=== PATIENT | male | born 1950 | race Caucasian/White ===

== ENCOUNTER 2016-09-24 15:39 | Emergency (ER) | payer MEDICAID, OTHER ==
[~2016-09-24] VITALS: Ht 185.4 cm; Wt 117.3 kg
[~2016-09-24 15:39] MED LIST: CLON0.2T PO; DIAZ5TAB PO; FENO160T14 PO; FURO40TA4 PO; HYDRALAZINE PO; LABE5DIS IVPUSH; LORA-303 PO; LOV40 SUBQ; MORP15TA PO; MS15TCR PO; NORT25CA PO; SPIR25TA PO
[2016-09-24 15:44] VITALS: BP 131/94; PULSE 114; RESP 21; O2SAT 97
--- NOTE | 2016-09-24 15:53 | ED.REPORT ---
HPI-Chest Pain 40 and Over Date of Service Sep 24, 2016 ED Provider: Cornelius Yang MD Patient is a 66 year old male who presents to the ED after being referred by urgent care complaining of SOB with exertion. He was at the podiatry clinic when he was taken to Urgent Care because he looked "crummy". Associated symptoms include tachycardia at UC with a rate of 114, chest pressure, and night sweats (onset last night). He denies fever, chest pain, diaphoresis, abdominal pain, or any other symptoms. Nursing Notes Stated Complaint: SHORTNESS OF BREATH, TACHYCARDIA/FROM URGENT CARE Chief Complaint: Dysrhythmia/Cardiac Nursing Notes Reviewed: Yes Allergies: Coded Allergies: hydrochlorothiazide (Verified Allergy, Severe, 10/30/14) prochlorperazine (Verified Allergy, Severe, PHENOTHIAZINES, 10/30/14) Losartan (Verified Allergy, Unknown, 10/30/14) benazepril (Verified Allergy, Unknown, 10/30/14) felodipine (Verified Allergy, Unknown, 10/30/14) Uncoded Allergies: "tiva brand medications" (Allergy, Intermediate, 09/18/14) Scheduled Clonidine (Clonidine) 0.2 Mg Tablet 0.2 MG PO BID Fenofibrate (Fenofibrate) 160 Mg Tablet 160 MG PO HS Furosemide (Furosemide) 40 Mg Tablet 40 MG PO DAILY Nortriptyline (Pamelor) 25 Mg Capsule 25 MG PO BID Scheduled PRN Lorazepam (Ativan) 2 Mg Tablet 2 MG PO TID PRN PRN For Anxiety Morphine Sulfate (Morphine Sulfate) 15 Mg Tablet 15-30 MG PO Q12 PRN PRN For Pain General Time Seen by MD: 15:52 Chief Complaint Shortness of breath Hx Obtained From: Patient Arrived By: Walk-in Sudden in Onset?: Yes Risk Factors )( CAD Risk Stratification Known CAD Risk factors N/A )( TAD Risk Stratification HypertensionNo Risk factors reviewed )( PE Risk Stratification No Previous DVT, No Previous PE Risk factors reviewed Past Medical History Past Medical History Notes: Recent ED visit09/30/2014 for opiate withdrawal (overused his Rx) Patient admitted 09/18- for sepsis due to dental infection Past Medical History Suicidal ideation Obesity Chronic Low back pain on chronic opiates Impaired fasting glucose without history of DM Degenerative joint disease of the lumbar spine Peripheral sensory neuropathy Erectile dysfunction Chronic Benzodiazepine dependence with chronic anxiety - followed by Dr. Mendoza [facility] History of prior cauda equina syndrome and neurogenic bladder Reports: Coronary artery disease, Hyperlipidemia, Hypertension Past Surgical History Recent dental extraction at [place] Reports: Appendectomy, Tonsillectomy Smoking History Former Smoker Social History Alcohol Use: Denies alcohol use Drug Use: Denies drug use, Other Other Social History: Ambulatory Status Independent Review of Systems Review of Systems Note: +tachycardia, night sweats Constitutional: Denies: Fever Respiratory: Reports: Dyspnea on exertion Cardiovascular: Reports: Chest pain (Pressure ) GI: Denies: Abdominal pain Skin: Denies Diaphoresis Complete sys rev & neg: except as marked. Physical Exam Initial Vital Signs Vital Signs (First) Date Time Temp Pulse Resp B/P Pulse Ox O2 Delivery O2 Flow Rate FiO2 09/24/16 15:44 36.6 114 21 131/94 97 Room Air Initial VS: Reviewed, Vital signs abnormal Head / Eyes: Atraumatic, Normocephalic Neck: Full range of motion Skin: Warm, Dry Neurologic: Alert, Oriented, Nonfocal Psychiatric: Mood/affect normal, Behavior normal, Normal thought content General/Constitutional: Awake, Alert, Well developed Respiratory / Chest: Breath sounds NL, Breath sounds = bilat, No respiratory distress Heart Rate / Rhythm: Positive: Tachycardia Abdomen: Soft, Non-tender Interpretation & Diagnostics Lab Results Interpretation Result Diagram: 09/24/16 1611 09/24/16 1611 Test 09/24/16 16:11 09/24/16 17:55 White Blood Count 12.2th/mm3 (3.8-10.1) Red Blood Count 6.12mil/mm3 (4.40-5.80) Hemoglobin 16.8g/dL (13.8-17.2) Hematocrit 48.0% (41.0-50.0) Mean Corpuscular Volume 78.4fL (81-100) Mean Corpuscular Hemoglobin 27.5pg (27.0-35.0) Mean Corpuscular Hemoglobin Concent 35.0% (32.0-37.0) Red Cell Distribution Width 14.7% (12.3-15.4) Platelet Count 362bil/L (150-400) Neutrophils (%) (Auto) 72.8% (40-74) Lymphocytes (%) (Auto) 15.8% (14-46) Monocytes (%) (Auto) 9.5% (4-12) Eosinophils (%) (Auto) 1.1% (0-5) Basophils (%) (Auto) 0.5% (0-3) D-Dimer 0.68mg/L FEU (<0.50) Sodium Level 136mEq/L (134-144) Potassium Level 4.3mEq/L (3.5-5.2) Chloride Level 98mEq/L (97-108) Carbon Dioxide Level 20mmol/L (18-29) Blood Urea Nitrogen 22mg/dL (8-27) Creatinine 1.13mg/dL (0.76-1.27) Estimat Glomerular Filtration Rate 69mL/min (>59) Glucose Level 170mg/dL (60-99) Calcium Level 10.5mg/dL (8.5-10.1) Magnesium Level 2.0mg/dL (1.6-2.6) Total Bilirubin 0.6mg/dL (0.0-1.2) Aspartate Amino Transf (AST/SGOT) 27U/L (0-50) Alanine Aminotransferase (ALT/SGPT) 33U/L (0-44) Alkaline Phosphatase 55U/L (25-160) Troponin T < 0.010ug/L (0.0-0.011) Pro-B-Type Natriuretic Peptide 58.25pg/mL (0-210) Total Protein 8.1g/dL (6.4-8.4) Albumin 4.8g/dL (3.4-5.0) Hold Apple Top Tube Received (Received) Urine Color Yellow (YELLOW) Urine Appearance Hazy (CLEAR,HAZY) Urine pH 6.0 (5.0-8.0) Urine Specific [place] 1.015 (1.003-1.035) Urine Protein Negativemg/dL (NEG,TRACE) Urine Glucose (UA) 250mg/dL (NEGATIVE) Urine Ketones Negativemg/dL (NEGATIVE) Urine Occult Blood Negative (NEGATIVE) Urine Nitrite Negative (NEGATIVE) Urine Bilirubin Negative (NEGATIVE) Urine Urobilinogen Normalmg/dL (NORMAL) Urine Leukocyte Esterase Negative (NEGATIVE) Urine RBC 0-2/hpf (0-2) Urine WBC 0-5/hpf (0-5) Urine Epithelial Cells Occasional/hpf (NONE-MOD) Urine Crystals None seen (NONE SEEN) Urine Bacteria Few/hpf (NONE-FEW) Urine Hyaline Casts Occasional/lpf (NONE) Urine Granular Casts None seen (NONE SEEN) Urine Waxy Casts None seen (NONE SEEN) Urine Red Blood Cell Casts None seen (NONE SEEN) Urine White Blood Cell Casts None seen (NONE SEEN) Urine Mucus Present (None Seen) Urine Trichomonas None seen (NONE SEEN) Urine Yeast None (NONE SEEN) Urinalysis Comment None Urine Culture Reflexed Not indicated Hold Urine Received (Received) ECG Interpretation ECG Interpretation: Sinus tachycardia rate 108 No acute findings Time: 16:05 Interpreted by: ED physician X-Ray Chest Interpretation Chest Xray Interpretation: IMPRESSION: Negative chest. No acute cardiopulmonary process is evident. Dictated by: Jaylon Rodarte M.D. on 09/24/2016 at 15:34 Approved by: Jaylon Rodarte M.D. on 09/24/2016 at 15:36 View: Portable, 1 view Interpretation / Wet Read by: Interpret - Radiologist Re-Eval/Medical Decision Med Decision/Clinical Course Mild sinus tachycardia in a patient with anxiety and nonspecific symptoms of malaise. Exam labs and imaging are otherwise reassuring. A minimally elevated d-dimer is noted, this is felt to be essentially normal with discussed with the patient given his lack of respiratory symptoms or pleuritic-type chest pain I elected not to do a CT angiogram, the patient was involved in this decision and agrees. At this point we will reassure observed home, recommended he follow up with primary care soon. Time of Eval: 19:58 Re-Evaluation/Progress Note: Rechecked patient. He says he "doesn't know" how he feels and describes being fatigued and discouraged due to his medical problems. He would like to go home. Discussed plan for discharge. Patient understands and agrees with plan. All questions addressed at this time. Counseled Regarding: Diagnosis, Lab results, Need for follow-up, When/why to return to ED Discharge & Departure Primary Impression: Sinus tachycardia Disposition: Home Discharge Condition All VS Reviewed: Yes Condition: Improved Additional Instructions: Thank you for entrusting us with your care. Your evaluation in the emergency Department today included interview, examination labs chest x-ray and ECG. Our only finding is of a mild increase in heart rate with a normal rhythm. (Sinus tachycardia). We did not find a dangerous cause for your symptoms today. Follow up with your primary doctor in the next week. Return to the emergency department if your symptoms return or if you experience new or worsening symptoms. Continue your previous home medications. Referrals: Elham Mendoza MD (PCP) Scribe Attestation Portions of this note were transcribed by Eyal Huertas. I, Dr. Yang personally performed the history, physical exam and medical decision-making; I reviewed and confirmed the accuracy of the information in the transcribed note. Signed by: Eyal Huertas 09/24/20162012 copies to: Elham Mendoza MD, Donald L MD Sep 24, 2016 15:53 EYAL HUERTAS Sep 24, 2016 17:31
[2016-09-24 16:23] LABS: BASOPHILS % (AUTO) 0.5 % (0-3); Mean Corpuscular Volume 78.4 fL (81-100)
[2016-09-24 16:27] LABS: EOSINOPHILS % (AUTO) 1.1 % (0-5); MONOCYTES % (AUTO) 9.5 % (4-12); Mean Corpuscular Hemoglobin 27.5 pg (27.0-35.0); NEUTROPHILS % (AUTO) 72.8 % (40-74); Platelet Count 362 bil/L (150-400)
--- NOTE | 2016-09-24 16:37 | DRSVH ---
PROCEDURE: X-RAY CHEST ONE VIEW, PORTABLE ([id number]) INDICATIONS: chest pain TECHNIQUE: One view of the chest was acquired. COMPARISON: [facility], , CHEST 1VW (PORTABLE), 09/18/2014, 12:56. FINDINGS: Surgical changes and devices: None. Lungs and pleura: No focal consolidation, effusion, or pneumothorax is evident. A calcified granulom a within the lateral mid left lung is noted. There is mild elevation of the right diaphragm. Mediastinum: Mediastinal contours appear normal. Heart size is normal. Bones and chest wall: No suspicious bony lesions. Overlying soft tissues appear unremarkable. IMPRESSION: Negative chest. No acute cardiopulmonary process is evident. Dictated by: Jaylon Rodarte M.D. on 09/24/2016 at 15:34 Approved by: Jaylon Rodarte M.D. on 09/24/2016 at 15:36
[2016-09-24] MEDS ORDERED: LORA-305 PO (16:44)
[2016-09-24 16:55] LABS: TROPONIN T < 0.010 ug/L (0.0-0.011)
[2016-09-24 17:30] VITALS: BP 141/86; PULSE 102; RESP 18; O2SAT 93
[2016-09-24 18:50] LABS: APPEARANCE,URINE HAZY (CLEAR,HAZY); COLOR,URINE YELLOW (YELLOW); OCCULT BLOOD,URINE NEGATIVE (NEGATIVE); UROBILINOGEN,URINE NORMAL (NORMAL)
[2016-09-24 18:53] VITALS: BP 143/84; PULSE 101; RESP 13; O2SAT 96
[2016-09-24 20:18] VITALS: BP 154/86; PULSE 100; RESP 17; O2SAT 95
== END 2016-09-24 20:19 | disposition home or self-care (01) ==
LOC: SED 15:39
DX: R00.0 Tachycardia, unspecified (principal); G89.29 Other chronic pain; I25.10 Atherosclerotic heart disease of native coronary artery without angina pectoris; E78.5 Hyperlipidemia, unspecified; I10 Essential (primary) hypertension; Z87.891 Personal history of nicotine dependence; Z88.8 Allergy status to other drugs, medicaments and biological substances

== ENCOUNTER 2016-10-24 17:03 | Emergency (ER) | payer OTHER ==
[~2016-10-24] VITALS: Ht 182.9 cm; Wt 113.0 kg
[~2016-10-24 17:03] MED LIST changes: -DIAZ5TAB PO; -HYDRALAZINE PO; -LABE5DIS IVPUSH; -LORA-303 PO; +LORA-305 PO; -LOV40 SUBQ; -MS15TCR PO; -SPIR25TA PO
[2016-10-24 17:14] VITALS: BP 133/95; PULSE 121; RESP 18; O2SAT 96
--- NOTE | 2016-10-24 17:35 | ED.REPORT ---
HPI-Psychiatric Illness Date of Service October 24, 2016 ED Provider: Kailash Smith MD 66 y/o male with a hx of anxiety, Benzodiazepine addiction and manic depression presents to the ED complaining of panic attack, onset today. The pt reports severe anxiety for 3 weeks. He states he is having panic attacks "because he is addicted to the medications" but denies running out of medications. Associated sx include incontinence, vision change and "fear of having a heart attack and losing control of feelings". The pt states after he tried to get off the medication, "things got worse" and was told "it was a short while before I because my artificial inducement of the hormone was destroying my endocrine system." The pt takes 6-8 mg of Lorazepam and 10mg of Diazepam every day. The pt reports his PCP told him he'd be less delirious if he took Diazepam. Nursing Notes Stated Complaint: MENTAL HEALTH COMPLAINT Chief Complaint: Psychiatric Complaint Nursing Notes Reviewed: Yes ([employer] not reconciled) Allergies: Coded Allergies: hydrochlorothiazide (Verified Allergy, Severe, 10/30/14) prochlorperazine (Verified Allergy, Severe, PHENOTHIAZINES, 10/30/14) Losartan (Verified Allergy, Unknown, 10/30/14) benazepril (Verified Allergy, Unknown, 10/30/14) felodipine (Verified Allergy, Unknown, 10/30/14) Uncoded Allergies: "tiva brand medications" (Allergy, Intermediate, 09/18/14) Scheduled Clonidine (Clonidine) 0.2 Mg Tablet 0.2 MG PO BID Fenofibrate (Fenofibrate) 160 Mg Tablet 160 MG PO HS Furosemide (Furosemide) 40 Mg Tablet 40 MG PO DAILY Nortriptyline (Pamelor) 25 Mg Capsule 25 MG PO BID Scheduled PRN Lorazepam (Ativan) 2 Mg Tablet 2 MG PO TID PRN PRN For Anxiety Morphine Sulfate (Morphine Sulfate) 15 Mg Tablet 15-30 MG PO Q12 PRN PRN For Pain General Time Seen by MD: 17:27 Chief Complaint Anxious Hx Obtained From: Patient Arrived By: Walk-in Onset Occurred: 1 - 4 hours ago Symptom Duration: Since onset Severity: Current: No pain currently Severity: Maximum: No pain Recent Healthcare: Recent doctor visit Similar Sx Previous: Yes Risk-Psychiatric Illness Suicide Risk Stratification Suicide Risk Factors - Adult: : Substance abuse RF Statements: Risk factors reviewed Past Medical History Past Medical History Notes: Admitted October 2014 for right perimandibular abscess with cellulitis ED visit 09/30/2014 for opiate withdrawal (overused his Rx) Patient admitted 09/18- for sepsis due to dental infection Past Medical History Suicidal ideation Obesity Chronic Low back pain on chronic opiates Impaired fasting glucose without history of DM Degenerative joint disease of the lumbar spine Peripheral sensory neuropathy Erectile dysfunction Chronic Benzodiazepine dependence with chronic anxiety - followed by Dr. Mendoza [facility] History of prior cauda equina syndrome and neurogenic bladder Reports: Coronary artery disease, Hyperlipidemia, Hypertension Past Surgical History Recent dental extraction at [place] Reports: Appendectomy, Tonsillectomy Smoking History Former Smoker Social History Alcohol Use: Denies alcohol use Drug Use: Denies drug use, Other Other Social History: Ambulatory Status Independent Review of Systems Psychiatric: Reports: Anxiety Complete sys rev & neg: except as marked. Physical Exam Initial Vital Signs Vital Signs (First) Date Time Temp Pulse Resp B/P Pulse Ox O2 Delivery O2 Flow Rate FiO2 10/24/16 17:14 36.1 121 18 133/95 96 Room Air Initial VS: Reviewed, Vital signs abnormal Head / Eyes: Atraumatic, Normocephalic Neck: Supple, Full range of motion Respiratory: Breath sounds normal, No respiratory distress Cardiovascular: Regular rate & rhythm, Heart sounds normal Abdomen / GI: Soft, Non-tender Extremities: Vascular intact, Neuro intact, No swelling, No tenderness Skin: Warm, Dry, No cyanosis General/Constitutional: Awake, No acute distress Behavior: Positive: Anxious The pt is calm and has his eyes closed as he talks. He is a wandering historian and doesn't give a proper answer despite direct questions. Huge descriptions to justify Benzo addiction. Neurologic: Oriented X3, Speech NL, No motor deficits, No sensory deficits Psychiatric: Not suicidal, Not homicidal Abnormal Mood/Affect: Positive: Anxious Interpretation & Diagnostics Lab Results Interpretation Result Diagram: 10/24/16 1800 10/24/16 1800 Test 10/24/16 18:00 White Blood Count 6.1th/mm3 (3.8-10.1) Red Blood Count 5.72mil/mm3 (4.40-5.80) Hemoglobin 15.9g/dL (13.8-17.2) Hematocrit 43.7% (41.0-50.0) Mean Corpuscular Volume 76.4fL (81-100) Mean Corpuscular Hemoglobin 27.8pg (27.0-35.0) Mean Corpuscular Hemoglobin Concent 36.4% (32.0-37.0) Red Cell Distribution Width 14.7% (12.3-15.4) Platelet Count 278bil/L (150-400) Neutrophils (%) (Auto) 69.9% (40-74) Lymphocytes (%) (Auto) 18.9% (14-46) Monocytes (%) (Auto) 8.6% (4-12) Eosinophils (%) (Auto) 2.1% (0-5) Basophils (%) (Auto) 0.3% (0-3) Sodium Level 140mEq/L (134-144) Potassium Level 3.9mEq/L (3.5-5.2) Chloride Level 101mEq/L (97-108) Carbon Dioxide Level 19mmol/L (18-29) Blood Urea Nitrogen 13mg/dL (8-27) Creatinine 1.22mg/dL (0.76-1.27) Estimat Glomerular Filtration Rate 64mL/min (>59) Glucose Level 170mg/dL (60-99) Calcium Level 9.2mg/dL (8.5-10.1) Total Bilirubin 0.7mg/dL (0.0-1.2) Aspartate Amino Transf (AST/SGOT) 37U/L (0-50) Alanine Aminotransferase (ALT/SGPT) 45U/L (0-44) Alkaline Phosphatase 44U/L (25-160) Total Protein 7.8g/dL (6.4-8.4) Albumin 4.4g/dL (3.4-5.0) Thyroid Stimulating Hormone (TSH) 1.300uIU/mL (0.450-4.500) Hold Apple Top Tube Received (Received) Lab Results Interpretation: CBC normal CP normal Patient refused to give a urine sample Re-Eval/Medical Decision Med Decision/Clinical Course This is a 66-year-old male who was a very difficult, wandering historian. The patient talked at length how is on chronic benzodiazepines, house doctors have indicated he must be on these benzodiazepines or he will , and that if he does not get benzodiazepines he is "endocrine system shots down". 6 mg of lorazepam daily plus diazepam in the evening. He talks about is been on these medicines for 39 years. He also talks about how he does not need any refills. He talks about having an "anxiety attack" the brought him to the emergency department. The nurse's note mentions suicidal ideation, but he denies this to me. He had a very difficult time him pinning him down as to exactly what brought into the emergency department and Y. After an extensive period of time it turns out the patient has gone through his diazepam at a higher rate than normal, and is looking for refill of diazepam. On further research it turns out he is are not being given a prescription by his PCP for some diazepam to get him through this holiday weekend so they can sort out what is going on next week. Here anxious. He is not clinically sedated either. He demonstrates no signs of toxicity, and denies any suicidal ideation. Initial laboratories were normal. I have indicated that I am not comfortable providing additional benzodiazepines in this patient already has high risk presentation, appears to be misusing his current dose of benzodiazepiness, and already has a prescription for the holiday weekend to cover his missing doses. The patient expressed his displeasure, but is discharged in stable condition. He is instructed he can go to the pharmacy and fill the prescription he has already been given for the diazepam. Please see the [facility] evaluation as well. Source of Hx: Old records Re-Evaluation/Progress #1: Time of Eval: 19:25 Re-Evaluation/Progress Note: As per the social service assistant, the pt is out of Valium and wants a prescription. As per the pharmacist, the pt has a valium precription ready to be picked up at [facility]. Re-Evaluation/Progress #2: Time of Eval: 19:28 Re-Evaluation/Progress Note: Rechecked pt. Discussed lab results and diagnosis. Informed the pt of the plan to discharge. Pt understands and agrees with plan. F/U instructions and RTER warning given. All questions addressed. Differential Diagnosis: Positive: Noncompliance-medications, Substance abuse, Negative: Bipolar disorder Counseled Regarding: Diagnosis, Lab results, Need for follow-up, When/why to return to ED Discharge & Departure Impression: Primary Impression: Anxiety Additional Impression: Substance abuse Disposition: Home Discharge Condition All VS Reviewed: Yes Additional Instructions: 1. It is not appropriate for us to provide additional benzodiazepines in this setting. 2. He is critically important that year prescriptions, only from your prescriber-medically given your unusually high doses and combination. 3. You have gone through your previous allotment of diazepam in advance of your refill - Dr. Mendoza has already prescribed you a course to get she threw this holiday weekend. You need to fill that prescription, and follow-up with her for further management. Referrals: Elham Mendoza MD (PCP) Scribe Attestation Portions of this note were transcribed by Foster Bertrand. I, , personally performed the history, physical exam and medical decision-making;I reviewed and confirmed the accuracy of the information in the transcribed note. Signed by Ravindra Olivia. 10/24/162012 copies to: Elham Mendoza MD, Matthew F MD October 24, 2016 17:35 Foster Bertrand October 24, 2016 18:32
[2016-10-24 18:26] LABS: BASOPHILS % (AUTO) 0.3 % (0-3); EOSINOPHILS % (AUTO) 2.1 % (0-5); MONOCYTES % (AUTO) 8.6 % (4-12); Mean Corpuscular Hemoglobin 27.8 pg (27.0-35.0); Mean Corpuscular Volume 76.4 fL (81-100); NEUTROPHILS % (AUTO) 69.9 % (40-74); Platelet Count 278 bil/L (150-400)
== END 2016-10-24 19:50 | disposition home or self-care (01) ==
LOC: SED 17:03
DX: F41.9 Anxiety disorder, unspecified (principal); F19.10 Other psychoactive substance abuse, uncomplicated; I10 Essential (primary) hypertension; I25.10 Atherosclerotic heart disease of native coronary artery without angina pectoris; E78.5 Hyperlipidemia, unspecified; G89.29 Other chronic pain; Z87.891 Personal history of nicotine dependence; Z88.8 Allergy status to other drugs, medicaments and biological substances

== ENCOUNTER 2016-11-06 12:31 | Emergency (ER) | payer OTHER ==
[~2016-11-06] VITALS: Ht 182.9 cm; Wt 90.1 kg
[2016-11-06 12:36] VITALS: BP 153/95; PULSE 114; RESP 15; O2SAT 97
--- NOTE | 2016-11-06 13:23 | ED.REPORT ---
HPI-Psychiatric Illness Date of Service Nov 06, 2016 ED Provider: Manjit Layne PA-C Jimenez is a 66-year-old male with a history of anxiety presenting with a chief complaint of increased anxiety and suicidal ideation. Patient feels overwhelmed "like I cannot deal with life." Patient states that he is afraid of what might happen if he does not get help. Admits to thoughts of harming himself. He reports a long history of benzodiazepine use and had a steady level for the last 11 years. Reports increasing anxiety and panic attacks over the last month, as well as increase in medication which he no longer finds helpful. He reports he is taking medications as prescribed. He states he is disabled and lives by himself. Admits to a history of mental health hospitalizations for anxiety. Denies previous suicide attempts, suicides by friends/family, use of alcohol/drugs, access to firearms. Patient wishes to be hospitalized. Nursing Notes Stated Complaint: MENTAL HEALTH Chief Complaint: Psychiatric Complaint Nursing Notes Reviewed: Yes Allergies: Coded Allergies: hydrochlorothiazide (Verified Allergy, Severe, 11/06/16) prochlorperazine (Verified Allergy, Severe, PHENOTHIAZINES, 11/06/16) benazepril (Verified Allergy, Unknown, 11/06/16) felodipine (Verified Allergy, Unknown, 11/06/16) losartan (Verified Allergy, Unknown, 10/30/14) Uncoded Allergies: "tiva brand medications" (Allergy, Intermediate, 09/18/14) Scheduled Amlodipine (Amlodipine) 10 Mg Tablet 10 MG PO DAILY Aspirin (Aspirin) 81 Mg Tablet 81 MG PO DAILY Clonidine (Clonidine) 0.2 Mg Tablet 0.2 MG PO BID Fenofibrate (Fenofibrate) 160 Mg Tablet 160 MG PO HS Furosemide (Furosemide) 40 Mg Tablet 40 MG PO BID Lorazepam (Ativan) 2 Mg Tablet 2 MG PO QID Metformin (Metformin) 500 Mg Tablet 500 MG PO TID Metoprolol Tartrate (Metoprolol Tartrate) 50 Mg Tablet 50 MG PO BID Nortriptyline (Pamelor) 25 Mg Capsule 25 MG PO BID Telmisartan (Telmisartan) 80 Mg Tablet 80 MG PO DAILY Trazodone (Trazodone) 150 Mg Tablet 1.5 TABLET PO HS Scheduled PRN Diazepam (Diazepam) 10 Mg Tablet 10 MG PO DAILY PRN PRN For Anxiety Morphine Sulfate (Morphine Sulfate) 15 Mg Tablet 15-30 MG PO Q12 PRN PRN For Pain Naproxen (Naproxen) 500 Mg Tab 500 MG PO BID PRN PRN For Pain General Time Seen by MD: 12:50 Chief Complaint Anxious Risk-Psychiatric Illness Suicide Risk Stratification Suicide Risk Factors - Adult: : Prior psych admissionNo: Access to firearms, Alcohol use, Close associate suicide, Family Hx of Suicide, Previous attempt, Substance abuse RF Statements: Risk factors reviewed Past Medical History Past Medical History Notes: Admitted October 2014 for right perimandibular abscess with cellulitis ED visit 09/30/2014 for opiate withdrawal (overused his Rx) Patient admitted 09/18- for sepsis due to dental infection Past Medical History Suicidal ideation Obesity Chronic Low back pain on chronic opiates Impaired fasting glucose without history of DM Degenerative joint disease of the lumbar spine Peripheral sensory neuropathy Erectile dysfunction Chronic Benzodiazepine dependence with chronic anxiety - followed by Dr. Mendoza [facility] History of prior cauda equina syndrome and neurogenic bladder Reports: Coronary artery disease, Hyperlipidemia, Hypertension Past Surgical History Recent dental extraction at [facility] Reports: Appendectomy, Tonsillectomy Smoking History Former Smoker Social History Alcohol Use: Denies alcohol use Drug Use: Denies drug use, Other Other Social History: Ambulatory Status Independent Review of Systems General: Denies fever, chills, malaise. HEENT: Denies congestion, headache, sore throat. Respiratory: Denies dyspnea, cough, shortness of breath, wheezing. Cardiovascular: Denies chest pain, palpitations. Gastrointestinal: Admits abdominal pain. Denies vomiting, diarrhea Genitourinary: Denies frequency, urgency, dysuria, hematuria. Otherwise as noted in HPI. Physical Exam General: Well appearing, well developed, well nourished, mild to moderate distress. Head: Atraumatic, normocephalic. Eyes: No scleral icterus or injection. No discharge. Vision grossly intact. ENT: Voice clear, hearing grossly intact. Respiratory: Regular rate and rhythm. Breath sounds present, clear to auscultation and equal bilaterally. No respiratory distress. No increased work of breathing, speaks in complete sentences. Cardiovascular: Regular rate and rhythm, without murmur, gallop or rub. No pedal edema. Gastrointestinal: Abdomen flat and non-tender to my palpation without guarding or rebound. Moderately tender to deep palpation left lower quadrant, which the patient states is at baseline. Bowel sounds hypoactive. Skin: Warm and dry. Neurological: Grossly nonfocal. Psychological: Alert and oriented. Speech appropriate, linear and logical. Tearful and anxious. Initial Vital Signs Vital Signs (First) Date Time Temp Pulse Resp B/P Pulse Ox O2 Delivery O2 Flow Rate FiO2 11/06/16 12:36 36.4 114 15 153/95 97 Room Air Initial VS: Vital signs abnormal (tachycardia) Interpretation & Diagnostics Lab Results Interpretation Result Diagram: 11/06/16 1335 11/06/16 1335 Test 11/06/16 13:35 11/06/16 15:46 White Blood Count 8.9th/mm3 (3.8-10.1) Red Blood Count 5.71mil/mm3 (4.40-5.80) Hemoglobin 16.3g/dL (13.8-17.2) Hematocrit 45.3% (41.0-50.0) Mean Corpuscular Volume 79.3fL (81-100) Mean Corpuscular Hemoglobin 28.5pg (27.0-35.0) Mean Corpuscular Hemoglobin Concent 36.0% (32.0-37.0) Red Cell Distribution Width 14.3% (12.3-15.4) Platelet Count 291bil/L (150-400) Neutrophils (%) (Auto) 73.8% (40-74) Lymphocytes (%) (Auto) 15.2% (14-46) Monocytes (%) (Auto) 8.7% (4-12) Eosinophils (%) (Auto) 1.8% (0-5) Basophils (%) (Auto) 0.3% (0-3) Sodium Level 133mEq/L (134-144) Potassium Level 4.2mEq/L (3.5-5.2) Chloride Level 95mEq/L (97-108) Carbon Dioxide Level 22mmol/L (18-29) Blood Urea Nitrogen 19mg/dL (8-27) Creatinine 1.09mg/dL (0.76-1.27) Estimat Glomerular Filtration Rate 72mL/min (>59) Glucose Level 231mg/dL (60-99) Calcium Level 9.7mg/dL (8.5-10.1) Total Bilirubin 0.6mg/dL (0.0-1.2) Aspartate Amino Transf (AST/SGOT) 22U/L (0-50) Alanine Aminotransferase (ALT/SGPT) 31U/L (0-44) Alkaline Phosphatase 59U/L (25-160) Total Protein 7.5g/dL (6.4-8.4) Albumin 4.4g/dL (3.4-5.0) Thyroid Stimulating Hormone (TSH) 1.160uIU/mL (0.450-4.500) Hold Apple Top Tube Received (Received) Hold Urine Received (Received) Re-Eval/Medical Decision Med Decision/Clinical Course 66-year-old male presenting with chief complaint of anxiety and suicidal ideation. Vision records increasing anxiety over the last month, his primary care provider is unwilling to increase his benzodiazepine dosage. He is very concerned he will not be able to cope without this. Admits vague suicidal ideation consisting of thoughts of taking too many pills. Patient wishes to be admitted. Physical examination reveals no medical instability. Seen and assessed by TEMI Dao. There are no mental health beds available in this hospital, and in the patient does not believe he can tolerate a splenic crisis respite. Patient indicates that in contract for safety and return home in the company of a friend with outpatient follow-up tomorrow. This is facilitated by Ms. Santa, who made arrangements for him to be seen at [facility] At this point we believe the patient is safe to be discharged home. Advised regarding mental health follow-up, provided emergency return precautions. Patient verbalized understanding of, and consent to, the plan. Re-Evaluation/Progress : Time of Eval: 15:56 Re-Evaluation/Progress Note: Dispensed afternoon medications Discharge & Departure Impression: Primary Impression: Anxiety Additional Impression: Suicidal ideation )( Condition at Discharge: No danger to self, No danger to others Disposition: Home Discharge Condition All VS Reviewed: Yes Condition: Stable Patient Instructions: Anxiety (ED) Additional Instructions: Evaluation for suicidal ideation and anxiety in the emergency department includes history, physical examination and blood tests. There is no indication of a medical problem. You have had a good discussion with our director social and assured her that you do not intend to harm yourself and that you can call 911 if this changes. Follow-up with [facility] tomorrow as has been arranged. Return to emergency department for any new or worsening symptoms including impulsive act on thoughts of harming yourself or others. Referrals: Elham Mendoza MD (PCP) EDSupervising Provider for APC: Brandon Tong DO copies to: Elham Mendoza MD, Seth PA-C Nov 06, 2016 13:23
[2016-11-06 13:47] LABS: BASOPHILS % (AUTO) 0.3 % (0-3); EOSINOPHILS % (AUTO) 1.8 % (0-5); MONOCYTES % (AUTO) 8.7 % (4-12); Mean Corpuscular Hemoglobin 28.5 pg (27.0-35.0); Mean Corpuscular Volume 79.3 fL (81-100); NEUTROPHILS % (AUTO) 73.8 % (40-74); Platelet Count 291 bil/L (150-400)
[2016-11-06] MEDS ORDERED: TELM80TA5 PO (15:14)
[2016-11-06] MEDS ORDERED: METO50TA3 PO (15:14)
[2016-11-06] MEDS ORDERED: ASPI-973 PO (15:14)
[2016-11-06] MEDS ORDERED: METF500T4 PO (15:14)
[2016-11-06] MEDS ORDERED: NPR500T PO (15:14)
[2016-11-06] MEDS ORDERED: TRAZ150T72 PO (15:14)
[2016-11-06] MEDS ORDERED: AMLO10TA3 PO (15:14)
[2016-11-06] MEDS ORDERED: DIAZ10TA3 PO (15:14)
[2016-11-06] MEDS ORDERED: LORazepam 2 mg Tablet PO ONE (15:55)
[2016-11-06 18:30] VITALS: BP 139/86; PULSE 95; RESP 20; O2SAT 96
[2016-11-07] MEDS ORDERED: TEST200V20 IM (20:51)
[2016-11-07] MEDS ORDERED: Zolpidem 5 mg Tablet for FEMALE or >65YO PO PRN (21:25)
[2016-11-07] MEDS ORDERED: Magnesium Hydroxide 10 mL Oral Concentration PO PRN (21:25)
[2016-11-07] MEDS ORDERED: Benzocaine-Menthol Lozenge 2/Pkg PO PRN (21:25)
[2016-11-07] MEDS ORDERED: Alum-Mag Hydrox-Simeth 30 mL Suspension PO PRN (21:25)
[2016-11-08] MEDS ORDERED: cloNIDine 0.1 mg Tablet PO SCH (08:30)
[2016-11-08] MEDS ORDERED: LORazepam 1 mg Tablet PO SCH (08:30)
== END 2016-11-06 20:00 | disposition home or self-care (01) ==
LOC: SED 12:31
DX: F41.9 Anxiety disorder, unspecified (principal); R45.851 Suicidal ideations; I10 Essential (primary) hypertension; I25.10 Atherosclerotic heart disease of native coronary artery without angina pectoris; E78.5 Hyperlipidemia, unspecified; Z87.891 Personal history of nicotine dependence; Z79.82 Long term (current) use of aspirin; Z79.84 Long term (current) use of oral hypoglycemic drugs; Z79.899 Other long term (current) drug therapy; Z88.8 Allergy status to other drugs, medicaments and biological substances

== ENCOUNTER 2016-11-07 13:44 | Inpatient (IN) | payer MEDICAID, OTHER ==
[~2016-11-07] VITALS: Ht 182.9 cm; Wt 88.0 kg
[~2016-11-07 13:44] MED LIST changes: +AMLO10TA3 PO; +ASPI-973 PO; +DIAZ10TA3 PO; +METF500T4 PO; +METO50TA3 PO; +NPR500T PO; +TELM80TA5 PO; +TRAZ150T72 PO
[2016-11-07 13:58] VITALS: BP 145/99; PULSE 96; RESP 18; O2SAT 97
[2016-11-07] MEDS ORDERED: LORazepam 2 mg Tablet PO ONE (14:35)
--- NOTE | 2016-11-07 15:01 | DRSVH ---
PROCEDURE: X-RAY CHEST ONE VIEW, PORTABLE ([id number]) INDICATIONS: chest pain TECHNIQUE: One view of the chest was acquired. COMPARISON: None. FINDINGS: Surgical changes and devices: None. Lungs and pleura: No pleural effusions or pneumothorax. Lungs are clear. Mediastinum: Mediastinal contours appear normal. Heart size is normal. Bones and chest wall: No suspicious bony lesions. Overlying soft tissues appear unremarkable. IMPRESSION: Source of chest pain is not found. Dictated by: Mariusz Wilder M.D. on 11/07/2016 at 14:59 Approved by: Mariusz Wilder M.D. on 11/07/2016 at 15:00
[2016-11-07 15:31] LABS: BASOPHILS % (AUTO) 0.2 % (0-3); EOSINOPHILS % (AUTO) 1.4 % (0-5); MONOCYTES % (AUTO) 8.3 % (4-12); Mean Corpuscular Hemoglobin 27.9 pg (27.0-35.0); Mean Corpuscular Volume 79.3 fL (81-100); NEUTROPHILS % (AUTO) 73.7 % (40-74); Platelet Count 268 bil/L (150-400)
[2016-11-07 15:45] LABS: INR 1.05 ratio
--- NOTE | 2016-11-07 15:45 | ED.REPORT ---
HPI-Psychiatric Illness Date of Service Nov 07, 2016 ED Provider: Manjit Layne PA-C Baljit is a 66-year-old male with a history of anxiety presenting with a chief complaint panic attack, suicidal ideation. Seen in this department yesterday for similar complaints, discharged home with plan for follow-up with [facility]. Patient states he was unable to make his [facility] appointment. Patient reports a long history of taking benzodiazepines for anxiety. He reports being stable on his dosage for 11 years but in the last month feeling as though he needs an increase in dosage. His primary care provider has not been willing to provide this. Patient states that he is "scared that it will be able to carry on like this." He states "I feel like I am coming apart" "I feel like my heart might stop." Patient states he is afraid he will hurt himself. He reports taking his medications diligently as prescribed. Admits history of mental health hospitalizations for anxiety. Denies previous suicide attempt, suicide by friends/family, use of alcohol/drugs, access to firearms. Patient wishes to be hospitalized Nursing Notes Stated Complaint: MENTAL HEALTH EVAL Chief Complaint: Psychiatric Complaint Nursing Notes Reviewed: Yes Allergies: Coded Allergies: hydrochlorothiazide (Verified Allergy, Severe, 11/07/16) prochlorperazine (Verified Allergy, Severe, PHENOTHIAZINES, 11/07/16) benazepril (Verified Allergy, Unknown, 11/07/16) felodipine (Verified Allergy, Unknown, 11/07/16) losartan (Verified Allergy, Unknown, 11/07/16) Uncoded Allergies: "tiva brand medications" (Allergy, Intermediate, 09/18/14) Scheduled Amlodipine (Amlodipine) 10 Mg Tablet 10 MG PO DAILY Aspirin (Aspirin) 81 Mg Tablet 81 MG PO DAILY Clonidine (Clonidine) 0.2 Mg Tablet 0.2 MG PO BID Diazepam (Diazepam) 10 Mg Tablet 10 MG PO DAILYWL Fenofibrate (Fenofibrate) 160 Mg Tablet 160 MG PO HS Furosemide (Furosemide) 40 Mg Tablet 40 MG PO BIDBL Lorazepam (Ativan) 2 Mg Tablet 2 MG PO QID Metformin (Metformin) 500 Mg Tablet 500 MG PO TID Metoprolol Tartrate (Metoprolol Tartrate) 50 Mg Tablet 50 MG PO BID Nortriptyline (Pamelor) 25 Mg Capsule 25 MG PO BID Telmisartan (Telmisartan) 80 Mg Tablet 80 MG PO DAILYWL Testosterone Cypionate (Testosterone Cypionate) 200 Mg/1 Ml Vial 200 MG IM every 21 days Trazodone (Trazodone) 150 Mg Tablet 1.5 TABLET PO HS Scheduled PRN Morphine Sulfate (Morphine Sulfate) 15 Mg Tablet 15 MG PO BID PRN PRN BACK PAIN Naproxen (Naproxen) 500 Mg Tab 500 MG PO BID PRN PRN BACK PAIN General Time Seen by MD: 14:07 Chief Complaint Anxious Risk-Psychiatric Illness Suicide Risk Stratification Suicide Risk Factors - Adult: : Prior psych admissionNo: Access to firearms, Alcohol use, Close associate suicide, Family Hx of Suicide, Previous attempt, Substance abuse RF Statements: Risk factors reviewed Past Medical History Past Medical History Notes: Admitted October 2014 for right perimandibular abscess with cellulitis ED visit 09/30/2014 for opiate withdrawal (overused his Rx) Patient admitted 09/18- for sepsis due to dental infection Past Medical History Suicidal ideation Obesity Chronic Low back pain on chronic opiates Impaired fasting glucose without history of DM Degenerative joint disease of the lumbar spine Peripheral sensory neuropathy Erectile dysfunction Chronic Benzodiazepine dependence with chronic anxiety - followed by Dr. Mendoza [facility] History of prior cauda equina syndrome and neurogenic bladder Reports: Coronary artery disease, Hyperlipidemia, Hypertension Past Surgical History Recent dental extraction at [place] Reports: Appendectomy, Tonsillectomy Smoking History Former Smoker Social History Alcohol Use: Denies alcohol use Drug Use: Denies drug use, Other Other Social History: Ambulatory Status Independent Review of Systems General: Denies fever, chills, malaise. HEENT: Denies congestion, headache, sore throat. Respiratory: Denies dyspnea, cough, shortness of breath, wheezing. Cardiovascular: Denies chest pain, palpitations. Gastrointestinal: Admits abdominal pain. Denies vomiting, diarrhea. Otherwise as noted in HPI. Physical Exam General: Well appearing, well developed, well nourished, moderate distress. Head: Atraumatic, normocephalic. Eyes: No scleral icterus or injection. No discharge. Vision grossly intact. ENT: Voice clear, hearing grossly intact. Respiratory: Regular rate and rhythm. Breath sounds present, clear to auscultation and equal bilaterally. No respiratory distress. No increased work of breathing, speaks in complete sentences. Cardiovascular: Regular rate and rhythm, without murmur, gallop or rub. No pedal edema. Gastrointestinal: Abdomen flat and non-tender without guarding or rebound. Bowel sounds normoactive. Skin: Warm and dry. Neurological: Grossly nonfocal. Psychological: Alert and oriented. Speech appropriate, linear and logical. Anxious and tearful. Initial Vital Signs Vital Signs (First) Date Time Temp Pulse Resp B/P Pulse Ox O2 Delivery O2 Flow Rate FiO2 11/07/16 13:58 35.6 96 18 145/99 97 Room Air Interpretation & Diagnostics Lab Results Interpretation Result Diagram: 11/07/16 1520 11/07/16 1520 Test 11/07/16 15:20 11/07/16 17:00 White Blood Count 8.1th/mm3 (3.8-10.1) Red Blood Count 5.66mil/mm3 (4.40-5.80) Hemoglobin 15.8g/dL (13.8-17.2) Hematocrit 44.9% (41.0-50.0) Mean Corpuscular Volume 79.3fL (81-100) Mean Corpuscular Hemoglobin 27.9pg (27.0-35.0) Mean Corpuscular Hemoglobin Concent 35.2% (32.0-37.0) Red Cell Distribution Width 14.5% (12.3-15.4) Platelet Count 268bil/L (150-400) Neutrophils (%) (Auto) 73.7% (40-74) Lymphocytes (%) (Auto) 16.3% (14-46) Monocytes (%) (Auto) 8.3% (4-12) Eosinophils (%) (Auto) 1.4% (0-5) Basophils (%) (Auto) 0.2% (0-3) Prothrombin Time 11.2sec (8.1-12.5) Prothromb Time International Ratio 1.05ratio Sodium Level 133mEq/L (134-144) Potassium Level 4.3mEq/L (3.5-5.2) Chloride Level 96mEq/L (97-108) Carbon Dioxide Level 22mmol/L (18-29) Blood Urea Nitrogen 22mg/dL (8-27) Creatinine 1.09mg/dL (0.76-1.27) Estimat Glomerular Filtration Rate 72mL/min (>59) Glucose Level 263mg/dL (60-99) Calcium Level 10.1mg/dL (8.5-10.1) Magnesium Level 1.7mg/dL (1.6-2.6) Total Bilirubin 0.5mg/dL (0.0-1.2) Aspartate Amino Transf (AST/SGOT) 19U/L (0-50) Alanine Aminotransferase (ALT/SGPT) 26U/L (0-44) Alkaline Phosphatase 68U/L (25-160) Troponin T < 0.010ug/L (0.0-0.011) Pro-B-Type Natriuretic Peptide 34.84pg/mL (0-210) Total Protein 7.5g/dL (6.4-8.4) Albumin 4.1g/dL (3.4-5.0) Hold Apple Top Tube Received (Received) Hold Urine Received (Received) ECG Interpretation ECG Interpretation: Sinus rhythm, rate of 98. No ischemic changes, similar to EKG 10/24/2016 Time: 14:22 Interpreted by: ED physician (Dr. Mckeon) X-Ray Chest Interpretation Chest Xray Interpretation: PROCEDURE: X-RAY CHEST ONE VIEW, PORTABLE ([id number]) INDICATIONS: chest pain IMPRESSION: Source of chest pain is not found. Re-Eval/Medical Decision Med Decision/Clinical Course Discussed case extensively with TEMI Dao. We agree that he appears to have failed a less restrictive approach and that he return to emergency department after being discharged yesterday. Physical examination is benign. No ischemia is noted on EKG, unchanged from previous. Chest x-ray normal. CBC is unremarkable, CMP reveals slight hyponatremia, hypochloremia. Glucose is elevated at 263. Pro BNP and troponin T are normal. I believe this is anxiety and I reassured this is not an IL. We do not think he is able to pursue follow- up independently, and Ms. Santa sought admission. The [facility] center is willing to accept the patient for benzodiazepine detox, which he agrees to do. Patient is transferred to the care center. Re-Evaluation/Progress #1: Time of Eval: 15:44 Re-Evaluation/Progress Note: Patient declines treatment with Zyprexa, Haldol, stating that they do not work for him. Re-Evaluation/Progress #2: Time of Eval: 17:36 Re-Evaluation/Progress Note: Patient reports a sensation of numbness and tingling around his lips and tongue. I met with the patient and believe this is most likely hyperventilation. Patient again requests benzodiazepine medication for his anxiety. Again this is declined. Patient accepts Haldol 5 mg. Re-Evaluation/Progress #3: Time of Eval: 19:21 Re-Evaluation/Progress Note: Patient reports improvement after 5 mg of Haldol, but still wishes for more relief. Accepts additional 5 mg of Haldol Consultation : Referral / Consult Name: Elham Mendoza MD Call Returned at: 15:29 Note: Discussed case with Dr. Mendoza, the patient's primary care provider. She relates a story consistent with the patient's account of his progression. She states she has been on a stable dose of benzodiazepines for 11 years, reports worsening anxiety in the last month, several ED visits for panic attacks. Patient reports reactions to all alternative medications that she is tried. She hopes he can be admitted. She does not feel additional benzodiazepines would be appropriate at this time. Discharge & Departure Impression: Primary Impression: Anxiety Additional Impression: Benzodiazepine dependence Disposition: ADMITTED TO HOSPITAL Referrals: Elham Mendoza MD (PCP) EDSupervising Provider for APC: Misti Mckeon MD Attending Statement Patient seen and examined with [facility]. Increasing anxiety with escalating benzodiazepine doses. Has been reviewed with our psychiatrist she is willing to admit him to a care center for benzodiazepine detox and additional psychiatric evaluation. copies to: Elham Mendoza MD, Seth PA-C Nov 07, 2016 15:45 Misti Mckeon MD Nov 07, 2016 19:41
[2016-11-07 15:53] LABS: TROPONIN T < 0.010 ug/L (0.0-0.011)
[2016-11-07 16:03] LABS: Magnesium 1.7 mg/dL (1.6-2.6)
[2016-11-07 17:49] VITALS: BP 149/86; PULSE 72; RESP 22
[2016-11-07] MEDS ORDERED: TEST200V20 IM (20:51)
--- NOTE | 2016-11-07 21:30 | NUR ---
Nurses Admission Note 66 year old voluntary male certified for 5 days by the [facility] for suicidal ideations due to increasing anxiety and panic attacks. Patient stated he has been on benzodiazepines X 12 years resulting in ineffective control of his anxiety. Patient accepted the idea of detox from benzodiazepines in hopes to have relief from them once reinstated. Patient has been overtly upset, nervous and tearful regarding his anxious state and the detox process fearing he will feel worse. Patient has had a hospitalization in [place] 12 years ago and became psychotic. Patient has a H/O HPTN, NIDDM, High cholesterol and cardiac problems. His thoughts were linear but he continued to ruminate on his fear of withdrawal crying and moaning openly in the day room. Patient contracted for safety,will be monitored q 15min. checks for safety and support.
[2016-11-07] MEDS ORDERED: Zolpidem 5 mg Tablet for FEMALE or >65YO PO PRN (21:40)
[2016-11-07] MEDS ORDERED: Magnesium Hydroxide 10 mL Oral Concentration PO PRN (21:40)
[2016-11-07] MEDS ORDERED: Alum-Mag Hydrox-Simeth 30 mL Suspension PO PRN (21:40)
[2016-11-07] MEDS ORDERED: Benzocaine-Menthol Lozenge 2/Pkg PO PRN (21:40)
[2016-11-07 22:00] VITALS: BP 152/95; PULSE 103
[2016-11-07] MEDS: LORazepam 1 mg Tablet PO SCH (22:09)
[2016-11-07] MEDS: cloNIDine 0.1 mg Tablet PO SCH (22:09)
--- NOTE | 2016-11-08 03:20 | NUR ---
ADMIT/NOC OBS Pt arrived to unit at 2130 in scrubs from ED. Signed paperwork an was oriented to unit. He reported feeling poorly and was worried about his condition. Pt reassured that staff was here to keep him safe and would be keeping an eye on him and that there is someone available all the time should he need. Pt to bed and asleep quickly. Observed Q15 as ordered.
--- NOTE | 2016-11-08 04:51 | NUR ---
Nursing Note Spot Man 7pm to 7am Pt received night time medications along with ambien 5mg and Trazadone 150 for sleep. Pt denied pain at that time but was informed of pain medications available if needed. Pt belongings inventoried and found to have multiple bottles of home medications with him. Pt meds inventoried and sent to pharmacy. Monitored pt. for safety, location and accountability
[2016-11-08] MEDS: LORazepam 1 mg Tablet PO SCH ×3 (08:34→20:35)
[2016-11-08] MEDS: cloNIDine 0.1 mg Tablet PO SCH ×2 (08:35→20:36)
[2016-11-08 09:07] VITALS: BP 158/103; PULSE 72
[2016-11-08 11:20] VITALS: BP 152/94; PULSE 72
--- NOTE | 2016-11-08 13:36 | HP ---
[address] [address] HISTORY AND PHYSICAL PATIENT: BIBI YANES : 1950 MR#: [id number] ADMIT: 11/07/2016 JOB ID: [id number] IDENTIFICATION OF PATIENT: Patient is a 66-year-old male who was admitted on a voluntary basis through the emergency department with evidence of increasing factors of depression, anxiety, suicidal thoughts, panic attacks, with noted long-term history of benzodiazepine dependence. The patient reportedly has prior hospitalization on the [facility] in 2004 under the care of Dr. Jaylan Peña with diagnosis at that time including generalized anxiety disorder, polysubstance abuse, panic disorder and significant borderline personality disorder. CHIEF COMPLAINT: "I don't know why things have gone wrong. I have been on the same medicines for almost 11 years." This is per patient report. HISTORY OF PRESENT ILLNESS: As stated above, the patient is a 66-year-old male who was admitted through the emergency department with evidence of increasing factors of depression, anxiety, and reportedly was evaluated by the high school social science teacher with evidence of increasing panic, depression, and indication that he was having difficulties with functioning. He did make statements that he was unable to remain safe in his home environment and stated that if he could go to [facility] right now that he would. The patient identified significant difficulties with anxiety. He made reference that he feels like he just got back from [place] and that he was struggling with heightened levels of anxiety. He reportedly was referred previously through the emergency department to appointments with [facility] but evidently has not followed through with appointments. He is currently maintained by his primary care physician, Dr. Mendoza, who has seen him over the past 11 years and maintenance of medications including benzodiazepine combination, pain medications including morphine sulfate, and several antihypertensive medications. In meeting with myself, the patient did have a general presentation of confabulation throughout. He often had significant evidence of tangential speech and thought process. He was unable to focus throughout the course of conversation and unable to answer yes and no questions without significant re-evaluation. The patient reportedly has a long-term history of hypertension and is on multiple antihypertensives including Lopressor, Cozaar, Catapres, Norvasc. The patient also has combination therapy of Valium 10 mg t.i.d., Ativan 1 mg t.i.d., morphine sulfate 15-30 q.12 h. p.r.n., trazodone 150 mg q.h.s., and Lasix of 40 mg daily. He reportedly identified significant evidence of increasing factors of panic, generalized anxiety. He reportedly is currently living in [place] and has resided in a trailer since his mother's passing in [place] over the past four years. He reportedly states that he lived with his mother in her home in [place] and that he is originally born and raised from [place]. He graduated from high school and did not pursue college education. He reports that he is currently on disability for both back pain and indicates that he has been recommended for surgery in the past, and also his own mental health issues. In meeting with myself, the patient, as noted above, was quite tangential, avoidant. There was significant confabulation throughout the course of conversation. He indicated that he needed to tell specifics about stories that were greater than 35 years prior. He made repeated reference of adoration of his current physicians, Dr. Mendoza, Dr. Peña, and identified that they were individuals that he readily identifies as his best friends. He currently indicates that he lives alone. He has no social support system. He indicates that everybody that he has cared about has . He reports that he was previously x2 with recent divorce in the late . He has no children. He is currently unemployed and lives much of his days watching TV and essentially sitting in his trailer. In reviewing his current status, I have discussed with the patient the possibility of advancement to a Dual Diagnosis Treatment Center. I have suggested a possible referral to [facility] as well as [facility] and the patient is open to either options. He indicated that he has effectively been off of benzodiazepines in the past. Reportedly stated that in 2004 prior to his admission to [facility], he had actually been off of medications for approximately 40 days after a 16-month taper that was initiated by his outpatient family practice doctor at that time, Dr. Castillo. He reports that he is aware that he is going through withdrawal at this time. He has been diaphoretic on the unit this morning. He adamantly states that he has not been abusing his substances, but there is questionable validity. PAST MEDICAL HISTORY: Substantial for allergies to: 1. TRIVIA BRAND MEDICATIONS. 2. BENAZEPRIL. 3. FELODIPINE. 4. HCTZ. 5. LOSARTAN. 6. PROCHLORPERAZINE. CURRENT MEDICATIONS: Include: 1. Amlodipine 10 mg b.i.d. 2. Clonidine 0.2 mg b.i.d. 3. Fenofibrate 160 mg q.h.s. 4. Metoprolol 50 mg b.i.d. 5. Telmisartan 80 mg daily. 6. Aspirin 81 mg daily. 7. Diazepam 10 mg t.i.d. 8. Ativan 2 mg q.i.d. 9. Morphine sulfate 15 mg b.i.d. 10. Naproxen 500 mg b.i.d. 11. Nortriptyline 25 mg b.i.d. for seven days. 12. Trazodone 225 mg q.h.s. 13. Lasix 40 mg b.i.d. 14. Metformin 500 mg t.i.d. 15. Testosterone 200 mg/1 mL vial every 21 days. OTHER MEDICAL HISTORY: Reviewed through the emergency department report. I agree with findings. PAST PSYCHIATRIC HISTORY: Essentially negative for current services. The patient reportedly was referred to [facility] and did not make the appointment scheduled. His last interaction with a psychiatrist was in [address] Peña. SOCIAL HISTORY: The patient identifies that he is single, no support system. He admits to consuming alcohol 2-3 times per year. Denies any daily usage. He denies any misuse of his prescription agents. However, there is questionable validity. He indicated that he was born and raised in [place] by his biological mother. He had no father, no siblings. He indicated that he was for the 1st time in 1974 for six years, . Second marriage was for 10 years in the late . The patient denies any substance abuse. Denies any marijuana use. ABUSE HISTORY: Denied. FAMILY HISTORY: Positive for history of alcoholism in his biological brother who is now . DEVELOPMENTAL HISTORY: Reportedly the patient as noted above. MENTAL STATUS EXAM: General appearance: The patient is questionable in his validity throughout. He makes intermittent eye contact. He does continue to be quite filled with his belief that everything fell apart over the past month with his medications, but there is some question. His speech is pressured to some degree. His mood is anxious. Affect is elevated. His thought process shows no evidence of racing thoughts, flight of ideas, loose or disconnected thinking. Thought process: He is quite loose, disorganized, and able to redirect at times. His thought content: He denies any evidence of current suicidal, homicidal ideation, however, has made notation in the ED that he wished that he could go to [facility] any day. No evidence of paranoia. There was no evidence of hallucinations noted. No evidence of visual representation of detox. He was alert, oriented to time and place. His attention and concentration intact. 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 Insight and judgment are poor. IMPRESSIONS: [place] I. 1. Polysubstance use disorder including prescription opiates and benzodiazepines. 2. Mood disorder, not otherwise specified. 3. Panic disorder with agoraphobic features. 4. Major depressive disorder, recurrent type, nonpsychotic. [place] II. Deferred. [place] III. 1. Significant history of chronic pain. 2. History of hypertension. 3. Diabetes type 2. [place] IV. Stressors are noted for disturbance of primary support group, loss of relatives, chronic abuse of prescription agents. [place] V. Global Assessment of Functioning current 20. PLAN: 1. Recommendations for consideration of transfer to a dual diagnosis unit based on the above presentation. The patient is agreeable for such. flume worker will be placing calls for bed availability at [facility] in [facility]. 2. Recommendations for scheduled tapering and discontinuation of Ativan, with continuation of Valium 10 mg t.i.d. 3. Recommendations for continuation of p.r.n. dosage of morphine sulfate 15-30 b.i.d. with consideration of taper and discontinuation to follow. 4. Continuation of trazodone 150 mg. 5. Recommendations for consideration of hospitalist consultation based on the patient's significant long-term history of hypertension.
--- NOTE | 2016-11-08 16:39 | NUR ---
Grinder Brake Lining/Counselor S:" I need to go to detox." O:O: Patient did not express any SI or HI. and did not express any auditory or visual hallucinations. Patient rated her anxiety at a 6, and her depression at a 2 or 3. A: Patient was cooperative and adamant that he needed to be in a detox facility. He was demanding of staff, and made several requests in regard to visitors and his belongings. P: Follow care plan, and coordinate with inpatient providers, dewayne Torres of [facility]. Addendum: 11/08/16 at 1641 by GUERO ARNDT [facility] Patient refused to participate in group activities.
--- NOTE | 2016-11-08 17:35 | NUR ---
NURS Note [id number] S "I'm going to burn down the building with everyone in it." (said with deadpan expression) Pt reports that this was sarcasm. Tin Container Straightener spoke with pt about inappropriateness of the comment in the context of the hospital. O Endorses anxiety 5.5/10. Denies depression. Denies SI, HI. Affect,well-modulated. Perseverates about benzodiazepines dose, blood pressure, and insists that he is in withdrawals despite being on the same. Pt endorses profuse sweating last night. Skin appeared moist this morning. Hand w/ mild tremor; endorsed headache and nausea prior to taking medications. After taking benzodiazepines, opiates, and blood pressure medications, pt denied headache and nausea, tremor appeared less severe, and skin appeared less moist. Pts blood pressures have been elevated today. BP: 0820, 170/101; 0907, 158/103; and 1120, 152/94. A Pt presented with s/s of mild withdrawal prior to breakfast and morning medications; pt has appeared in no apparent distress throughout today. P Continue to monitor VS (Q4H). Continue with behavioral treatment plan.
[2016-11-08 22:00] VITALS: BP 119/74; PULSE 76
[2016-11-09] MEDS: LORazepam 1 mg Tablet PO SCH ×4 (05:13→21:48)
[2016-11-09 05:28] VITALS: BP 149/90; PULSE 76
--- NOTE | 2016-11-09 06:26 | NUR ---
Nursing Note Paper Making Machine Operator 7pm to 7am Pt visible on unit at start of shift, pleasant, calm and cooperative. Pt took HS trazadone at 2100 but at 2300 was still not asleep. T/C to networks software consultant and obtained and gave a one time order for ambien 5mg with a repeat in 1 hr which pt. did not request. Pt slept approximately 4.5 hours. BP 119/76 at 2200 and 149/90 at 0500. Pt c/o anxiety 01/08 and was given 0630 dose of Ativan at 0530 with good relief. T/C from Kaylah SANDERSON at [place] to report that they currently have no beds available for possible transfer of pt for purposes of detox. Monitored pt. with 15 minute face checks for safety, location and accountability
[2016-11-09 08:15] VITALS: BP 131/75; PULSE 68; RESP 16
[2016-11-09] MEDS: cloNIDine 0.1 mg Tablet PO SCH ×2 (09:12→21:13)
--- NOTE | 2016-11-09 13:33 | PROG NOTE ---
[address] [address] PROGRESS NOTE PATIENT: BIBI YANES : 1950 MR#: [id number] ADMIT: 11/07/2016 JOB ID: [id number] DATE: 11/09/2016 CHIEF COMPLAINT: "I am having a really bad day, but I am sure it will get better." HISTORY OF PRESENT ILLNESS: As stated above, the patient did identify that he continues to experience what he identifies as withdrawal. He reports that he appreciates the adjustments of his medications, stating that he knows that he will just have to go through it. He reportedly is on an Ativan taper with continuation of Valium at 10 mg t.i.d. and a combination of antihypertensives including clonidine, Cozaar and Lopressor. He reportedly has participated in various group activities. Information has been sent off to [facility]. It is my understanding, there are no beds available. We have not yet heard back from [facility] for possible dual diagnosis treatment. OBJECTIVE: One mental status exam, the patient is somewhat downcast. He makes intermittent eye contact. He reports that he is having a hard day and complains of significant withdrawal sensations including body aches, anxiety, fear. His speech is of normal tone, frequency, and volume. His mood is anxious. His affect is somewhat dramatic. He reportedly was given Ambient last evening for sleep. Last evening, he evidently did make an inappropriate comment about wanting to burn down the building with everyone in it and was confronted on such. His mood was anxious. He denied any evidence of current suicidal, homicidal ideation but continues to be questionable in his reliability. No evidence of paranoia, no evidence of hallucinations, delusions. He was alert, oriented to time and place. Attention and concentration are intact. Insight and judgment are poor. PHYSICAL EXAM: Vital signs are current. Temperature is unlisted. Pulse is 76, respirations unlisted. BP this morning 149/90, last evening 119/74. ASSESSMENT: Severance I. 1. Benzodiazepine dependence with withdrawal. 2. Generalized anxiety disorder. 3. Panic disorder without agoraphobia. 4. Major depressive disorder, recurrent type, nonpsychotic. Severance II. Cluster B personality traits. Severance III. 1. History of hypertension. 2. History of type 2 diabetes. Severance IV. Stressors are noted for absence of support group, chronic substance use. Severance V. Global Assessment of Functioning current 30. PLANS: 1. Recommendations for continuation of pursuit of transfer to dual diagnosis unit, either at [place] or [facility]. 2. Continuation of taper of Ativan. 3. Continuation of Valium 10 mg t.i.d. 4. Continuation of antihypertensives of Lopressor, Catapres, and Cozaar, with possible hospitalist consultation for further feedback.
--- NOTE | 2016-11-09 17:56 | NUR ---
NURS Note [id number] Mood: "I feel like I've been wrung through ringer." Endorses anxiety 6/10, depression 5/10. Affect: Well-modulated. Behavior: Med-seeking. Pt meeting with josette in piano room. Thought Content/Process: Perseverates on medications. PRN/NURS Notes: Per Dr. Callejas, pt is awaiting placement at dual-diagnosis treatment center.
--- NOTE | 2016-11-09 19:05 | NUR ---
Observations 0900 - 2130 Pt affect and mood was flat, friendly and content. Pt was out on the unit most of the shift socializing and watching TV. Pt speech and eye contact was ok. Pt is polite, pleasant and cooperative. Pt maintained behavior control throughout the shift. Pt did not attend community meeting or set a daily goal. Pt attended meals in D.R. and ate 100% of meals. Pt ate snack. Pt had a couple of visitors and it appeared to go well. Pt took a shower and attended to ADL's. Pt was observed every 15 minutes throughout the shift as ordered.
--- NOTE | 2016-11-10 01:07 | NUR ---
Nursing 7p-7a Pt has been pleasant, social and participating in unit activities. He has made a few phone calls and watched tv this evening. Took scheduled medication and wanted staff to know "I have been using benzodiazepines since I was 18 years old. I don't want to go through withdrawals". Pt informed he gets both Valium and Ativan scheduled routinely throughout the day so should not be having any withdrawal type symptoms. Pt slept from 2390-5202. He awoke and requested something to help him sleep. One time order for Temazepam obtained from international recruiter provider. Will continue to monitor mood, behavior and sleep cycle through the night. Addendum: 11/10/16 at 0124 by JACKIE FISHER RN Pt received Temazepam 15mg po prn @ 0120. Will monitor effect. Addendum: 11/10/16 at 0608 by JACKIE FISHER RN Temazepam appears effective. No further distress or awakening noted. Total sleep over 7.5 hours.
[2016-11-10] MEDS: LORazepam 1 mg Tablet PO SCH ×4 (08:16→21:40)
[2016-11-10] MEDS: cloNIDine 0.1 mg Tablet PO SCH ×2 (08:17→20:50)
[2016-11-10 09:30] VITALS: BP 146/96; PULSE 87; RESP 16
[2016-11-10 11:45] VITALS: BP 122/81; PULSE 68
--- NOTE | 2016-11-10 13:36 | NUR ---
Wound Pt. has an open wound at bottom of his L. great toe and scattered callus and scabs on both feet. L. great toe wound (> 2.5 cm) is without drainage/oozing. Wound was cleaned and covered with a bandage. Dr. Callejas aware and had talked to Dr. White. Dr. White will see pt.
--- NOTE | 2016-11-10 16:24 | NUR ---
campaign management senior manager/Counselor S: "I'm feeling like I am in a tiger cage, with no way to escape." O: Patient did not have any SI or HI, he rated his depression at a 5 and his anxiety at a 5-6 and no visual or auditory hallucinations.Patient attended group and slept for 7.5 hours. A: Patient was very grandiose and tangential. He was calm and back wavered between talkative and withdrawn. P: Follow up with care plan and coordinate with outpatient providers.
[2016-11-10 16:50] VITALS: BP 139/98; PULSE 82
--- NOTE | 2016-11-10 17:51 | NUR ---
Observations 0900 - 2130 Pt affect and mood was flat, friendly and content. Pt was a little anxious and slightly irritable with his situation. Pt was religiously preoccupied. Pt was out on the unit most of the shift socializing and watching TV. Pt speech and eye contact was good. Pt is polite, pleasant and cooperative. Pt maintained behavior control throughout the shift. Pt attended community meeting and set a daily goal. Pt rated his mood 4-5/10, with 10 being the best. Pt attended meals in D.R. and ate 100% of meals. Pt ate snack. Pt used the phone a couple of times. Pt was observed every 15 minutes throughout the shift as ordered.
--- NOTE | 2016-11-10 20:30 | PROG NOTE ---
[address] [address] PROGRESS NOTE PATIENT: BIBI YANES : 1950 MR#: [id number] ADMIT: 11/07/2016 JOB ID: [id number] DATE: 11/10/2016 CHIEF COMPLAINT: "I feel that God has called me for purpose and reason, it would be difficult for me to lower myself into going into a treatment at [facility]." This per patient report. HISTORY OF PRESENT ILLNESS: As stated above, the patient did meet with myself today and actually spoke about his ongoing beliefs of having spiritual encounters throughout much of his life. The patient identified that his janette is a strong reference point for him and he identified the irony of his current addiction status. He did identify that he is hopeful that the programs at both [place] and [place] will consider the option of transfer. He indicated that he is aware that he needs treatment for his ongoing addictions to benzodiazepines. He remains on a tapering dose of Ativan at 1 mg q.i.d. and will drop to doses of 1 mg t.i.d. beginning tomorrow. He reportedly has had significant concern of difficulties with restlessness and sleep last evening and nurses did notify the on-call physician, and received an order for a one-time dose of Restoril. The patient indicated that he would not take that again and stated that he was foggy and had great difficulties with ataxia this morning. He reports that historically he has been taking trazodone 225 mg q.h.s. for the past several years and stated that he has not had complications of constipation. I have agreed to reinitiate doses up to 225 mg expressing concern about toxic megacolon and side effect of potentials. I have also had conversations with Dr. Mendoza to update about the patient's depression and admittance to his missed usage of doses of Ativan. She also informed me that she will be placing calls with Dr. Nickerson, a ice carver, for wound consultation with noted long-term history of diabetic ulcers. OBJECTIVE/MENTAL STATUS EXAM: The patient is questionable in his validity, reliability. He is very cooperative but dramatic on interactions. His speech is of normal tone, frequency, and volume. His mood is neutral. Affect is congruent. His thought process shows no evidence of racing thoughts, flight of ideas, loose or disconnected thinking. Thought content: He denied any evidence of current suicidal, homicidal ideation. No evidence of active hallucinations, delusions. No evidence of paranoia. He is alert and oriented to time, place, situation. Attention and concentration intact. Memory intact in the short-term, long-term, recent. Insight and judgment are fair. PHYSICAL EXAMINATION: Vital signs of current: Temperature is 36.0, pulse 87, respirations 16, BP 146/96. MEDICATION REVIEW: Includes: 1. Metformin 500 mg b.i.d. 2. Ativan 1 mg q.i.d. with transition to 1 mg t.i.d. beginning tomorrow. 3. Lasix 40 mg daily. 4. Norvasc 10 mg daily. 5. Cozaar 100 mg daily. 6. Lopid 600 mg daily. 7. Trazodone 150 mg q.h.s. 8. Lopressor 50 mg b.i.d. 9. Catapres 0.2 mg b.i.d. 10. Valium 10 mg t.i.d. 11. Naproxen 500 mg b.i.d. 12. Morphine sulfate 15-30 q.12 h. ASSESSMENT: AXIS I: 1. Panic disorder without agoraphobia. 2. Generalized anxiety disorder. 3. Major depressive disorder, recurrent type, nonpsychotic. 4. Benzodiazepine dependence. AXIS II: Cluster B personality features. AXIS III: 1. History of hypertension. 2. History of type 2 diabetes. 3. History of diabetic ulceration. AXIS IV: Stressors are noted for chronic substance use issues. AXIS V: Global Assessment of Functioning current 35. PLANS: 1. Continuation of pursuit of hospitalization on a dual diagnostic unit at [facility]. 2. Continuation of taper of Ativan. 3. Continuation of doses of Valium. 4. Consultation with Dr. Mendoza who has agreed to consult wound care and will be following the patient accordingly for any further concerns of medical status. 5. Titration of trazodone back to original doses of 225 mg q.h.s. Patient was aware of potential side effects.
[2016-11-11] MEDS: cloNIDine 0.1 mg Tablet PO SCH ×2 (08:21→21:01)
[2016-11-11] MEDS: LORazepam 1 mg Tablet PO SCH ×4 (08:22→21:00)
--- NOTE | 2016-11-11 14:10 | PROG NOTE ---
[address] [address] PROGRESS NOTE PATIENT: BIBI YANES : 1950 MR#: [id number] ADMIT: 11/07/2016 JOB ID: [id number] DATE: 11/11/2016 CHIEF COMPLAINT: "I am trying to be positive, I know I need to take this on." This per patient report. HISTORY OF THE PRESENT ILLNESS: As stated above, the patient did identify that he is trying to maintain focus of planning on discontinuation of his Ativan. He identified with myself today that he is trying to maintain a positive outlook and realize that albeit that he has been maintained on doses of Ativan and Valium throughout the years, but it is time to discontinue his patterns of addiction. He reports that he is willing to receive referrals to chemical dependency treatment including referrals to [facility], [facility] and [facility]. He reportedly identified that he did sleep well last night with the readjustment of the trazodone. He states that he was concerned about his elevated blood pressure yesterday but earlier this morning it was within normal range. OBJECTIVE: On mental status examination, the patient continues to have perseveration and manifestations of possible exaggeration of his symptoms. The patient readily identifies that he is optimistic about the future. Looking forward to his return to the home environment and looking at a chemical dependency treatment as well as referrals for outpatient medication management. His speech is of normal tone, frequency and volume. His mood is neutral. Affect was congruent. His thought process shows no evidence of racing thoughts, flight of ideas, loose or disconnected thinking. Thought content: He denied any evidence of current suicidal or homicidal ideation. No evidence of active hallucinations, delusions. He was alert, oriented to time and place. Attention and concentration intact. Memory intact in the short term, salvage determiner, recent. Insight and judgment are poor. PHYSICAL EXAMINATION: Vital signs of current. Temperature is unlisted. Pulse 82, respirations unlisted. BP was 139/98 yesterday afternoon, however, this morning notably 128/72. MEDICATION REVIEW: Includes: 1. Trazodone 225 mg q.h.s. 2. Metformin 500 mg b.i.d. 3. Ativan 1 mg t.i.d. 4. Valium 10 mg t.i.d. 5. Lasix 40 mg daily. 6. Lopid 600 mg b.i.d. 7. Cozaar 100 mg daily. 8. Metoprolol 50 mg b.i.d. 9. Morphine sulfate 15-30 mg q.12 hours p.r.n. ASSESSMENT: AXIS I 1. Benzodiazepine use disorder, chronic, severe. 2. Panic disorder without agoraphobia. 3. Generalized anxiety disorder. AXIS II Borderline personality disorder. AXIS III 1. History of type 2 diabetes. 2. History of hypertension. 3. History of diabetic ulceration. AXIS IV Stressors are noted for chronic substance abuse, chronic mental health issues, chronic pain. AXIS V Global assessment of functioning of current 40. PLANS: 1. Recommendations to discharge tomorrow with continuation of taper and intent to discontinue Ativan. 2. Continuation of all other medications noted. 3. Recommendations for referrals to chemical dependency treatment in the community for outpatient initiation of services. Unfortunately at this time, the patient was not able to be accepted to two inpatient treatment programs in the region.
--- NOTE | 2016-11-11 14:19 | NUR ---
NURS Note Day Mood: "I'm doing much better." Denies depression, anxiety. Affect: Restricted. Thought Process/Content: "I love learning. I may have liked to be a nurse." Perseverative. Denies SI, HI. Denies AH, VH. Behavior: Pt out in common areas much of shift. Interacting appropriately with peers and staff. PRN/NURS Notes: AM BG 191. Re-dressed wound on great toe, left foot at 0900. Pt plans to shower and air out wound this afternoon. Please re-dress. Dr. Callejas said that he would f/u with Dr. Mendoza from the clinics about coordinating care for Rodriguez wound.
--- NOTE | 2016-11-11 15:25 | NUR ---
S: "I'm on a different scale than everyone here. My IQ is very high." O: Patient denies any HI or SI. He has had no auditory or visual hallucinations and rates his anxiety at a 3 and his depression at a 4. He has been out in the milieu for most of the day. A: Patient is grandiose and tangential. He has been cooperative and interacting with other patients. P: Follow care plan and coordinate with outpatient providers.
--- NOTE | 2016-11-11 16:01 | NUR ---
Observations [id number] Pt friendly with peers and staff on unit, spending much of the day in the dining area using the phone. Pt is very methodical with communication and engaged in his treatment plan. This lead technical writer helped Pt obtain numbers to talk to best friend for support. Pt focused on transfer to [place], and discussed further treatment for chemical dependancy. Pt engaged in conversation with other peers, expressing gratitude to staff to help. Pt attended all meals, eating 100%. Pt also showered in afternoon. He was observed every 15 minutes of shift as directed.
[2016-11-11 17:45] VITALS: BP 126/83; PULSE 79; RESP 16
--- NOTE | 2016-11-11 18:04 | NUR ---
Nurses PRN Patient requested and received Morphine Sulfate 15mg PO for back pain 710 unrelieved by Naprosyn 500mg at 1645, will assess response.
[2016-11-11 21:49] VITALS: BP 163/90; PULSE 75; RESP 20
--- NOTE | 2016-11-11 22:21 | NUR ---
Nurses Note Evening Patient has been social and talkative with peers, his anxiety has been elevated along with c/o increased pain from sciatica. Patient requested and received Morphine Sulfate 15mg X 2 this shift with fair response. Patient to follow up with his provider to assist him in medication adjustment.maintain q1 5min. checks for safety and support. Addendum: 11/11/16 at 2301 by ERICA FOX RN Amended: Links added.
--- NOTE | 2016-11-12 05:11 | NUR ---
Sleep Pt has remained asleep since 2329 with no noted distress or awakening per protocol checks. Total sleep over 5.5 hours.
--- NOTE | 2016-11-12 05:29 | NUR ---
Observations 1900 - 0700 Pt was in D.R. sitting quietly when the shift started. Pt was friendly, content and social with staff and peers. Pt was pleasant, polite and cooperative when approached. Pt maintained behavior throughout the shift. Pt speech and eye contact was good. Pt watched some TV, socialized and ate snack before bed. Pt first appeared asleep at 2330 and has slept through the night. Pt was observed every 15 minutes through the night as ordered.
[2016-11-12] MEDS: cloNIDine 0.1 mg Tablet PO SCH (09:00)
[2016-11-12] MEDS: LORazepam 1 mg Tablet PO SCH ×2 (09:03→12:56)
--- NOTE | 2016-11-12 10:24 | PCM.DIMED ---
Discharge Instructions Date of Service Nov 12, 2016 Dates of Hospitalization Nov 07, 2016 at 21:19 Discharge Diagnosis Discharge Diagnosis Polysusbstance Use DO including both benzodiazepines and opiates Panic DO without agoraphobia Generalized Anxiety Major Depression Recurrent Diet Discharge Diet: No restrictions Activity Discharge Activity: No restrictions Britta Luisdoris James DO Nov 12, 2016 10:24
[2016-11-12] MEDS ORDERED: LORA-303 PO ×2 (10:28)
--- NOTE | 2016-11-12 10:54 | DIS ---
[address] [address] DISCHARGE SUMMARY PATIENT: BIBI YANES : 1950 MR#: [id number] ADMIT: 11/07/2016 JOB ID: [id number] DIS: 11/12/2016 ADMITTING DIAGNOSES: AXIS I 1. Polysubstance use disorder including prescription opiates and benzodiazepines. 2. Mood disorder, not otherwise specified. 3. Panic disorder with agoraphobic features. 4. Major depressive disorder, recurrent type, nonpsychotic. AXIS II Deferred. AXIS III 1. History of chronic pain. 2. History of hypertension. 3. History of type 2 diabetes. 4. History of diabetic ulcers. AXIS IV Stressors are noted for disturbance of primary support system, loss of relatives, chronic substance use of prescription agents. AXIS V Global assessment of functioning of current 20. DISCHARGE DIAGNOSES: AXIS I 1. Polysubstance use disorder including prescription opiates and benzodiazepines. 2. Panic disorder with agoraphobic features. 3. Generalized anxiety disorder. 4. Major depressive disorder, recurrent type, nonpsychotic. AXIS II 1. Borderline personality disorder. 2. 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 AXIS III 1. History of chronic pain. 2. History of hypertension. 3. Diabetic type 2. 4. Diabetic ulcers. AXIS IV Stressors are noted for a limited support system, chronic substance abuse. AXIS V Global assessment of functioning of current 40. REASON FOR ADMISSION: The patient was a 66-year-old male who was admitted through the emergency department with increasing factors of depression, anxiety and episodes of panic. During the course of hospitalization, the patient did reveal that he had been abusing previous prescriptions provided by Dr. Mendoza who is his primary care physician over the past 11 years. He openly identified going through larger quantities of Ativan over the past six months indicating that it seemed to have lost its effect. His medication history was reviewed with noted prescriptions of Valium 10 mg t.i.d. Ativan 1 mg t.i.d., morphine sulfate 15-30 q.12 hours p.r.n., trazodone 225 mg at h.s. and additional agents for hypertension as well as a prescription for nortriptyline. During the course of hospitalization, I elected to discontinue doses of nortriptyline feeling that this was a significant high risk overdose profile agent for the patient based on his chronicity of depression, anxiety and also substance use. I did feel that the patient would benefit from more intensive connections with therapy and began a process of utilization of DBT integration and alternative coping skills. He was often seen as somewhat dependent, passive aggressive and showed narcissistic flavors with interaction with staff, patients and myself throughout. Discussion was held with the patient of the need to begin a taper process of Ativan and discontinuation and there was some initial resistance, however, he essentially agreed based on his current level of impairment. Throughout hospital course, he was informed that we would maintain doses of Valium at 10 mg t.i.d. with the intent of possibly pursuing a dual diagnostic intervention through either [facility] or [facility]. Unfortunately there were no bed openings. The patient was eventually discharged to pursue outpatient chemical dependency treatment, individual therapy and further medication management. I had several conversations on the telephone with Dr. Mendoza about the importance of the patient's need of ongoing therapies and discussed recommendations for pursuit of both chemical dependency treatment and also traditional cognitive behavioral, dialectic behavioral therapies. CONDITION AT TIME OF DISCHARGE: The patient was quite anxious. He appeared to be somewhat distraught with the difficulty having to return back to the home environment. He was informed that the assessment piece at [facility] could provide a possible option of advancing to a residential treatment program for chemical dependency treatment. However, this is unknown for time frame of entry and that he would need to complete the formalized process. His mood was anxious. His affect was congruent. His thought process showed no evidence of racing thoughts, flight of ideas, loose or disconnected thinking. He denied any evidence of current suicidal or homicidal ideation. He denied any active hallucinations, delusions. He was alert, oriented to time and place. Attention and concentration intact. Insight and judgment were fair. DISCHARGE PLANS: Include: 1. Intake at [facility] at 1 pm today for both chemical dependency and mental health services. 2. Continuation of medication taper of Ativan 1 mg b.i.d. for the next two days, then 1 mg q.h.s. for two days, then discontinue. 3. Recommendations for continuation of doses of Valium 10 mg t.i.d. No prescription was given. The patient was encouraged to discuss with his provider a potential eventual taper and discontinuation. 4. Continuation of all other medications per Dr. Mendoza including doses of: a. Clonidine 0.2 mg b.i.d. b. Metoprolol 50 mg b.i.d. c. Morphine sulfate 15-30 mg b.i.d. p.r.n. d. Naproxen sodium 500 mg b.i.d. p.r.n. e. Trazodone 225 mg q.h.s. f. Lasix 40 mg b.i.d. g. Metformin 500 mg b.i.d. h. Testosterone 200 mg 1 mL every 21 days. No prescriptions were given and the patient was informed that he would be seeing Dr. Mendoza on Thursday at 11:40 a.m. [facility]ITAL[facility]
--- NOTE | 2016-11-12 11:36 | NUR ---
Nursing note/discharge: Pt began slightly anxious re: discharge, but after reassurance and his am meds, reports; "I am feeling much more ready to face the world." Reviewed all his medications and discharge appointments with him and obtained his home meds from the pharmacy. Talked with him about some of the things he can do to find more support. 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 Pt discharged with all belongings, instructions and prescriptions @ 1301 via taxi to his f/u appointment.
--- NOTE | 2016-11-12 13:41 | NUR ---
Foxer/Counselor S:" I am very anxious about leaving today." O: Patient did not express any SI or HI, not AVH, and no depression. He did express anxiety about discharging today, and about how what may happen re: his medications and about seeing his PCP on thursday. A: Patient was reassured that his doctor will have any necessary paperwork by his appt on thursday. Patient discharged at 1300 and has an intake appointment at [facility] in [place]. He was more at ease after being reassured that his appts were in place and he was set up with outside providers. P: Follow discharge instructions and provide patient with all necessary paperwork.
[2016-11-13] MEDS ORDERED: LORazepam 1 mg Tablet PO SCH (20:30)
[2016-11-15] MEDS ORDERED: LORazepam 1 mg Tablet PO SCH (21:00)
== END 2016-11-12 13:01 | disposition home or self-care (01) | DRG 751 ==
LOC: SED 13:44 → MHC 21:19
PROVIDERS: ADMIT Psychiatry & Neurology Psychiatry; ATTEND Psychiatry & Neurology Psychiatry
DX: F33.9 Major depressive disorder, recurrent, unspecified (principal); E11.9 Type 2 diabetes mellitus without complications; I10 Essential (primary) hypertension; F19.20 Other psychoactive substance dependence, uncomplicated; F40.01 Agoraphobia with panic disorder; F41.1 Generalized anxiety disorder; F60.3 Borderline personality disorder; F60.81 Narcissistic personality disorder; G89.29 Other chronic pain; Z79.4 Long term (current) use of insulin; F11.90 Opioid use, unspecified, uncomplicated

== ENCOUNTER 2016-11-28 17:10 | Emergency (ER) | payer MEDICAID, OTHER ==
[~2016-11-28] VITALS: Ht 182.9 cm; Wt 116.0 kg
[~2016-11-28 17:10] MED LIST changes: +LORA-303 PO; -LORA-305 PO; -NORT25CA PO; -TELM80TA5 PO; +TEST200V20 IM
[2016-11-28 17:19] VITALS: BP 145/91; PULSE 66; RESP 16; O2SAT 95
--- NOTE | 2016-11-28 17:25 | ED.REPORT ---
HPI-Psychiatric Illness Date of Service Nov 28, 2016 ED Provider: Nursing Notes Stated Complaint: MENTAL HEALTH EVALUATION REQUESTED Chief Complaint: Psychiatric Complaint Allergies: Coded Allergies: hydrochlorothiazide (Verified Allergy, Severe, 11/07/16) prochlorperazine (Verified Allergy, Severe, PHENOTHIAZINES, 11/07/16) benazepril (Verified Allergy, Unknown, 11/07/16) felodipine (Verified Allergy, Unknown, 11/07/16) losartan (Verified Allergy, Unknown, 11/07/16) Uncoded Allergies: "tiva brand medications" (Allergy, Intermediate, 09/18/14) Scheduled Amlodipine (Amlodipine) 10 Mg Tablet 10 MG PO DAILY Aspirin (Aspirin) 81 Mg Tablet 81 MG PO DAILY Clonidine (Clonidine) 0.2 Mg Tablet 0.2 MG PO BID Diazepam (Diazepam) 10 Mg Tablet 10 MG PO DAILYWL Fenofibrate (Fenofibrate) 160 Mg Tablet 160 MG PO HS Furosemide (Furosemide) 40 Mg Tablet 40 MG PO BIDBL Lorazepam (Ativan) 1 Mg Tablet 1 MG PO BID Lorazepam (Ativan) 1 Mg Tablet 1 MG PO HS Begin on 11/14 Metformin (Metformin) 500 Mg Tablet 500 MG PO TID Metoprolol Tartrate (Metoprolol Tartrate) 50 Mg Tablet 50 MG PO BID Testosterone Cypionate (Testosterone Cypionate) 200 Mg/1 Ml Vial 200 MG IM every 21 days Trazodone (Trazodone) 150 Mg Tablet 1.5 TABLET PO HS Scheduled PRN Morphine Sulfate (Morphine Sulfate) 15 Mg Tablet 15 MG PO BID PRN PRN BACK PAIN Naproxen (Naproxen) 500 Mg Tab 500 MG PO BID PRN PRN BACK PAIN General Time Seen by MD: 17:24 Past Medical History Past Medical History Notes: Admitted October 2014 for right perimandibular abscess with cellulitis ED visit 09/30/2014 for opiate withdrawal (overused his Rx) Patient admitted 09/18- for sepsis due to dental infection Past Medical History Suicidal ideation Obesity Chronic Low back pain on chronic opiates Impaired fasting glucose without history of DM Degenerative joint disease of the lumbar spine Peripheral sensory neuropathy Erectile dysfunction Chronic Benzodiazepine dependence with chronic anxiety - followed by Dr. Mendoza [facility] History of prior cauda equina syndrome and neurogenic bladder Reports: Coronary artery disease, Hyperlipidemia, Hypertension Past Surgical History Recent dental extraction at [place] Reports: Appendectomy, Tonsillectomy Smoking History Former Smoker Social History Alcohol Use: Denies alcohol use Drug Use: Denies drug use, Other Other Social History: Ambulatory Status Independent Physical Exam Initial Vital Signs Vital Signs (First) Date Time Temp Pulse Resp B/P Pulse Ox O2 Delivery O2 Flow Rate FiO2 11/28/16 17:19 37.1 66 16 145/91 95 Room Air Discharge & Departure Referrals: Elham Mendoza MD (PCP) Oscar David MD Nov 28, 2016 17:25
--- NOTE | 2016-11-28 17:34 | ED.REPORT ---
HPI-Psychiatric Illness Date of Service Nov 28, 2016 ED Provider: Anthony Rosenthal History of Present Illness: 66yo male feels suicidal, feels he is unable to control anxiety with current Benzo dose of 10mg tid. Was previously on Ativan 8mg daily. Has had previous psych admiossions and previous suicide attempt with overdose. "I think I might hurt myself." Nursing Notes Stated Complaint: MENTAL HEALTH EVALUATION REQUESTED Chief Complaint: Psychiatric Complaint Nursing Notes Reviewed: Yes Allergies: Coded Allergies: hydrochlorothiazide (Verified Allergy, Severe, 11/07/16) prochlorperazine (Verified Allergy, Severe, PHENOTHIAZINES, 11/07/16) benazepril (Verified Allergy, Unknown, 11/07/16) felodipine (Verified Allergy, Unknown, 11/07/16) losartan (Verified Allergy, Unknown, 11/07/16) Uncoded Allergies: "tiva brand medications" (Allergy, Intermediate, 09/18/14) Scheduled Amlodipine (Amlodipine) 10 Mg Tablet 10 MG PO DAILY Aspirin (Aspirin) 81 Mg Tablet 81 MG PO DAILY Clonidine (Clonidine) 0.2 Mg Tablet 0.2 MG PO BID Diazepam (Diazepam) 10 Mg Tablet 10 MG PO DAILYWL Fenofibrate (Fenofibrate) 160 Mg Tablet 160 MG PO HS Furosemide (Furosemide) 40 Mg Tablet 40 MG PO BIDBL Lorazepam (Ativan) 1 Mg Tablet 1 MG PO BID Lorazepam (Ativan) 1 Mg Tablet 1 MG PO HS Begin on 11/14 Metformin (Metformin) 500 Mg Tablet 500 MG PO TID Metoprolol Tartrate (Metoprolol Tartrate) 50 Mg Tablet 50 MG PO BID Testosterone Cypionate (Testosterone Cypionate) 200 Mg/1 Ml Vial 200 MG IM every 21 days Trazodone (Trazodone) 150 Mg Tablet 1.5 TABLET PO HS Scheduled PRN Morphine Sulfate (Morphine Sulfate) 15 Mg Tablet 15 MG PO BID PRN PRN BACK PAIN Naproxen (Naproxen) 500 Mg Tab 500 MG PO BID PRN PRN BACK PAIN General Time Seen by MD: 17:25 Chief Complaint Anxious, Suicidal ideation Hx Obtained From: Patient Arrived By: Walk-in Onset Occurred: 1 week ago Progression Since Onset: Gradually worsening Severity: Current: No pain currently Severity: Maximum: No pain Associated with: Reports: Anxiety, Denies: Illicit drug use, Psychosis Recent Healthcare: Recent doctor visit Similar Sx Previous: Yes Risk-Psychiatric Illness Risk Notes: Pt. has access to pills. He has attempted previous overdose 12 years ago. Suicide Risk Stratification Suicide Risk Factors - Adult: : Previous attemptNo: Access to firearms RF Statements: Risk factors reviewed Past Medical History Past Medical History Notes: Admitted October 2014 for right perimandibular abscess with cellulitis ED visit 09/30/2014 for opiate withdrawal (overused his Rx) Patient admitted 09/18- for sepsis due to dental infection Benzo dependence Past Medical History Suicidal ideation Obesity Chronic Low back pain on chronic opiates Impaired fasting glucose without history of DM Degenerative joint disease of the lumbar spine Peripheral sensory neuropathy Erectile dysfunction Chronic Benzodiazepine dependence with chronic anxiety - followed by Dr. Mendoza [facility] History of prior cauda equina syndrome and neurogenic bladder Reports: Coronary artery disease, Hyperlipidemia, Hypertension Past Surgical History Reports: Appendectomy, Tonsillectomy Smoking History Former Smoker Social History Recent transition from Ativan to Valium Alcohol Use: Denies alcohol use Drug Use: Denies drug use, Valium Other Social History: Poor social support Ambulatory Status Independent Review of Systems Constitutional: Denies: Chills, Fever Respiratory: Denies: Shortness of breath Cardiovascular: Denies: Chest pain GI: Denies: Abdominal pain Psychiatric: Reports: Anxiety, Suicidal ideation Physical Exam Initial Vital Signs Vital Signs (First) Date Time Temp Pulse Resp B/P Pulse Ox O2 Delivery O2 Flow Rate FiO2 11/28/16 17:19 37.1 66 16 145/91 95 Room Air Initial VS: Reviewed General/Constitutional: Awake, Not toxic appearing Behavior: Positive: Tearful Appearance / Presentation: Positive: Obese Abnormal Mood/Affect: Positive: Anxious, Fearful, Irritable Abnormal Thinking / Perception: Positive: Suicidal, no plan Respiratory / Chest: Breath sounds NL, Breath sounds = bilat, No respiratory distress Cardiovascular: Heart rate NL, Regular rhythm, Heart sounds NL Abdomen: Soft, Non-tender Interpretation & Diagnostics Lab Results Interpretation Result Diagram: 11/28/16 1802 11/28/16 1802 Test 11/28/16 18:02 11/28/16 19:46 White Blood Count 8.3th/mm3 (3.8-10.1) Red Blood Count 5.60mil/mm3 (4.40-5.80) Hemoglobin 15.5g/dL (13.8-17.2) Hematocrit 43.4% (41.0-50.0) Mean Corpuscular Volume 77.5fL (81-100) Mean Corpuscular Hemoglobin 27.7pg (27.0-35.0) Mean Corpuscular Hemoglobin Concent 35.7% (32.0-37.0) Red Cell Distribution Width 14.7% (12.3-15.4) Platelet Count 285bil/L (150-400) Neutrophils (%) (Auto) 69.4% (40-74) Lymphocytes (%) (Auto) 18.4% (14-46) Monocytes (%) (Auto) 10.5% (4-12) Eosinophils (%) (Auto) 1.3% (0-5) Basophils (%) (Auto) 0.2% (0-3) Sodium Level 134mEq/L (134-144) Potassium Level 3.7mEq/L (3.5-5.2) Chloride Level 93mEq/L (97-108) Carbon Dioxide Level 25mmol/L (18-29) Blood Urea Nitrogen 17mg/dL (8-27) Creatinine 1.13mg/dL (0.76-1.27) Estimat Glomerular Filtration Rate 69mL/min (>59) Glucose Level 232mg/dL (60-99) Calcium Level 9.6mg/dL (8.5-10.1) Total Bilirubin 0.4mg/dL (0.0-1.2) Aspartate Amino Transf (AST/SGOT) 23U/L (0-50) Alanine Aminotransferase (ALT/SGPT) 30U/L (0-44) Alkaline Phosphatase 58U/L (25-160) Total Protein 7.7g/dL (6.4-8.4) Albumin 4.2g/dL (3.4-5.0) Hold Apple Top Tube Received (Received) Hold Urine Received (Received) Re-Eval/Medical Decision Med Decision/Clinical Course I spoke with OPt's PCP, Dr. Mendoza (cell [phone]). She saw Pt. today and declined refilling his Ativan. Pt. fees he needs Ativan to adequately control anxiety. Micheal Smith, [employer]IES COUNCIL DIRECTOR, evaluated Pt. and does not feel Pt. meets admission criteria. Pt. became very upset and tearful at prospect of discharge, "I'm telling you, I do not feel safe. I may harm myself." Care transferred to Dr. Rodriguez at shift change. Re-Evaluation/Progress : Time of Eval: 22:31 Re-Evaluation/Progress Note: Dr. Rodriguez rechecked pt. The pt continues to state that he feels afraid to be alone and may hurt himself if sent home. Discussed the plan to keep the pt in the ED until he can be seen by a social services counselor tomorrow morning. He undersands and agrees with the plan. Discharge & Departure Shift Change Sign-Out Patient Care Transferred: Yes Additonal Information: Care transferred to Dr. Rodriguez at shift change Impression: Primary Impression: Benzodiazepine dependence Additional Impression: Suicidal ideation Discharge Condition All VS Reviewed: Yes Condition: Stable Referrals: Elham Mendoza MD (PCP) Care Transferred to: Vidal Rodriguez Care Transferred at: 06:00 EDSupervising Provider for APC: Noe Haddad MD Attending Statement Patient was signed out to me by Dr. Terell Rodriguez pending social services counselor evaluation. Patient evaluation was repeated and he was no longer suicidal. He denied suicidal ideation with no plan and no homicidal ideation. Patient felt much better after could not sleep. He was evaluated by social services counselor who agreed that he was safe for discharge home. She will be discharged home with plans to follow-up with his primary doctor. Return precautions given if he felt himself or others. Anthony Rosenthal Nov 28, 2016 17:34 Oscar David MD Nov 28, 2016 19:40 Foster Bertrand Nov 28, 2016 22:45 Anthony Rodriguez MD Nov 29, 2016 06:26 Noe Haddad MD Nov 29, 2016 15:19
[2016-11-28 18:13] LABS: BASOPHILS % (AUTO) 0.2 % (0-3); EOSINOPHILS % (AUTO) 1.3 % (0-5); MONOCYTES % (AUTO) 10.5 % (4-12); Mean Corpuscular Hemoglobin 27.7 pg (27.0-35.0); Mean Corpuscular Volume 77.5 fL (81-100); NEUTROPHILS % (AUTO) 69.4 % (40-74); Platelet Count 285 bil/L (150-400)
[2016-11-29 05:30] VITALS: BP 136/82; PULSE 86; RESP 18; O2SAT 97
[2016-11-29 09:29] VITALS: BP 107/66; PULSE 74; RESP 18; O2SAT 94
[2016-11-29 12:59] VITALS: BP 152/98; PULSE 87; RESP 16; O2SAT 95
--- NOTE | 2016-11-29 12:59 | NUR ---
Social Work Note D: Per MD request, KIN met with pt at bedside assess for safety and confirm discharge plan. Pt verbally acknowledged that he is "heavily dependent on benzodiazepines" and explained that his PCP Dr. Mendoza is uncomfortable continuing to prescribed Valium and would like him to see a psychiatrist in the community to oversee his psychiatric medication management. Pt focused on the ED MD contacting his PCP to request she prescribe one final refill on his Valium. SW emphasized that outpt providers will be able to consistently and appropriately manage his medications in a way that we are unable to do in the ED and if his PCP has established that she is uncomfortable prescribing benzo's to him long-term any longer, then it would be inappropriate for another physician to ask her to any differently and we must respect that boundary. SW emphasized that controlled substances are becoming more difficult to be prescribed both in the ED and in the community which is why it is important to follow up with his outpt mental health counselor Kristine at [facility] for additional support and to develop coping mechanisms in the midst of reducing his benzodiazepine intake. Pt confirmed that he likes Kristine and he would like to continue meeting with her. Pt sates he felt anxious about not having a supply of Valium to last him until he is able to meet with an outpt psychiatrist. After being reassured by operations staff specialist security that he has a 19 day supply of Valium, pt states that he is "well rested from staying last night and I feel stable enough to go home today." A: Baljit Ramos is a 66 year old male who agreed to KIN meeting with him this afternoon. Pt was alert and oriented. Pt laid in bed but kept good eye contact and normal speech. Pt was appropriate in responses and interactions. Pt appeared well groomed. Pt appears to be of average weight. Pt mood is "stable today." Pt denies any suicidal ideation or plan. Pt denies any thoughts or plan to harm himself or others. Plan: Pt is not a danger to himself or others. Pt participated in discharge and safety planning. notified and pt is being discharged home. Pt accepted information on outpt mental health tx providers in the community to contact to see if he is able to be established with a prescriber. As it is a holiday weekend, SW is unable to complete this task at this time. Pt acknowledges that offices may not be open until Thursday the 03 of December. SW emphasized that it may take some time to be connected with another prescriber in the community. Pt plans to also follow up with his PCP next week. Pt states that his friend "Gerald" will come and pick him up. Pt denies any other needs. TEMI Merrill
--- NOTE | 2016-11-29 15:29 | PCM.EDPN ---
ED Note Date of Service Nov 29, 2016 EDSupervising Provider for APC: Noe Haddad MD ED Attending Statement This is an addendum to the note by Terell Rosenthal yesterday. I cannot then note as it has not been signed. In brief I assumed care of this patient from Dr. Terell Rodriguez. Patient was pending social psychologist evaluation. Patient denied suicidal ideation and homicidal ideation after sleeping the night. convention worker evaluated patient and deemed that he was safe for discharge home. He was likely seeking benzodiazepines. This discharged home in good condition with plan for safety and is to return if any thoughts of hurting himself or others. Will follow up primary Doctor. Noe Haddad MD Nov 29, 2016 15:29
== END 2016-11-29 13:01 | disposition home or self-care (01) ==
LOC: SED 17:10
DX: F13.20 Sedative, hypnotic or anxiolytic dependence, uncomplicated (principal); R45.851 Suicidal ideations; F41.9 Anxiety disorder, unspecified; I25.10 Atherosclerotic heart disease of native coronary artery without angina pectoris; I10 Essential (primary) hypertension; Z87.891 Personal history of nicotine dependence; Z90.89 Acquired absence of other organs; Z79.84 Long term (current) use of oral hypoglycemic drugs; Z79.82 Long term (current) use of aspirin; Z88.8 Allergy status to other drugs, medicaments and biological substances

== ENCOUNTER 2016-12-05 11:45 | Emergency (ER) | payer MEDICAID, OTHER ==
[~2016-12-05] VITALS: Ht 182.9 cm; Wt 115.9 kg
[2016-12-05 11:48] VITALS: BP 135/88; PULSE 70; RESP 18; O2SAT 98
--- NOTE | 2016-12-05 12:18 | ED.REPORT ---
HPI-Psychiatric Illness Date of Service Dec 05, 2016 ED Provider: Dr. Abdullahi Pt is a 66 year old male with a hx of CAD, HTN, DM, hyperlipidemia and depression presenting to the ED complaining of suicidal ideation daily for the last week since being discharged from the mental health unit. Associated symptoms include lightheadedness, nausea, and feeling unable to care for himself. Denies any fever, vomiting, diarrhea, or any other symptoms at this time. He states that he does not feel safe, and that he doesn't feel like he's in control. Pt takes 3 10 mg Valium daily. He was hospitalized 10 days ago to the Mental Health unit and had a medication change (3 mg Ativan daily) which made him feel better. When he was discharged, the pt was under the impression that he would go to [place]. Then, he was discharged home with follow up at [facility] and taken off Ativan, and reports suicidal ideation since. Yesterday, he states that he called [facility] [place] and was told that his insurance wouldn't cover his stay, and was told to return to [facility] instead. He denies any drug or alcohol use, or any suicidal plan. Pt reports that he has gone to the ED 4 times this week. He reports 2 previous suicide attempts 12 years ago, but denies suicidal ideation since then. Nursing Notes Stated Complaint: SUICIDAL Chief Complaint: Psychiatric Complaint Nursing Notes Reviewed: Yes Allergies: Coded Allergies: hydrochlorothiazide (Verified Allergy, Severe, 11/07/16) prochlorperazine (Verified Allergy, Severe, PHENOTHIAZINES, 11/07/16) benazepril (Verified Allergy, Unknown, 11/07/16) felodipine (Verified Allergy, Unknown, 11/07/16) losartan (Verified Allergy, Unknown, 11/07/16) Uncoded Allergies: "tiva brand medications" (Allergy, Intermediate, 09/18/14) Scheduled Amlodipine (Amlodipine) 10 Mg Tablet 10 MG PO DAILY Aspirin (Aspirin) 81 Mg Tablet 81 MG PO DAILY Clonidine (Clonidine) 0.2 Mg Tablet 0.2 MG PO BID Diazepam (Diazepam) 10 Mg Tablet 10 MG PO DAILYWL Fenofibrate (Fenofibrate) 160 Mg Tablet 160 MG PO HS Furosemide (Furosemide) 40 Mg Tablet 40 MG PO BIDBL Lorazepam (Ativan) 1 Mg Tablet 1 MG PO BID Lorazepam (Ativan) 1 Mg Tablet 1 MG PO HS Begin on 11/14 Metformin (Metformin) 500 Mg Tablet 500 MG PO TID Metoprolol Tartrate (Metoprolol Tartrate) 50 Mg Tablet 50 MG PO BID Testosterone Cypionate (Testosterone Cypionate) 200 Mg/1 Ml Vial 200 MG IM every 21 days Trazodone (Trazodone) 150 Mg Tablet 1.5 TABLET PO HS Scheduled PRN Morphine Sulfate (Morphine Sulfate) 15 Mg Tablet 15 MG PO BID PRN PRN BACK PAIN Naproxen (Naproxen) 500 Mg Tab 500 MG PO BID PRN PRN BACK PAIN General Time Seen by MD: 12:17 Chief Complaint Suicidal ideation Hx Obtained From: Patient Arrived By: Walk-in Onset Occurred: 1 week ago Symptom Duration: Since onset Progression Since Onset: Constant Severity: Current: No pain currently Severity: Maximum: No pain Recent Healthcare: Recent doctor visit, Recent hospitalization Similar Sx Previous: Yes Risk-Psychiatric Illness Suicide Risk Stratification Suicide Risk Factors - Adult: : Previous attempt: Prior psych admission RF Statements: Risk factors reviewed Past Medical History Past Medical History Notes: Admitted October 2014 for right perimandibular abscess with cellulitis ED visit 09/30/2014 for opiate withdrawal (overused his Rx) Patient admitted 09/18- for sepsis due to dental infection Benzo dependence Past Medical History Suicidal ideation Obesity Chronic Low back pain on chronic opiates Impaired fasting glucose without history of DM Degenerative joint disease of the lumbar spine Peripheral sensory neuropathy Erectile dysfunction Chronic Benzodiazepine dependence with chronic anxiety - followed by Dr. Mendoza [facility] History of prior cauda equina syndrome and neurogenic bladder Reports: Coronary artery disease, Diabetes mellitus, Hyperlipidemia, Hypertension Past Surgical History Reports: Appendectomy, Tonsillectomy Smoking History Former Smoker Social History Recent transition from Ativan to Valium Alcohol Use: Denies alcohol use Drug Use: Denies drug use, Valium Other Social History: Poor social support Ambulatory Status Independent Review of Systems Constitutional: Denies: Fever GI: Reports: Nausea, Denies: Diarrhea, Vomiting Neurologic: Reports: Lightheaded Psychiatric: Reports: Depression, Suicidal ideation, Denies: Hallucinations, auditory, Hallucinations, visual, Homicidal ideation Complete sys rev & neg: except as marked. Physical Exam Initial Vital Signs Vital Signs (First) Date Time Temp Pulse Resp B/P Pulse Ox O2 Delivery O2 Flow Rate FiO2 12/05/16 11:48 36.1 70 18 135/88 98 Room Air Initial VS: Reviewed Head / Eyes: Atraumatic, Normocephalic, PERRL ENT: Mucous membranes moist, Conjunctiva normal, No scleral icterus Neck: Full range of motion Respiratory: No respiratory distress Abdomen / GI: No distention Extremities: Vascular intact, Neuro intact, No swelling, No tenderness Skin: Warm, Dry, No cyanosis General/Constitutional: Awake, Alert Neurologic: Oriented X3, Speech NL, No motor deficits, No sensory deficits, Memory NL Psychiatric: Not homicidal, No hallucinations, Judgment/insight NL Abnormal Thinking / Perception: Positive: Suicidal, no plan Interpretation & Diagnostics Lab Results Interpretation Result Diagram: 12/05/16 1233 12/05/16 1233 Test 12/05/16 12:33 12/05/16 15:06 White Blood Count 7.3th/mm3 (3.8-10.1) Red Blood Count 5.59mil/mm3 (4.40-5.80) Hemoglobin 15.3g/dL (13.8-17.2) Hematocrit 44.2% (41.0-50.0) Mean Corpuscular Volume 79.1fL (81-100) Mean Corpuscular Hemoglobin 27.4pg (27.0-35.0) Mean Corpuscular Hemoglobin Concent 34.6% (32.0-37.0) Red Cell Distribution Width 14.8% (12.3-15.4) Platelet Count 256bil/L (150-400) Neutrophils (%) (Auto) 73.8% (40-74) Lymphocytes (%) (Auto) 16.3% (14-46) Monocytes (%) (Auto) 7.9% (4-12) Eosinophils (%) (Auto) 1.6% (0-5) Basophils (%) (Auto) 0.3% (0-3) Sodium Level 136mEq/L (134-144) Potassium Level 4.1mEq/L (3.5-5.2) Chloride Level 97mEq/L (97-108) Carbon Dioxide Level 24mmol/L (18-29) Blood Urea Nitrogen 14mg/dL (8-27) Creatinine 1.15mg/dL (0.76-1.27) Estimat Glomerular Filtration Rate 68mL/min (>59) Glucose Level 252mg/dL (60-99) Calcium Level 9.2mg/dL (8.5-10.1) Total Bilirubin 0.4mg/dL (0.0-1.2) Aspartate Amino Transf (AST/SGOT) 19U/L (0-50) Alanine Aminotransferase (ALT/SGPT) 23U/L (0-44) Alkaline Phosphatase 48U/L (25-160) Total Protein 7.1g/dL (6.4-8.4) Albumin 4.1g/dL (3.4-5.0) Thyroid Stimulating Hormone (TSH) 0.483uIU/mL (0.450-4.500) Hold Apple Top Tube Received (Received) Hold Urine Received (Received) Re-Eval/Medical Decision Med Decision/Clinical Course I had a very lengthy discussion with Mr. Cerna. He tells me that he was stable on his very aggressive Ativan dosing for about 12 years and since July things have not been going well. I also spoke with Dr. Mendoza his primary care provider who corroborates this aspect of the story. He was admitted recently and discharged on diazepam only. He reports persistent intrusive feelings of suicidality and feels quite hopeless about his medication regimen. I have asked Dr. Alan Nelson to consult here in the emergency department which he has kindly agreed to do. At change of shift care will be passed on to Dr. Ortiz. Re-Evaluation/Progress #1: Time of Eval: 12:50 Patient Status: Condition improved Re-Evaluation/Progress Note: Discussed PMHX and performed physical exam. Re-Evaluation/Progress #2: Time of Eval: 15:10 Patient Status: Condition improved Re-Evaluation/Progress Note: Discussed plan for evaluation by mental health worker and possible admission. Pt understands and agrees with plan. Consultation #1: Referral / Consult Name: Elham Mendoza MD Consulted With: Primary care physician Call Returned at: 13:38 Note: Discussed the pt's case with Dr. Mendoza. Recommends admission. Consultation #2: Referral / Consult Name: Alan Matias MD Consulted With: Mental health Call Returned at: 15:30 Note: Transfer the pt to [place]. Counseled Regarding: Diagnosis, Lab results, Need for follow-up, When/why to return to ED Discharge & Departure Impression: Primary Impression: Depression Additional Impression: Suicidal ideation Disposition: Home Discharge Condition All VS Reviewed: Yes Condition: Improved Referrals: Elham Mendoza MD (PCP) Care Transferred to: [facility] Care Transferred at: 18:02 Ravindra Attestation Portions of this note were transcribed by Esther Valencia. I, Dr. Abdullahi personally performed the history, physical exam and medical decision-making; I reviewed and confirmed the accuracy of the information in the transcribed note. Signed by: Ravindra Aguirre 12/05/2016 at 1800. copies to: Elham Mendoza MD, Kirk H MD Dec 05, 2016 12:18 ESTHER VALENCIA Dec 05, 2016 12:27
[2016-12-05 12:43] LABS: BASOPHILS % (AUTO) 0.3 % (0-3); EOSINOPHILS % (AUTO) 1.6 % (0-5); MONOCYTES % (AUTO) 7.9 % (4-12); Mean Corpuscular Hemoglobin 27.4 pg (27.0-35.0); Mean Corpuscular Volume 79.1 fL (81-100); NEUTROPHILS % (AUTO) 73.8 % (40-74); Platelet Count 256 bil/L (150-400)
[2016-12-05 15:44] VITALS: BP 139/88; PULSE 60; RESP 16; O2SAT 96
[2016-12-05 20:32] VITALS: BP 146/97; PULSE 66; RESP 20; O2SAT 98
[2016-12-05] MEDS ORDERED: MetoCLOpramide 5 mg/mL 2 mL Inj IM ONE (20:40)
[2016-12-05] MEDS ORDERED: Venlafaxine XR 37.5 mg ER24 Capsule PO ONE (21:25)
[2016-12-06] MEDS ORDERED: VENL-57 PO (00:04)
[2016-12-06] MEDS ORDERED: PROP10TA8 PO (00:06)
[2016-12-06 00:33] VITALS: BP 150/101; PULSE 94; RESP 18; O2SAT 97
--- NOTE | 2016-12-06 02:57 | CONS ---
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 The patient presents to the Emergency Department with anxiety symptoms including lightheadedness, nausea and feeling unable to care for himself. Patient did not previously meet criteria for admission and psychiatry is consulted for medication/treatment suggestions. CHIEF COMPLAINT: "They decreased my Ativan and increased my Valium three times a day. I was taking one dose of Valium and five doses of Ativan at [facility] 12 years ago and I have so much anxiety that I can barely speak." "I am getting sicker and sicker. I have feelings of helplessness." HISTORY OF PRESENT ILLNESS: The patient was recently treated at the [facility] at [facility] from November 07, 2016 to November 12, 2016 and was reportedly admitted on Valium 10 mg t.i.d. and Ativan 1 mg t.i.d. Nortriptyline was discontinued as was telmisartan, but otherwise medications remain the same. The patient reported that initially he felt better and attempted to follow up with his outpatient provider. He also stated that he went to [facility] and was assigned a counselor and wants to dispense his medications; however, custodial through the process he reported having a panic attack and so left the assessment. He reports that he feels unsafe and he would like to go back to [facility]. He reports having nausea and "feeling out of control." He also stated that "suicidal ideations" are coming back, but he denies plan or intent to act on them but has anxiety that this may happen. We discussed other options such as standard antidepressant therapy, but he reported being nauseated to "all medications." Of note, the patient had been taking nortriptyline for many years and experienced no significant side effects from this medication. We discussed the low likelihood of being nauseated within 30-45 minutes of taking all medications, regardless of class, including SSRIs, bupropion, buspirone, and other medications. He reports that he had not taken mirtazapine to his knowledge and could not recall the response to venlafaxine. We discussed that as he does not want any change in medications and the indicated treatment is either cognitive behavioral therapy or antidepressant therapy to address his anxiety needs and he has no plan or intent to harm himself, crisis stabilization would likely be in his best interest and he could follow up with his providers on Thursday. The patient felt uncomfortable with this but was willing to contact crisis stabilization. ED BRIM STIFFENER was able to assist patient. PAST PSYCHIATRIC HISTORY: Please refer to Dr. Callejas history and physical from November 07, 2016 for past psychiatric history and social history, but the patient has previously been referred to [facility] and did not make a scheduled appointment and also did not complete his intake with [facility] at the most recent stay. MENTAL STATUS EXAMINATION: The patient is a male, appearing older than his stated age, appears somewhat unkempt. Behavior: The patient reports being anxious and does not appear to be outwardly anxious without evidence of diaphoresis or tremor; however, on full extension of his hands he does have a significant tremor; however, there is no facial tremor or tongue tremor. He has no asterixis or tremors is in his legs. Speech: Anxious tone but otherwise within normal limits. Mood is anxious. Affect is anxious. Thought processes: He is fixated on obtaining benzodiazepines and concern that they are some how going to be discontinued, but otherwise he is goal directed. Content of thought: He endorses suicidal ideation without plan or intent. He denies homicidal, ideation, auditory, visual hallucinations or paranoid ideation. Insight and judgment appear impaired. Attention and concentration appear grossly intact. Memory appears to be intact. Sensorium: Overall intact without evidence of delirium or dementia. IMPRESSION: The patient is a 66-year-old male with a long history of anxiety disorder and what appears to be benzodiazepine dependence and is currently reporting anxiety and initially was unwilling to take any antidepressants. He did however agree to take venlafaxine as a low dose and was willing to try propranolol instead of metoprolol to better address his anxiety symptoms. We discussed the use of Reglan as he reported this was the only antiemetic that had been effective for him and that this may prevent some of the symptoms he was experiencing with his antidepressants as his emesis and nausea syndrome associated with all medications related to antidepressants appears to be more psychogenic as he had no problems with nortriptyline or trazodone. He was agreeable to this plan. DIAGNOSES: AXIS I: 1. Polysubstance use disorder including prescription opiates and benzodiazepines. 2. Panic disorder with agoraphobia. 3. Generalized anxiety disorder. 4. Major depressive disorder, recurrent, without psychotic features. AXIS II: Borderline personality disorder, Dependent and narcissistic personality traits. AXIS III: History of chronic pain, hypertension, diabetes, diabetic ulcers. AXIS IV: Poor social supports and substance dependence. AXIS V: Global Assessment of Functioning of 40. PLAN: 1. I discussed with patient that his initial lack of willingness to try an antidepressant would impede his ability to have any kind of inpatient treatment; however, social work has attempted to certify the patient in the past and has been unable to do so given his lack of acuity according to their report. 2. I discussed Crisis Respite with the patient to allow him to have a sense of safety and supervision and be able to follow up with his outpatient provider and complete his intake with [facility] on Thursday and he believes that this might meet his safety and dependency needs. 3. Discuss with Dr. Ortiz that we could exchange metoprolol with propranolol which might better address his anxiety symptoms and still treat his hypertension. Dr. Ortiz suggested propranolol 20mg tid. 4. We also discussed using Reglan to help reduce his nausea which appeared psychogenic in nature as all medications had the same reaction in a very rapid time frame. This would then allow him to try low dose venlafaxine which would at least have some similar neurotransmitter effects to nortriptyline and not result in reinforcing his fear of non-benzodiazepines. 5. Would recommend venlafaxine 37.5 mg and very slowly titrate over a series of weeks to a more therapeutic dose. The patient may need ongoing antiemetic until he is psychologically able to tolerate the medication. If despite having the antiemetic, he has breakthrough emesis he may have to return to using nortriptyline 50 mg as this had been effective in the past. 6. Should the patient's suicidal ideation worsen or he actually developed a plan or intent, the patient may be more appropriate for an inpatient setting and will need a reassessment by social work. I appreciate this opportunity to consult with this complicated case and should you have any questions, please feel free to contact Psychiatry. DAY
== END 2016-12-06 00:39 | disposition other institution (70) ==
LOC: SED 11:45
DX: F32.9 Major depressive disorder, single episode, unspecified (principal); R45.851 Suicidal ideations; I25.10 Atherosclerotic heart disease of native coronary artery without angina pectoris; E11.40 Type 2 diabetes mellitus with diabetic neuropathy, unspecified; I10 Essential (primary) hypertension; Z87.891 Personal history of nicotine dependence; Z79.82 Long term (current) use of aspirin; Z79.84 Long term (current) use of oral hypoglycemic drugs; Z79.899 Other long term (current) drug therapy; Z88.8 Allergy status to other drugs, medicaments and biological substances
CPT/HCPCS: 36415; 80053; 81002; 82075; 82948; 84443; 85025; 96372; 99285; J2765

== ENCOUNTER 2016-12-09 10:58 | Emergency (ER) | payer OTHER ==
[~2016-12-09] VITALS: Ht 182.9 cm; Wt 113.6 kg
[~2016-12-09 10:58] MED LIST changes: -LORA-303 PO; -METO50TA3 PO; +PROP10TA8 PO; +VENL-57 PO
[2016-12-09 11:16] VITALS: BP 136/85; PULSE 66; RESP 18; O2SAT 98
--- NOTE | 2016-12-09 11:35 | ED.REPORT ---
HPI-Extremity Problem Lower Date of Service Dec 09, 2016 ED Provider: Jimenez is a 66-year-old male currently in treatment for benzodiazepine dependency presented with a chief complaint of a toe sore. He reports a history of diabetes and a surrounding plantar surface of his left great toe. The patient is preparing to transfer to facility at [facility], and needs to be medically cleared in regards to his toe. Patient reports that there are doctors and nurses on site at that facility. He reports he is seen every 3 days by wound care while in crisis rehabilitation. He believes he is due for debridement. He typically sees Dr. Cruz. Denies fever, chills, malaise, shortness of breath, chest pain, palpitations, abdominal pain, vomiting, pain in his toe. Nursing Notes Stated Complaint: WOUND LEFT TOE EVAL Chief Complaint: General Complaint Nursing Notes Reviewed: Yes Allergies: Coded Allergies: hydrochlorothiazide (Verified Allergy, Severe, 11/07/16) prochlorperazine (Verified Allergy, Severe, PHENOTHIAZINES, 11/07/16) benazepril (Verified Allergy, Unknown, 11/07/16) felodipine (Verified Allergy, Unknown, 11/07/16) losartan (Verified Allergy, Unknown, 11/07/16) Uncoded Allergies: "tiva brand medications" (Allergy, Intermediate, 09/18/14) Scheduled Amlodipine (Amlodipine) 10 Mg Tablet 10 MG PO DAILY Aspirin (Aspirin) 81 Mg Tablet 81 MG PO DAILY Clonidine (Clonidine) 0.2 Mg Tablet 0.4 MG PO DAILY Diazepam (Diazepam) 10 Mg Tablet 10 MG PO TID Fenofibrate (Fenofibrate) 160 Mg Tablet 160 MG PO DAILY Furosemide (Furosemide) 40 Mg Tablet 80 MG PO DAILY Metformin (Metformin) 500 Mg Tablet 500 MG PO TID Propranolol HCl (Propranolol HCl) 10 Mg Tablet 10 MG PO TID Testosterone Cypionate (Testosterone Cypionate) 200 Mg/1 Ml Vial 200 MG IM every 21 days Trazodone (Trazodone) 150 Mg Tablet 1.5 TABLET PO HS Venlafaxine ER (Venlafaxine ER) 37.5 Mg Cap.er.24h 37.5 MG PO DAILY Scheduled PRN Morphine Sulfate (Morphine Sulfate) 15 Mg Tablet 15 MG PO BID PRN PRN BACK PAIN Naproxen (Naproxen) 500 Mg Tab 500 MG PO BID PRN PRN BACK PAIN General Time Seen by MD: 11:35 Chief Complaint Toe injury left 1 Past Medical History Past Medical History Notes: Admitted October 2014 for right perimandibular abscess with cellulitis ED visit 09/30/2014 for opiate withdrawal (overused his Rx) Patient admitted 09/18- for sepsis due to dental infection Benzo dependence Past Medical History Suicidal ideation Obesity Chronic Low back pain on chronic opiates Impaired fasting glucose without history of DM Degenerative joint disease of the lumbar spine Peripheral sensory neuropathy Erectile dysfunction Chronic Benzodiazepine dependence with chronic anxiety - followed by Dr. Mendoza [facility] History of prior cauda equina syndrome and neurogenic bladder Reports: Coronary artery disease, Diabetes mellitus, Hyperlipidemia, Hypertension Past Surgical History Reports: Appendectomy, Tonsillectomy Smoking History Former Smoker Social History Recent transition from Ativan to Valium Alcohol Use: Denies alcohol use Drug Use: Denies drug use, Valium Other Social History: Poor social support Ambulatory Status Independent Review of Systems Review of Systems Note: Negative unless stated otherwise in history of present illness Physical Exam General: Well appearing, well developed, well nourished, no acute distress. Left great toe: Roughly 2 cm x 2 cm ulcer on the plantar surface of the great toe, with granulation tissue visible in the base and callus around the borders. No redness, swelling, purulence. The patient's skin is pale, but DP and PT pulses are 2+. Patient admits reduced sensation, which he states is at baseline due to diabetic neuropathy. Head: Atraumatic, normocephalic. Eyes: No scleral icterus or injection. No discharge. Vision grossly intact. ENT: Voice clear, hearing grossly intact. Respiratory: No respiratory distress, no increased work of breathing. Speaks in complete sentences. Skin: Warm and dry. Neurological: Grossly nonfocal. Psychological: alert and oriented. Speech appropriate, linear and logical. Behavior appropriate. Initial Vital Signs Vital Signs (First) Date Time Temp Pulse Resp B/P Pulse Ox O2 Delivery O2 Flow Rate FiO2 12/09/16 11:16 37.2 66 18 136/85 98 Room Air Normal Re-Eval/Medical Decision Med Decision/Clinical Course 66-year-old male under treatment for benzodiazepine dependency presents seeking medical clearance to [facility] for continuing treatment. Patient reports a diabetic foot ulcer under his left great toe which required evaluation. Evaluated by me, roughly 2 cm in diameter, granular tissue in the base without incursion into bone, tendon, no indication of infection. Wound was seen and evaluated by wound care, who consulted with Dr. cruz. There are evaluation is documented above. We believe the patient is medically cleared for treatment of acute point. Advised regarding primary care follow-up, provided emergency return precautions. Patient verbalized understanding of, and consent to, the plan. Consultation : Referral / Consult Name: Padilla Leblanc Note: Evaluated by Padilla Leblanc from wound care, was also consulted with Dr. Cruz, and provided the following evaluation: Left great toe diabetic ulcer 2 cm long by 1.5 cm wide by 0.3 cm deep. Minimal erythema, clean granular wound bed, is draining minimal serous drainage. No bones or tendons exposed. Debrided slightly today with a #10 blade, minimal bleeding controlled with pressure. No change in wound dimensions post debridement. Wound redressed with Tegaderm AG mesh, gauze and Coban. This can be changed on an every other day basis. Patient can follow up with mechanical pencils assembler Dr. Krystal Cruz at [facility] in 4-6 weeks. Discharge & Departure Impression: Primary Impression: Diabetic ulcer of left foot Diabetic foot ulcer location: toe Diabetes mellitus type: other specified ( including MINA) Non-pressure ulcer stage: unspecified non-pressure ulcer stage Qualified Code: E13.621 - Other specified diabetes mellitus with foot ulcer Disposition: Home Discharge Condition All VS Reviewed: Yes Condition: Stable Patient Instructions: Diabetic Foot Ulcers (ED) Additional Instructions: Evaluation of a foot ulcer in the emergency department includes an interview, physical examination, evaluation by wound care and consultation with Dr. Cruz, all of which that you are medically cleared for treatment at [facility]. Follow-up with your primary care provider with any further concerns. Return to the emergency department for any new or worsening symptoms including increasing redness, swelling, pain, fever, tachycardia or feeling ill. Good luck at [facility]! Referrals: Elham Mendoza MD (PCP) EDSupervising Provider for APC: Oscar David MD Attending Statement Attending attestation: I saw this patient in conjunction with Manjit Layne PA-C. I agree with the workup, evaluation, treatment and disposition. Oscar David MD copies to: Elham Mendoza MD, Beck O MD Dec 09, 2016 11:35 Manjit Layne PA-C Dec 09, 2016 11:59
[2016-12-09 13:44] VITALS: PULSE 78; RESP 16
--- NOTE | 2016-12-09 17:40 | NUR ---
Wound Care Wound orders received, patient seen in ed after case discussion with Dr Saravia. Diabetic male with a left great toe diabetic ulcer, this ulcer is cleaned with saline then selectively debrided with a #10 blade and redressed with tegaderm ag mesh, gauze and coban.Left great toe diabetic ulcer 2 cm long by 1.5 cm wide by 0.3 cm deep. Minimal erythema, clean granular wound bed, is draining minimal serous drainage. No bones or tendons exposed. Debrided slightly today with a #10 blade, minimal bleeding controlled with pressure. No change in wound dimensions post debridement. Wound redressed with Tegaderm AG mesh, gauze and Coban. This can be changed on an every other day basis. Patient can follow up with financial services officer Dr. Ofe Nickerson at [facility] in 4-6 weeks.
== END 2016-12-09 13:44 | disposition home or self-care (01) ==
LOC: SED 10:58
DX: E11.621 Type 2 diabetes mellitus with foot ulcer (principal); L97.529 Non-pressure chronic ulcer of other part of left foot with unspecified severity; I10 Essential (primary) hypertension; E78.5 Hyperlipidemia, unspecified; I25.10 Atherosclerotic heart disease of native coronary artery without angina pectoris; E11.40 Type 2 diabetes mellitus with diabetic neuropathy, unspecified; F13.20 Sedative, hypnotic or anxiolytic dependence, uncomplicated; Z87.891 Personal history of nicotine dependence; Z79.82 Long term (current) use of aspirin; Z79.84 Long term (current) use of oral hypoglycemic drugs; Z79.899 Other long term (current) drug therapy; Z88.8 Allergy status to other drugs, medicaments and biological substances

== ENCOUNTER 2017-01-17 12:07 | Observation (INO) | payer OTHER ==
[~2017-01-17] VITALS: Ht 182.9 cm; Wt 109.6 kg
[2017-01-17 12:10] VITALS: BP 122/82; PULSE 93; RESP 18; O2SAT 99
[2017-01-17] MEDS ORDERED: Ondansetron 2 mg/mL 2 mL Inj IVPUSH ONE ×2 (14:20→15:55)
[2017-01-17] MEDS ORDERED: 0.9% Sodium Chloride 1,000 ML IV ONE ×2 (14:20→15:55)
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
[2017-01-17] MEDS ORDERED: MetoCLOpramide 5 mg/mL 2 mL Inj IVPUSH ONE (14:35)
[2017-01-17 15:38] LABS: BASOPHILS % (AUTO) 0.2 % (0-3); EOSINOPHILS % (AUTO) 0.7 % (0-5); MONOCYTES % (AUTO) 7.4 % (4-12); Mean Corpuscular Hemoglobin 28.1 pg (27.0-35.0); Mean Corpuscular Volume 79.6 fL (81-100); NEUTROPHILS % (AUTO) 77.1 % (40-74); Platelet Count 347 bil/L (150-400)
[2017-01-17 15:49] LABS: Magnesium 1.7 mg/dL (1.6-2.6)
[2017-01-17 16:06] VITALS: BP 138/85; PULSE 77; RESP 18; O2SAT 97
[2017-01-17 16:23] LABS: APPEARANCE,URINE CLEAR (CLEAR,HAZY); COLOR,URINE YELLOW (YELLOW); OCCULT BLOOD,URINE NEGATIVE (NEGATIVE); UROBILINOGEN,URINE NORMAL (NORMAL)
--- NOTE | 2017-01-17 16:52 | DRSVH ---
PROCEDURE: CT ABDOMEN AND PELVIS WITH CONTRAST ([id number]) INDICATIONS: Left lower quadrant ABD PAIN TECHNIQUE: After the administration of intravenous contrast, 5 mm thick sections acquired from the diaphragm to the symphysis. 5 mm coronal and sagittal reformats were acquired. For radiation dose reduction, the following was used: automated exposure control, adjustment of mA and/or kV according to patient siz e. COMPARISON: [facility], CT, ABD/PELVIS W/CON (PN), 08/23/2010, 15:45. FINDINGS: Image quality: Excellent. ABDOMEN: Lung bases: Lung bases are clear. Heart size is normal. Solid organs: Liver and spleen are normal in size and enhancement. Gallbladder appears normal. Mathew iary system is non dilated. Pancreas enhances normally. No adrenal nodules. Kidneys demonstrate no rmal size and enhancement, without hydronephrosis. Peritoneum and bowel: Bowel loops demonstrate normal wall thickness and caliber. No free fluid or a ir. Nodes and vessels: No retroperitoneal or mesenteric adenopathy by size criteria. Aorta and inferior vena cava are normal in size. Miscellaneous: No ventral hernias. PELVIS: Genitourinary: Bladder wall thickness is normal. Moderate bladder enlargement, with the bladder dajuan suring up to 15.5 cm AP, 14.7 cm transverse and 13.8 cm craniocaudad. Miscellaneous: No inguinal hernias or adenopathy. Sigmoid diverticulosis without acute diverticulit is. Bones: No suspicious bony lesions. No vertebral body compression fractures. IMPRESSION: Moderate bladder distention, no urinary tract stone seen. Sigmoid diverticulosis withou t acute diverticulitis. Dictated by: Mariusz Wilder M.D. on 01/17/2017 at 16:48 Approved by: Mariusz Wilder M.D. on 01/17/2017 at 16:50
[2017-01-17 17:29] VITALS: BP 148/73; PULSE 68; RESP 16; O2SAT 98
[2017-01-17] MEDS ORDERED: Promethazine Inj 12.5 MG in Dextrose 5%-Pha MIX 50 ML IV ONE (17:35)
[2017-01-17] MEDS ORDERED: Promethazine Inj 12.5 MG in 0.9% Sodium Chloride 50 ML IV ONE (18:10)
[2017-01-17] MEDS ORDERED: METO10TA3 PO (18:10)
[2017-01-17] MEDS ORDERED: ATRV10T PO (18:10)
[2017-01-17] MEDS ORDERED: METO50TA3 PO (18:11)
[2017-01-17] MEDS ORDERED: LOSA50TA37 PO (18:14)
[2017-01-17] MEDS ORDERED: SILV20CR4 TP (18:15)
[2017-01-17] MEDS ORDERED: VENL150C98 PO (18:18)
[2017-01-17 18:45] VITALS: BP 126/74; PULSE 61; RESP 16; O2SAT 96
[2017-01-17] MEDS ORDERED: Polyethylene Glycol (PEG) 17 Gm Powder PO PRN (20:25)
[2017-01-17] MEDS ORDERED: Alum-Mag Hydrox-Simeth 30 mL Suspension PO PRN (20:25)
--- NOTE | 2017-01-17 20:42 | PCM.HPMED ---
Subjective Date of Service Jan 17, 2017 Primary Provider: Admitting Physician: Francis Rebollar MD Primary Care Physician: Elham Mendoza MD Attending Physician: Francis Rebollar MD Chief Complaint: Nausea/Vomiting with Abdominal Pain History of Present Illness: Mr. Ramos is a 66-year-old male with past medical history of anxiety, gastroenteritis, diverticulosis, history of abdominal pain who presented to the ED complaining of nausea/vomiting and left lower quadrant abdominal pain 2 weeks. Patient states that he is being followed by podiatry for a left great toe nonhealing ulcer that has reported to have infiltrated to the bone. 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 He further states that over the last 2 weeks he has had chronic nausea with dry heaves and no vomiting and has not been able to keep any food down, he also reports a 20 pound weight loss during this time. He has taken Pepto-Bismol for this with minimal relief. He denies any changes in his GI or habits no diarrhea fever or chills, no blood in stool. He lives alone with no other sick contacts. No chest pain or shortness of breath. He states the pain is located in his left lower quadrant and feels that there is a pulled muscle or mass present there that he has not noticed in the past. He has no history of abdominal hernias. His last colonoscopy was in 2010 which showed diverticulosis , hemorrhoids and was otherwise normal. In the ED he was hemodynamically stable and afebrile, was given 1 L normal saline. Lab work showed mild leukocytosis 13.4 with 77% neutrophils, electrolyte panel unremarkable. CT abdomen and pelvis showed moderate bladder distention, sigmoid diverticulosis with no evidence of diverticulitis. He was given Zofran in the ED which brought his nausea from a 10/10 to a 2/10 and his pain is currently a1/10, he was also given diazepam 0.5 mg IV 1 time. Of note patient was recently seen by a psychiatric clinician at [facility] and per patient reportedly diagnosed with benzodiazepine addiction, and this is also listed in his active home medications as 10 mg by mouth 3 times a day. Review of Systems: A comprehensive review of systems was conducted with the patient and found to be negative except as above in the history of present illness. Allergies Coded Allergies: hydrochlorothiazide (Verified Allergy, Severe, Anaphylaxis, 01/17/17) prochlorperazine (Verified Allergy, Severe, PHENOTHIAZINES, 11/07/16) benazepril (Verified Allergy, Unknown, 11/07/16) felodipine (Verified Allergy, Unknown, 11/07/16) losartan (Verified Allergy, Unknown, 11/07/16) Uncoded Allergies: "tiva brand medications" (Allergy, Intermediate, 09/18/14) Home Medications Amlodipine (Amlodipine) 10 Mg Tablet 10 MG PO QAM Aspirin (Aspirin) 81 Mg Tablet 81 MG PO QAM Atorvastatin (Lipitor) 10 Mg Tab 10 MG PO HS Clonidine (Clonidine) 0.2 Mg Tablet 0.2 MG PO BIDBL Diazepam (Diazepam) 10 Mg Tablet 10 MG PO TID Fenofibrate (Fenofibrate) 160 Mg Tablet 160 MG PO QAM Furosemide (Furosemide) 40 Mg Tablet 40 MG PO BIDBL Losartan Potassium (Losartan Potassium) 50 Mg Tablet 50 MG PO QAM Metformin (Metformin) 500 Mg Tablet 500 MG PO TIDWM Metoprolol Tartrate (Metoprolol Tartrate) 50 Mg Tablet 50 MG PO BID Silver Sulfadiazine (Silvadene) 20 Gm Cream..g. 1 APPLIC TP BID TOE INFECTION Trazodone (Trazodone) 150 Mg Tablet 225 MG PO HS Venlafaxine ER (Venlafaxine ER) 150 Mg Cap.er.24h 150 MG PO QAM Metoclopramide (Metoclopramide) 10 Mg Tablet 5 MG PO TID PRN PRN For Nausea/ Vomiting Morphine Sulfate (Morphine Sulfate) 15 Mg Tablet 15 MG PO BID PRN PRN BACK PAIN Naproxen (Naproxen) 500 Mg Tab 500 MG PO BID PRN PRN BACK PAIN PMH h/o Suicidal ideation Obesity Chronic Low back pain on chronic opiates Impaired fasting glucose without history of DM Degenerative joint disease of the lumbar spine Peripheral sensory neuropathy Erectile dysfunction Chronic Benzodiazepine dependence with chronic anxiety - followed by Dr. Mendoza [facility] History of prior cauda equina syndrome and neurogenic bladder Gastroenteritis Reports: Coronary artery disease, Diabetes mellitus, Hyperlipidemia, Hypertension Past medical history additional notes: History of recent psychiatric admission for depression and suicidal ideation, now resolved (12/2016) Admitted October 2014 for right perimandibular abscess with cellulitis ED visit 09/30/2014 for opiate withdrawal (overused his Rx) Patient admitted 09/18- for sepsis due to dental infection Benzo dependence Surgical History Colonoscopy for chronic LLQ pain Negative [address] Desai (mild diverticulosis) Reports: Appendectomy, Tonsillectomy Family History EtOH abuse in biological brother now . Social History Hx Alcohol Use: No Hx Substance Use: No Hx Tobacco Use: No Smoking Status: Former Smoker Living Arrangement: Alone Exam Vital Signs Vital Sign - Last Date Time Temp Pulse Resp B/P Pulse Ox O2 Delivery O2 Flow Rate FiO2 01/17/17 18:45 61 16 126/74 96 Room Air 01/17/17 12:10 36.6 Exam General: Obese male lying in hospital bed in no acute distress, well-developed, well-nourished, tangental thought process HEENT: Normocephalic, atraumatic. External ears without defect. Pupils equal, round, and reactive to light and accommodation. Oropharynx free of erythema and cobble stoning with moist mucosa. Neck: Supple with full range of motion. No jugular venous distension. Cardiovascular: Regular rate and rhythm with no murmurs, rubs, or gallops appreciated Pulmonary: Clear to auscultation bilaterally with no crackles, wheezes, or rhonchi. Normal respiratory effort with no use of accessory muscles. Abdomen: Obese abdomen Bowel tones present. Soft, tender to deep palpation left lower quadrant, no rebound tenderness, no masses appreciated. Mildly tender right upper quadrant. Extremities: No lower extremity edema. Good dorsalis pedal pulses bilaterally. Left great toe bandage in place, surrounding skin nonerythematous and nonswollen and nontender to palpation. Skin: Normal temperature, turgor, and texture Neurological: Cranial nerves grossly intact. Lab and Diagnostics Result Diagram: 01/17/17 1450 01/17/17 1450 X-Rays, CTs and MRIs . CT ABDOMEN AND PELVIS WITH CONTRAST IMPRESSION: Moderate bladder distention, no urinary tract stone seen. Sigmoid diverticulosis without acute diverticulitis. Dictated by: Mariusz Wilder M.D. on 01/17/2017 Assessment & Plan Mr. Ramos is a 66 male with past medical history of anxiety, gastroenteritis , diverticulosis, diabetes mellitus, history of abdominal pain, nonhealing ulcer admitted for intractable nausea vomiting with covering left lower quadrant abdominal pain. Nausea without vomiting, POA, improving -Possibly secondary to gastroenteritis, gastroparesis, psychiatric -Total bili and lipase within normal limits. -A1c pending -Zofran given in ED with effect, nausea reported currently to be a 2/10 from a 03/10 -Hold home metoclopramide -TSH pending -Zofran 8 mg by mouth every 6 when necessary -ED physician consult to GI who agrees to see patient Abdominal pain, POA, improving -Possibly secondary to ongoing gastritis, gastroenteritis, CA, diverticulosis, musculoskeletal -Abdominal pain currently a 1/10 from a 03/10 s/p Zofran administration -GI consult as above -Stool guaiac pending -Hepatitis panel pending Leukocytosis, present on admission. Ongoing -Most likely secondary to stress reaction, possibly secondary to gastritis as above or left great toe infection -White count 13.4 on admit, afebrile, hemodynamically stable -No antibiotics indicated at this time -Pro calcitonin pending -Continue to monitor Left diabetic foot ulcer, POA, ongoing -Day team to consider left extremity x-ray as this was not accomplished at urgent care -Consider podiatry consult Benzodiazepine dependence, POA, ongoing -Discharged 11/18/2016 from [facility] psychiatric unit with diagnosis polysubstance use disorder including prescription opiates and benzos -At discharge to his continued on his Valium dose of 10 mg 3 times a day with the plan to taper -Day team to acquire outside records from PCP -Continue home benzodiazepine as patient was discharged with this medication in October, when seen in ED 12/06/2016 Dr. Cui recommended its continuation -Consider psychiatric consult Diabetes mellitus, POA, chronic -Hold home medications metformin -A1c 10/2014 5.3, repeat A1c pending -Low-dose correctional scale insulin Anxiety, POA, chronic -Continue home benzodiazepine -Continue home venlafaxine -Consider psychiatric consult for medication management Hypertension, POA, chronic -Hold home losartan as this is listed under Pt allergies -Continue home amlodipine -Continue home clonidine -Continue home furosemide -Continue metoprolol Hyperlipidemia, POA, chronic -Hold home medications fenofibrate secondary to side effect profile -Continue home statin Chronic back pain, POA -Continue home naproxen Insomnia, POA. Ongoing -Continue home trazodone Pain Evaluation: Adequate Pain Control GI Prophylaxis: H2 erendira VTE Prophylaxis: Sub-Q Heparin (Unfractionated) Resuscitation Status: CPR: Attempt Resuscitation Attending Statement The patient was seen and examined together with house staff on 01/17/2017 and I agree with the history, exam and plan as outlined in the note above. MEY PALUMBO DO Jan 17, 2017 20:42 Tamera Kirkpatrick DO Jan 18, 2017 03:28
[2017-01-17 20:49] VITALS: BP 122/77; PULSE 59; RESP 20; O2SAT 96
[2017-01-17] MEDS ORDERED: Ondansetron 8 mg ODT Tablet PO PRN (21:20)
[2017-01-17] MEDS ORDERED: TRAZODONE 150 MG PO SCH (21:23)
[2017-01-17] MEDS ORDERED: Glucose 40% Oral Gel 15 Gm Tube PO PRN (21:40)
[2017-01-17] MEDS: Insulin LISPRO 300 Unit/3 mL Inj SUBQ SCH (22:00)
[2017-01-17] MEDS: 0.9% Sodium Chloride 1,000 ML IV SCH (22:51)
[2017-01-17] MEDS: Heparin 5,000 Unit/mL Inj SUBQ SCH (23:37)
[2017-01-18] VITALS (9 sets, daily range): BP systolic 126–151; BP diastolic 67–84; PULSE 61–71; RESP 14–18; O2SAT 93–97
--- NOTE | 2017-01-18 00:28 | NUR ---
admit pt admitted from ED to [facility] room 1027 at 2035. vss and afebrile. he is alert and oriented but can be forgetful and needs things explained to him multiple times. pt says he has "brain fog" due to recent medication changes and having the benzodiazepines he was taking tapered down. he denies any abdominal pain and says that his nausea is very minimal at this time. pt order was NPO and he requested that he be able to drink 2 glucernas and have sips of water. pt stated if he took his pills on an empty stomach he would become nauseated. his blood glucose was 77. was notified who gave the OK for pt to drink glucernas and have sips and chips until midnight when he needed to be made NPO again. pt appears to have a lot of anxiety and nurse and patient went over the medications that were ordered for him very thoroughly to help relieve his anxiety. pt has an abscess that is packed on his R buttock. he says he seen by wound care for this and they are supposed to change the dressing on Thursday. nurse placed an order for inpatient wound care evaluation. pt also has L great toe dressing that is c/d/i and he seen by podiatry for this. pt resting comfortably in bed at this time. pt oriented to room, call light and bed controls.
[2017-01-18] MEDS: Ondansetron 2 mg/mL 2 mL Inj IVPUSH PRN ×3 (02:57→13:11)
[2017-01-18] MEDS ORDERED: Dextrose 5% 0.9% NaCl 250 ML in IV Bag 1 EACH IV ONE (03:45)
[2017-01-18] MEDS ORDERED: Dextrose 5% 0.9% NaCl 250 ML IV ONE (04:40)
--- NOTE | 2017-01-18 04:54 | NUR ---
blood glucose/chest pain pt complained of nausea and feeling shaky. he was given 8mg of zofran and nurse rechecked his blood glucose. it was 80. he said he is used to being high and felt like he was too low and this was making him feel poor. he also complained of a stabbing chest pain, not severe but noticeable. paged who ordered a 250ml bolus of D5NS, EKG and troponins. EKG showed normal sinus rhythm, troponins are pending. after d5 bolus pt blood glucose is 102, he has no more nausea at this time and no more complaints of chest pain. care continues
[2017-01-18 05:22] LABS: BASOPHILS % (AUTO) 0.3 % (0-3); EOSINOPHILS % (AUTO) 2.2 % (0-5); MONOCYTES % (AUTO) 10.3 % (4-12); Mean Corpuscular Hemoglobin 28.2 pg (27.0-35.0); Platelet Count 233 bil/L (150-400)
[2017-01-18 06:06] LABS: Magnesium 1.6 mg/dL (1.6-2.6); TROPONIN T 0.01 ug/L (0.0-0.011)
[2017-01-18] MEDS: Heparin 5,000 Unit/mL Inj SUBQ SCH ×2 (07:21→17:17)
[2017-01-18] MEDS: 0.9% Sodium Chloride 1,000 ML IV SCH (07:40)
[2017-01-18] MEDS: Insulin LISPRO 300 Unit/3 mL Inj SUBQ SCH ×4 (08:00→22:00)
[2017-01-18] MEDS ORDERED: fentaNYL-PF 50 mCg/mL 2 mL Inj ONE (09:05)
[2017-01-18] MEDS ORDERED: Ketamine 10 mg/mL 20 mL Inj ONE (09:05)
[2017-01-18] MEDS ORDERED: Lactated Ringer's 1,000 ML IV ONE (09:25)
--- NOTE | 2017-01-18 09:35 | PCM.HPANE ---
Patient Data Date of Service: Jan 18, 2017 Surgeon Admitting Provider:Tamera Kirkpatrick DO Attending Provider:Mirtha Rizzo MD Primary Care Physician:Elham Mendoza MD Other Provider: Reason for Visit Abdominal Pain Ht/WT & BMI Height (Feet): 6 Height (Inches): 0.00 Weight (Kilograms): 109.300 Body Mass Index 32.64 Allergies Coded Allergies: hydrochlorothiazide (Verified Allergy, Severe, Anaphylaxis, 01/17/17) prochlorperazine (Verified Allergy, Severe, PHENOTHIAZINES, 11/07/16) benazepril (Verified Allergy, Unknown, 11/07/16) felodipine (Verified Allergy, Unknown, 11/07/16) losartan (Verified Allergy, Unknown, 11/07/16) Uncoded Allergies: "tiva brand medications" (Allergy, Intermediate, 09/18/14) Past Anesthesia History Anesthesia History: Denies:: Anesthesia Reactions Diabetes History Hx Diabetes?: Yes Current Bedside Blood Glucose: 102 MRSA MRSA: No Medications Reported Medications Venlafaxine ER 150 Mg Cap.er.85c083 Mg PO QAM Ref 0 01/17/17 Silver Sulfadiazine (Silvadene)20 Gm Cream..g.1 Applic TP BID TOE INFECTION 01/17/17 Losartan Potassium 50 Mg Hvsypt75 Mg PO QAM 01/17/17 Metoprolol Tartrate 50 Mg Yphivg52 Mg PO BID 30 Days Ref 0 01/17/17 Metoclopramide 10 Mg Tablet5 Mg PO TID PRN For Nausea/Vomiting Ref 0 01/17/17 Atorvastatin (Lipitor)10 Mg Tab10 Mg PO HS Ref 0 01/17/17 Metformin 500 Mg [id number] Mg PO TIDWM Ref 0 11/06/16 Aspirin 81 Mg Yfjmvn13 Mg PO QAM Ref 0 11/06/16 Amlodipine 10 Mg Ceonst40 Mg PO QAM Ref 0 11/06/16 Naproxen 500 Mg Mnc286 Mg PO BID PRN BACK PAIN Ref 0 11/06/16 Diazepam 10 Mg Ivoztg92 Mg PO TID For Anxiety Ref 0 11/06/16 Trazodone 150 Mg Yxrcqr080 Mg PO HS Ref 0 11/06/16 Fenofibrate 160 Mg Ppdruv023 Mg PO QAM 30 Days Ref 0 09/18/14 Morphine Sulfate 15 Mg Szdvze84 Mg PO BID PRN BACK PAIN 09/18/14 Furosemide 40 Mg Hbprzo69 Mg PO BIDBL 30 Days 09/18/14 Clonidine 0.2 Mg Tablet0.2 Mg PO BIDBL 30 Days Ref 0 09/18/14 Discontinued Reported Medications Propranolol HCl 10 Mg Clykke90 Mg PO TID 90 Days Ref 0 12/06/16 Venlafaxine ER 37.5 Mg Cap.er.24h37.5 Mg PO DAILY Ref 0 12/06/16 Testosterone Cypionate 200 Mg/1 Ml Asfw010 Mg IM every 21 days 11/07/16 History History of ENT Problems?: Yes HEENT History: Positive for:: Cataracts Denies:: Dysphagia Sinus Problem Denture Type: None Teeth Condition: Within Normal Limits Hx of Heart Problems?: Yes Cardiovascular History: Positive for:: Chest Pain (panic attack) Edema Hypertension Denies:: Cardiac Surgery Congestive Heart Failure Heart Murmur Irregular Heartbeat Pacemaker Thrombophlebitis Hx of Respiratory Problem?: Yes Respiratory History: Positive for:: Pneumonia Denies:: Asthma COPD Chest Surgery Dyspnea Emphysema Hemoptysis Tuberculosis Hx Neurologic Problems?: Yes Neurological History: Positive for:: Dizziness (medication related) Headaches Denies:: Alzheimer's Disease CVA Dementia Parkinson's Disease Seizures Hx of GI Problems?: Yes Hx of Problems?: Yes Genitourinary History: Positive for:: Urinary Tract Infection Denies:: HX of Hemodialysis Kidney Stones HX of Peritoneal Dialysis: No Male Hx: Positive for:: Prostate Problems (enlarged, frequent urination) Denies:: Scrotal Mass Testicular Surgery Hx Musculoskeletal Problems?: Yes Musculoskeletal History: Positive for:: Back Injury Denies:: Joint Replacement Musculoskeletal Trauma Hx of Psycho/Social Problems?: Yes Psycho Social History: Positive for:: Anxiety Hx Depression Denies:: Bipolar Disorder Suicide Attempt Hx Surgeries?: Yes Hx Any Other Health Problems?: Yes Other History: Positive for:: Hospitalization (Sepsis, surgery, pneumonia) Denies:: Cancer Thyroid Disease History Blood Transfusions: Positive for:: Accept Blood Products? Denies:: Blood Transfuse Reaction Blood Transfusions Hx Diabetes: YesBedside Blood Glucose: 102 Hx Alcohol Use: NoHx Substance Use: No Smoking Status: Former Smoker Have You Smoked inLast 12 mo: No Stop/Bang Treated for Sleep Apnea?: No Do You Have a CPAP Machine?: No S-Snoring: Do You Snore Loudly: Yes T-Tired: feel tired, fatigued: Yes O-Obsered: Observed not breath: Yes P-Blood Pressure: treated: Yes B- Body Mass Index > 35 kg/m2: No A- Age over 50: Yes N- Neck Large Circumference: No G- Gender Male: Yes OSORIO Total Score: 5 OSORIO Risk Assessment: High Risk, =/>3 Yes OSORIO Category 2: Yes Risk Assessment Category Category 1A: Patient has history of documented sleep apnea, and HAS NOT received any narcotic, sedative or anesthesia administration during this stay. Category 1B: Patient has history of documented sleep apnea, and HAS received any narcotic , sedative or anesthesia administration during this stay Category 2: Patient has SUSPECTED Obstructive Sleep Apnea, and HAS received any narcotic , sedative or anesthesia administration during this stay. Category 3: Patient has SUSPECTED Obstructive Sleep Apnea and HAS NOT received narcotic, sedative or anesthesia administration during this stay. Category 4: Outpatient in Procedural Areas with known sleep apnea or who screen positive for High Risk via the STOP/BANG questionnaire. Exam Exam Vital Signs Vital Signs Date Time Temp Pulse Resp B/P Pulse Ox O2 Delivery O2 Flow Rate FiO2 01/18/17 09:29 65 14 151/74 97 Room Air 01/18/17 05:08 36.4 65 16 133/75 97 Room Air General Appearance: Alert, Oriented X3, Cooperative, No Acute Distress HEENT/AIRWAY: MP 2 Lungs: Clear to Auscultation, Normal Air Movement Heart: Exam Unremarkable, Regular Rate/Rhythm, No Murmurs/Rubs/Gallops Meds/Labs/Diagnostics Admission Meds Current Medications Sodium Chloride (Normal Saline) 1,000 ml @ 0 mls/hr Q0M ONCE IV Last administered on 01/17/17 14:45; Start 01/17/17 at 14:20; Stop 01/17/17 at 14:21 ; Status DC Ondansetron HCl (Zofran Inj) 8 mg ONCE ONCE IVPUSH Last administered on 14:45; Start 01/17/17 at 14:20; Stop 01/17/17 at 14:21; Status DC Metoclopramide HCl (Reglan Inj) 10 mg ONCE ONCE IVPUSH Last administered on 14:48; Start 01/17/17 at 14:35; Stop 01/17/17 at 14:37; Status DC Ondansetron HCl 8 mg 8 mg ONCE ONCE IVPUSH Last administered on 01/17/17 16: 00; Start 01/17/17 at 15:55; Stop 01/17/17 at 15:56; Status DC Sodium Chloride (Normal Saline) 1,000 ml @ 0 mls/hr Q0M ONCE IV Last administered on 01/17/17 16:35; Start 01/17/17 at 15:55; Stop 01/17/17 at 15:56 ; Status DC Lorazepam (Ativan Inj) 0.5 mg ONCE ONCE IVPUSH Last administered on 01/17/17 17:28; Start 01/17/17 at 17:00; Stop 01/17/17 at 17:01; Status DC Diphenhydramine HCl 25 mg 25 mg ONCE ONCE IVPUSH Last administered on 19:10; Start 01/17/17 at 17:35; Stop 01/17/17 at 17:36; Status DC Promethazine HCl 12.5 mg/Sodium Chloride 50.5 ml @ 151.5 mls/ hr ONCE ONCE IV Last administered on 01/17/17 18:14; Start 01/17/17 at 18:10; Stop 01/17/17 at 18:29; Status DC Sodium Chloride (Normal Saline) 1,000 ml @ 100 mls/hr Q10H IV Last administered on 01/18/17 07:40; Start 01/17/17 at 20:25 Trazodone HCl (Trazodone) 225 mg HS PO Last administered on 01/17/17 23:21; Start 01/17/17 at 21:37 Heparin Sodium (Porcine) (Heparin Inj) 5,000 unit Q8 SUBQ Last administered on 01/18/17 07:21; Start 01/18/17 at 00:30 Famotidine (Pepcid) 10 mg BID PO Last administered on 01/17/17 23:21; Start at 21:55 Diazepam 10 mg 10 mg TID PO Last administered on 01/18/17 07:29; Start at 23:17 Dextrose/Sodium Chloride 250 ml @ 1,500 mls/hr Q10M ONCE IV Last administered on 01/18/17 04:45; Start 01/18/17 at 04:40; Stop 01/18/17 at 04:49; Status DC Lactated Ringer's (Lr) 1,000 ml @ ud STK-MED ONCE IV Last administered on 01/18t 09:25; Start 01/18/17 at 09:25; Stop 01/18/17 at 09:26; Status DC Bedside Blood Glucose: 102 Labs Test 01/17/17 14:50 01/17/17 15:00 01/18/17 05:15 Hold Apple Top Tube Received (Received) Urine Color Yellow (YELLOW) Urine Appearance Clear (CLEAR,HAZY) Urine pH 7.0 (5.0-8.0) Urine Specific [place] 1.005 (1.003-1.035) Urine Protein Negativemg/dL (NEG,TRACE) Urine Glucose (UA) Negativemg/dL (NEGATIVE) Urine Ketones Negativemg/dL (NEGATIVE) Urine Occult Blood Negative (NEGATIVE) Urine Nitrite Negative (NEGATIVE) Urine Bilirubin Negative (NEGATIVE) Urine Urobilinogen Normalmg/dL (NORMAL) Urine Leukocyte Esterase Negative (NEGATIVE) Urine RBC 0-2/hpf (0-2) Urine WBC 0-5/hpf (0-5) Urine Epithelial Cells Occasional/hpf (NONE-MOD) Urine Crystals None seen (NONE SEEN) Urine Bacteria Few/hpf (NONE-FEW) Urine Hyaline Casts None/lpf (NONE) Urine Granular Casts None seen (NONE SEEN) Urine Waxy Casts None seen (NONE SEEN) Urine Red Blood Cell Casts None seen (NONE SEEN) Urine White Blood Cell Casts None seen (NONE SEEN) Urine Mucus None seen (None Seen) Urine Trichomonas None seen (NONE SEEN) Urine Yeast None (NONE SEEN) Urinalysis Comment None Urine Culture Reflexed Not indicated White Blood Count 7.6th/mm3 (3.8-10.1) Red Blood Count 4.54mil/mm3 (4.40-5.80) Hemoglobin 12.8g/dL (13.8-17.2) Hematocrit 36.3% (41.0-50.0) Mean Corpuscular Volume 80.0fL (81-100) Mean Corpuscular Hemoglobin 28.2pg (27.0-35.0) Mean Corpuscular Hemoglobin Concent 35.3% (32.0-37.0) Red Cell Distribution Width 15.1% (12.3-15.4) Platelet Count 233bil/L (150-400) Neutrophils (%) (Auto) 73.0% (40-74) Lymphocytes (%) (Auto) 14.1% (14-46) Monocytes (%) (Auto) 10.3% (4-12) Eosinophils (%) (Auto) 2.2% (0-5) Basophils (%) (Auto) 0.3% (0-3) Sodium Level 139mEq/L (134-144) Potassium Level 3.4mEq/L (3.5-5.2) Chloride Level 103mEq/L (97-108) Carbon Dioxide Level 23mmol/L (18-29) Blood Urea Nitrogen 12mg/dL (8-27) Creatinine 1.14mg/dL (0.76-1.27) Estimat Glomerular Filtration Rate 69mL/min (>59) Glucose Level 109mg/dL (60-99) Calcium Level 8.5mg/dL (8.5-10.1) Magnesium Level 1.6mg/dL (1.6-2.6) Total Bilirubin 0.4mg/dL (0.0-1.2) Aspartate Amino Transf (AST/SGOT) 19U/L (0-50) Alanine Aminotransferase (ALT/SGPT) 20U/L (0-44) Alkaline Phosphatase 40U/L (25-160) Troponin T 0.010ug/L (0.0-0.011) Total Protein 6.4g/dL (6.4-8.4) Albumin 3.6g/dL (3.4-5.0) Lipase 24U/L (13-60) Procalcitonin 0.03ng/mL (0.00-0.08) Thyroid Stimulating Hormone (TSH) 2.100uIU/mL (0.450-4.500) Hepatitis C Comment . Plan Impression Patient chart reviewed, patient interviewed and anesthestic plan with risks, benefits, and alternatives discussed, and informed consent obtained. NPO per Anesth. Guidelines: Yes ASA Physical Status: ASA2 Plus Emergency Anesthetic Plan: GA Bene/Risks/Altern/Consents: Yes HP Complete Prior to Induction: Yes Alan Vargas DO Jan 18, 2017 09:35
--- NOTE | 2017-01-18 09:38 | PCM.ANEP1 ---
Post Anesthesia PACU Phase 1 Assessment Date of Service: Jan 18, 2017 Vital Signs Vital Signs Date Time Temp Pulse Resp B/P Pulse Ox O2 Delivery O2 Flow Rate FiO2 01/18/17 09:29 65 14 151/74 97 Room Air 01/18/17 05:08 36.4 65 16 133/75 97 Room Air Anesthetic Administered: MAC Level of Alertness: Awake, talking SMITH's with Equal Strength: Yes Pain: No Nausea or Vomiting: No CV Function & Hydration Stable: Yes Airway Device: Oxygen Delivery: Room Air, Nasal Cannula Lungs: Clear to Auscultation, Normal Air Movement Dermatome Level: Full Sensation PACU Phase 2 Assessment Complications: No Patient Instructions Provided: N/A Alan Vargas DO Jan 18, 2017 09:38
--- NOTE | 2017-01-18 09:52 | PCM.ENDEGD ---
EGD Date of Service: Jan 18, 2017 Physician Mirtha Rizzo MD Pre Procedure Diagnosis: Nausea vomiting abdominal pain Post Procedure Dx & Findings: Erosive gastropathy with small ulcers and esophagitis Procedure Esophagogastroduodenoscopy PROCEDURE IN DETAIL: Sedation done by anesthesiology After proper sedation, Olympus video endoscope was inserted into patient's mouth and esophagus was successfully intubated. Scope introduced esophagus. Esophagus showed normal shiny whitish mucosa consistent with squamous cell component. Z line was at 45 cm from the incisors. Edema and redness and inflammation noted. Biopsies obtained. There was some evidence of scarring. Again biopsy obtained in this area and placed in the same bottle as the rest of the esophagus. Scope further advanced to the stomach. The entire stomach was atrophic. Some bilious material noted. These were all aggressively suctioned. Significant edema and redness noted as well as erosions and superficial ulcers. These were scattered mostly in the body of the stomach. Biopsies are obtained from the antrum to the proximal stomach including the erosions and small ulcers. Cardia fundus body antrum pylorus were all visualized. Retroflexion was done. Stomach was easily inflated and deflatable using air. Scope further advanced to the distal duodenum. Duodenum revealed normal villous structures with normal appearing folds without any mass ulcer erosion. 5 biopsies obtained for weight loss to rule out celiac disease. Impression Erosive gastropathy with erosions and ulcers superficial. Biopsies obtained Mild esophagitis with some surrounding scarring noted. Biopsies obtained Bilious material some noted in the stomach. Recommendation Advanced diet as tolerated Stop naproxen or other NSAIDs Stop Pepcid Protonix 40 mg IV once a day Carafate 10 mL by mouth 3 times a day Gastric emptying study if negative HIDA scan. Presedation Assessment Risks and Benefits Informed consent was obtained from the patient after all risks and benefits including but not limited to drug reaction, infection, pain, bleeding, perforation, as well as alternatives were discussed. Patient monitoring Continuous pulse oximetry, cardiac monitoring, blood pressure monitoring, IV access, and oxygen at 2L per nasal cannula. Complications There were no periprocedural complications identified. Post Procedure Plan Post Procedure Recommendations 1. Restrict activities today. 2. Resume normal activities in the morning. 3. Resume medications. 4. GERD behavioral modification: - Avoid fatty, acidic, spicy, large meals - Do not lie down after meals - Do not eat or drink anything for at least 2 1/2 hours before going to bed at night - Discontinue tobacco and alcohol - Decrease or avoid caffeine - Avoid chocolate and mints - Decrease weight - Avoid aspirin and non steroidal anti-inflammatory agents (NSAID) such as Aleve, Advil, Mobic, Naproxen, Ibuprofen, etc 5. Add proton pump inhibitor. Take 30 minutes before 1st meal of the day. 6. Patient informed of normal post procedure side effects as bloating, drowsiness, blood streaking in the stool 7. If gastric biopsy reveal H.pylori, continue with appropriate treatment 8. If small bowel biopsy reveals celiac, continue with appropriate treatment 9. Please don't hesitate to call me with any questions Amari Schmidt MD Jan 18, 2017 09:52
--- NOTE | 2017-01-18 10:10 | CONS ---
[address] [address] CONSULTATION REPORT PATIENT: BIBI YANES : 1950 MR#: [id number] ADMIT: 01/17/2017 JOB ID: [id number] DATE OF SERVICE: 01/18/2017 HISTORY OF PRESENT ILLNESS: It was pleasure seeing the patient at [facility] GI service for evaluation of abdominal pain and nausea and vomiting. This 66-year-old gentleman with a history of chronic left lower quadrant pain had a colonoscopy by Dr. Desai in the past without any finding. Also has history of anxiety, gastroenteritis, diverticulosis who came to the emergency department with upper abdominal pain associated nausea, vomiting for about three weeks. During this time, he said he was not able to eat anything. He described his pain as severe, nonradiating constant. Nothing seems to make it better or worse. Also small for the past three weeks, he had chronic nausea and dry heaving. But he has not vomited anything as long as he does not eat anything. When he does eat, he does report vomiting, but did not see any blood in the stools, black stools, or blood in the vomitus or coffee-ground material. Because he was not able to eat anything, he lost about 20 pounds during this time. He tried over the counter medication including Pepto-Bismol but that has not improved the situation. He has not had any sick contacts. Because he was unable to keep anything down, and he has this abdominal pain, he came to the emergency department. In the emergency department, he had mild leukocytosis and CT scan showing no evidence of diverticulitis. There was no cause of his abdominal pain other than showing moderate amount of bladder distention. He was given fluids and medication for nausea as well as for pain. When I saw him this morning, he says that he has nausea but he has not eaten anything. No fever, chills, headaches, blurred vision, dizziness, lightheadedness. He denies any chest pain, or shortness of breath but again has abdominal pain as described above. Left lower quadrant pain which she has chronically, but has recently worsened lately. No diarrhea, constipation, blood in the stools, or black stools. No coffee-grounds emesis or blood in the emesis. No skin rash. PAST MEDICAL HISTORY: Psychiatric issues including history of suicidal idealization, obesity, chronic back pain on chronic opioids, impaired fasting glucose, degenerative joint disease, peripheral neuropathy, chronic benzodiazepine dependence with chronic anxiety, history of cauda equina syndrome, neurogenic bladder, gastroenteritis, as well as history of psychiatric admission for depression suicidal idealization, ED admission for opiate withdrawals. PAST SURGICAL HISTORY: Appendectomy and tonsillectomy. PAST FAMILY HISTORY: Father, biological brother with history of alcohol abuse. SOCIAL HISTORY: Former smoker. Denies use of tobacco, alcohol, or drugs. MEDICATION: That he is getting includes: 1. Valium. 2. Heparin. 3. Zofran. 4. Pepcid. 5. Trazodone. 6. Insulin. 7. Metoprolol. 8. Lipitor. 9. Effexor. 10. Naproxen. 11. Norvasc. 12. Morphine. 13. Lasix. 14. Clonidine. 15. Aspirin. 16. Senna. 17. Maalox. 18. MiraLAX. PHYSICAL EXAMINATION: Temp 36.4, pulse 69, respirations 16, blood pressure 149/84. Head and neck, no icterus. Lungs clear. Cardiovascular regular rate and rhythm. Normal S1, S2. Abdomen is soft. Upper quadrant tenderness without any guarding, rebound, or firmness. Nondistended with decreased bowel sounds. No left lower quadrant tenderness is noted on this morning's exam. Extremities, no pitting edema of the ankles. Skin shows no jaundice. LABORATORY DATA: White count is 7600, hemoglobin 12.8, platelets are 233,000. Chemistry showing normal LFTs. CT scan shows moderate bladder distention. Sigmoid diverticulosis without any diverticulitis. IMPRESSION: This is a gentleman who has weight loss as well as epigastric pain and nausea and vomiting. First thing in the morning as soon as he woke up he said he is nauseated. Looking at the laboratory data, there is no evidence of hepatitis and he has normal lipase. Does not have elevated white count and his BUN and creatinine is normal. He was dehydrated when he came in. With hydration his hemoglobin did drop, but I notice his MCV being on the lower side with normal hemoglobin. Differential includes gastroparesis, peptic ulcer disease or non-gastrointestinal cause of nausea vomiting. In terms of the epigastric pain, CT did not show any evidence of finding that would explain his abdominal pain. He could have peptic ulcer disease because he did have gastroenteritis in the past. The pancreas was normal. Ducts are nondilated. Gallbladder to be normal as well. He may have some gallbladder dysfunction as well. RECOMMENDATION: 1. EGD. 2. If EGD is negative, consider gastric emptying study. If this is negative, HIDA scan. Will make further recommendations after the esophagogastroduodenoscopy. MTDD
[2017-01-18] MEDS: Venlafaxine XR 75 mg ER24 Capsule PO SCH (10:20)
[2017-01-18] MEDS ORDERED: Promethazine 25 mg/mL Inj IM PRN (15:15)
--- NOTE | 2017-01-18 15:19 | PCM.PNMED ---
Subjective Date of Service Jan 18, 2017 Subjective Complaining of worsening headache accompanied by some blurring of vision which is also what happens with his headaches at home. At home ibuprofen is effective for these. He also uses morphine 30 mg occasionally for other pain although it is not usually as active against his headaches. He also notes that when he requires IV morphine and has to be at least 6 mg to be effective, 4 mg does nothing for him. He does also have some nausea, no recent vomiting. He still has abdominal pain which is in the mid left abdomen. Exam Vital Signs Vital Sign - Last Date Time Temp Pulse Resp B/P Pulse Ox O2 Delivery O2 Flow Rate FiO2 01/18/17 10: 36.8 61 18 127/83 93 Room Air Intake and Output 01/17/17 01/17/17 01/18/17 Cumulative From/Thru 15:00 23:00 07:00 01/17/17 12:10 - 01/18/17 06:31 Intake Total 1000 ml 880 ml 1880 ml Output Total 875 ml 875 ml Balance 1000 ml 5 ml 1005 ml Intake Oral 880 ml 880 ml IV Total 1000 ml 1000 ml Output Urine Total 875 ml 875 ml # Bowel Movements 1 1 Exam General: Alert and oriented, no acute distress Heart: Regular Lungs: Clear Abdomen: Soft, bowel tones present, some tenderness with deep palpation in the mid left abdomen Extremities: No pedal edema IVs and Medications Medications Reviewed: Medications were reviewed in detail Lab and Diagnostics Result Diagram: 01/18/1715 01/18/17 0515 X-Rays, CTs and MRIs . CT ABDOMEN AND PELVIS WITH CONTRAST IMPRESSION: Moderate bladder distention, no urinary tract stone seen. Sigmoid diverticulosis without acute diverticulitis. Dictated by: Mariusz Wilder M.D. on 01/17/2017 Assessment & Plan Mr. Ramos is a 66 male with past medical history of anxiety, gastroenteritis , diverticulosis, diabetes mellitus, history of abdominal pain, nonhealing ulcer admitted for intractable nausea vomiting with covering left lower quadrant abdominal pain. Abdominal pain and Nausea without vomiting, POA, improving -Zofran given in ED with effect, but now states this was ineffective and requests Phenergan -Hold home metoclopramide -TSH pending -Zofran 8 mg by mouth every 6 when necessary -Stool guaiac pending -Hepatitis panel pending - GI consult and EGD done today by Dr Schmidt: Impression Erosive gastropathy with erosions and ulcers superficial. Biopsies obtained Mild esophagitis with some surrounding scarring noted. Biopsies obtained Bilious material some noted in the stomach. Recommendation Advanced diet as tolerated Stop naproxen or other NSAIDs Stop Pepcid Protonix 40 mg IV once a day Carafate 10 mL by mouth 3 times a day Gastric emptying study if negative HIDA scan. Will order HIDA and make above med changes Leukocytosis, present on admission. Now resolved -No antibiotics indicated at this time -Pro calcitonin normal -Continue to monitor Mild anemia, slightly microcyti - Some due to IV fluids - Stool guaiac pending - Check iron panel Left diabetic foot ulcer, POA, ongoing -Patient states his computer aided design technician is aware that he is here in the hospital and plans to see him here tomorrow (Thursday) Mild Hypokalemia (3.4) - will add some K to IVF Benzodiazepine dependence, POA, ongoing -Discharged 11/18/2016 from [facility] psychiatric unit with diagnosis polysubstance use disorder including prescription opiates and benzos -At discharge to his continued on his Valium dose of 10 mg 3 times a day with the plan to taper -Day team to acquire outside records from PCP -Continue home benzodiazepine as patient was discharged with this medication in October, when seen in ED 12/06/2016 Dr. Cui recommended its continuation -Consider psychiatric consult Diabetes mellitus, POA, chronic -Hold home medications metformin -A1c 10/2014 5.3, repeat A1c pending -Low-dose correctional scale insulin, glucose low 100's Anxiety, POA, chronic -Continue home benzodiazepine -Continue home venlafaxine -Consider psychiatric consult for medication management Hypertension, POA, chronic -Hold home losartan as this is listed under Pt allergies -Continue home amlodipine -Continue home clonidine -Continue home furosemide -Continue metoprolol Hyperlipidemia, POA, chronic -Hold home medications fenofibrate secondary to side effect profile -Continue home statin Chronic back pain, POA -Continue home naproxen Insomnia, POA. Ongoing -Continue home trazodone GI Prophylaxis: H2 erendira VTE Prophylaxis: Sub-Q Heparin (Unfractionated) VTE Mechanical Devices: Intermittant Pneumatic CD Resuscitation Status: CPR: Attempt Resuscitation Mirtha Rizzo MD Jan 18, 2017 15:19 Mirtha Rizzo MD Jan 18, 2017 15:19
[2017-01-18] MEDS ORDERED: Promethazine Inj 25 MG in 0.9% Sodium Chloride 50 ML IV PRN (15:55)
[2017-01-18] MEDS: 0.9% NaCl + KCl 20 mEq/L 1,000 ML IV SCH (15:56)
[2017-01-18] MEDS: Sucralfate 100 mg/mL 10 mL Suspension PO SCH (17:16)
--- NOTE | 2017-01-18 19:23 | NUR ---
Pain Patient c/o abdominal pain, stated "I want the stuff that goes in my IV", Md made aware, MS 2-6mg ordered, primary RN stated that she would admin 4mg to start, patient resisted stating that it's not enough & that he could tolerate 6mg at once. Patient requested additional 2mg 45 minutes after 4mg was administered. Patient currently sleeping/comfortable.
[2017-01-18] MEDS: Pantoprazole 4 mg/mL 10 mL Inj IVPUSH SCH (19:47)
[2017-01-19] MEDS: Heparin 5,000 Unit/mL Inj SUBQ SCH ×3 (00:24→17:00)
[2017-01-19] MEDS: 0.9% NaCl + KCl 20 mEq/L 1,000 ML IV SCH ×3 (02:19→16:36)
[2017-01-19] MEDS: Ondansetron 2 mg/mL 2 mL Inj IVPUSH PRN ×5 (02:23→22:46)
[2017-01-19 04:36] VITALS: BP 135/82; PULSE 57; RESP 18; O2SAT 94
--- NOTE | 2017-01-19 05:05 | NUR ---
nausea/pain pt and nurse discussed a plan of how we would handle his nausea this shift. nurse informed pt that he could have zofran and then phenergan if the zofran was not effective. pt is less anxious if he has plan in place. pt also asked how often he could have the morphine nurse informed him that it was ordered 2-6mg q4hrs. pt stated he did not intend to ask for it that often but felt better knowing it was available. pt says he has a hard time distinguishing abdominal pain from nausea but knows that the IV morphine made him feel "better". he did ask for morphine once shift at 0230. at that time nurse explained to pt about the HIDA scan and that he cannot have narcotics within 6 hrs of it and nurse was not sure how early they would come in the morning. pt decided he could wait on the morphine and requested 8mg of zofran instead. he was given the zofran and has been sleeping appearing comfortable since then. he has been NPO since midnight. pt expresses concern about his dressing on his buttocks. nurse looked at it and it does have some moderate drainage but is intact. nurse assured pt we would confirm in the AM that wound care was coming to give him a new dressing. hourly rounding continues.
[2017-01-19 06:26] LABS: Mean Corpuscular Hemoglobin 28.1 pg (27.0-35.0); Mean Corpuscular Volume 81.7 fL (81-100)
[2017-01-19] MEDS: Insulin LISPRO 300 Unit/3 mL Inj SUBQ SCH ×4 (08:00→22:00)
--- NOTE | 2017-01-19 08:15 | NUR ---
LYNA scan, off unit Pt taken to [facility] at 0815, no narcotics given for 6 hours and last meal was dinner. Report given to Nedra. Pt is anxious about procedure and requesting his Morphine be available immediately upon return. Patient is agreeable to completing scan and eager to learn results.
[2017-01-19 11:13] VITALS: BP 150/90; PULSE 85; RESP 18; O2SAT 98
[2017-01-19] MEDS: Sucralfate 100 mg/mL 10 mL Suspension PO SCH ×3 (11:30→17:40)
[2017-01-19] MEDS: Pantoprazole 4 mg/mL 10 mL Inj IVPUSH SCH (11:34)
[2017-01-19] MEDS: Venlafaxine XR 75 mg ER24 Capsule PO SCH (11:38)
--- NOTE | 2017-01-19 14:10 | PCM.PNMED ---
Subjective Date of Service Jan 19, 2017 Subjective GASTROENTEROLOGY PROGRESS NOTE Attending Physician: Amari Schmidt MD Resident Physician: Mary Conner DO No acute events overnight. Patient with persistent abdominal pain particularly in the LLQ; however this is chronic and baseline. Associated symptoms include: decreased appetite, nausea, and anxiety. Today he is resting comfortably and states that he still has a difficult time distinguishing between the pain and nausea. Symptoms well controlled with zofran as well as morphine. He denies fever, chills, diarrhea, constipation, bloody or dark tarry stool. Exam Vital Signs Vital Sign - Last Date Time Temp Pulse Resp B/P Pulse Ox O2 Delivery O2 Flow Rate FiO2 01/19/17 11:13 36.8 85 18 150/90 98 Room Air Intake and Output 01/18/17 01/18/17 01/19/17 Cumulative From/Thru 15:00 23:00 07:00 01/17/17 12:10 - 01/19/17 05:24 Intake Total 1360 ml 539 ml 0 ml 3779 ml Output Total 300 ml 850 ml 2025 ml Balance 1360 ml 239 ml -850 ml 1754 ml Intake Oral 400 ml 0 ml 1280 ml IV Total 1360 ml 139 ml 2499 ml Output Urine Total 300 ml 850 ml 2025 ml # Bowel Movements 2 3 Exam General: Alert, Oriented X3, Cooperative, No acute distress HEENT: Anicteric sclerae, PERRLA. Mucous membranes moist/pink Lungs: Clear to auscultation bilaterally with no crackles, wheezes, or rhonchi. Cardiovascular: Regular rate/rhythm. No murmurs/rubs/gallops Abdomen: Soft, Non-distended, diffusely tender to palpation. No masses. Normoactive bowel tones. Extremities: Distal pulses equal/intact bilaterally. No edema Neurological: Grossly neurologically intact. Normal speech IVs and Medications Medications Reviewed: Medications were reviewed in detail Lab and Diagnostics Laboratory Tests Test 01/19/17 05:45 White Blood Count 6.3th/mm3 (3.8-10.1) Red Blood Count 4.42mil/mm3 (4.40-5.80) Hemoglobin 12.4g/dL (13.8-17.2) Hematocrit 36.1% (41.0-50.0) Mean Corpuscular Volume 81.7fL (81-100) Mean Corpuscular Hemoglobin 28.1pg (27.0-35.0) Mean Corpuscular Hemoglobin Concent 34.3% (32.0-37.0) Red Cell Distribution Width 15.1% (12.3-15.4) Platelet Count 199bil/L (150-400) Sodium Level 141mEq/L (134-144) Potassium Level 4.0mEq/L (3.5-5.2) Chloride Level 106mEq/L (97-108) Carbon Dioxide Level 23mmol/L (18-29) Blood Urea Nitrogen 11mg/dL (8-27) Creatinine 1.13mg/dL (0.76-1.27) Estimat Glomerular Filtration Rate 69mL/min (>59) Glucose Level 130mg/dL (60-99) Calcium Level 8.2mg/dL (8.5-10.1) Microbiology 01/18/17 Stool Occult Blood (ANNIKA) - Negative Result Diagram: 01/19/17 0545 01/19/17 0545 X-Rays, CTs and MRIs . CT ABDOMEN AND PELVIS WITH CONTRAST IMPRESSION: Moderate bladder distention, no urinary tract stone seen. Sigmoid diverticulosis without acute diverticulitis. Dictated by: Mariusz Wilder M.D. on 01/17/2017 Additional Diagnostics Date of Service: Jan 18, 2017 Esophagogastroduodenoscopy Impression Erosive gastropathy with erosions and ulcers superficial. Biopsies obtained Mild esophagitis with some surrounding scarring noted. Biopsies obtained Bilious material some noted in the stomach. Amari Schmidt MD Assessment & Plan 66-year-old gentleman with a history of chronic LLQ abdominal pain, anxiety, gastroenteritis, and diverticulosis who presented to the ED with a three week history of abdominal pain, nausea and vomiting. Abdominal pain likely secondary to erosive gastropathy and esophagitis. -EGD as above -Biopsy results pending -Recommendation: -Advanced diet as tolerated -GERD behavioral modification: - Avoid fatty, acidic, spicy, large meals - Do not lie down after meals - Do not eat or drink anything for at least 2 1/2 hours before going to bed at night - Discontinue tobacco and alcohol - Decrease or avoid caffeine - Avoid chocolate and mints - Decrease weight - Avoid aspirin and non steroidal anti-inflammatory agents (NSAID) such as Aleve, Advil, Mobic, Naproxen, Ibuprofen, etc -Continue Protonix 40 mg IV once a day -Carafate 10 mL by mouth 3 times a day -Gastric emptying study if negative HIDA scan. -HIDA scan planned for today. I saw and examined the patient with the resident and agree with above. Pain Evaluation: Adequate Pain Control GI Prophylaxis: H2 erendira VTE Prophylaxis: Sub-Q Heparin (Unfractionated) VTE Mechanical Devices: Intermittant Pneumatic CD Resuscitation Status: CPR: Attempt Resuscitation Mary Conner DO Jan 19, 2017 13:51 Amari Schmidt MD Jan 21, 2017 08:25 Pain Evaluation: Adequate Pain Control GI Prophylaxis: H2 erendira VTE Prophylaxis: Sub-Q Heparin (Unfractionated) VTE Mechanical Devices: Intermittant Pneumatic CD Resuscitation Status: CPR: Attempt Resuscitation Mary Conner DO Jan 19, 2017 13:51
--- NOTE | 2017-01-19 14:22 | DRSVH ---
PROCEDURE: NM HIDA SCAN WITH CCK PHARMACEUTICAL: 5.5 mCi Tc-99m mebrofenin IV; 8 ounce Ensure+ 5 months. INDICATIONS: ABDOMINAL PAIN. TECHNIQUE: Following intravenous administration of Tc-99m mebrofenin, sequential anterior abdominal images were obtained. To evaluate the contractile response of the gallbladder in response to Cholecystokinin (CC K), Ensure+ was given by mouth approximately 60 minutes after the administration of the radiopharmace utical. Sequential imaging was continued for 60 minutes after the start of CCK infusion. Gallbladde r ejection fraction was calculated. COMPARISON: [facility], CT, CT ABD PELVIS W CON, 01/17/2017, 16:24. FINDINGS: Biliary scan: There is normal tracer uptake and excretion by the liver. There is normal visualizati on of the intrahepatic ducts, common bile duct, and gallbladder. There is normal tracer transit into the duodenum. CCK stimulation: There is normal contractile response of the gallbladder to Ensure+. The calculated gallbladder ejection fraction is 80%; normal values are above 33%. IMPRESSION: 1. Normal filling of gallbladder. No evidence for acute cholecystitis. 2. Normal contractile response of gallbladder to CCK substitute (Ensure+). Dictated by: Willa Olsen M.D. on 01/19/2017 at 14:16 Approved by: Willa Olsen M.D. on 01/19/2017 at 14:21
--- NOTE | 2017-01-19 15:01 | PCM.PNMED ---
Subjective Date of Service Jan 19, 2017 Subjective Still a lot of nausea, also left lower abdominal pain which is relieved with the IV morphine Exam Vital Signs Vital Sign - Last Date Time Temp Pulse Resp B/P Pulse Ox O2 Delivery O2 Flow Rate FiO2 01/19/17 11:13 36.8 85 18 150/90 98 Room Air Intake and Output 01/18/17 01/18/17 01/19/17 Cumulative From/Thru 15:00 23:00 07:00 01/17/17 12:10 - 01/19/17 05:24 Intake Total 1360 ml 539 ml 0 ml 3779 ml Output Total 300 ml 850 ml 2025 ml Balance 1360 ml 239 ml -850 ml 1754 ml Intake Oral 400 ml 0 ml 1280 ml IV Total 1360 ml 139 ml 2499 ml Output Urine Total 300 ml 850 ml 2025 ml # Bowel Movements 2 3 Exam General: Alert and oriented, no acute distress Heart: Regular Lungs: Clear Abdomen: Soft, bowel tones present, somewhat tender to moderate palpation in the left lower abdomen and less so in the epigastric area Extremities: No pedal edema IVs and Medications Medications Reviewed: Medications were reviewed in detail Lab and Diagnostics Result Diagram: 01/19/17 0545 01/19/17 0545 X-Rays, CTs and MRIs . CT ABDOMEN AND PELVIS WITH CONTRAST IMPRESSION: Moderate bladder distention, no urinary tract stone seen. Sigmoid diverticulosis without acute diverticulitis. Dictated by: Mariusz Wilder M.D. on 01/17/2017 Additional Diagnostics Date of Service: Jan 18, 2017 Esophagogastroduodenoscopy Impression Erosive gastropathy with erosions and ulcers superficial. Biopsies obtained Mild esophagitis with some surrounding scarring noted. Biopsies obtained Bilious material some noted in the stomach. Amari Schmidt MD Assessment & Plan 66-year-old gentleman with a history of chronic LLQ abdominal pain, anxiety, gastroenteritis, and diverticulosis who presented to the ED with a three week history of abdominal pain, nausea and vomiting. Abdominal pain. -EGD as above -Biopsy results pending -Recommendation: -Advanced diet as tolerated -GERD behavioral modification: - Avoid fatty, acidic, spicy, large meals - Do not lie down after meals - Do not eat or drink anything for at least 2 1/2 hours before going to bed at night - Discontinue tobacco and alcohol - Decrease or avoid caffeine - Avoid chocolate and mints - Decrease weight - Avoid aspirin and non steroidal anti-inflammatory agents (NSAID) such as Aleve, Advil, Mobic, Naproxen, Ibuprofen, etc -Continue Protonix 40 mg IV once a day -Carafate 10 mL by mouth 3 times a day -Gastric emptying study if negative HIDA scan. -HIDA scan planned for today. Abdominal pain and Nausea without vomiting, POA, pain some improved but nausea persistent Per GI likely secondary to erosive gastropathy and esophagitis although now also complaining of left lower abd pain -Zofran given in ED with effect, but then states\d this was ineffective and requested Phenergan which was ordered 01/18 -Hold home metoclopramide -TSH normal -Stool guaiac pending -Hepatitis panel pending - Since HIDA today is negative will order gastric emptying study - GI consult and EGD done Jan [address] Schmidt: Impression Erosive gastropathy with erosions and ulcers superficial. Biopsies obtained Mild esophagitis with some surrounding scarring noted. Biopsies obtained Bilious material some noted in the stomach. Recommendation Advanced diet as tolerated Stop naproxen or other NSAIDs Stop Pepcid Protonix 40 mg IV once a day Carafate 10 mL by mouth 3 times a day Gastric emptying study if negative HIDA scan. Mild anemia, slightly microcytic, could be iron def anemia due to erosive gastropathy and esophagitis - Some due to IV fluids - Stool guaiac pending - iron panel with borderline low iron, could start some replacement once nausea improved - screening colonoscopy in 2010 apparently unremarkable Left diabetic foot ulcer, POA, ongoing -Patient states his manager eligibility is aware that he is here in the hospital and plans to see him here tomorrow (Thursday) - discussed with Dr Luna and she will see pt today Buttock decub - has dressing/?packing in place, followed by wound care - pt says he is due for dressing change today and wound care provider is coming to see him today (consult ordered previously) - will wait until they remove dressing to observe Leukocytosis, present on admission. Now resolved -No antibiotics indicated at this time -Pro calcitonin normal Mild Hypokalemia (3.4) 01/18, resolved with replacement Anxiety, POA, chronic and Benzodiazepine dependence, POA, ongoing -Discharged 11/18/2016 from [facility] psychiatric unit with diagnosis polysubstance use disorder including prescription opiates and benzos -At discharge to his continued on his Valium dose of 10 mg 3 times a day with the plan to taper -Continue home benzodiazepine as patient was discharged with this medication in October, when seen in ED 12/06/2016 Dr. Cui recommended its continuation -Continue home venlafaxine -Consider psychiatric consult for medication management Diabetes mellitus, POA, chronic -Hold home medications metformin -A1c 10/2014 5.3, repeat A1c 7.1 -Low-dose correctional scale insulin, glucose low 100's Hypertension, POA, chronic -Hold home losartan as this is listed under Pt allergies -Continue home amlodipine -Continue home clonidine -Continue home furosemide -Continue metoprolol Hyperlipidemia, POA, chronic -Hold home medications fenofibrate secondary to side effect profile -Continue home statin Chronic back pain, POA -Can't take Naprosyn any longer (see GI above) - for now morphine and says he as some tablets at home but then he will need to address with PCP Insomnia, POA. Ongoing -Continue home trazodone GI Prophylaxis: H2 erendira VTE Prophylaxis: Sub-Q Heparin (Unfractionated) VTE Mechanical Devices: Intermittant Pneumatic CD Resuscitation Status: CPR: Attempt Resuscitation GI Prophylaxis: H2 erendira VTE Prophylaxis: Sub-Q Heparin (Unfractionated) VTE Mechanical Devices: Intermittant Pneumatic CD Resuscitation Status: CPR: Attempt Resuscitation Mirtha Rizzo MD Jan 19, 2017 15:01
--- NOTE | 2017-01-19 15:37 | NUR ---
Inpatient Wound Nurse Patient seen for L great toe and R buttock wounds. Patient is highly anxious, states that Dr. Nickerson told him he will likely need amputation lina, is asking for update from Dr. Nickerson lina. Message left for Dr. Nickerson, alerting her that patient has been admitted and [facility] is providing wound care. L great toe, plantar surface, open area with glossy pink tissue, very macerated wound edges, dressing soaked with odorous yellow exudate. Wound measures 2.5 cm L x 1 cm W x 0.1 cm D. Wound was cleansed, blotted dry, periwound heavily swabbed with No Sting Sure Prep, then base of wound covered with absorbent Manuka dressing cut to fit within wound bed. Additional piece of Aquacel Extra Ag placed over Manuka dressing, also cut to fit within wound margins. A 4x4 bordered Mepilex dressing with silicone facing was cut into scalloped pattern with tabs and wrapped around toe and met head. At patient's request, retention tape was applied. R buttock wound appears to be healing abscess site, approximately 2 cm L x 1 cm W x 1 cm D, beefy red tissue observed in wound bed, periwound warm and pink, no evidence of infection. Wound was cleansed, then packed with small piece of Aquacel Extra Ag, then covered with 4x4 bordered Mepilex dressing with silicone facing. Patient anxious about showering. He especially wants to shower with all dressings removed. He declined wound care earlier this afternoon due to anxiety and skipped showering, assuming that wound care by [facility] would be provided this evening. Patient was instructed that wound care by [facility] would be provided this afternoon and he may shower this evening. Although not initially accepting of this plan, he did finally agree to wound care this afternoon. Patient may shower with plastic bag over L foot that is taped to avoid moisture. If any moisture is absorbed into dressing on L great toe, entire dressing should be removed and a new one applied. A small piece of Aquacel Extra Ag should be cut to fit within wound bed and then covered with gauze and retention tape or bordered Mepilex cut to fit wound contours. For buttock wound, if bordered Mepilex dressing becomes wet, it should be removed, then a new piece of Aquacel Extra Ag cut to fit and placed within wound bed covered with bordered Mepilex dressing. [facility] will see patient tomorrow.
[2017-01-19 19:50] VITALS: BP 147/88; PULSE 57; RESP 18; O2SAT 94
[2017-01-20] MEDS: Heparin 5,000 Unit/mL Inj SUBQ SCH ×3 (01:04→17:31)
[2017-01-20] MEDS: Ondansetron 2 mg/mL 2 mL Inj IVPUSH PRN ×4 (03:15→20:46)
[2017-01-20] MEDS: 0.9% NaCl + KCl 20 mEq/L 1,000 ML IV SCH ×2 (03:28→22:16)
--- NOTE | 2017-01-20 04:56 | NUR ---
Anxiety/pain/nausea Patient requests morphine and zofran approx Q4h, he double checks meds prior to admin and knowledge of meds, schedule, and caregiver routines helps his anxiety level. IV infusing NS w 20k at 100 ml/hr this shift. Patient did not request shower. Per report patient will need to be NPO at midnight Thursday for gastric emptying study thursday and no reglan for 24 hr prior. Patient refuses astorvastatin. Patient SARAH, AOx4, uses call light appropriately and is aware we are measuring urine output and would like to save stool samples. Care continues
[2017-01-20 06:52] VITALS: BP 102/64; PULSE 49; RESP 20; O2SAT 94
[2017-01-20] MEDS: Insulin LISPRO 300 Unit/3 mL Inj SUBQ SCH ×4 (08:00→22:00)
--- NOTE | 2017-01-20 08:20 | PCM.CHPPOD ---
Subjective Date of service Jan 20, 2017 History of Present Illness Patient is admitted for abdominal pain. He has been treated for a non-healing ulcer as outpatient. I ordered Xrays of his left foot on Thursday and he wanted me to give him results and a treatment plan while he is in the hospital. Reason for Consultation Treatment plan for left foot ulceration. Allergy Allergies: Coded Allergies: hydrochlorothiazide (Verified Allergy, Severe, Anaphylaxis, 01/17/17) prochlorperazine (Verified Allergy, Severe, PHENOTHIAZINES, 11/07/16) benazepril (Verified Allergy, Unknown, 11/07/16) felodipine (Verified Allergy, Unknown, 11/07/16) losartan (Verified Allergy, Unknown, 11/07/16) Uncoded Allergies: "tiva brand medications" (Allergy, Intermediate, 09/18/14) Medications Amlodipine (Amlodipine) 10 Mg Tablet 10 MG PO QAM Aspirin (Aspirin) 81 Mg Tablet 81 MG PO QAM Atorvastatin (Lipitor) 10 Mg Tab 10 MG PO HS Clonidine (Clonidine) 0.2 Mg Tablet 0.2 MG PO BIDBL Diazepam (Diazepam) 10 Mg Tablet 10 MG PO TID Fenofibrate (Fenofibrate) 160 Mg Tablet 160 MG PO QAM Furosemide (Furosemide) 40 Mg Tablet 40 MG PO BIDBL Losartan Potassium (Losartan Potassium) 50 Mg Tablet 50 MG PO QAM Metformin (Metformin) 500 Mg Tablet 500 MG PO TIDWM Metoclopramide (Metoclopramide) 10 Mg Tablet 5 MG PO TID PRN PRN For Nausea/ Vomiting Metoprolol Tartrate (Metoprolol Tartrate) 50 Mg Tablet 50 MG PO BID Morphine Sulfate (Morphine Sulfate) 15 Mg Tablet 15 MG PO BID PRN PRN BACK PAIN Naproxen (Naproxen) 500 Mg Tab 500 MG PO BID PRN PRN BACK PAIN Silver Sulfadiazine (Silvadene) 20 Gm Cream..g. 1 APPLIC TP BID TOE INFECTION Trazodone (Trazodone) 150 Mg Tablet 225 MG PO HS Venlafaxine ER (Venlafaxine ER) 150 Mg Cap.er.24h 150 MG PO QAM Past Medical History Surgeries: Yes Medical History: (1) DIAB W NEURO MANIFEST, TYPE II OR UNSPEC TYPE, NOT UNCNTRLD (2) ULCER OF HEEL AND MIDFOOT (3) ULCER OF OTHER PART OF FOOT (4) Generalized abdominal pain (5) Nausea (6) Opiate withdrawal (7) Sepsis (8) Anxiety (9) Benzodiazepine dependence (10) Depression (11) Suicidal ideation (12) Diabetic ulcer of left foot (13) Dehydration (14) Left lower quadrant abdominal pain of unknown etiology Surgical History: Social History Hx Alcohol Use: No Hx Substance Use: No Hx Tobacco Use: No Smoking Status: Former Smoker Podiatry Consult Exam Vital Signs Vital Sign - Last Date Time Temp Pulse Resp B/P Pulse Ox O2 Delivery O2 Flow Rate FiO2 01/20/17 06:52 36.6 49 20 102/64 94 Room Air Intake and Output 01/19/17 01/19/17 01/20/17 Cumulative From/Thru 15:00 23:00 07:00 01/17/17 12:10 - 01/20/17 06:52 Intake Total 2725 ml 1450 ml 7954 ml Output Total 1200 ml 1200 ml 4425 ml Balance 1525 ml 250 ml 3529 ml Intake Oral 600 ml 250 ml 2130 ml IV Total 2125 ml 1200 ml 5824 ml Output Urine Total 1200 ml 1200 ml 4425 ml # Bowel Movements 0 0 3 Result Diagram: 01/19/17 0545 01/19/17 0545 Lab Test 01/17/17 14:50 01/17/17 15:00 01/18/17 05:12 01/18/17 05:15 Hold Apple Top Tube Received (Received) Urine Color Yellow (YELLOW) Urine Appearance Clear (CLEAR,HAZY) Urine pH 7.0 (5.0-8.0) Urine Specific [place] 1.005 (1.003-1.035) Urine Protein Negativemg/dL (NEG,TRACE) Urine Glucose (UA) Negativemg/dL (NEGATIVE) Urine Ketones Negativemg/dL (NEGATIVE) Urine Occult Blood Negative (NEGATIVE) Urine Nitrite Negative (NEGATIVE) Urine Bilirubin Negative (NEGATIVE) Urine Urobilinogen Normalmg/dL (NORMAL) Urine Leukocyte Esterase Negative (NEGATIVE) Urine RBC 0-2/hpf (0-2) Urine WBC 0-5/hpf (0-5) Urine Epithelial Cells Occasional/hpf (NONE-MOD) Urine Crystals None seen (NONE SEEN) Urine Bacteria Few/hpf (NONE-FEW) Urine Hyaline Casts None/lpf (NONE) Urine Granular Casts None seen (NONE SEEN) Urine Waxy Casts None seen (NONE SEEN) Urine Red Blood Cell Casts None seen (NONE SEEN) Urine White Blood Cell Casts None seen (NONE SEEN) Urine Mucus None seen (None Seen) Urine Trichomonas None seen (NONE SEEN) Urine Yeast None (NONE SEEN) Urinalysis Comment None Urine Culture Reflexed Not indicated Iron Level 37ug/dL (35-150) Total Iron Binding Capacity 273ug/dL (250-450) Percent Iron Saturation 14%sat (15-50) Unsaturated Iron Binding 236.0ug/dL Neutrophils (%) (Auto) 73.0% (40-74) Lymphocytes (%) (Auto) 14.1% (14-46) Monocytes (%) (Auto) 10.3% (4-12) Eosinophils (%) (Auto) 2.2% (0-5) Basophils (%) (Auto) 0.3% (0-3) Hemoglobin A1c 7.1% (4.8-5.6) Magnesium Level 1.6mg/dL (1.6-2.6) Total Bilirubin 0.4mg/dL (0.0-1.2) Aspartate Amino Transf (AST/SGOT) 19U/L (0-50) Alanine Aminotransferase (ALT/SGPT) 20U/L (0-44) Alkaline Phosphatase 40U/L (25-160) Troponin T 0.010ug/L (0.0-0.011) Total Protein 6.4g/dL (6.4-8.4) Albumin 3.6g/dL (3.4-5.0) Lipase 24U/L (13-60) Procalcitonin 0.03ng/mL (0.00-0.08) Thyroid Stimulating Hormone (TSH) 2.100uIU/mL (0.450-4.500) Hepatitis C Comment . Test 01/19/17 05:45 White Blood Count 6.3th/mm3 (3.8-10.1) Red Blood Count 4.42mil/mm3 (4.40-5.80) Hemoglobin 12.4g/dL (13.8-17.2) Hematocrit 36.1% (41.0-50.0) Mean Corpuscular Volume 81.7fL (81-100) Mean Corpuscular Hemoglobin 28.1pg (27.0-35.0) Mean Corpuscular Hemoglobin Concent 34.3% (32.0-37.0) Red Cell Distribution Width 15.1% (12.3-15.4) Platelet Count 199bil/L (150-400) Sodium Level 141mEq/L (134-144) Potassium Level 4.0mEq/L (3.5-5.2) Chloride Level 106mEq/L (97-108) Carbon Dioxide Level 23mmol/L (18-29) Blood Urea Nitrogen 11mg/dL (8-27) Creatinine 1.13mg/dL (0.76-1.27) Estimat Glomerular Filtration Rate 69mL/min (>59) Glucose Level 130mg/dL (60-99) Calcium Level 8.2mg/dL (8.5-10.1) Diagnostics Left great toe Xray shows a medial exostosis extending to the plantar surface of the distal phalanx, prominence associated with the deepest portion of the ulceration. Exam General: Alert, Oriented X3, Cooperative, Other (some anxiety) Lungs: Normal Air Movement Cardiac: No Murmurs/Rubs/Gallops Lower Extremity Pulses: Palpable: Left Dorsalis Pedis Left Posterior Tibal Right Dorsalis Pedis Right Posterior Tibal Podiatry WOUND : Incision General Appearence: Wound under dressing (left great toe, well dressed by inpatient internet network specialist.) Assessment & Plan Problems: (1) Diabetic toe ulcer Qualifiers: Laterality: left Plan: For now, continue wound care as appropriate per inpatient internet network specialist's recommendations. The only thing I would add would be a felt offload into the sulcus of the toe and a postop shoe to help decrease the friction in the area of ulcer. Upon discharge, the patient should see me within a week (he has an appointment at the wound clinic on Thursday), and I will go over a day surgery plan with him to excise the excess bone, immobilize the toe, and get the ulcer to close. He will need some antibiotics ahead of time so it is important to work up and treat his abdominal pain source first. Onset Date: ~ 11/13/2016 Status: Chronic ICD Code: E11.621 VTE Prophylaxis: Sub-Q Heparin (Unfractionated) VTE Mechanical Devices: Intermittant Pneumatic CD Ofe Nickerson DPM Jan 20, 2017 08:20
[2017-01-20] MEDS: Pantoprazole 4 mg/mL 10 mL Inj IVPUSH SCH (08:50)
[2017-01-20] MEDS: Sucralfate 100 mg/mL 10 mL Suspension PO SCH ×3 (08:50→17:30)
[2017-01-20 09:13] VITALS: BP 137/84; PULSE 55; RESP 20; O2SAT 97
[2017-01-20] MEDS: Venlafaxine XR 75 mg ER24 Capsule PO SCH (09:29)
--- NOTE | 2017-01-20 09:51 | PCM.PNMED ---
Subjective Date of Service Jan 20, 2017 Subjective GASTROENTEROLOGY PROGRESS NOTE Attending Physician: Amari Schmidt MD Resident Physician: Mary Conner DO No acute events overnight. Patient is resting comfortable and states that he feels about the same. Pain and nausea well controlled with morphine and zofran. Per nursing, patient requesting morphine and zofran approximately every four hours. He denies diarrhea, constipation, bloody or dark stool, shortness of breath and chest pain. Exam Vital Signs Vital Sign - Last Date Time Temp Pulse Resp B/P Pulse Ox O2 Delivery O2 Flow Rate FiO2 01/20/17 06:52 36.6 49 20 102/64 94 Room Air Intake and Output 01/19/17 01/19/17 01/20/17 Cumulative From/Thru 15:00 23:00 07:00 01/17/17 12:10 - 01/20/17 06:52 Intake Total 2725 ml 1450 ml 7954 ml Output Total 1200 ml 1200 ml 4425 ml Balance 1525 ml 250 ml 3529 ml Intake Oral 600 ml 250 ml 2130 ml IV Total 2125 ml 1200 ml 5824 ml Output Urine Total 1200 ml 1200 ml 4425 ml # Bowel Movements 0 0 3 Exam General: Alert, Oriented X3, Cooperative, No acute distress HEENT: Anicteric sclerae, PERRLA. Mucous membranes moist/pink Lungs: Clear to auscultation bilaterally with no crackles, wheezes, or rhonchi. Cardiovascular: Regular rate/rhythm. No murmurs/rubs/gallops Abdomen: Soft, Non-distended, diffusely tender to palpation. No masses. Normoactive bowel tones. Extremities: Distal pulses equal/intact bilaterally. No edema Neurological: Grossly neurologically intact. Normal speech IVs and Medications Medications Reviewed: Medications were reviewed in detail Lab and Diagnostics Microbiology 01/18/17 Stool Occult Blood (ANNIKA) - Negative Result Diagram: 01/19/1754401/19/17544 X-Rays, CTs and MRIs . CT ABDOMEN AND PELVIS WITH CONTRAST IMPRESSION: Moderate bladder distention, no urinary tract stone seen. Sigmoid diverticulosis without acute diverticulitis. Dictated by: Mariusz Wilder M.D. on 01/17/2017 01/19/17 - NM HIDA SCAN WITH CCK IMPRESSION: 1. Normal filling of gallbladder. No evidence for acute cholecystitis. 2. Normal contractile response of gallbladder to CCK substitute (Ensure+). Approved by: Willa Olsen M.D. on 01/19/2017 at 14:21 . Additional Diagnostics 01/18/17 - EGD IMPRESSION: Erosive gastropathy with erosions and ulcers superficial. Biopsies obtained Mild esophagitis with some surrounding scarring noted. Biopsies obtained Bilious material some noted in the stomach. Amari Schmidt MD 01/19/17 - NM HIDA SCAN WITH CCK IMPRESSION: 1. Normal filling of gallbladder. No evidence for acute cholecystitis. 2. Normal contractile response of gallbladder to CCK substitute (Ensure+). Dictated and approved by: Willa Olsen M.D. on 01/19/2017 at 14:16 Assessment & Plan 66-year-old gentleman with a history of chronic LLQ abdominal pain, anxiety, gastroenteritis, and diverticulosis who presented to the ED with a three week history of abdominal pain, nausea and vomiting. Abdominal pain likely secondary to erosive gastropathy and esophagitis. -EGD as above; Biopsy results pending -HIDA scan without evidence of acute cholecystitis and revealed normal filling and contractile response of gallbladder. -Suspect patient's anxiety a contributing factor to his chronic symptoms. Recommend Psychiatric evaluation. -Additionally due to the significance of and lack of improvement in his nausea. If the gastric empyting study is also negative recommend MRI and potentially Neurology consult to evaluate for central cause for his nausea. Recommendation: -Advanced diet as tolerated -Continue GERD behavioral modification: -Avoid aspirin and NSAIDs -Continue Protonix 40 mg IV once a day -Carafate 10 mL by mouth 3 times a day -Gastric emptying study planned for today I saw and examined the patient. Agree with above. Pain Evaluation: Adequate Pain Control GI Prophylaxis: H2 erendira VTE Prophylaxis: Sub-Q Heparin (Unfractionated) VTE Mechanical Devices: Intermittant Pneumatic CD Resuscitation Status: CPR: Attempt Resuscitation Mary Conner DO Jan 20, 2017 08:28 Amari Schmidt MD Jan 21, 2017 08:29 Pain Evaluation: Adequate Pain Control GI Prophylaxis: H2 erendira VTE Prophylaxis: Sub-Q Heparin (Unfractionated) VTE Mechanical Devices: Intermittant Pneumatic CD Resuscitation Status: CPR: Attempt Resuscitation CodyzaraMary pepper DO Jan 20, 2017 08:28 Resuscitation Status: CPR: Attempt Resuscitation Mary Conner DO Jan 20, 2017 08:28
--- NOTE | 2017-01-20 11:34 | NUR ---
Social Work: Initial Assessment/Readiness for D/C D: EMR reviewed. Please see Initial Assessment linked to this note for more information. Pt is a 66 year old female admitted [facility] with a readmit risk score of 4 for abdominal pain per H&P. Pt's insurance is [employer]. PCP is Elham Mendoza MD. SW met with pt at bedside to conduct initial assessment. Pt was alert and oriented x3. SW explained role and wrote phone number on white board. SW provided [facility] Discharge Planning Checklist and encouraged pt to contact SW for any discharge planning questions. Pt discussed in rounds, pt is likely to discharge potentially today or tomorrow. No SW needs identified in rounds, no SW orders received. Podiatry and wound care are involved in pt's care. SW will follow for d/c needs. Pt lives at home alone near [place]. Pt is independent with all ADLs. Pt uses no DME. Pt ambulates independently. Pt drives. Pt's friend to provide transportation home at d/c. Pt has medical history of anxiety, inpatient psychiatric hospitalizations, and suicidality. Pt was extremely pleasant during this conversation and willing to engage with [facility]. SW spoke with pt regarding mental health history. Pt reports that he has been hospitalized at [facility] and [facility] in the past. Pt reports that after [facility] his medications were changed and pt reports great improvement in his mood, anxiety, and affect. Pt's PCP manages his medications. Pt reports seeing his PCP approximately 5 days ago. Pt reports he is also connected with a counselor through [facility] (he missed his appointment on Thursday due to hospitalization but is planning on rescheduling). Pt spoke highly of his counselor and reports that he is excited to return home and continue working with his therapist. This is a change from past SW notes as pt has been resistant to outpt therapy. SW encouraged pt to call his [facility] counselor on day of d/c to schedule an appointment so that he has consistent follow up. Pt is agreeable. Pt denied any active SI or HI at this time. Pt declined DPOA paperwork at bedside. A: Pt who is independent at baseline and has the capacity for self-care. P: Pt denied any active SI or HI at this time. Pt anticipated to discharge home, transport via POV. No SW needs identified, no MD orders received. SW will continue to follow for needs until time of discharge. Shelly Galvez, [facility] Addendum: 01/20/17 at 1146 by SADIA GALVEZ Amended: Links added.
[2017-01-20 14:40] VITALS: BP 135/79; PULSE 64; RESP 18; O2SAT 93
--- NOTE | 2017-01-20 15:15 | NUR ---
Inpatient Wound Nurse Patient seen for L great toe and R buttock wounds. Patient has removed both dressings so that he can shower. L great toe unchanged, glossy pink tissue, very macerated periwound halo approximately 0.25 cm, Wound was cleansed, blotted dry, periwound heavily swabbed with No Sting Sure Prep, then base of wound covered with absorbent Manuka dressing cut to fit within wound bed. Additional piece of Aquacel Extra Ag placed over Manuka dressing, also cut to fit within wound margins. Two pieces of felt were cut into horseshoe shapes and placed as donut around wound, then a 4x4 bordered Mepilex dressing with silicone facing was cut into scalloped pattern with tabs and wrapped around toe and met head. At patient's request, retention tape was applied. R buttock wound improved as evidenced by reduced size. Beefy red wound bed, periwound warm and pink, no evidence of infection. Wound was cleansed, then packed with small piece of Aquacel Extra Ag, then covered with 4x4 bordered Mepilex dressing with silicone facing. Patient was instructed to wear off-loading shoe whenever out of bed and he stated understanding and intended compliance. [facility]ON will see patient for wound care on .
--- NOTE | 2017-01-20 17:06 | PCM.PNMED ---
Subjective Date of Service Jan 20, 2017 Subjective Still nausea although perhaps slightly improved but would still be nervous about going home, afraid he would come right back. Occl headache and abd pain so taking some IV morphine, has not yet tried the oral morphine Exam Vital Signs Vital Sign - Last Date Time Temp Pulse Resp B/P Pulse Ox O2 Delivery O2 Flow Rate FiO2 01/20/17 14:40 36.9 64 18 135/79 93 Room Air Intake and Output 01/19/17 01/19/17 01/20/17 Cumulative From/Thru 15:00 23:00 07:00 01/17/17 12:10 - 01/20/17 06:52 Intake Total 2725 ml 1450 ml 7954 ml Output Total 1200 ml 1200 ml 4425 ml Balance 1525 ml 250 ml 3529 ml Intake Oral 600 ml 250 ml 2130 ml IV Total 2125 ml 1200 ml 5824 ml Output Urine Total 1200 ml 1200 ml 4425 ml # Bowel Movements 0 0 3 Exam General: Alert and oriented, no acute distress Heart: Regular Lungs: Clear Abdomen: Soft, non-tender, has right buttock dressing (just redone today by wound care nurse) Extremities: No pedal edema, dressing on left great toe IVs and Medications Medications Reviewed: Medications were reviewed in detail Lab and Diagnostics Result Diagram: 01/19/17 0545 01/19/17 0545 X-Rays, CTs and MRIs . CT ABDOMEN AND PELVIS WITH CONTRAST IMPRESSION: Moderate bladder distention, no urinary tract stone seen. Sigmoid diverticulosis without acute diverticulitis. Dictated by: Mariusz Wilder M.D. on 01/17/2017 01/19/17 - NM HIDA SCAN WITH CCK IMPRESSION: 1. Normal filling of gallbladder. No evidence for acute cholecystitis. 2. Normal contractile response of gallbladder to CCK substitute (Ensure+). Approved by: Willa Olsen M.D. on 01/19/2017 at 14:21 . Additional Diagnostics 01/18/17 - EGD IMPRESSION: Erosive gastropathy with erosions and ulcers superficial. Biopsies obtained Mild esophagitis with some surrounding scarring noted. Biopsies obtained Bilious material some noted in the stomach. Amari Schmidt MD 01/19/17 - NM HIDA SCAN WITH CCK IMPRESSION: 1. Normal filling of gallbladder. No evidence for acute cholecystitis. 2. Normal contractile response of gallbladder to CCK substitute (Ensure+). Dictated and approved by: Willa Olsen M.D. on 01/19/2017 at 14:16 Assessment & Plan 66-year-old gentleman with a history of chronic LLQ abdominal pain, anxiety, gastroenteritis, and diverticulosis who presented to the ED with a three week history of abdominal pain, nausea and vomiting. Abdominal pain likely secondary to erosive gastropathy and esophagitis. Per GI: -EGD Erosive gastropathy with erosions and ulcers superficial. Biopsies obtained Mild esophagitis with some surrounding scarring noted. Biopsies obtained -HIDA scan without evidence of acute cholecystitis and revealed normal filling and contractile response of gallbladder. -Suspect patient's anxiety a contributing factor to his chronic symptoms. Recommend Psychiatric evaluation. -Additionally due to the significance of and lack of improvement in his nausea. If the gastric empyting study is also negative recommend MRI and potentially Neurology consult to evaluate for central cause for his nausea. Recommendation: -Advanced diet as tolerated -Continue GERD behavioral modification: -Avoid aspirin and NSAIDs -Continue Protonix 40 mg IV once a day -Carafate 10 mL by mouth 3 times a day -Gastric emptying study planned for today (but nuc med couldn't do until tomorrow due to nuc med study (HIDA) yesterday) Mild anemia, slightly microcytic, could be iron def anemia due to erosive gastropathy and esophagitis - Some due to IV fluids - Stool guaiac pending - iron panel with borderline low iron, could start some replacement once nausea improved - screening colonoscopy in 2010 apparently unremarkable Left diabetic foot ulcer, POA, ongoing - Dr Luna, his caustic cresylate shift superintendent, saw him today and plans an outpatient surgery once GI issues resolved and he's discharged Buttock decub - seen by wound care nurse today (they've been following him as an outpt) and they feel it's improving, dressing changed by them Leukocytosis, present on admission. Now resolved -No antibiotics indicated at this time -Pro calcitonin normal Mild Hypokalemia (3.4) 01/18, resolved with replacement Anxiety, POA, chronic and Benzodiazepine dependence, POA, ongoing -Discharged 11/18/2016 from [facility] psychiatric unit with diagnosis polysubstance use disorder including prescription opiates and benzos -At discharge to his continued on his Valium dose of 10 mg 3 times a day with the plan to taper -Continue home benzodiazepine as patient was discharged with this medication in October, when seen in ED 12/06/2016 Dr. Cui recommended its continuation -Continue home venlafaxine -Consider psychiatric consult for medication management Diabetes mellitus, POA, chronic -Hold home medications metformin -A1c 10/2014 5.3, repeat A1c 7.1 -Low-dose correctional scale insulin, glucose low 100's Hypertension, POA, chronic -Hold home losartan as this is listed under Pt allergies -Continue home amlodipine -Continue home clonidine -Continue home furosemide -Continue metoprolol Hyperlipidemia, POA, chronic -Hold home medications fenofibrate secondary to side effect profile -Continue home statin Chronic back pain, POA -Can't take Naprosyn any longer (see GI above) - for now morphine and says he as some tablets at home but then he will need to address with PCP Insomnia, POA. Ongoing -Continue home trazodone GI Prophylaxis: H2 erendira VTE Prophylaxis: Sub-Q Heparin (Unfractionated) VTE Mechanical Devices: Intermittant Pneumatic CD Resuscitation Status: CPR: Attempt Resuscitation GI Prophylaxis: H2 erendira VTE Prophylaxis: Sub-Q Heparin (Unfractionated) VTE Mechanical Devices: Intermittant Pneumatic CD Resuscitation Status: CPR: Attempt Resuscitation GI Prophylaxis: H2 erendira VTE Prophylaxis: Sub-Q Heparin (Unfractionated) VTE Mechanical Devices: Intermittant Pneumatic CD Resuscitation Status: CPR: Attempt Resuscitation Mirtha Rizzo MD Jan 20, 2017 17:06
--- NOTE | 2017-01-20 19:18 | NUR ---
Activity- Patient up to shower today. Tolerated activity well. Wound care nurse changed foot and buttock dressing afterwards. Patient requesting Morphine and Zofran for pain/nausea x 2 today, which have been effective.
[2017-01-20 20:58] VITALS: BP 137/79; PULSE 59; RESP 18; O2SAT 95
--- NOTE | 2017-01-20 21:22 | PCM.PNMED ---
Subjective Date of Service Jan 20, 2017 Subjective Patient is seen and examined. He discussed his chronic abdominal pain in great detail. He does not believe he likes R needs morphine. He does feel it is relieving his sharp abdominal pains. He is wondering if Effexor has caused his nausea and abdominal pain. Exam Vital Signs Vital Sign - Last Date Time Temp Pulse Resp B/P Pulse Ox O2 Delivery O2 Flow Rate FiO2 01/20/17 20:58 36.9 59 18 137/79 95 Room Air Intake and Output 01/19/17 01/19/17 01/20/17 Cumulative From/Thru 15:00 23:00 07:00 01/17/17 12:10 - 01/20/17 06:52 Intake Total 2725 ml 1450 ml 7954 ml Output Total 1200 ml 1200 ml 4425 ml Balance 1525 ml 250 ml 3529 ml Intake Oral 600 ml 250 ml 2130 ml IV Total 2125 ml 1200 ml 5824 ml Output Urine Total 1200 ml 1200 ml 4425 ml # Bowel Movements 0 0 3 Exam Gen.: No acute distress HEENT: Normocephalic, atraumatic Heart: Regular rate and rhythm no murmurs Lungs: Clear to auscultation of crackles or wheezes Abdomen: Soft nondistended, normal bowel sounds, states it is very tender in the left lower quadrant Extremities: Trace edema is present Neuro: No focal deficits Psych: No anxiety or agitation IVs and Medications IV Fluids Discontinued IV fluids Medications Reviewed: Medications were reviewed in detail Lab and Diagnostics Result Diagram: 01/19/17 0545 01/19/17 0545 X-Rays, CTs and MRIs . CT ABDOMEN AND PELVIS WITH CONTRAST IMPRESSION: Moderate bladder distention, no urinary tract stone seen. Sigmoid diverticulosis without acute diverticulitis. Dictated by: Mariusz Wilder M.D. on 01/17/2017 01/19/17 - NM HIDA SCAN WITH CCK IMPRESSION: 1. Normal filling of gallbladder. No evidence for acute cholecystitis. 2. Normal contractile response of gallbladder to CCK substitute (Ensure+). Approved by: Willa Olsen M.D. on 01/19/2017 at 14:21 . Additional Diagnostics 01/18/17 - EGD IMPRESSION: Erosive gastropathy with erosions and ulcers superficial. Biopsies obtained Mild esophagitis with some surrounding scarring noted. Biopsies obtained Bilious material some noted in the stomach. Amari Schmidt MD 01/19/17 - NM HIDA SCAN WITH CCK IMPRESSION: 1. Normal filling of gallbladder. No evidence for acute cholecystitis. 2. Normal contractile response of gallbladder to CCK substitute (Ensure+). Dictated and approved by: Willa Olsen M.D. on 01/19/2017 at 14:16 Assessment & Plan 66-year-old gentleman with a history of chronic LLQ abdominal pain, anxiety, gastroenteritis, and diverticulosis who presented to the ED with a three week history of abdominal pain, nausea and vomiting. Abdominal pain likely secondary to erosive gastropathy and esophagitis versus gastroparesis. Present on admission active Per GI: -EGD Erosive gastropathy with erosions and ulcers superficial. Biopsies obtained Mild esophagitis with some surrounding scarring noted. Biopsies obtained -HIDA scan without evidence of acute cholecystitis and revealed normal filling and contractile response of gallbladder. -Suspect patient's anxiety a contributing factor to his chronic symptoms. Recommend Psychiatric evaluation. -Additionally due to the significance of and lack of improvement in his nausea. If the gastric empyting study is also negative recommend MRI and potentially Neurology consult to evaluate for central cause for his nausea. Recommendation: -Advanced diet as tolerated -Continue GERD behavioral modification: -Avoid aspirin and NSAIDs -Continue Protonix 40 mg IV once a day -Carafate 10 mL by mouth 3 times a day -Gastric emptying study planned for 01/21 -- Gastric emptying study was performed and showed concern for gastric bleeding and gastroparesis. I have discussed the patient and encouraged him to not seek pain medications. I discussed restarting his home medication morphine sulfate instant release 15 mg twice a day when necessary, with oxycodone 5 mg every 4 hours when necessary for breakthrough. -- Reglan by mouth 5 mg before meals at bedtime as ordered ( this appears to be in his home med list, though not continued at this admission) -- We will discuss this findings with Dr. Schmidt in the a.m. Mild anemia, slightly microcytic, present on admission active --could be iron def anemia due to erosive gastropathy and esophagitis - Stool guaiac pending - iron panel with borderline low iron, could start some replacement once nausea improved - screening colonoscopy in 2010 apparently unremarkable Left diabetic foot ulcer, POA, ongoing - Dr Luna, his experimental rocket sled mechanic, saw him today and plans an outpatient surgery once GI issues resolved and he's discharged - "Plan: For now, continue wound care as appropriate per inpatient protective service specialist's recommendations. The only thing I would add would be a felt offload into the sulcus of the toe and a postop shoe to help decrease the friction in the area of ulcer. Upon discharge, the patient should see me within a week (he has an appointment at the wound clinic on Thursday), and I will go over a day surgery plan with him to excise the excess bone, immobilize the toe, and get the ulcer to close. He will need some antibiotics ahead of time so it is important to work up and treat his abdominal pain source first." Buttock decub, present on admission ongoing - seen by wound care nurse today (they've been following him as an outpt) and they feel it's improving, dressing changed by them Mild Hypokalemia (3.4) 01/18, resolved with replacement Anxiety, POA, chronic and Benzodiazepine dependence, POA, ongoing -Discharged 11/18/2016 from [facility] psychiatric unit with diagnosis polysubstance use disorder including prescription opiates and benzos -At discharge to his continued on his Valium dose of 10 mg 3 times a day with the plan to taper -Continue home benzodiazepine as patient was discharged with this medication in October, when seen in ED 12/06/2016 Dr. Cui recommended its continuation -Continue home venlafaxine -Consider psychiatric consult for medication management Diabetes mellitus, POA, chronic -Hold home medications metformin -A1c 10/2014 5.3, repeat A1c 7.1 -Low-dose correctional scale insulin, glucose low 100's Hypertension, POA, chronic -Hold home losartan as this is listed under Pt allergies -Continue home amlodipine -Continue home clonidine -Continue home furosemide -Continue metoprolol Hyperlipidemia, POA, chronic -Hold home medications fenofibrate secondary to side effect profile -Continue home statin Chronic back pain, POA -Can't take Naprosyn any longer (see GI above) -for now morphine and says he as some tablets at home but then he will need to address with PCP Insomnia, POA. Ongoing -Continue home trazodone GI Prophylaxis: H2 erendira VTE Prophylaxis: Sub-Q Heparin (Unfractionated) VTE Mechanical Devices: Intermittant Pneumatic CD Resuscitation Status: CPR: Attempt Resuscitation GI Prophylaxis: H2 erendira Pain Evaluation: Adequate Pain Control GI Prophylaxis: H2 erendira VTE Prophylaxis: Sub-Q Heparin (Unfractionated) VTE Mechanical Devices: Intermittant Pneumatic CD Resuscitation Status: CPR: Attempt Resuscitation Time spent 25 min Maryse Chandler DO Jan 20, 2017 21:22
[2017-01-21] MEDS: Ondansetron 2 mg/mL 2 mL Inj IVPUSH PRN ×6 (00:46→22:04)
[2017-01-21] MEDS: Heparin 5,000 Unit/mL Inj SUBQ SCH ×3 (00:49→16:56)
[2017-01-21 05:05] VITALS: BP 149/86; PULSE 66; RESP 16; O2SAT 96
--- NOTE | 2017-01-21 06:42 | NUR ---
NPO Patient NPO at midnight for gastric emptying study. He has had only zofran for nausea, no reglan. 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 Patient drank glucerna and prune juice for dinner and had diarrhea this shift. IV infusing NS with 20K at 100 ml/h. Dressing to L great toe and R buttock remain intact this shift. Patient uses call light appropriately. Care continues
[2017-01-21] MEDS: Sucralfate 100 mg/mL 10 mL Suspension PO SCH ×3 (07:30→18:21)
[2017-01-21] MEDS: Insulin LISPRO 300 Unit/3 mL Inj SUBQ SCH ×4 (08:00→22:00)
[2017-01-21] MEDS: Pantoprazole 4 mg/mL 10 mL Inj IVPUSH SCH (08:25)
[2017-01-21] MEDS: 0.9% NaCl + KCl 20 mEq/L 1,000 ML IV SCH ×2 (08:25→13:35)
--- NOTE | 2017-01-21 09:11 | NUR ---
Off unit Pt to [facility] for gastric emptying study at 0845. Premedicated with 8mg Zofran prior to departure. IV Protonix also given. [facility] calling at this time asking specifically for 3mg IV Ativan per pt request. paged at this time. Addendum: 01/21/17 at 1251 by ROBERT SUE RN Ativan Return call from [facility] stating pt understood he would not get 3mg Ativan and was calm and comfortable with this. 1mg IV Ativan ordered by if anxiety worsens during procedure. No additional calls or requests for medication from [facility] so far.
[2017-01-21 12:08] LABS: Hepatitis A Antibody IgM Negative (Negative); Hepatitis B Core Antibody IgM Negative (Negative)
--- NOTE | 2017-01-21 12:16 | PATH ---
SURGICAL PATHOLOGY Attending Physician:Amari Schmidt M.D. CASE STATUS: Signed Out PATIENT NAME: BIBI YANES PID: [id number] : 1950 DATE COLLECTED:01/18/2017 00:00 SPECIMEN: 1: Duodenum, Biopsy 2: Gastric, Biopsy 3: Esophagus, Biopsy CLINICAL HISTORY: 1). DUODENAL BIOPSY 2). GASTRIC BIOPSY AND RULE OUT H PYLORI 3). DISTAL ESOPHAGUS BIOPSY FINAL DIAGNOSIS: 1.DUODENUM, BIOPSY: NORMAL SMALL BOWEL MUCOSA. Negative for inflammation, histologic evidence of celiac disease, granulomas, dysplasia and malignancy. 2.STOMACH, BIOPSY: ANTRAL AND BODY MUCOSA WITH MILD CHRONIC ACTIVE GASTRITIS. Negative for intestinal metaplasia. Negative for dysplasia and malignancy. Immunohistochemistry for Helicobacter organisms pending and will be reported in an addendum. 3.DISTAL ESOPHAGUS, BIOPSY: SQUAMOCOLUMNAR JUNCTIONAL MUCOSA WITH CHRONIC ESOPHAGITIS. Negative for Macdonald' s esophagus, dysplasia and malignancy. [id number] K29.7 GROSS DESCRIPTION: The specimen is received in three formalin filled containers labeled with the patient's name. 1). The specimen is labeled "duodenal" and consists of 3 portions of tissue which aggregate to 0.2 x 0.2 x 0.2 CM. The specimen is entirely submitted in cassette 1A. 2). The specimen is labeled "gastric" and consists of 3 portions of tissue which aggregate to 0.3 x 0.3 x 0.3 CM. The specimen is entirely submitted in cassette 2A. 3). The specimen is labeled "distal esophagus" and consists of a 0.2 x 0.2 x 0.2 CM portion of tissue which is entirely submitted in cassette 3A. 01/19/2017DC MICRO DESCRIPTION: See diagnosis. ICD-9 CODES: CPT CODES: 1: 41644 2: 05943, 77344 3: 78042 PROCEDURE/ADDENDA: Addendum SPI Addendum Diagnosis 2. Stomach, Biopsy: Negative for Helicobacter organisms by immunohistochemistry. Addendum Comment The purpose of the addendum is to report the results of the immunohistochemical stain for H. pylori performed on the gastric biopsy. The immunohistochemical stain is negative for Helicobacter organisms whereas the positive control reacted appropriately. Electronically Signed Out Kal Humphrey MD, PhD Electronically Signed Out Kal Humphrey MD, PhD [facility] [address], [place] [address] Technical component performed at [facility], [address], [place], [address]
[2017-01-21 13:37] VITALS: BP 162/87; PULSE 84; RESP 18; O2SAT 99
[2017-01-21] MEDS: Venlafaxine XR 75 mg ER24 Capsule PO SCH (14:19)
--- NOTE | 2017-01-21 14:34 | NUR ---
[facility], reporting pain at 9/10 and nausea. 6mg Morphine given with 8mg Zofran. Patient is now reporting feeling much better, pain 1/10. BP elevated upon return, morning BP meds given at this time; will recheck in one hour.
[2017-01-21 16:49] VITALS: BP 142/78; PULSE 66; RESP 18; O2SAT 99
--- NOTE | 2017-01-21 17:25 | DRSVH ---
PROCEDURE: CO GASTRIC EMPTYING STUDY (20686) RADIOPHARMACEUTICAL: 0.5 mCi Tc-99m sulfur colloid in an egg sandwich. INDICATIONS: 66 year-old male with abdominal pain. TECHNIQUE: A Tc-99m labeled sulfur colloid labeled egg sandwich or oatmeal was served to the patient. Anterior and posterior planar images of the abdomen were obtained at 0 minutes and 30 minutes, then at hourly intervals up to 4 hours. The patient was upright and ambulating during the interval. COMPARISON: None. FINDINGS: The stomach has normal size, morphology, and position. There is normal emptying of solid gastric con tents from the stomach by visual inspection. No gastroesophageal reflux is visualized. The percentage of tracer retained at specific time points are as follows: Time point Percent gastric retention Normal range 30 minutes 25% 70% or more 1 hour 80% 30% to 90% 2 hours 57% 60% or less 3 hours 36% 30% or less 4 hours 12% 10% or less IMPRESSION: Delayed gastric emptying consistent with gastroparesis. Dictated by: Willa Olsen M.D. on 01/21/2017 at 17:22 Approved by: Willa Olsen M.D. on 01/21/2017 at 17:23
[2017-01-21 20:26] VITALS: BP 143/80; PULSE 63; RESP 18; O2SAT 97
[2017-01-22] MEDS: Heparin 5,000 Unit/mL Inj SUBQ SCH ×3 (02:31→16:52)
[2017-01-22] MEDS: Ondansetron 2 mg/mL 2 mL Inj IVPUSH PRN ×3 (02:31→13:31)
--- NOTE | 2017-01-22 04:16 | NUR ---
Pain Patient voiced concern about pain management as far as switching from IV to PO. Patient and I discussed pain management and when it is best to request it and agreed to document sleep throughout shift. Patient is worried that PO medication will not suffice throughout night. Difficulty sleeping, profusely sweating, and dependent of anti emetics. Care continues with frequent rounding.
[2017-01-22 05:14] VITALS: BP 138/74; PULSE 59; RESP 18; O2SAT 94
[2017-01-22] MEDS: Pantoprazole 4 mg/mL 10 mL Inj IVPUSH SCH (06:22)
[2017-01-22] MEDS: Sucralfate 100 mg/mL 10 mL Suspension PO SCH ×3 (06:22→16:52)
[2017-01-22] MEDS: Insulin LISPRO 300 Unit/3 mL Inj SUBQ SCH ×4 (08:00→22:00)
[2017-01-22 09:05] VITALS: BP 180/96; PULSE 80; RESP 18; O2SAT 99
[2017-01-22] MEDS: Venlafaxine XR 75 mg ER24 Capsule PO SCH (09:31)
--- NOTE | 2017-01-22 13:53 | PCM.PNMED ---
Subjective Date of Service Jan 22, 2017 Subjective GASTROENTEROLOGY PROGRESS NOTE Attending Physician: Amari Schmidt MD Resident Physician: Mary Conner DO No acute events overnight. Patient is quite anxious today, stating that he is afraid that he will never get better. He states that his abdominal pain is unchanged and he can't seem to eat anything without developing significant nausea. He states that he is finding it difficult to keep pills down and is worried about switching from IV to oral pain medications because morphine is the only thing that seems to help. Exam Vital Signs Vital Sign - Last Date Time Temp Pulse Resp B/P Pulse Ox O2 Delivery O2 Flow Rate FiO2 01/22/17 05:14 36.7 59 18 138/74 94 Room Air Intake and Output 01/21/17 01/21/17 01/22/17 Cumulative From/Thru 15:00 23:00 07:00 01/17/17 12:10 - 01/22/17 05:29 Intake Total 2172 ml 1146 ml 11639 ml Output Total 800 ml 300 ml 7875 ml Balance 1372 ml 846 ml 5500 ml Intake Oral 872 ml 1146 ml 5185 ml IV Total 1300 ml 8190 ml Output Urine Total 800 ml 300 ml 7875 ml # Voids 3 3 # Bowel Movements 0 3 Exam General: Anxious appearing elderly male in no acute distress. HEENT: Anicteric sclerae, PERRLA. Mucous membranes moist/pink Lungs: Clear to auscultation bilaterally Cardiovascular: Regular rate/rhythm. No murmurs Abdomen: Soft, Non-distended, diffusely tender to palpation. No masses. Normoactive bowel tones. Extremities: Distal pulses equal/intact bilaterally. No edema Neurological: AOx3, no focal neurologic deficit. Normal speech. Skin: Warm, dry and without obvious rashes. Toe dressing clean/dry and intact. Psychiatric: Anxious mood, seems to perseverate about his pain medication and reports fear about his nausea. IVs and Medications Medications Reviewed: Medications were reviewed in detail Lab and Diagnostics Microbiology 01/18/17 Stool Occult Blood (ANNIKA) - NEGATIVE Result Diagram: 01/19/17 0545 01/21/17 06 X-Rays, CTs and MRIs . CT ABDOMEN AND PELVIS WITH CONTRAST IMPRESSION: Moderate bladder distention, no urinary tract stone seen. Sigmoid diverticulosis without acute diverticulitis. Dictated by: Mariusz Wilder M.D. on 01/17/2017 01/19/17 - NM HIDA SCAN WITH CCK IMPRESSION: 1. Normal filling of gallbladder. No evidence for acute cholecystitis. 2. Normal contractile response of gallbladder to CCK substitute (Ensure+). Approved by: Willa Olsen M.D. on 01/19/2017 at 14:21 . Additional Diagnostics 01/18/17 - EGD IMPRESSION: -Erosive gastropathy with erosions and ulcers superficial. Biopsies obtained -Mild esophagitis with some surrounding scarring noted. Biopsies obtained -Bilious material some noted in the stomach. Amari Schmidt MD 01/19/17 - NM HIDA SCAN WITH CCK IMPRESSION: 1. Normal filling of gallbladder. No evidence for acute cholecystitis. 2. Normal contractile response of gallbladder to CCK substitute (Ensure+). Dictated and approved by: Willa Olsen M.D. on 01/19/2017 at 14:16 01/21/17 - NM GASTRIC EMPTYING STUDY IMPRESSION: Delayed gastric emptying consistent with gastroparesis. Approved by: Willa Olsen M.D. on 01/21/2017 at 17:23 Assessment & Plan 66-year-old gentleman with a history of chronic LLQ abdominal pain, anxiety, gastroenteritis, and diverticulosis who presented to the ED with a three week history of abdominal pain, nausea and vomiting. Acute on chronic abdominal pain. -Likely multifactorial and secondary to erosive gastropathy as well as esophagitis noted on EGD, mild gastroparesis noted on gastric emptying study and a psychiatric component contributing to or exaggerating chronic symptoms. -EGD as above; Biopsy results pending -HIDA scan without evidence of acute cholecystitis and revealed normal filling and contractile response of gallbladder. -Gastric emptying study on 01/21 showed Delayed gastric emptying consistent with gastroparesis.Which is likely related to opiates. Recommendation: -Advanced diet as tolerated -Continue GERD behavioral modification: -Avoid aspirin and NSAIDs -Continue Protonix 40 mg IV once a day -Carafate 10 mL by mouth 3 times a day -Minimize narcotic pain medications as much as possible. I saw and examined the patient and agree with above. GI Prophylaxis: H2 erendira VTE Prophylaxis: Sub-Q Heparin (Unfractionated) VTE Mechanical Devices: Intermittant Pneumatic CD Resuscitation Status: CPR: Attempt Resuscitation Mary Conner DO Jan 22, 2017 08:54 Amari Schmidt MD Jan 27, 2017 16:41 -Anxiety and Benzodiazepine dependence -Diabetes mellitus -Hypertension -Hyperlipidemia -Chronic back pain -Insomnia GI Prophylaxis: H2 erendira VTE Prophylaxis: Sub-Q Heparin (Unfractionated) VTE Mechanical Devices: Intermittant Pneumatic CD Resuscitation Status: CPR: Attempt Resuscitation Mary Conner DO Jan 22, 2017 08:54 Mary Conner DO Jan 22, 2017 08:54
--- NOTE | 2017-01-22 14:10 | NUR ---
Social Work- Continued D/C Planning Data: EMR reviewed. Pt is on day 5 of hospitalization for abdominal pain per H&P. Pt discussed in multidisciplinary rounds, pt continues to experience pain and nausea. requested that Patient Advocate be contacted. DANCE ARTIST completed this. Palliative consult requested to address pt's pain. Pt to be switched to PO medications in preparation for d/c. SW met with pt at bedside regarding d/c planning. Pt spoke extensively about his concerns for d/c. Pt is worried that he will feel this ill all the time forever, which is appropriately scary. Pt became tearful during this conversation. Pt was able to articulate multiple points of view, including the providers, related to his pain management and medications. Pt is agreeable to the follow up that is necessary but is unclear as to what that involves (GI, pain clinic, PCP, etc). Pt's goal is to return home at d/c hopefully with an increased quality of life with optimized medications. SW offered Spiritual Care, pt declined. SW offered support at bedside, pt agreeable and appreciative. Sw will continue to follow. Assessment: Pt who is independent at baseline with ADLs and self-care. Plan: Palliative Care may consult on patient. Pt is agreeable to d/c home when his medication regimen is optimized and there is a plan of care. SW will follow. TEMI Farfan
--- NOTE | 2017-01-22 16:27 | NUR ---
Wound Care Saw patient for wound care, pt requested that wound care needs be deferred until he had a shower. Honoring his request will recheck on this patient tomorrow 01/23/17.
[2017-01-22 18:16] VITALS: BP 109/65; PULSE 66; RESP 15; O2SAT 91
--- NOTE | 2017-01-22 19:15 | NUR ---
Nausea, Pain Patient continues to have some nausea and pain this shift, decreased as shift progressed to the point where patient states "my pain and nausea are down to a 1" at the end of shift. Care is ongoing.
[2017-01-22 20:19] VITALS: BP 133/78; PULSE 58; RESP 16; O2SAT 99
--- NOTE | 2017-01-22 20:59 | PCM.PNMED ---
Subjective Date of Service Jan 22, 2017 Subjective Patient is seen and examined. Based on his last night's medication list, he has not asked for a more than his home medication morphine sulfate instant release. I have explained to him that so far his workup has not yielded much in terms of etiology of his abdominal pain. He is expected to undergo a small bowel but will study this a.m. but was postponed to tomorrow due to patient not being nothing by mouth. He states that he is not able to eat much. Patient has no other concerns Exam Vital Signs Vital Sign - Last Date Time Temp Pulse Resp B/P Pulse Ox O2 Delivery O2 Flow Rate FiO2 01/22/17 20:19 37.1 58 16 133/78 99 Room Air Intake and Output 01/21/17 01/21/17 01/22/17 Cumulative From/Thru 15:00 23:00 07:00 01/17/17 12:10 - 01/22/17 05:29 Intake Total 2172 ml 1146 ml 75821 ml Output Total 800 ml 300 ml 7875 ml Balance 1372 ml 846 ml 5500 ml Intake Oral 872 ml 1146 ml 5185 ml IV Total 1300 ml 8190 ml Output Urine Total 800 ml 300 ml 7875 ml # Voids 3 3 # Bowel Movements 0 3 Exam Gen.: No acute distress HEENT: Normocephalic, atraumatic Heart: Regular rate and rhythm no murmurs Lungs: Clear to auscultation of crackles or wheezes Abdomen: Soft nondistended, normal bowel sounds, states it is very tender in the left lower quadrant Extremities: Trace edema is present Neuro: No focal deficits Psych: No anxiety or agitation IVs and Medications IV Fluids None Medications Reviewed: Medications were reviewed in detail Lab and Diagnostics Result Diagram: 01/19/17 0545 01/21/17 0605 X-Rays, CTs and MRIs . CT ABDOMEN AND PELVIS WITH CONTRAST IMPRESSION: Moderate bladder distention, no urinary tract stone seen. Sigmoid diverticulosis without acute diverticulitis. Dictated by: Mariusz Wilder M.D. on 01/17/2017 01/19/17 - NM HIDA SCAN WITH CCK IMPRESSION: 1. Normal filling of gallbladder. No evidence for acute cholecystitis. 2. Normal contractile response of gallbladder to CCK substitute (Ensure+). Approved by: Willa Olsen M.D. on 01/19/2017 at 14:21 . Additional Diagnostics 01/18/17 - EGD IMPRESSION: -Erosive gastropathy with erosions and ulcers superficial. Biopsies obtained -Mild esophagitis with some surrounding scarring noted. Biopsies obtained -Bilious material some noted in the stomach. Amari Schmidt MD 01/19/17 - NM HIDA SCAN WITH CCK IMPRESSION: 1. Normal filling of gallbladder. No evidence for acute cholecystitis. 2. Normal contractile response of gallbladder to CCK substitute (Ensure+). Dictated and approved by: Willa Olsen M.D. on 01/19/2017 at 14:16 01/21/17 - NM GASTRIC EMPTYING STUDY IMPRESSION: Delayed gastric emptying consistent with gastroparesis. Approved by: Willa Olsen M.D. on 01/21/2017 at 17:23 Assessment & Plan 66-year-old gentleman with a history of chronic LLQ abdominal pain, anxiety, gastroenteritis, and diverticulosis who presented to the ED with a three week history of abdominal pain, nausea and vomiting. Abdominal pain likely secondary to erosive gastropathy and esophagitis versus gastroparesis. Present on admission active Per GI: -EGD Erosive gastropathy with erosions and ulcers superficial. Biopsies obtained Mild esophagitis with some surrounding scarring noted. Biopsies obtained -HIDA scan without evidence of acute cholecystitis and revealed normal filling and contractile response of gallbladder. -Suspect patient's anxiety a contributing factor to his chronic symptoms. Recommend Psychiatric evaluation. -Additionally due to the significance of and lack of improvement in his nausea. If the gastric empyting study is also negative recommend MRI and potentially Neurology consult to evaluate for central cause for his nausea. Recommendation: -Advanced diet as tolerated -Continue GERD behavioral modification: -Avoid aspirin and NSAIDs -Continue Protonix 40 mg IV once a day -Carafate 10 mL by mouth 3 times a day -Gastric emptying study planned for 01/21 -- Gastric emptying study was performed and showed concern for gastric bleeding and gastroparesis. I have discussed the patient and encouraged him to not seek pain medications. I discussed restarting his home medication morphine sulfate instant release 15 mg twice a day when necessary, with oxycodone 5 mg every 4 hours when necessary for breakthrough. -- Reglan by mouth 5 mg before meals at bedtime as ordered ( this appears to be in his home med list, though not continued at this admission) -- Discussed case and findings with Dr. Schmidt in the a.m. he recommends a colonoscopy early next week, if small bowel barium study does not reveal the source of his pain -- Patient has been compliant with the pain medication change so far -Consulted psychiatry due to concern for somatization type of disorder, Dr Matias has seen the patient. He discussed tapering his Valium, adding doxepin. We will await their formal recommendations. -He states that he has had a colonoscopy within the last 5 years that was normal , with the exception of diverticulosis. I have discussed the possibility of a repeat colonoscopy early next week if no other source of this pain is found -I have also contacted palliative care, Dr. Pugh states that she may or may not be able to see the patient as she already has a long list of consults for Thursday -- Change IV Protonix to by mouth on 01/[address] Schmidt Nausea, present on admission active -- In spite of extensive workup so far no problems were found -- MRI of brain without contrast to eliminate central etiologies for his nausea and vomiting -- Small bowel follow-through with barium study in the a.m. -- Patient is nothing by mouth after midnight Mild anemia, slightly microcytic, present on admission active --could be iron def anemia due to erosive gastropathy and esophagitis - Stool guaiac negative - iron panel with borderline low iron, could start some replacement once nausea improved - screening colonoscopy in 2010 apparently unremarkable Left diabetic foot ulcer, POA, ongoing - Dr Luna, his cigar packer and grader, saw him today and plans an outpatient surgery once GI issues resolved and he's discharged - "Plan: For now, continue wound care as appropriate per inpatient library specialist's recommendations. The only thing I would add would be a felt offload into the sulcus of the toe and a postop shoe to help decrease the friction in the area of ulcer. Upon discharge, the patient should see me within a week (he has an appointment at the wound clinic on Thursday), and I will go over a day surgery plan with him to excise the excess bone, immobilize the toe, and get the ulcer to close. He will need some antibiotics ahead of time so it is important to work up and treat his abdominal pain source first." Mild Hypokalemia (3.4) 01/18, resolved with replacement Anxiety, POA, chronic and Benzodiazepine dependence, POA, ongoing -Discharged 11/18/2016 from [facility] psychiatric unit with diagnosis polysubstance use disorder including prescription opiates and benzos -At discharge to his continued on his Valium dose of 10 mg 3 times a day with the plan to taper -Continue home benzodiazepine as patient was discharged with this medication in October, when seen in ED 12/06/2016 Dr. Cui recommended its continuation -Continue home venlafaxine -Psychiatric is considering reducing patient's benzo, based on state history database, he has long time usage of benzodiazepines (starting age 18, per patient) Diabetes mellitus, active, chronic -Hold home medications metformin -A1c 10/2014 5.3, repeat A1c 7.1 -Low-dose correctional scale insulin, glucose low 100's Hypertension, active, chronic -Hold home losartan as this is listed under Pt allergies -Continue home amlodipine -Continue home clonidine -Continue home furosemide -Continue metoprolol Hyperlipidemia, active, chronic -Hold home medications fenofibrate secondary to side effect profile -Continue home statin Chronic back pain, active -Can't take Naprosyn any longer (see GI above) -for now morphine and says he as some tablets at home but then he will need to address with PCP Insomnia, active. Ongoing -Continue home trazodone Pain Evaluation: Adequate Pain Control GI Prophylaxis: H2 erendira VTE Prophylaxis: Sub-Q Heparin (Unfractionated) VTE Mechanical Devices: Intermittant Pneumatic CD Resuscitation Status: CPR: Attempt Resuscitation Time spent 25 minutes Maryse Chandler DO Jan 22, 2017 20:59
[2017-01-23] MEDS: Heparin 5,000 Unit/mL Inj SUBQ SCH ×3 (00:02→16:39)
[2017-01-23] MEDS: Ondansetron 2 mg/mL 2 mL Inj IVPUSH PRN ×4 (00:03→17:18)
--- NOTE | 2017-01-23 00:24 | CONS ---
[address] [address] CONSULTATION REPORT PATIENT: BIBI YANES : 1950 MR#: [id number] ADMIT: 01/17/2017 JOB ID: [id number] DATE OF SERVICE: INPATIENT PSYCHIATRIC CONSULTATION: REFERRING PHYSICIAN: Maryse Chandler DO. IDENTIFYING DATA: The patient is a 66-year-old male with a history of chronic left lower quadrant abdominal pain, anxiety, gastroenteritis, diverticulosis, who presented to the emergency department with a three week history of abdominal pain, nausea and vomiting. The patient is referred for psychiatric evaluation as they have found physiological abnormalities, but not to the extent that would explain the severe pain. CHIEF COMPLAINT: "I want to thank you for the venlafaxine. I didn't think it would work, but it really has." HISTORY OF PRESENT ILLNESS: The patient reports that when he was seen by this advertising copy writer on December 25, 2016, and recommended to start on venlafaxine he was unsure whether this would be helpful. He went to [facility] and the medication was eventually titrated to 150 mg, where he found "immediate relief" from anxiety, panic and depression. He did not endorse having a feeling of fogginess in his head, but reported that "things have cleared up in the last week." He did endorse having nausea at home and began having sharp abdominal pains and reports having lost approximately 25 pounds in the last month. He reports using Pepto-Bismol to treat abdominal discomfort and reports having black Jell-O like stools. He reports that this is unusual as he has had black stools before from Pepto-Bismol but they are usually firm. He reports that his father from diabetes and some form of ulcer. He denies recent panic, anxiety or depression. PAST PSYCHIATRIC HISTORY: The patient reports having been tried on a number of medications including SSRIs, bupropion, buspirone and other medication, and developing nausea 30-45 minutes after taking all of them. He apparently did not experience this with nortriptyline and did not experience this with venlafaxine. He has never been tried on mirtazapine. The patient has been seen by Dr. Peña in the past but is currently with [facility]. He reports his current counselor is Rl. PAST MEDICAL HISTORY: 1. Abdominal pain likely secondary to erosive gastropathy and esophagitis versus gastroparesis. 2. Mild anemia. 3. Left diabetic foot ulcer. 4. Buttocks decubitus ulcer. 5. Mild hypokalemia. 6. Diabetes. 7. Hypertension. 8. Hyperlipidemia. 9. Chronic back pain. 10. Chronic insomnia, treated with trazodone. CURRENT PSYCHIATRIC MEDICATIONS: 1. Venlafaxine 150 mg daily. 2. Trazodone 225 mg daily. 3. Diazepam 10 mg dose three times daily. ALLERGIES: 1. TRIVIA BRAND MEDICATIONS. 2. BENAZEPRIL. 3. FELODIPINE. 4. HYDROCHLOROTHIAZIDE. 5. LOSARTAN. 6. PROCHLORPERAZINE. SOCIAL HISTORY: He is single and no significant support systems. He has a history of drinking 2-3 times per year and denies daily usage. The patient was born and raised in [place] by his biological mother and had no father or siblings present. The patient has a history of being in 1974 for six years and , and was for 10 years in the late . Denies a history of substance use or marijuana use. There is no history of abuse. FAMILY HISTORY: Significant for alcoholism in his biological brother who is now . MENTAL STATUS EXAMINATION: Appearance: The patient is adequately groomed, though appears somewhat unkempt. Behavior: The patient is generally cooperative, but makes intermittent eye contact. Speech is normal rate, volume, and tone. Mood is anxious about his abdominal pain, but otherwise much improved. Affect is mildly restricted. Thought content: He denies suicidal or homicidal ideation, auditory or visual hallucinations. Thought processes: Linked, linear and goal directed. The patient was alert and oriented. Insight and judgment appear to be fair. Intelligence appeared to be in the average range based on history and vocabulary. Attention and concentration were grossly intact. Sensorium: Overall intact without evidence of delirium or dementia. 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 He presents with worsening abdominal pain in the context of chronic abdominal pain. There have been findings on his medical exam which would suggest an abdominal source, but there is some question whether there may be a somatization disorder with exaggeration of symptoms. Abdominal examination, which was observed, appeared to be unremarkable. DSM-IV DIAGNOSES: AXIS I: 1. Polysubstance use disorder including prescription opiate and benzodiazepine use. 2. Panic disorder with agoraphobia, resolved. 3. Generalized anxiety disorder in partial remission. 4. Major depressive disorder, recurrent, without psychotic features, in early remission. AXIS II: Borderline personality disorder and dependent and narcissistic personality features. AXIS III: See past medical history but significant for chronic pain, hypertension, diabetes and diabetic ulcers. AXIS IV: Poor social support, substance use. AXIS V: Global Assessment of Functioning 45-50. PLAN: 1. At this time we would continue with his current venlafaxine dose. 2. As his anxiety is now reduced the benzodiazepine may be slowing his gastric emptying, resulting in possible worsening of his abdominal symptoms. We discussed reducing the dose and the patient was agreeable. Would change diazepam to 10 mg at 8 and 14:30, and 5 mg at bedtime. Should the patient awake with significant anxiety in the middle of the night he may have an additional 5 mg of diazepam. 3. Consider switching trazodone to a more sedating antidepressant such as doxepin which would potentially have better histamine blocking activity. 4. Would suggest patient engage in cognitive behavioral therapy. 5. Should the patient present with suicidal ideation, he should be referred to the manager social media for assessment and potential referral to the [facility]. 6. Please feel free to contact Psychiatry for further recommendations. DAY
--- NOTE | 2017-01-23 02:31 | NUR ---
Pain and nausea Patient states pain and nausea in tolerable ranges as medications doses seem to be working. NPO at midnight in anticipation of sml bowel barium test. Care continues
[2017-01-23 05:31] VITALS: BP 121/74; PULSE 61; RESP 18; O2SAT 95
[2017-01-23] MEDS: Sucralfate 100 mg/mL 10 mL Suspension PO SCH ×3 (07:30→16:48)
[2017-01-23] MEDS: Insulin LISPRO 300 Unit/3 mL Inj SUBQ SCH ×4 (07:55→22:00)
--- NOTE | 2017-01-23 09:13 | PCM.PNMED ---
Subjective Date of Service Jan 23, 2017 Subjective GASTROENTEROLOGY PROGRESS NOTE Attending Physician: Resident Physician: Mary Conner DO No acute events overnight. Exam Vital Signs Vital Sign - Last Date Time Temp Pulse Resp B/P Pulse Ox O2 Delivery O2 Flow Rate FiO2 01/23/17 05:31 36.6 61 18 121/74 95 Room Air Intake and Output 01/22/17 01/22/17 01/23/17 Cumulative From/Thru 15:00 23:00 07:00 01/17/17 12:10 - 01/23/17 06:47 Intake Total 1200 ml 300 ml 52642 ml Output Total 7875 ml Balance 1200 ml 300 ml 7000 ml Intake Oral 1200 ml 300 ml 6685 ml IV Total 8190 ml Output Urine Total 7875 ml # Voids 8 2 13 # Bowel Movements 3 Exam General: Anxious appearing elderly male in no acute distress. HEENT: Anicteric sclerae, PERRLA. Mucous membranes moist/pink Lungs: Clear to auscultation bilaterally Cardiovascular: Regular rate/rhythm. No murmurs Abdomen: Soft, Non-distended, diffusely tender to palpation. No masses. Normoactive bowel tones. Extremities: Distal pulses equal/intact bilaterally. No edema Neurological: AOx3, no focal neurologic deficit. Normal speech. Skin: Warm, dry and without obvious rashes. Toe dressing clean/dry and intact. Psychiatric: Anxious mood, seems to perseverate about his pain medication and reports fear about his nausea. IVs and Medications Medications Reviewed: Medications were reviewed in detail Lab and Diagnostics Laboratory Tests Test 01/23/17 06:00 Hemoglobin 13.5g/dL (13.8-17.2) Hematocrit 38.2% (41.0-50.0) Sodium Level 139mEq/L (134-144) Potassium Level 4.0mEq/L (3.5-5.2) Chloride Level 103mEq/L (97-108) Carbon Dioxide Level 23mmol/L (18-29) Blood Urea Nitrogen 13mg/dL (8-27) Creatinine 1.06mg/dL (0.76-1.27) Estimat Glomerular Filtration Rate 75mL/min (>59) Glucose Level 117mg/dL (60-99) Calcium Level 8.5mg/dL (8.5-10.1) Microbiology 01/18/17 Stool Occult Blood (ANNIKA) - Negative Result Diagram: 01/23/17 0600 01/23/17 0600 X-Rays, CTs and MRIs . CT ABDOMEN AND PELVIS WITH CONTRAST IMPRESSION: Moderate bladder distention, no urinary tract stone seen. Sigmoid diverticulosis without acute diverticulitis. Dictated by: Mariusz Wilder M.D. on 01/17/2017 01/19/17 - NM HIDA SCAN WITH CCK IMPRESSION: 1. Normal filling of gallbladder. No evidence for acute cholecystitis. 2. Normal contractile response of gallbladder to CCK substitute (Ensure+). Approved by: Willa Olsen M.D. on 01/19/2017 at 14:21 . Additional Diagnostics 01/18/17 - EGD IMPRESSION: -Erosive gastropathy with erosions and ulcers superficial. Biopsies obtained -Mild esophagitis with some surrounding scarring noted. Biopsies obtained -Bilious material some noted in the stomach. Amari Schmidt MD 01/19/17 - NM HIDA SCAN WITH CCK IMPRESSION: 1. Normal filling of gallbladder. No evidence for acute cholecystitis. 2. Normal contractile response of gallbladder to CCK substitute (Ensure+). Dictated and approved by: Willa Olsen M.D. on 01/19/2017 at 14:16 01/21/17 - NM GASTRIC EMPTYING STUDY IMPRESSION: Delayed gastric emptying consistent with gastroparesis. Approved by: Willa Olsen M.D. on 01/21/2017 at 17:23 Assessment & Plan 66-year-old gentleman with a history of chronic LLQ abdominal pain, anxiety, gastroenteritis, and diverticulosis who presented to the ED with a three week history of abdominal pain, nausea and vomiting. Acute on chronic abdominal pain. -Likely multifactorial and secondary to erosive gastropathy as well as esophagitis noted on EGD, gastroparesis noted on gastric emptying study and a psychiatric component contributing to or exaggerating chronic symptoms. -EGD as above; Biopsy results pending -HIDA scan without evidence of acute cholecystitis and revealed normal filling and contractile response of gallbladder. -Gastric emptying study on 01/21 showed Delayed gastric emptying consistent with gastroparesis.Which is likely related to opiates. Recommendation: -Advanced diet as tolerated -Continue GERD behavioral modification: -Avoid aspirin and NSAIDs -Continue Protonix 40 mg IV once a day -Carafate 10 mL by mouth 3 times a day -Minimize narcotic pain medications as much as possible. Additional problems managed by primary hospitalist: -Mild anemia, slightly microcytic -Left diabetic foot ulcer -Mild Hypokalemia (3.4) 01/18, resolved with replacement -Anxiety and Benzodiazepine dependence -Diabetes mellitus -Hypertension -Hyperlipidemia -Chronic back pain -Insomnia . GI Prophylaxis: H2 erendira VTE Prophylaxis: Sub-Q Heparin (Unfractionated) VTE Mechanical Devices: Intermittant Pneumatic CD Resuscitation Status: CPR: Attempt Resuscitation Mary Conner DO Jan 23, 2017 09:13
[2017-01-23] MEDS ORDERED: Dextrose 10% 250 ML IV PRN (09:25)
--- NOTE | 2017-01-23 11:30 | NUR ---
Palliative Care- Cancelled Palliative Care received verbal order from Dr Chandler late in day 01/22/17 to assist with symptom management. Per Dr Farr, patient is not appropriate for Palliative Care to see. Dr Farr has discussed with medical team. PC will not be seeing patient. Nellie Max
[2017-01-23] MEDS: Pantoprazole 40 mg ER24 Tablet PO SCH (11:46)
[2017-01-23 12:18] VITALS: BP 136/79; PULSE 52; RESP 18; O2SAT 94
[2017-01-23] MEDS: Venlafaxine XR 75 mg ER24 Capsule PO SCH (13:17)
[2017-01-23 13:20] VITALS: PULSE 80
--- NOTE | 2017-01-23 15:17 | NUR ---
Inpatient Wound Nurse Patient seen for L great toe and R buttock wounds. Patient has just completed shower with no dressings and is agreeable to new dressings post shower. Patient stated that he has been wearing the off-loading shoe and had it on when COLE RN entered his room. L great toe wound bed beefy red and slightly granulated, continues with macerated periwound halo, and entire hallux distal to first met head is erythemic and noted with increased edema. Wound was cleansed, blotted dry, periwound heavily swabbed with skin prep. Base of wound covered with absorbent Manuka dressing cut to fit within wound bed. Additional piece of Aquacel Extra Ag placed over Manuka dressing, also cut to fit within wound margins. One piece of felt was cut to fit into great toe plantar sulcus, then a 4x4 bordered Mepilex dressing with silicone facing was cut into scalloped pattern with tabs and wrapped around toe and met head. At patient's request, retention tape was applied. R buttock wound continues improved, beefy red wound bed, periwound warm and pink, no evidence of infection. Wound was cleansed, then packed with small piece of absorbent Manuka dressing then covered with 4x4 bordered Mepilex dressing with silicone facing. Patient was reminded to continue with off-loading shoe whenever out of bed, to which he stated agreement. [facility] will see patient for wound care on Thursday.
--- NOTE | 2017-01-23 15:39 | NUR ---
Medications Upon morning assessment pt having nausea and dry heaving. Pt NPO for procedure. Morning medications held due to nausea, and pt refusal to take medications at that time. Medication given after pt returned to the unit and nausea controlled. Per pharmacy, 1430 dose of Lasix and Catapres to be skipped as it was too close to the administration time of morning dose. Care continues.
--- NOTE | 2017-01-23 16:08 | DRSVH ---
PROCEDURE: X-RAY SMALL BOWEL BARIUM STUDY ([id number]) INDICATIONS: ABDOMEN PAIN; NAUSEA AND VOMITING COMPARISON: None. FINDINGS: KUB: Preprocedural snuff maker film demonstrates a normal bowel gas pattern. No suspicious abdominal calc ifications. Visualized solid organ contours appear normal. No suspicious bony abnormalities. Small bowel: There is normal transit time of barium through the small bowel. Small bowel loops are of normal caliber throughout. Mucosal folds are smooth and of normal thickness. No strictures, intr aluminal masses, or extrinsic mass effects are noted. The terminal ileum is identified, and is hanas l in morphology. IMPRESSION: Normal small bowel follow-through. Dictated by: Gabo GRIJALVA Interpreted: Jeff Centeno MD on 01/23/2017 at 12:32 Approved by: Mendoza Centeno M.D. on 01/23/2017 at 16:06
[2017-01-23] MEDS ORDERED: Ondansetron 8 mg ODT Tablet PO PRN (17:45)
--- NOTE | 2017-01-23 19:19 | PCM.PNMED ---
Subjective Date of Service Jan 23, 2017 Subjective I have discussed with the patient his small bowel follow-through study. He requested IV morphine once during the day, was not given. Not happy with the dosage changes his Valium. He states he is concerned about having to go home because no one will be checking on him. He does not want to let home care help come in as he is ashamed of his trailer that he lives in. He understands that there is no etiology found for his abdominal pain. Exam Vital Signs Vital Sign - Last Date Time Temp Pulse Resp B/P Pulse Ox O2 Delivery O2 Flow Rate FiO2 01/23/17 13:20 80 01/23/17 12:18 36.8 18 136/79 94 Room Air Intake and Output 01/22/17 01/22/17 01/23/17 Cumulative From/Thru 15:00 23:00 07:00 01/17/17 12:10 - 01/23/17 06:47 Intake Total 1200 ml 300 ml 85610 ml Output Total 7875 ml Balance 1200 ml 300 ml 7000 ml Intake Oral 1200 ml 300 ml 6685 ml IV Total 8190 ml Output Urine Total 7875 ml # Voids 8 2 13 # Bowel Movements 3 Exam Gen.: No acute distress HEENT: Normocephalic, atraumatic Heart: Regular rate and rhythm no murmurs Lungs: Clear to auscultation of crackles or wheezes Abdomen: Soft nondistended, normal bowel sounds, states it is very tender in the left lower quadrant out of proportion to my exam Extremities: Trace edema is present Neuro: No focal deficits Psych: No anxiety or agitation IVs and Medications Medications Reviewed: Medications were reviewed in detail Lab and Diagnostics Result Diagram: 01/23/17 0600 01/23/17 0600 X-Rays, CTs and MRIs . CT ABDOMEN AND PELVIS WITH CONTRAST IMPRESSION: Moderate bladder distention, no urinary tract stone seen. Sigmoid diverticulosis without acute diverticulitis. Dictated by: Mariusz Wilder M.D. on 01/17/2017 01/19/17 - NM HIDA SCAN WITH CCK IMPRESSION: 1. Normal filling of gallbladder. No evidence for acute cholecystitis. 2. Normal contractile response of gallbladder to CCK substitute (Ensure+). Approved by: Willa Olsen M.D. on 01/19/2017 at 14:21 . Additional Diagnostics 01/18/17 - EGD IMPRESSION: -Erosive gastropathy with erosions and ulcers superficial. Biopsies obtained -Mild esophagitis with some surrounding scarring noted. Biopsies obtained -Bilious material some noted in the stomach. Amari Schmidt MD 01/19/17 - NM HIDA SCAN WITH CCK IMPRESSION: 1. Normal filling of gallbladder. No evidence for acute cholecystitis. 2. Normal contractile response of gallbladder to CCK substitute (Ensure+). Dictated and approved by: Willa Olsen M.D. on 01/19/2017 at 14:16 01/21/17 - NM GASTRIC EMPTYING STUDY IMPRESSION: Delayed gastric emptying consistent with gastroparesis. Approved by: Willa Olsen M.D. on 01/21/2017 at 17:23 Assessment & Plan 66-year-old gentleman with a history of chronic LLQ abdominal pain, anxiety, gastroenteritis, and diverticulosis who presented to the ED with a three week history of abdominal pain, nausea and vomiting. Abdominal pain likely secondary to erosive gastropathy and esophagitis versus gastroparesis. Present on admission active Per GI: -EGD Erosive gastropathy with erosions and ulcers superficial. Biopsies obtained Mild esophagitis with some surrounding scarring noted. Biopsies obtained -HIDA scan without evidence of acute cholecystitis and revealed normal filling and contractile response of gallbladder. -Suspect patient's anxiety a contributing factor to his chronic symptoms. Recommend Psychiatric evaluation. -Additionally due to the significance of and lack of improvement in his nausea. If the gastric empyting study is also negative recommend MRI and potentially Neurology consult to evaluate for central cause for his nausea. Recommendation: -Advanced diet as tolerated -Continue GERD behavioral modification: -Avoid aspirin and NSAIDs -Continue Protonix 40 mg IV once a day -Carafate 10 mL by mouth 3 times a day -Gastric emptying study planned for 01/21 -- Gastric emptying study was performed and showed concern for gastric bleeding and gastroparesis. I have discussed the patient and encouraged him to not seek pain medications. I discussed restarting his home medication morphine sulfate instant release 15 mg twice a day when necessary, with oxycodone 5 mg every 4 hours when necessary for breakthrough. -- Reglan by mouth 5 mg before meals at bedtime as ordered ( this appears to be in his home med list, though not continued at this admission) -- Discussed case and findings with Dr. Schmidt on 01/22. he recommends a colonoscopy early next week, if small bowel barium study does not reveal the source of his pain -- Patient has been compliant with the pain medication change so far -- Consulted psychiatry due to concern for somatization type of disorder, Dr Matias has seen the patient. He discussed tapering his Valium, adding doxepin. We will await their formal recommendations. -- He states that he has had a colonoscopy within the last 5 years that was normal, with the exception of diverticulosis. I have discussed the possibility of a repeat colonoscopy early next week if no other source of this pain is found - I have also contacted palliative care, Dr. Pugh states that she may or may not be able to see the patient as she already has a long list of consults -- Change Zofran to by mouth -- GI does not plan to do colonoscopy this weekend, I discussed with patient the possibility of outpatient colonoscopy as that the only test that is left to be done -- Colonoscopy as outpatient next week Gastroparesis/nausea, present on admission active -- Small bowel follow-through with barium study this a.m. negative -- Continue when necessary -- MRI of brain without contrast to eliminate central etiologies for his nausea and vomiting: This can be pursued outpatient, the absence of other neurological symptoms at this time due to concern for central etiologies. -- I also discussed possibly getting referred to an advanced the Center where they can work on gastric pacemakers Mild anemia, slightly microcytic, present on admission active --could be iron def anemia due to erosive gastropathy and esophagitis - Stool guaiac negative - iron panel with borderline low iron, could start some replacement once nausea improved - screening colonoscopy in 2010 apparently unremarkable Left diabetic foot ulcer, POA, ongoing - Dr Luna, his clinical resource nurse, saw him today and plans an outpatient surgery once GI issues resolved and he's discharged - "Plan: For now, continue wound care as appropriate per inpatient pre billing specialist's recommendations. The only thing I would add would be a felt offload into the sulcus of the toe and a postop shoe to help decrease the friction in the area of ulcer. Upon discharge, the patient should see me within a week (he has an appointment at the wound clinic on Thursday), and I will go over a day surgery plan with him to excise the excess bone, immobilize the toe, and get the ulcer to close. He will need some antibiotics ahead of time so it is important to work up and treat his abdominal pain source first." Mild Hypokalemia (3.4) 01/18, resolved with replacement Anxiety, POA, chronic and Benzodiazepine dependence, POA, ongoing -Discharged 11/18/2016 from [facility] psychiatric unit with diagnosis polysubstance use disorder including prescription opiates and benzos -At discharge to his continued on his Valium dose of 10 mg 3 times a day with the plan to taper -Continue home benzodiazepine as patient was discharged with this medication in October, when seen in ED 12/06/2016 Dr. Cui recommended its continuation -Continue home venlafaxine -Psychiatric has made changes to patient's benzo, based on state history database, he has long time usage of benzodiazepines (starting age 18, per patient) Diabetes mellitus, active, chronic -Hold home medications metformin -A1c 10/2014 5.3, repeat A1c 7.1 -Low-dose correctional scale insulin, glucose low 100's Hypertension, active, chronic -Hold home losartan as this is listed under Pt allergies -Continue home amlodipine -Continue home clonidine -Continue home furosemide -Continue metoprolol Hyperlipidemia, active, chronic -Hold home medications fenofibrate secondary to side effect profile -Continue home statin Chronic back pain, active -Can't take Naprosyn any longer (see GI above) -for now morphine and says he has some tablets at home but then he will need to address with PCP Insomnia, active. Ongoing -Continue home trazodone Disposition: Will discuss patient's social issues with social work in the a.m. Pain Evaluation: Adequate Pain Control GI Prophylaxis: H2 erendira VTE Prophylaxis: Sub-Q Heparin (Unfractionated) VTE Mechanical Devices: Intermittant Pneumatic CD Resuscitation Status: CPR: Attempt Resuscitation Time spent 30 minutes Maryse Chandler DO Jan 23, 2017 19:19
[2017-01-23 20:30] VITALS: BP 129/81; PULSE 68; RESP 18; O2SAT 95
[2017-01-24] MEDS: Heparin 5,000 Unit/mL Inj SUBQ SCH ×2 (01:32→08:20)
--- NOTE | 2017-01-24 05:06 | NUR ---
Nausea / emotional support Pt reports that his nausea and pain typically are diminished by evening and increase during night and by hr administrator. Extensively discussed coping skills and plan of care. Pt feeling very overwhelmed by quality of life issues. Supportive, therapeutic listening provided. Requested morphine during night, observed resting in bed before and after. Hourly rounding ongoing.
[2017-01-24 06:00] VITALS: BP 148/91; PULSE 59; RESP 16; O2SAT 93
[2017-01-24] MEDS: Pantoprazole 40 mg ER24 Tablet PO SCH (06:11)
[2017-01-24] MEDS: Insulin LISPRO 300 Unit/3 mL Inj SUBQ SCH ×2 (08:00→12:43)
[2017-01-24] MEDS: Sucralfate 100 mg/mL 10 mL Suspension PO SCH ×2 (09:19→12:05)
[2017-01-24] MEDS: Venlafaxine XR 75 mg ER24 Capsule PO SCH (09:24)
[2017-01-24 09:32] VITALS: BP 150/67; PULSE 67
[2017-01-24] MEDS ORDERED: PANT40TA3 PO (09:45)
[2017-01-24] MEDS ORDERED: METO10TA3 PO (09:45)
[2017-01-24] MEDS ORDERED: ONDA4TAB12 PO (09:45)
--- NOTE | 2017-01-24 09:51 | PCM.DIMED ---
Discharge Instructions Date of Service Jan 24, 2017 Dates of Hospitalization Jan 17, 2017 at 18:37 Activity Discharge Activity: No restrictions Call your provider Call your provider for: Fever or Chills, Shortness of breath, Bleeding, Chest pain, Vomitting, Excessive diarrhea, Weakness (unilateral), Other Patient Instructions Patient Instructions We have offered Nursing and patient declined. Please note changes to Reglan PO. Discontinue Naproxen Follow-up plan Colonoscopy early next week as soon as possible GI F/U with Dr. Desai after the colonoscopy for gastroparesis and chronic abdominal pain F/U with PCP in one week to discuss pain medication taper to help with gastroparesis Please f/u with [facility] for psychiatry F/U with Dr. Nickerson in a week for foot ulcer Maryse Chandler DO Jan 24, 2017 09:51
--- NOTE | 2017-01-24 10:49 | NUR ---
Social Work: Discharge Data: EMR reviewed. Patient is on day 7 of hospitalization for abdominal pain per H&P. Patient has been deemed medically stable and appropriate for discharge today per MD. Recommendation was made for patient to receive home health RN services. Patient has declined the offer to receive services. Transportation will be arranged by patient. Patient has no additional needs at this time. Assessment: Patient will discharge home. Plan: Patient will discharge home today. No needs are anticipated at this time. Transportation arrangements will be made by patient. TEMI Bone
[2017-01-24] MEDS ORDERED: SUCR1ORA PO (13:31)
--- NOTE | 2017-01-24 14:15 | NUR ---
Discharge Pt discharged to home with self at 1414. A&Ox3, SMITH, VSS, Pain tolerable - pt with anxiety re: discharge and worked up his nausea/pain levels prior to dc, IV dc'd intact. Hard copy scripts provided to pt - faxed to pt pharmacy, CareNotes and instructions provided on dc dx, new medications, s/sx to watch/seek medical attention for and plan x3 for followup. Pt left with all personal belongings - medications retrieved from pharmacy. No unanswered questions at discharge. Pt walked off unit to vehicle.
--- NOTE | 2017-01-24 20:31 | PCM.DC.MED ---
Discharge Summary Date of Service Jan 24, 2017 Dates of Hospitalization Date of Hospital Admission Jan 17, 2017 at 18:37 Date of Discharge: Jan 24, 2017 Providers: Admitting Physician: Tamera Kirkpatrick DO Primary Care Physician: Elham Mendoza MD Attending Physician: Maryse Snow DO Diagnosis at Time of Discharge Diagnosis at Time of Discharge Gastroparesis, gastritis, toe wound infection, diabetes Consultations GI, podiatry, wound care Procedures XRay, CTs & MRIs . CT ABDOMEN AND PELVIS WITH CONTRAST IMPRESSION: Moderate bladder distention, no urinary tract stone seen. Sigmoid diverticulosis without acute diverticulitis. Dictated by: Mariusz Wilder M.D. on 01/17/2017 01/19/17 - NM HIDA SCAN WITH CCK IMPRESSION: 1. Normal filling of gallbladder. No evidence for acute cholecystitis. 2. Normal contractile response of gallbladder to CCK substitute (Ensure+). Approved by: Willa Olsen M.D. on 01/19/2017 at 14:21 . Other Diagnostics 01/18/17 - EGD IMPRESSION: -Erosive gastropathy with erosions and ulcers superficial. Biopsies obtained -Mild esophagitis with some surrounding scarring noted. Biopsies obtained -Bilious material some noted in the stomach. Amari Schmidt MD 01/19/17 - NM HIDA SCAN WITH CCK IMPRESSION: 1. Normal filling of gallbladder. No evidence for acute cholecystitis. 2. Normal contractile response of gallbladder to CCK substitute (Ensure+). Dictated and approved by: Willa Olsen M.D. on 01/19/2017 at 14:16 01/21/17 - NM GASTRIC EMPTYING STUDY IMPRESSION: Delayed gastric emptying consistent with gastroparesis. Approved by: Willa Olsen M.D. on 01/21/2017 at 17:23 Brief History Mr. Ramos is a 66-year-old male with past medical history of anxiety, gastroenteritis, diverticulosis, history of abdominal pain who presented to the ED complaining of nausea/vomiting and left lower quadrant abdominal pain 2 weeks. Patient states that he is being followed by podiatry for a left great toe nonhealing ulcer that has reported to have infiltrated to the bone. He was sent by his aquatic centre manager to urgent care today (01/17/2017) to receive lower extremity x-rays when during this imaging procedure he developed 10/10 left lower quadrant pain while trying to position his foot for the x-ray. He further states that over the last 2 weeks he has had chronic nausea with dry heaves and no vomiting and has not been able to keep any food down, he also reports a 20 pound weight loss during this time. He has taken Pepto-Bismol for this with minimal relief. He denies any changes in his GI or habits no diarrhea fever or chills, no blood in stool. He lives alone with no other sick contacts. No chest pain or shortness of breath. He states the pain is located in his left lower quadrant and feels that there is a pulled muscle or mass present there that he has not noticed in the past. He has no history of abdominal hernias. His last colonoscopy was in 2010 which showed diverticulosis , hemorrhoids and was otherwise normal. In the ED he was hemodynamically stable and afebrile, was given 1 L normal saline. Lab work showed mild leukocytosis 13.4 with 77% neutrophils, electrolyte panel unremarkable. CT abdomen and pelvis showed moderate bladder distention, sigmoid diverticulosis with no evidence of diverticulitis. He was given Zofran in the ED which brought his nausea from a 10/10 to a 2/10 and his pain is currently a1/10, he was also given diazepam 0.5 mg IV 1 time. Of note patient was recently seen by a employee communications specialist at [facility] and per patient reportedly diagnosed with benzodiazepine addiction, and this is also listed in his active home medications as 10 mg by mouth 3 times a day. Hospital Course 66-year-old gentleman with a history of chronic LLQ abdominal pain, anxiety, gastroenteritis, and diverticulosis who presented to the ED with a three week history of abdominal pain, nausea and vomiting. Abdominal pain likely secondary to erosive gastropathy and esophagitis versus gastroparesis. Present on admission active Per GI: -EGD Erosive gastropathy with erosions and ulcers superficial. Biopsies obtained Mild esophagitis with some surrounding scarring noted. Biopsies obtained -HIDA scan without evidence of acute cholecystitis and revealed normal filling and contractile response of gallbladder. -Suspect patient's anxiety a contributing factor to his chronic symptoms. Recommend Psychiatric evaluation. -Additionally due to the significance of and lack of improvement in his nausea. If the gastric empyting study is also negative recommend MRI and potentially Neurology consult to evaluate for central cause for his nausea. Recommendation: -Advanced diet as tolerated -Continue GERD behavioral modification: -Avoid aspirin and NSAIDs -Continue Protonix 40 mg IV once a day -Carafate 10 mL by mouth 3 times a day -Gastric emptying study planned for 01/21 -- Gastric emptying study was performed and showed concern for gastric bleeding and gastroparesis. I have discussed the patient and encouraged him to not seek pain medications. I discussed restarting his home medication morphine sulfate instant release 15 mg twice a day when necessary, with oxycodone 5 mg every 4 hours when necessary for breakthrough. -- Reglan by mouth 5 mg before meals at bedtime as ordered ( this appears to be in his home med list, though not continued at this admission) -- Discussed case and findings with Dr. Schmidt on 01/22. he recommends a colonoscopy early next week, if small bowel barium study does not reveal the source of his pain -- Patient has been compliant with the pain medication change so far -- Consulted psychiatry due to concern for somatization type of disorder, Dr Matias has seen the patient. He discussed tapering his Valium, adding doxepin. We will await their formal recommendations. -- He states that he has had a colonoscopy within the last 5 years that was normal, with the exception of diverticulosis. I have discussed the possibility of a repeat colonoscopy early next week if no other source of this pain is found - I have also contacted palliative care, Dr. Pugh states that she may or may not be able to see the patient as she already has a long list of consults -- Change Zofran to by mouth for d/c -- 01/23 GI does not plan to do colonoscopy this weekend, I discussed with patient the possibility of outpatient colonoscopy as that the only test that is left to be done -- Colonoscopy as outpatient early next week Gastroparesis/nausea, present on admission active -- Small bowel follow-through with barium study this a.m. negative -- Continue when necessary -- MRI of brain without contrast to eliminate central etiologies for his nausea and vomiting: This can be pursued outpatient, the absence of other neurological symptoms at this time due to concern for central etiologies. -- I also discussed possibly getting referred to an [facility] where they can work on gastric pacemakers. He will follow up with Dr. Desai as outpatient Mild anemia, slightly microcytic, present on admission active --could be iron def anemia due to erosive gastropathy and esophagitis - Stool guaiac negative - iron panel with borderline low iron, could start some replacement once nausea improved - screening colonoscopy in 2010 apparently unremarkable Left diabetic foot ulcer, POA, ongoing - Dr Luna, his aquatic centre manager, saw him today and plans an outpatient surgery once GI issues resolved and he's discharged - "Plan: For now, continue wound care as appropriate per inpatient urban gardening specialist's recommendations. The only thing I would add would be a felt offload into the sulcus of the toe and a postop shoe to help decrease the friction in the area of ulcer. Upon discharge, the patient should see me within a week (he has an appointment at the wound clinic on Thursday), and I will go over a day surgery plan with him to excise the excess bone, immobilize the toe, and get the ulcer to close. He will need some antibiotics ahead of time so it is important to work up and treat his abdominal pain source first." -- Patient will be seeing Dr. Nickerson within a week Mild Hypokalemia (3.4) 01/18, resolved with replacement Anxiety, POA, chronic and Benzodiazepine dependence, POA, ongoing -Discharged 11/18/2016 from [facility] psychiatric unit with diagnosis polysubstance use disorder including prescription opiates and benzos -At discharge to his continued on his Valium dose of 10 mg 3 times a day with the plan to taper -Continue home benzodiazepine as patient was discharged with this medication in October, when seen in ED 12/06/2016 Dr. Cui recommended its continuation -Continue home venlafaxine -Psychiatric has made changes to patient's benzo, based on state history database, he has long time usage of benzodiazepines (starting age 18, per patient) -- Patient declined this changes and wanted to be restarted back on his home medication. Diabetes mellitus, active, chronic -Continue home medications metformin at discharge -A1c 10/2014 5.3, repeat A1c 7.1 -Low-dose correctional scale insulin, glucose low 100's Hypertension, active, chronic -Continue losartan discharged -Continued home amlodipine -Continued home clonidine -Continued home furosemide -Continued metoprolol Hyperlipidemia, active, chronic -Discontinued home medications fenofibrate secondary to side effect profile -Continued home statin Chronic back pain, active -Can't take Naprosyn any longer due to gastritis -for now morphine and says he has some tablets at home but then he will need to address with PCP Insomnia, active. Ongoing -Continue home trazodone Disposition: Will discuss patient's social issues with social work in the a.m. Exam Vital Signs (Last) Date Time Temp Pulse Resp B/P Pulse Ox O2 Delivery O2 Flow Rate FiO2 01/24/17 09:32 67 150/67 01/24/17 06:00 36.7 16 93 Room Air Exam Gen.: No acute distress HEENT: Normocephalic, medical Heart: Regular rate and rhythm no S3-S4 sounds Lungs: Currently clear to auscultation no crackles or wheezes Abdomen: Soft nontender nondistended normal bowel sounds states he has some minimal pain in the LLQ Extremities no edema neurological no focal deficits skin warm and dry Neuro no focal deficits Test 01/17/17 14:50 01/17/17 15:00 01/18/17 05:12 01/18/17 05:15 Hold Apple Top Tube Received (Received) Urine Color Yellow (YELLOW) Urine Appearance Clear (CLEAR,HAZY) Urine pH 7.0 (5.0-8.0) Urine Specific Bennet 1.005 (1.003-1.035) Urine Protein Negativemg/dL (NEG,TRACE) Urine Glucose (UA) Negativemg/dL (NEGATIVE) Urine Ketones Negativemg/dL (NEGATIVE) Urine Occult Blood Negative (NEGATIVE) Urine Nitrite Negative (NEGATIVE) Urine Bilirubin Negative (NEGATIVE) Urine Urobilinogen Normalmg/dL (NORMAL) Urine Leukocyte Esterase Negative (NEGATIVE) Urine RBC 0-2/hpf (0-2) Urine WBC 0-5/hpf (0-5) Urine Epithelial Cells Occasional/hpf (NONE-MOD) Urine Crystals None seen (NONE SEEN) Urine Bacteria Few/hpf (NONE-FEW) Urine Hyaline Casts None/lpf (NONE) Urine Granular Casts None seen (NONE SEEN) Urine Waxy Casts None seen (NONE SEEN) Urine Red Blood Cell Casts None seen (NONE SEEN) Urine White Blood Cell Casts None seen (NONE SEEN) Urine Mucus None seen (None Seen) Urine Trichomonas None seen (NONE SEEN) Urine Yeast None (NONE SEEN) Urinalysis Comment None Urine Culture Reflexed Not indicated Iron Level 37ug/dL (35-150) Total Iron Binding Capacity 273ug/dL (250-450) Percent Iron Saturation 14%sat (15-50) Unsaturated Iron Binding 236.0ug/dL Neutrophils (%) (Auto) 73.0% (40-74) Lymphocytes (%) (Auto) 14.1% (14-46) Monocytes (%) (Auto) 10.3% (4-12) Eosinophils (%) (Auto) 2.2% (0-5) Basophils (%) (Auto) 0.3% (0-3) Hemoglobin A1c 7.1% (4.8-5.6) Magnesium Level 1.6mg/dL (1.6-2.6) Total Bilirubin 0.4mg/dL (0.0-1.2) Aspartate Amino Transf (AST/SGOT) 19U/L (0-50) Alanine Aminotransferase (ALT/SGPT) 20U/L (0-44) Alkaline Phosphatase 40U/L (25-160) Troponin T 0.010ug/L (0.0-0.011) Total Protein 6.4g/dL (6.4-8.4) Albumin 3.6g/dL (3.4-5.0) Lipase 24U/L (13-60) Procalcitonin 0.03ng/mL (0.00-0.08) Hepatitis A IgM Antibody Negative (Negative) Hepatitis B Surface Antigen Negative (Negative) Hepatitis B Core IgM Antibody Negative (Negative) Hepatitis C Antibody 2.3s/co ratio (0.0-0.9) Hepatitis C Antibody Confirmation Non reactive (Non Reactive) Hepatitis C Antibody Comment Comment (.) Hepatitis C Comment . Test 01/19/17 05:45 01/23/17 06:00 White Blood Count 6.3th/mm3 (3.8-10.1) Red Blood Count 4.42mil/mm3 (4.40-5.80) Mean Corpuscular Volume 81.7fL (81-100) Mean Corpuscular Hemoglobin 28.1pg (27.0-35.0) Mean Corpuscular Hemoglobin Concent 34.3% (32.0-37.0) Red Cell Distribution Width 15.1% (12.3-15.4) Platelet Count 199bil/L (150-400) Hemoglobin 13.5g/dL (13.8-17.2) Hematocrit 38.2% (41.0-50.0) Sodium Level 139mEq/L (134-144) Potassium Level 4.0mEq/L (3.5-5.2) Chloride Level 103mEq/L (97-108) Carbon Dioxide Level 23mmol/L (18-29) Blood Urea Nitrogen 13mg/dL (8-27) Creatinine 1.06mg/dL (0.76-1.27) Estimat Glomerular Filtration Rate 75mL/min (>59) Glucose Level 117mg/dL (60-99) Calcium Level 8.5mg/dL (8.5-10.1) Thyroid Stimulating Hormone (TSH) 1.780uIU/mL (0.450-4.500) Free Thyroxine 1.35ng/dL (0.82-1.77) Discharge Medications Discharge Medications Amlodipine (Amlodipine) 10 Mg Tablet 10 MG PO QAM (Reported) Aspirin (Aspirin) 81 Mg Tablet 81 MG PO QAM (Reported) Atorvastatin (Lipitor) 10 Mg Tab 10 MG PO HS (Reported) Clonidine (Clonidine) 0.2 Mg Tablet 0.2 MG PO BIDBL (Reported) Diazepam (Diazepam) 10 Mg Tablet 10 MG PO TID (Reported) Furosemide (Furosemide) 40 Mg Tablet 40 MG PO BIDBL (Reported) Losartan Potassium (Losartan Potassium) 50 Mg Tablet 50 MG PO QAM (Reported) Metformin (Metformin) 500 Mg Tablet 500 MG PO TIDWM (Reported) Metoclopramide (Metoclopramide) 10 Mg Tablet 5 MG PO ACHS Prescribed by: MARYSE SNOW DO Metoprolol Tartrate (Metoprolol Tartrate) 50 Mg Tablet 50 MG PO BID (Reported) Pantoprazole DR (Pantoprazole DR) 40 Mg Tablet.dr 40 MG PO DAILYAC Prescribed by: MARYSE SNOW DO Silver Sulfadiazine (Silvadene) 20 Gm Cream..g. 1 APPLIC TP BID (Reported) TOE INFECTION Sucralfate (Sucralfate) 1 Gm/10 Ml Oral.susp 1,000 MG PO TIDAC Prescribed by: MARYSE SNOW DO Trazodone (Trazodone) 150 Mg Tablet 225 MG PO HS (Reported) Venlafaxine ER (Venlafaxine ER) 150 Mg Cap.er.24h 150 MG PO QAM (Reported) As needed Morphine Sulfate (Morphine Sulfate) 15 Mg Tablet 15 MG PO BID PRN PRN BACK PAIN (Reported) Ondansetron ODT (Ondansetron ODT) 4 Mg Tab.rapdis 8 MG PO Q6H PRN PRN For Nausea /Vomiting Prescribed by: MARYSE SNOW, Followup Plan Follow-up plan Colonoscopy early next week as soon as possible GI F/U with Dr. Desai after the colonoscopy for gastroparesis and chronic abdominal pain F/U with PCP in one week to discuss pain medication taper to help with gastroparesis Please f/u with [facility] Discharge Activity: No restrictions Patient Instructions We have offered Nursing and patient declined. Please note changes to Reglan PO. Discontinue Naproxen Time spent Greater than 30 minutes was spent in preparation of discharge with greater than 50% of that time dedicated to patient counseling and coordination of care. Maryse Snow DO Jan 24, 2017 10:02
[2017-02-01] MEDS ORDERED: OMEP20CA11 PO (15:12)
[2017-02-01] MEDS ORDERED: METO10TA3 PO (15:12)
[2017-02-01] MEDS ORDERED: ONDA8TAB10 PO (15:12)
[2017-02-01] MEDS ORDERED: FURO40TA4 PO (15:12)
== END 2017-01-24 14:20 | disposition home or self-care (01) ==
LOC: SED 12:07 → OSC 18:37
PROVIDERS: ADMIT Internal Medicine; ATTEND Internal Medicine
DX: E11.43 Type 2 diabetes mellitus with diabetic autonomic (poly)neuropathy (principal); K31.84 Gastroparesis; K29.50 Unspecified chronic gastritis without bleeding; K25.9 Gastric ulcer, unspecified as acute or chronic, without hemorrhage or perforation; E11.621 Type 2 diabetes mellitus with foot ulcer; L97.524 Non-pressure chronic ulcer of other part of left foot with necrosis of bone; L89.319 Pressure ulcer of right buttock, unspecified stage; F11.988 Opioid use, unspecified with other opioid-induced disorder; F13.20 Sedative, hypnotic or anxiolytic dependence, uncomplicated; K20.8 Other esophagitis; F41.1 Generalized anxiety disorder; F33.41 Major depressive disorder, recurrent, in partial remission; F60.3 Borderline personality disorder; D50.9 Iron deficiency anemia, unspecified; E86.0 Dehydration; I10 Essential (primary) hypertension; E87.6 Hypokalemia; G89.29 Other chronic pain; M54.5 Low back pain; E78.5 Hyperlipidemia, unspecified; G47.00 Insomnia, unspecified; Z79.82 Long term (current) use of aspirin; Z87.891 Personal history of nicotine dependence; Z79.84 Long term (current) use of oral hypoglycemic drugs
CPT/HCPCS: 36415; 43239; 74177; 74250; 78227; 78264; 80048; 80053; 81000; 82274; 83036; 83540; 83550; 83690; 83735; 84145; 84439; 84443; 84484; 85014; 85018; 85025; 85027; 86705; 86709; 87340; 87341; 88305; 88342; 93005; 96361; 96372; 96374; 96375; 96376; 97602; 99285; A9537; A9541; G0378; G0472; J1200; J1644; J1815; J2060; J2250; J2270; J2405; J2550; J2765; J3010; J7030; J7120; Q9967; S0164

== ENCOUNTER 2017-02-07 13:24 | Inpatient (IN) | payer OTHER, MEDICAID ==
[~2017-02-07] VITALS: Ht 182.9 cm; Wt 111.5 kg
[~2017-02-07 13:24] MED LIST changes: +ATRV10T PO; -FENO160T14 PO; +METO10TA3 PO; +METO50TA3 PO; -NPR500T PO; +OMEP20CA11 PO; +ONDA8TAB10 PO; -PROP10TA8 PO; +SUCR1ORA PO; -TEST200V20 IM; -VENL-57 PO; +VENL150C98 PO
[2017-02-07 13:28] VITALS: BP 126/88; PULSE 76; RESP 15; O2SAT 98
[2017-02-07] MEDS ORDERED: 0.9% Sodium Chloride 1,000 ML IV ONE ×2 (14:01→16:10)
[2017-02-07] MEDS ORDERED: Ondansetron 2 mg/mL 2 mL Inj IVPUSH PRN (14:05)
--- NOTE | 2017-02-07 14:22 | ED.REPORT ---
HPI-General Illness Date of Service Feb 07, 2017 ED Provider: Rajiv Ramirez MD A 66 year old male with a history of gastroenteritis, diverticulosis, type II diabetes mellitus and recent admission with gastroparesis presents to the ED with persistent, intractable nausea and vomiting that began this morning. Associated symptoms also include chills and 9/10, diffuse, persistent abdominal aching that initially began a few months ago but became increasingly worse this afternoon. The patient has been unable to perform ADL secondary to pain and presents today because his discomfort has become unbearable. His symptoms today feel identical to his previous episodes of gastroparesis exacerbation that required admission. Patient was recently placed on IV antibiotics for left great toe ulceration that has been slow to heal. Recent abdominal CT (01/17/17) revealed moderate bladder distention and sigmoid diverticulosis without diverticulitis. The patient denies any new symptoms including fever, headache, cough, dysuria, hematuria, hematochezia, hematemesis, chest pain, SOB, diaphoresis, dizziness, lightheadedness, visual disturbances, ear ache, neck pain or back pain. Nursing Notes Stated Complaint: VOMITING Chief Complaint: Male Abdominal Pain Nursing Notes Reviewed: Yes Allergies: Coded Allergies: hydrochlorothiazide (Verified Allergy, Severe, Anaphylaxis, 01/31/17) prochlorperazine (Verified Allergy, Severe, PHENOTHIAZINES, 01/31/17) benazepril (Verified Allergy, Unknown, 01/31/17) felodipine (Verified Allergy, Unknown, 01/31/17) losartan (Verified Allergy, Unknown, 01/31/17) Uncoded Allergies: "tiva brand medications" (Allergy, Intermediate, 09/18/14) Scheduled Amlodipine (Amlodipine) 10 Mg Tablet 10 MG PO QAM Aspirin (Aspirin) 81 Mg Tablet 81 MG PO QAM Clonidine (Clonidine) 0.2 Mg Tablet 0.2 MG PO BIDBL Diazepam (Diazepam) 10 Mg Tablet 10 MG PO TID Furosemide (Furosemide) 40 Mg Tablet 40 MG PO BID Metformin (Metformin) 500 Mg Tablet 500 MG PO TIDWM Metoprolol Tartrate (Metoprolol Tartrate) 50 Mg Tablet 50 MG PO BID Omeprazole (Omeprazole) 20 Mg Capsule.dr 20 MG PO DAILY Sucralfate Susp (Carafate Susp) 1 Gm/10 Ml Oral.susp 10 ML PO TID Trazodone (Trazodone) 150 Mg Tablet 225 MG PO HS Venlafaxine ER (Venlafaxine ER) 150 Mg Cap.er.24h 150 MG PO QAM Scheduled PRN Metoclopramide (Metoclopramide) 10 Mg Tablet 10 MG PO QID PRN PRN For Nausea Morphine Sulfate (Morphine Sulfate) 15 Mg Tablet 15 MG PO BID PRN PRN BACK PAIN Ondansetron ODT (Ondansetron ODT) 8 Mg Tab.rapdis 8 MG PO Q6H PRN PRN For Nausea General Time Seen by MD: 14:20 Chief Complaint Vomiting Hx Obtained From: Patient Arrived By: Walk-in Sudden in Onset?: No Onset Occurred: 9 - 12 hours ago Symptom Duration: Since onset Location: : Abdomen Quality: Same as prior, Aching Radiation: : Does not radiate Severity: Current: Pain level 9 out of 10 Severity: Maximum: Pain level 9 out of 10 Associated with: Reports: Abdominal pain, Nausea, Pain, Vomiting, Denies: Chest pain, Cough, Diaphoresis, Dizziness, Fever, Headache, Neck pain , Shortness of breath, Vision change, Weakness Pertinent Negative: Pt denies other symptoms Recent Healthcare: No recent hospitalization, Recent doctor visit Similar Sx Previous: Yes Past Medical History Past Medical History h/o Suicidal ideation Obesity Chronic Low back pain on chronic opiates Impaired fasting glucose without history of DM Degenerative joint disease of the lumbar spine Peripheral sensory neuropathy Erectile dysfunction Chronic Benzodiazepine dependence with chronic anxiety - followed by Dr. Mendoza [facility] History of prior cauda equina syndrome and neurogenic bladder Gastroenteritis Reports: Coronary artery disease, Diabetes mellitus, Hyperlipidemia, Hypertension Past Surgical History Colonoscopy for chronic LLQ pain Negative [address] Desai Reports: Appendectomy, Tonsillectomy Smoking History Former Smoker Social History Requests not to be placed under Dr. Chandler care. Reports that the relationship "does not click". Alcohol Use: Denies alcohol use Drug Use: Denies drug use, Valium Other Social History: Poor social support, Local resident Ambulatory Status Independent Review of Systems Full Review of Systems Constitutional: Reports: Chills, Denies: Fever Eyes: Denies: Visual loss bilateral Ears / Nose / Throat: Denies: Earache bilateral Respiratory: Denies: Non-productive cough, Shortness of breath Cardiovascular: Denies: Chest pain GI: Reports: Abdominal pain, Nausea, Vomiting, Denies: Hematemesis, Hematochezia Male: Denies Dysuria, Denies Hematuria Musculoskeletal: Denies: Back pain, Neck pain Skin: Denies Diaphoresis Neurologic: Denies: Dizziness, Headache, Lightheaded Complete sys rev & neg: except as marked. Physical Exam Nursing note and vitals reviewed. Constitutional: Well-developed. Not diaphoretic. Non-toxic appearing. Tearful. Moderate distress. Head: Normocephalic and atraumatic. Mouth/Throat: Oropharynx is clear. Mucous membranes moderately dry. No oropharyngeal exudate. Eyes: EOM are normal. Pupils are equal, round, and reactive to light. Neck: Supple, no tracheal deviation. Cardiovascular: Normal rate, regular rhythm. Equal and intact distal pulses throughout. Pulmonary/Chest: Effort normal and breath sounds normal. No respiratory distress. Abdominal: Soft. Moderate to severe, diffuse abdominal tenderness without rebound, or guarding. Bowel sounds present. No distension. Musculoskeletal: Range of motion grossly intact, moving all extremities. No edema or tenderness appreciated. Neurological: AOx3. Grossly nonfocal exam. Strength and sensation intact and equal to bilateral upper and lower extremities. Skin: Warm and dry, no rashes or pallor appreciated. Psychiatric: Appropriate mood and affect. Behavior appears normal. Per Dr. Nickerson's exam (01/06/17) - Left great toe ulceration highly suspicious for osteomyelitis with necrosis of skin and soft tissue. Vital Signs Vital Signs Date Time Temp Pulse Resp B/P Pulse Ox O2 Delivery O2 Flow Rate FiO2 02/07/17 16:58 65 22 145/75 98 Room Air 02/07/17 13:28 36.5 76 15 126/88 98 Room Air Interpretation & Diagnostics Lab Results Interpretation Result Diagram: 02/07/17 1520 02/07/17 1520 Test 02/07/17 15:20 White Blood Count 8.5th/mm3 (3.8-10.1) Red Blood Count 5.00mil/mm3 (4.40-5.80) Hemoglobin 14.1g/dL (13.8-17.2) Hematocrit 40.2% (41.0-50.0) Mean Corpuscular Volume 80.4fL (81-100) Mean Corpuscular Hemoglobin 28.2pg (27.0-35.0) Mean Corpuscular Hemoglobin Concent 35.1% (32.0-37.0) Red Cell Distribution Width 14.9% (12.3-15.4) Platelet Count 264bil/L (150-400) Neutrophils (%) (Auto) 71.5% (40-74) Lymphocytes (%) (Auto) 17.2% (14-46) Monocytes (%) (Auto) 8.0% (4-12) Eosinophils (%) (Auto) 2.7% (0-5) Basophils (%) (Auto) 0.2% (0-3) Prothrombin Time 11.1sec (8.1-12.5) Prothromb Time International Ratio 1.04ratio Sodium Level 138mEq/L (134-144) Potassium Level 4.2mEq/L (3.5-5.2) Chloride Level 100mEq/L (97-108) Carbon Dioxide Level 23mmol/L (18-29) Blood Urea Nitrogen 13mg/dL (8-27) Creatinine 0.86mg/dL (0.76-1.27) Estimat Glomerular Filtration Rate 95mL/min (>59) Glucose Level 122mg/dL (60-99) Lactic Acid Level 1.8mmol/L (0.4-2.0) Calcium Level 8.9mg/dL (8.5-10.1) Magnesium Level 1.5mg/dL (1.6-2.6) Total Bilirubin 0.3mg/dL (0.0-1.2) Aspartate Amino Transf (AST/SGOT) 21U/L (0-50) Alanine Aminotransferase (ALT/SGPT) 29U/L (0-44) Alkaline Phosphatase 59U/L (25-160) Total Protein 7.0g/dL (6.4-8.4) Albumin 3.7g/dL (3.4-5.0) Lipase 35U/L (13-60) Hold Apple Top Tube Received (Received) ECG Interpretation ECG Interpretation: Sinus Rhythm Rate 68 bpm No acute ischemic changes Time: 14:51 Interpreted by: ED physician Normal ECG Interpretation: No change from prior ECGs (01/18/17) Re-Eval/Medical Decision Med Decision/Clinical Course 66-year-old male with a history of gastroenteritis, diverticulosis, and recent admission with gastroparesis presenting to the ED for evaluation of abdominal pain, nausea, and vomiting. Recent small bowel follow-through with barium negative. Was supposed to have a colonoscopy this past week, unclear if this has been performed. Of note, he is also seeing podiatry for a known osteomyelitis of his left great toe and on daily IV antibiotics; seen by podiatry today. Recent CT scan with no acute surgical cause for his symptoms - only moderate bladder distention with no stone and diverticulosis; his symptoms are not different today than they have been previously and we discussed holding off on a CT scan at this time with a low threshold for repeating it if needed. He is not having any chest pain, shortness of breath, or other related symptoms at this time. Vital signs here in the ED grossly within normal limits; afebrile , nontoxic appearing. EKG w/ no acute ischemic changes. Labs reviewed, grossly wnl including CBC, CMP, and lipase. Lactic acid 1.8. Patient given IV fluids, Zofran, and a small dose of morphine here in the ED. Discussed that morphine may make gastroparesis worse and would like to limit the dose he's already taking. Discussed w/ hospitalist, who also discussed patient w/ Dr. Nickerson. Plan admission for further management and evaluation of osteomyelitis, intractable nausea, vomiting, and abdominal pain. Patient agreeable to plan as stated, no further questions. Time of Eval: 15:47 Patient Status: Condition unchanged Re-Evaluation/Progress Note: Patient condition is re-evaluated. Pain is still present. He is informed of his current results and the intended treatment plan. All questions are addressed. He understands and agrees with the plan to admit. Consultation : Referral / Consult Name: Martin Duff Consulted With: Hospitalist Call Returned at: 17:28 Support Merchandiser: Will see patient, Agrees with eval, Agrees with plan, Accepts admit Note: Discussed patient condition. Agrees to accept the patient. Counseled Regarding: Diagnosis, Lab results, Need for admission Discharge & Departure Primary Impression: Abdominal pain Abdominal location: generalized Qualified Code: R10.84 - Generalized abdominal pain Additional Impressions: Nausea and vomiting Vomiting type: unspecified Vomiting Intractability: intractable Qualified Code: R11.2 - Nausea with vomiting, unspecified Gastroparesis Osteomyelitis Osteomyelitis type: other chronic Osteomyelitis location: foot Laterality: left Qualified Code: M86.672 - Other chronic osteomyelitis, left ankle and foot Disposition: ADMITTED TO HOSPITAL Discharge Condition All VS Reviewed: Yes Condition: Stable Referrals: Elham Mendoza MD (PCP) Scribe Attestation Portions of this note were transcribed by Altaf Hernández. Dr. James Chavez, personally performed the history, physical exam and medical decision-making; I reviewed and confirmed the accuracy of the information in the transcribed note. Signed by: Altaf Hernández, 02/07/17. copies to: Elham Mendoza MD; Ofe Nickerson DPM, William B MD Feb 07, 2017 14:22 ALTAF HERNÁNDEZ Feb 07, 2017 14:59 Condition: Stable Referrals: Elham Mendoza MD (PCP) Scribe Attestation Portions of this note were transcribed by Altaf Hernández. Dr. James Chavez, personally performed the history, physical exam and medical decision-making; I reviewed and confirmed the accuracy of the information in the transcribed note. Signed by: Altaf Hernández, 02/07/17. copies to: Elham Mendoza MD; Ofe Nickerson DPM, William B MD Feb 07, 2017 14:22 ALTAF HERNÁNDEZ Feb 07, 2017 14:59
[2017-02-07 15:28] LABS: BASOPHILS % (AUTO) 0.2 % (0-3); EOSINOPHILS % (AUTO) 2.7 % (0-5); Mean Corpuscular Hemoglobin 28.2 pg (27.0-35.0); Mean Corpuscular Volume 80.4 fL (81-100); NEUTROPHILS % (AUTO) 71.5 % (40-74); Platelet Count 264 bil/L (150-400)
[2017-02-07] MEDS ORDERED: SUCR1ORA2 PO (15:30)
[2017-02-07 15:52] LABS: Magnesium 1.5 mg/dL (1.6-2.6)
[2017-02-07 16:58] VITALS: BP 145/75; PULSE 65; RESP 22; O2SAT 98
[2017-02-07 17:05] LABS: INR 1.04 ratio
[2017-02-07] MEDS ORDERED: Magnesium Sulf 2 Gm/50mL Water 2 GM in IV Premix 1 EACH IV ONE (18:55)
[2017-02-07] MEDS ORDERED: Polyethylene Glycol (PEG) 17 Gm Powder PO PRN (18:55)
[2017-02-07] MEDS ORDERED: Alum-Mag Hydrox-Simeth 30 mL Suspension PO PRN (18:55)
--- NOTE | 2017-02-07 19:09 | PCM.HPMED ---
Subjective Date of Service Feb 07, 2017 Primary Provider: Admitting Physician: Martin Duff Primary Care Physician: Elham Mendoza MD Attending Physician: Martin Duff Chief Complaint: Abdominal pain, nausea, vomiting History of Present Illness: 66 year old male with somewhat complicated past medical history as noted below and notable for recent hospitalization (about 2 weeks ago) where he underwent extensive workup of abdominal pain, nausea and vomiting with final diagnosis of possible gastroparesis vs gastritis vs central or psychiatric causes represents today complaining of ongoing abdominal pain, nausea and vomiting that he claims never got any better since he was discharged. He is very emotional, at times tearful, and anxious about failing to thrive at home. He also has chronic left toe ulcer that is being followed by Dr. Nickerson from podiatry. He had an x-ray of his left foot yesterday and there is concern about developing osteomyelitis. Per discussion with Dr. Nickerson patient is now being admitted for further inpatient antibiotic treatment and consideration of further surgical intervention regarding possible developing osteomyelitis. Review of Systems: Constitutional: Negative, except as otherwise mentioned in the history above. Ophthalmologic: Negative, except as otherwise mentioned in the history above. Cardiovascular: Negative, except as otherwise mentioned in the history above. Respiratory: Negative, except as otherwise mentioned in the history above. Gastrointestinal: Negative, except as otherwise mentioned in the history above. Genitourinary: Negative, except as otherwise mentioned in the history above. Musculoskeletal: Negative, except as otherwise mentioned in the history above. Neurological: Negative, except as otherwise mentioned in the history above. Psychiatric: Negative, except as otherwise mentioned in the history above. Hematologic/Lymphatic: Negative, except as otherwise mentioned in the history above. Allergic/Immunologic: Negative, except as otherwise mentioned in the history above. Allergies Coded Allergies: hydrochlorothiazide (Verified Allergy, Severe, Anaphylaxis, 01/31/17) prochlorperazine (Verified Allergy, Severe, PHENOTHIAZINES, 01/31/17) benazepril (Verified Allergy, Unknown, 01/31/17) felodipine (Verified Allergy, Unknown, 01/31/17) losartan (Verified Allergy, Unknown, 01/31/17) Uncoded Allergies: "tiva brand medications" (Allergy, Intermediate, 09/18/14) Home Medications As reported by last d/c summary by Dr. Cahndler: Amlodipine (Amlodipine) 10 Mg Tablet 10 MG PO QAM (Reported) Aspirin (Aspirin) 81 Mg Tablet 81 MG PO QAM (Reported) Atorvastatin (Lipitor) 10 Mg Tab 10 MG PO HS (Reported) Clonidine (Clonidine) 0.2 Mg Tablet 0.2 MG PO BIDBL (Reported) Diazepam (Diazepam) 10 Mg Tablet 10 MG PO TID (Reported) Furosemide (Furosemide) 40 Mg Tablet 40 MG PO BIDBL (Reported) Losartan Potassium (Losartan Potassium) 50 Mg Tablet 50 MG PO QAM (Reported) Metformin (Metformin) 500 Mg Tablet 500 MG PO TIDWM (Reported) Metoclopramide (Metoclopramide) 10 Mg Tablet 5 MG PO ACHS Metoprolol Tartrate (Metoprolol Tartrate) 50 Mg Tablet 50 MG PO BID (Reported) Pantoprazole DR (Pantoprazole DR) 40 Mg Tablet.dr 40 MG PO DAILYAC Silver Sulfadiazine (Silvadene) 20 Gm Cream..g. 1 APPLIC TP BID (Reported) Sucralfate (Sucralfate) 1 Gm/10 Ml Oral.susp 1,000 MG PO TIDAC Trazodone (Trazodone) 150 Mg Tablet 225 MG PO HS (Reported) Venlafaxine ER (Venlafaxine ER) 150 Mg Cap.er.24h 150 MG PO QAM (Reported) As needed Morphine Sulfate (Morphine Sulfate) 15 Mg Tablet 15 MG PO BID PRN PRN BACK PAIN (Reported) Ondansetron ODT (Ondansetron ODT) 4 Mg Tab.rapdis 8 MG PO Q6H PRN PRN For Nausea /Vomiting Exam Vital Signs & I/O Vital Sign- Last 8 Hours Date Time Temp Pulse Resp B/P Pulse Ox O2 Delivery O2 Flow Rate FiO2 02/07/17 16:58 65 22 145/75 98 Room Air 02/07/17 13:28 36.5 76 15 126/88 98 Room Air Lab & Micro Results Laboratory Tests Test 02/07/17 15:20 White Blood Count 8.5th/mm3 (3.8-10.1) Red Blood Count 5.00mil/mm3 (4.40-5.80) Hemoglobin 14.1g/dL (13.8-17.2) Hematocrit 40.2% (41.0-50.0) Mean Corpuscular Volume 80.4fL (81-100) Mean Corpuscular Hemoglobin 28.2pg (27.0-35.0) Mean Corpuscular Hemoglobin Concent 35.1% (32.0-37.0) Red Cell Distribution Width 14.9% (12.3-15.4) Platelet Count 264bil/L (150-400) Neutrophils (%) (Auto) 71.5% (40-74) Lymphocytes (%) (Auto) 17.2% (14-46) Monocytes (%) (Auto) 8.0% (4-12) Eosinophils (%) (Auto) 2.7% (0-5) Basophils (%) (Auto) 0.2% (0-3) Prothrombin Time 11.1sec (8.1-12.5) Prothromb Time International Ratio 1.04ratio Sodium Level 138mEq/L (134-144) Potassium Level 4.2mEq/L (3.5-5.2) Chloride Level 100mEq/L (97-108) Carbon Dioxide Level 23mmol/L (18-29) Blood Urea Nitrogen 13mg/dL (8-27) Creatinine 0.86mg/dL (0.76-1.27) Estimat Glomerular Filtration Rate 95mL/min (>59) Glucose Level 122mg/dL (60-99) Lactic Acid Level 1.8mmol/L (0.4-2.0) Calcium Level 8.9mg/dL (8.5-10.1) Magnesium Level 1.5mg/dL (1.6-2.6) Total Bilirubin 0.3mg/dL (0.0-1.2) Aspartate Amino Transf (AST/SGOT) 21U/L (0-50) Alanine Aminotransferase (ALT/SGPT) 29U/L (0-44) Alkaline Phosphatase 59U/L (25-160) Total Protein 7.0g/dL (6.4-8.4) Albumin 3.7g/dL (3.4-5.0) Lipase 35U/L (13-60) Hold Apple Top Tube Received (Received) Result Diagram: 02/07/17 1520 02/07/17 1520 PMH h/o Suicidal ideation Obesity Chronic Low back pain on chronic opiates Impaired fasting glucose without history of DM Degenerative joint disease of the lumbar spine Peripheral sensory neuropathy Erectile dysfunction Chronic Benzodiazepine dependence with chronic anxiety - followed by Dr. Mendoza [facility] History of prior cauda equina syndrome and neurogenic bladder Gastroenteritis Reports: Coronary artery disease, Diabetes mellitus, Hyperlipidemia, Hypertension Gastroparesis, Gastritis, Left toe wound infection Diabetes Past medical history additional notes: History of recent psychiatric admission for depression and suicidal ideation, now resolved (12/2016) Admitted October 2014 for right perimandibular abscess with cellulitis ED visit 09/30/2014 for opiate withdrawal (overused his Rx) Patient admitted 09/18- for sepsis due to dental infection Benzo dependence Surgical History Colonoscopy for chronic LLQ pain Negative [address] Desai (mild diverticulosis) Reports: Appendectomy, Tonsillectomy Family History EtOH abuse in biological brother now . Father with lung cancer Social History Hx Alcohol Use: No Hx Substance Use: No Hx Tobacco Use: No Smoking Status: Never Smoker Exam Vital Signs Vital Sign - Last Date Time Temp Pulse Resp B/P Pulse Ox O2 Delivery O2 Flow Rate FiO2 02/07/17 16:58 65 22 145/75 98 Room Air 02/07/17 13:28 36.5 General: Alert, Oriented X3, Cooperative, No Acute Distress Head: Normal Eyes: PERRLA, EOMI, Scleral Anicteric Nose: Mucous Membr Moist/[place] Mouth: Mucous Membr Moist/[place] Neck: Supple Chest & Lungs: Chest Wall Normal, Clear to auscultation & percussion Cardiovascular: Regular Rate/Rhythm Pulses: NL carotid, radial, femoral, DP, PT Abdomen: Tender, Non-distended, Normoactive bowel tones, Soft Extremities: No cyanosis/clubbing/edma bilat Skin: Other (left foot in dressing) Neurological: Grossly Neurologically Intact, Cranial Nerves 2-12 Intact, Normal Speech Lab and Diagnostics Result Diagram: 02/07/17 1520 02/07/17 1520 X-Rays, CTs and MRIs Date of Service: 02/06/17 1511 PROCEDURE: X-RAY LEFT FOOT COMPLETE, MINIMUM THREE VIEWS ([id number]) IMPRESSION: Linear lucencies in the distal aspect of the first proximal phalange which could represent minimally displaced fracture versus early osteomyelitis. Please correlate with clinical data. Dictated by: Alis More MD, PhD on 02/06/2017 at 16:25 Approved by: Alis More MD, PhD on 02/06/2017 at 16:28 Assessment & Plan 66-year-old gentleman with a history of chronic abdominal pain, anxiety, gastroenteritis, possible gastroparesis, and chronic left toe ulcer presenting with ongoing abdominal pain, nausea and vomiting and x-ray of left foot on 02/06 suggestive of possible early osteomyelitis. # Chronic left diabetic foot ulcer with possible developing acute osteomyelitis , present on admission. - Discussed with and consulted Dr. Nickerson from podiatry. Input and expertise greatly appreciated. Will followup with recs - Continue with IV Ceftriaxone which he was getting as outpatient for the past week - ? need for further debridment or amputation during this hospital. Will followup with podiatry consult. - Continue with supportive care including pain medications as needed. # Acute on chronic abdominal pain with nausea and vomiting, present on admission. - During recent hospitalization was suspected of having possible erosive gastropathy and esophagitis versus gastroparesis. - During last hospitalization about 2 weeks ago had extensive workup including EGD, HIDA scan, gastric emptying study, and psych evaluation and was supposed to have colonoscopy as outpatient which he did not follow to set up. - Continue with supportive care for now including anti-emetics and IV Morphine as needed - Continue with home medications - Consider re-consulting GI on Thursday for consideration of colonoscopy as inpatient vs rescheduling as outpatient - Continue home PPI and Carafate # Acute on chronic Gastroparesis/nausea, present on admission - Plan as noted above # Chronic anxiety and depression. Presumed stable and at baseline. - Continue with home medications # Non-insulin dependent diabetes mellitus, chronic - HgA1C 7.1 on recent hospitalization - Low-dose correctional scale insulin - Hold Metformin while in hospital # History of hypertension, active - Continue home Amlodipine - Continue home Clonidine - Continue home Furosemide - Continue Metoprolol # Hyperlipidemia, chronic - Continue home meds # Chronic back pain, active - Can't take Naprosyn any longer (see GI above) - For now morphine as was taking as outpatient # Chronic insomnia - Continue home trazodone Expected length of hospital stay is greater than 2 midnights and likely 3-4 days GI Prophylaxis: Proton Pump Inhibitor VTE Prophylaxis: Sub-Q Heparin (Unfractionated) Resuscitation Status: CPR: Attempt Resuscitation (discussed and verified with patient) Time spent 70 min Martin Duff Feb 07, 2017 19:09
[2017-02-07] MEDS: Venlafaxine XR 75 mg ER24 Capsule PO SCH (19:17)
[2017-02-07 19:23] VITALS: PULSE 78; RESP 18; O2SAT 98
[2017-02-07] MEDS ORDERED: Dextrose 10% 250 ML IV PRN (19:30)
[2017-02-07] MEDS ORDERED: 0.9% Sodium Chloride 100 ML ONE (20:43)
[2017-02-07] MEDS: Sucralfate 100 mg/mL 10 mL Suspension PO SCH (21:15)
[2017-02-07] MEDS: Ondansetron 2 mg/mL 2 mL Inj IVPUSH PRN (21:21)
[2017-02-07] MEDS: Insulin Human REGular 300 Unit/3 mL Inj SUBQ SCH (21:29)
[2017-02-07] MEDS: cefTRIAXone Inj 2,000 MG in Dextrose 5% Minibag Plus 50 ML IV SCH (22:30)
[2017-02-07] MEDS: Heparin 5,000 Unit/mL Inj SUBQ SCH (23:35)
--- NOTE | 2017-02-08 03:48 | NUR ---
Admit Pt arrived on unit #[id number] via stretcher from ED with all personal belongings. Able to transfer self to bed. Alert and oriented. VSS. Oriented to call light and hospital/fall policy. Home medication list completed in ED. Home medications in safe. Left foot dressed r/t Greater toe on left foot. Dressing c/d/i. Bed locked, low position. Non slip socks on for safety. Call light within reach, using appropriately. Frequent rounding in place. Pleasant and cooperative with care.
[2017-02-08 05:21] LABS: BASOPHILS % (AUTO) 0.4 % (0-3); EOSINOPHILS % (AUTO) 4.5 % (0-5); MONOCYTES % (AUTO) 9.9 % (4-12); Mean Corpuscular Hemoglobin 28.5 pg (27.0-35.0); Mean Corpuscular Volume 80.2 fL (81-100); Platelet Count 247 bil/L (150-400)
[2017-02-08 05:33] VITALS: BP 142/80; PULSE 76; RESP 18; O2SAT 94
[2017-02-08 05:37] LABS: INR 1.02 ratio
[2017-02-08] MEDS: Insulin Human REGular 300 Unit/3 mL Inj SUBQ SCH ×4 (07:30→21:03)
[2017-02-08] MEDS: Ondansetron 2 mg/mL 2 mL Inj IVPUSH PRN ×2 (07:53→18:06)
[2017-02-08 08:03] VITALS: BP 166/90; PULSE 76; RESP 16; O2SAT 95
[2017-02-08] MEDS: Pantoprazole 20 mg ER24 Tablet PO SCH (09:13)
[2017-02-08] MEDS: Heparin 5,000 Unit/mL Inj SUBQ SCH ×3 (09:15→23:42)
[2017-02-08] MEDS: Sucralfate 100 mg/mL 10 mL Suspension PO SCH ×3 (09:15→21:25)
--- NOTE | 2017-02-08 09:29 | PCM.PNMED ---
Subjective Date of Service Feb 08, 2017 Subjective pt still c/o intractable nause, dryheaves, partially controlled with zofran. interested in getting colonoscopy in house. awaits podiatry eval Exam Vital Signs Vital Sign - Last Date Time Temp Pulse Resp B/P Pulse Ox O2 Delivery O2 Flow Rate FiO2 02/08/17 08:03 76 16 166/90 95 Room Air 02/08/17 05:33 36.7 Intake and Output 02/07/17 02/07/17 02/08/17 Cumulative From/Thru 15:00 23:00 07:00 02/07/17 13:28 - 02/08/17 06:06 Intake Total 1000 ml 1000 ml 473 ml 2473 ml Output Total 1150 ml 1150 ml Balance 1000 ml 1000 ml -677 ml 1323 ml Intake Oral 473 ml 473 ml IV Total 1000 ml 1000 ml 2000 ml Output Urine Total 1150 ml 1150 ml Exam mildly distressed due to abd pain no JVD, MMM, no LAD RRR, nl s1, s2 no mrg CTAB, no w,c S,ND, diffuse tenderness, more on LLQ, normoactive BS+ bilat food sterilely dressed, warm, no edema, pulses 2/2 IVs and Medications Medications Reviewed: Medications were reviewed in detail Lab and Diagnostics Result Diagram: 02/08/1750902/08/17509 X-Rays, CTs and MRIs Date of Service: 02/06/17 1511 PROCEDURE: X-RAY LEFT FOOT COMPLETE, MINIMUM THREE VIEWS ([id number]) IMPRESSION: Linear lucencies in the distal aspect of the first proximal phalange which could represent minimally displaced fracture versus early osteomyelitis. Please correlate with clinical data. Dictated by: Alis More MD, PhD on 02/06/2017 at 16:25 Approved by: Alis More MD, PhD on 02/06/2017 at 16:28 Assessment & Plan 66-year-old gentleman with a history of chronic abdominal pain, anxiety, gastroenteritis, possible gastroparesis, and chronic left toe ulcer presenting with ongoing abdominal pain, nausea and vomiting and x-ray of left foot on 02/06 suggestive of possible early osteomyelitis. acute, active # Chronic left diabetic foot ulcer with possible developing acute osteomyelitis as per Podiatry eval, present on admission. this was the reason for admission as pt failed on medical tx only. - pt remained clinically stable. no active sx, afebrile. - Discussed with and consulted Dr. Nickerson from podiatry. as per , surgery is plannced for tomorrow afternoon, appreciate FU for possible surgical intervention. - Continue with IV Ceftriaxone which he was getting as outpatient for the past week - NPO after breakfast tomorrow - Continue with supportive care including pain medications as needed. # Acute on chronic abdominal pain with nausea and vomiting, present on admission. During recent hospitalization was suspected of having possible erosive gastropathy and esophagitis versus gastroparesis. During last hospitalization about 2 weeks ago had extensive workup including EGD, HIDA scan , gastric emptying study, and psych evaluation and was supposed to have colonoscopy as outpatient which he did not follow to set up. - pt still remains symptomatic, will continue with supportive care for now including anti-emetics and IV Morphine as needed - Continue with home medications - Consider re-consulting GI on Thursday for consideration of colonoscopy as inpatient vs rescheduling as outpatient - Continue home PPI and Carafate # Acute on chronic Gastroparesis/nausea, present on admission - Plan as noted above chronic, stable # Chronic anxiety and depression. Presumed stable and at baseline. - Continue with home medications # Non-insulin dependent diabetes mellitus, chronic - HgA1C 7.1 on recent hospitalization - Low-dose correctional scale insulin - Hold Metformin while in hospital # History of hypertension, active - Continue home Amlodipine - Continue home Clonidine - Continue home Furosemide - Continue Metoprolol # Hyperlipidemia, chronic - Continue home meds # Chronic back pain, active - Can't take Naprosyn any longer (see GI above) - For now morphine as was taking as outpatient # Chronic insomnia - Continue home trazodone dispo: likely prolonged based on surgical course. GI Prophylaxis: Proton Pump Inhibitor VTE Prophylaxis: Sub-Q Heparin (Unfractionated) Resuscitation Status: CPR: Attempt Resuscitation (discussed and verified with patient) Time spent 35min Amanuel Rios MD Feb 08, 2017 09:29
[2017-02-08] MEDS: Venlafaxine XR 75 mg ER24 Capsule PO SCH (10:29)
[2017-02-08] MEDS ORDERED: Potassium Chloride 20 mEq SR Tablet PO ONE (10:35)
--- NOTE | 2017-02-08 11:03 | NUR ---
Social Work: Initial Assessment / Multidisciplinary Rounds Data: See initial assessment. Patient is a 66 year old male who was admitted on 02/07/17 for abdominal pain & osteomylitis per H&P. Patient's insurance is [employer] and his PCP is Dr. Elham Mendoza. SW met with patient to discuss discharge planning. SW role explained. Patient was very tearful during assessment. Patient expressed to SW that he is having a difficult time with the nausea & vomiting that he has been experiencing. Patient states that he does not know how he will be able to make it at home if he continues to feel this way. Patient has declined HH in the past. SW inquired about the potential for HH and patient states that he does not want anyone to visit his home because it is not the cleanest environment to be in. SW provided emotional support to patient. Patient states that he lives alone near [place]. Patient states that he does not have a main support person. Patient denies having DPOA or AD and declined SW offer for AD resources at this time. Patient states that he is I at baseline with all ADLs and care needs. Patient confirms that he does drive via POV. Patient denies having a hx of home health services or SNF. 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 Patient has upcoming procedures that are pending. SW advised patient to await the outcome of these procedures and then work to put a future plan in place. Patient was in agreement. Upon discharge, patient will transport home via POV. SW provided patient with a discharge planning checklist and encouraged to call with any questions or concerns. Phone number provided. SW will continue to follow for needs. Plan: Patient will discharge home when medically stable. Transportation will be provided by POV. SW will continue to follow for needs. TEMI Bone Addendum: 02/08/17 at 1134 by EMMA BERUMEN Amended: Links added.
[2017-02-08 13:32] VITALS: BP 148/84; PULSE 76; RESP 16; O2SAT 93
--- NOTE | 2017-02-08 14:25 | NUR ---
Nausea/Pain Pt complained of continual nausea through the day. He reported it is unrelieved by both IV zofran and PO reglan at this time. He reported that he has been vomiting and dry heaving, that has not been observed by staff. He is not able to eat anything due to nausea, per patient. He is only drinking glucerna drink supplements at this time. He reports abdominal pain "5/10" for most of the day. He is receiving 4mg IV morphine every four hours which he reports is helpful.
[2017-02-08 17:21] VITALS: BP 121/71; PULSE 69; RESP 16; O2SAT 96
[2017-02-08] MEDS: cefTRIAXone Inj 2,000 MG in Dextrose 5% Minibag Plus 50 ML IV SCH (21:02)
[2017-02-08 21:06] VITALS: BP 146/87; PULSE 62; RESP 16; O2SAT 96
[2017-02-09] VITALS (14 sets, daily range): BP systolic 109–152; BP diastolic 68–90; PULSE 52–73; RESP 14–18; O2SAT 95–99
--- NOTE | 2017-02-09 02:11 | NUR ---
Nausea: States nausea is improved in the evening. Rates nausea on the pain scale at 5/10, which is improved; "It has been a 9 all day." Abdominal pain a tolerable 3/10. No medication required for nausea and pain at bedtime. 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 Medicated for both abdominal pain and nausea. States able to sleep about "5 hours" through the night. Tearful this morning. Mentioned not many family members around for support, states usually "lying on the couch watching [employer] news". RN talked with pt about interests, mentioned pt should research social gathers in the area with similar interest for increased socialization and support. Pt engaged in conversation.
[2017-02-09] MEDS: Ondansetron 2 mg/mL 2 mL Inj IVPUSH PRN ×4 (04:36→21:56)
[2017-02-09] MEDS: Pantoprazole 20 mg ER24 Tablet PO SCH (04:37)
[2017-02-09] MEDS: Insulin Human REGular 300 Unit/3 mL Inj SUBQ SCH ×4 (07:30→22:00)
[2017-02-09] MEDS: Heparin 5,000 Unit/mL Inj SUBQ SCH ×3 (08:30→23:47)
[2017-02-09] MEDS: Sucralfate 100 mg/mL 10 mL Suspension PO SCH ×3 (08:57→21:56)
[2017-02-09] MEDS: Venlafaxine XR 75 mg ER24 Capsule PO SCH (09:49)
--- NOTE | 2017-02-09 11:18 | NUR ---
Pain/Nausea/Anxiety: Patient complained of 6/10 abdominal pain and nausea this am. Administered Morphine IV for pain and Zofran IV for nausea. On reassessment, patient states pain has decreased to 4/10 and nausea has somewhat decreased but not completely relieved. Will continue to follow. Patient tearful about overall poor health, expressing rapid thoughts. Scheduled Valium and Effexor administered. Liquid Loader visited w/patient. Will continue to monitor.
--- NOTE | 2017-02-09 11:32 | NUR ---
spiritual care: pt request lengthy conversational visit. pt expressive of spiritual experiences, framed of his life in relationship to Vito and desire to fill out spiritual mandate, and the overwhelm of years of health conditions. Pt anticipating colonoscopy and reflected about his coping with medical news including his being at peace with facing ; he shared of other medical experience, including being in septic shock, and also his experiences of physical/emotional suffering "like Job" Pt described his social isolation. appreciative of listening support. "It's important to be heard" pt mentioned his mother "of the same thing"-sepsis in 2001 also at [facility]
--- NOTE | 2017-02-09 12:21 | PCM.PNMED ---
Subjective Date of Service Feb 09, 2017 Subjective pt still has severe nausea, mildly controlled with zofran. c/o diffuse td. more on LLQ, no vomiting scheduled for surgery at 6pm today stools finally became formed but 'pencile' like, Exam Vital Signs Vital Sign - Last Date Time Temp Pulse Resp B/P Pulse Ox O2 Delivery O2 Flow Rate FiO2 02/09/17 11:45 71 143/87 02/09/17 09:09 36.5 17 99 Room Air Intake and Output 02/08/17 02/08/17 02/09/17 Cumulative From/Thru 15:00 23:00 07:00 02/07/17 13:28 - 02/09/17 06:10 Intake Total 1235 ml 473 ml 4181 ml Output Total 1200 ml 525 ml 2875 ml Balance 35 ml -52 ml 1306 ml Intake Oral 1160 ml 473 ml 2106 ml IV Total 75 ml 2075 ml Output Urine Total 1200 ml 525 ml 2875 ml # Bowel Movements 1 1 Exam mildly distressed due to abd pain no JVD, MMM, no LAD RRR, nl s1, s2 no mrg CTAB, no w,c S,ND, diffuse tenderness, more on LLQ, normoactive BS+ bilat food sterilely dressed, warm, no edema, pulses 2/2 IVs and Medications Medications Reviewed: Medications were reviewed in detail Lab and Diagnostics Result Diagram: 02/08/17 0510 02/08/17 0510 X-Rays, CTs and MRIs Date of Service: 02/06/17 1511 PROCEDURE: X-RAY LEFT FOOT COMPLETE, MINIMUM THREE VIEWS ([id number]) IMPRESSION: Linear lucencies in the distal aspect of the first proximal phalange which could represent minimally displaced fracture versus early osteomyelitis. Please correlate with clinical data. Dictated by: Alis More MD, PhD on 02/06/2017 at 16:25 Approved by: Alis More MD, PhD on 02/06/2017 at 16:28 Assessment & Plan 66-year-old gentleman with a history of chronic abdominal pain, anxiety, gastroenteritis, possible gastroparesis, and chronic left toe ulcer presenting with ongoing abdominal pain, nausea and vomiting and x-ray of left foot on 02/06 suggestive of possible early osteomyelitis. acute, active # Chronic left diabetic foot ulcer with possible developing acute osteomyelitis as per Podiatry eval, present on admission. this was the reason for admission as pt failed on medical tx only. - pt remained clinically stable. no active sx, afebrile. - Discussed with and consulted Dr. Nickerson from podiatry. as per , surgery is plannced for tomorrow afternoon, appreciate FU for possible surgical intervention. - Continue with IV Ceftriaxone which he was getting as outpatient for the past week - NPO after breakfast tomorrow - Continue with supportive care including pain medications as needed. # Acute on chronic abdominal pain with nausea and vomiting, present on admission. During recent hospitalization was suspected of having possible erosive gastropathy and esophagitis versus gastroparesis. During last hospitalization about 2 weeks ago had extensive workup including EGD, HIDA scan , gastric emptying study, and psych evaluation and was supposed to have colonoscopy as outpatient which he did not follow to set up. - pt still remains symptomatic, will continue with supportive care for now including anti-emetics and IV Morphine as needed - Continue with home medications - will consider more GI w/u, colonoscopy if sx continues. - Continue home PPI and Carafate # Acute on chronic Gastroparesis/nausea, present on admission - Plan as noted above chronic, stable # Chronic anxiety and depression. Presumed stable and at baseline. - Continue with home medications # Non-insulin dependent diabetes mellitus, chronic - HgA1C 7.1 on recent hospitalization - Low-dose correctional scale insulin - Hold Metformin while in hospital # History of hypertension, active - Continue home Amlodipine - Continue home Clonidine - Continue home Furosemide - Continue Metoprolol # Hyperlipidemia, chronic - Continue home meds # Chronic back pain, active - Can't take Naprosyn any longer (see GI above) - For now morphine as was taking as outpatient # Chronic insomnia - Continue home trazodone dispo: likely prolonged based on surgical course. GI Prophylaxis: Proton Pump Inhibitor VTE Prophylaxis: Sub-Q Heparin (Unfractionated) Resuscitation Status: CPR: Attempt Resuscitation (discussed and verified with patient) Time spent 35min Amanuel Rios MD Feb 09, 2017 12:21
[2017-02-09] MEDS ORDERED: Propofol 10,000 mCg/mL 20 mL Inj ONE (12:32)
--- NOTE | 2017-02-09 17:10 | PCM.HPANE ---
Patient Data Date of Service: Feb 09, 2017 Surgeon Admitting Provider:Martin Duff Attending Provider:Amanuel Rios MD Primary Care Physician:Elham Mendoza MD Other Provider: Reason for Visit Abdominal Pain,Osteomylitis Ht/WT & BMI Height (Feet): 6 Height (Inches): 0.00 Weight (Kilograms): 111.500 Body Mass Index 33.29 Allergies Coded Allergies: hydrochlorothiazide (Verified Allergy, Severe, Anaphylaxis, 01/31/17) prochlorperazine (Verified Allergy, Severe, PHENOTHIAZINES, 01/31/17) benazepril (Verified Allergy, Unknown, 01/31/17) felodipine (Verified Allergy, Unknown, 01/31/17) losartan (Verified Allergy, Unknown, 01/31/17) Uncoded Allergies: "tiva brand medications" (Allergy, Intermediate, 09/18/14) Past Anesthesia History Anesthesia History: Denies:: Anesthesia Reactions Diabetes History Hx Diabetes?: Yes (Type II) Type of Diabetes: Type II Current Bedside Blood Glucose: 89 MRSA MRSA: No Medications Hypertension Medication: Yes Home Meds Incl Beta German: Yes Date Beta German Taken: Feb 09, 2017 Time Beta German Taken: 09:30 Reported Medications Sucralfate Susp (Carafate Susp)1 Gm/10 Ml Oral.susp10 Ml PO TID #420 02/07/17 Omeprazole 20 Mg Capsule.dr20 Mg PO DAILY Ref 0 02/01/17 Ondansetron ODT 8 Mg Tab.rapdis8 Mg PO Q6H PRN For Nausea 02/01/17 Metoclopramide 10 Mg Qictdt18 Mg PO QID PRN For Nausea Ref 0 02/01/17 Furosemide 40 Mg Mrxycp42 Mg PO BID 02/01/17 Venlafaxine ER 150 Mg Cap.er.37b416 Mg PO QAM Ref 0 01/17/17 Metoprolol Tartrate 50 Mg Ffgaos58 Mg PO BID 30 Days Ref 0 01/17/17 Metformin 500 Mg Xaprdi148 Mg PO TIDWM Ref 0 11/06/16 Aspirin 81 Mg Clinbu28 Mg PO QAM Ref 0 11/06/16 Amlodipine 10 Mg Zkerlx05 Mg PO QAM Ref 0 11/06/16 Diazepam 10 Mg Rhhwwe51 Mg PO TID For Anxiety Ref 0 11/06/16 Trazodone 150 Mg Ubvyux415 Mg PO HS Ref 0 11/06/16 Morphine Sulfate 15 Mg Irsznc07 Mg PO BID PRN BACK PAIN 09/18/14 Clonidine 0.2 Mg Tablet0.2 Mg PO BIDBL 30 Days Ref 0 09/18/14 Discontinued Reported Medications Atorvastatin (Lipitor)10 Mg Tab10 Mg PO HS Ref 0 01/17/17 Discontinued Scripts Sucralfate 1 Gm/10 Ml Oral.susp1,000 Mg PO TIDAC 14 Days Prov:Maryse Chandler DO 01/24/17 History History of ENT Problems?: Yes HEENT History: Positive for:: Cataracts Denies:: Dysphagia Glaucoma Sinus Problem Denture Type: None Teeth Condition: Within Normal Limits Hx of Heart Problems?: Yes Cardiovascular History: Positive for:: Chest Pain Coronary Artery Disease Edema Hypertension Denies:: AICD Cardiac Surgery Congestive Heart Failure Heart Murmur Irregular Heartbeat Pacemaker Thrombophlebitis Valvular Heart Disease Other Cardiac History: hx CAD Hx of Respiratory Problem?: Yes Respiratory History: Positive for:: Dyspnea (exertional) Pneumonia Denies:: Asthma COPD Chest Surgery Emphysema Hemoptysis Tuberculosis Hx Neurologic Problems?: Yes Neurological History: Positive for:: Dizziness (medication related) Headaches Denies:: Alzheimer's Disease CVA Dementia Parkinson's Disease Seizures Hx of GI Problems?: Yes Other GI Pertinent History: dry heaving every morning, improved this afternoon Hx of Problems?: Yes Genitourinary History: Positive for:: Urinary Tract Infection Denies:: HX of Hemodialysis Kidney Stones HX of Peritoneal Dialysis: No Male Hx: Positive for:: Prostate Problems (enlarged, frequent urination) Denies:: Scrotal Mass Testicular Surgery Hx Musculoskeletal Problems?: Yes Musculoskeletal History: Positive for:: Back Injury Musculoskeletal Trauma (L&I injury to back 1978) Denies:: Joint Replacement Hx of Psycho/Social Problems?: Yes Psycho Social History: Positive for:: Anxiety Hx Depression Denies:: Bipolar Disorder Suicide Attempt Hx Surgeries?: Yes Hx Any Other Health Problems?: Yes Other History: Positive for:: Hospitalization (Sepsis, surgery, pneumonia) Denies:: Cancer Thyroid Disease History Blood Transfusions: Positive for:: Accept Blood Products? Denies:: Blood Transfuse Reaction Blood Transfusions Hx Diabetes: Yes (Type II)Bedside Blood Glucose: 89 Hx Alcohol Use: NoHx Substance Use: No Smoking Status: Never Smoker Have You Smoked inLast 12 mo: No Stop/Bang Treated for Sleep Apnea?: No Do You Have a CPAP Machine?: No S-Snoring: Do You Snore Loudly: No T-Tired: feel tired, fatigued: Yes O-Obsered: Observed not breath: Yes P-Blood Pressure: treated: Yes B- Body Mass Index > 35 kg/m2: No A- Age over 50: Yes N- Neck Large Circumference: Yes G- Gender Male: Yes OSORIO Total Score: 5 OSORIO Risk Assessment: High Risk, =/>3 Yes OSORIO Category 2: Yes Risk Assessment Category Category 1A: Patient has history of documented sleep apnea, and HAS NOT received any narcotic, sedative or anesthesia administration during this stay. Category 1B: Patient has history of documented sleep apnea, and HAS received any narcotic , sedative or anesthesia administration during this stay Category 2: Patient has SUSPECTED Obstructive Sleep Apnea, and HAS received any narcotic , sedative or anesthesia administration during this stay. Category 3: Patient has SUSPECTED Obstructive Sleep Apnea and HAS NOT received narcotic, sedative or anesthesia administration during this stay. Category 4: Outpatient in Procedural Areas with known sleep apnea or who screen positive for High Risk via the STOP/BANG questionnaire. Exam Exam Vital Signs Vital Signs Date Time Temp Pulse Resp B/P Pulse Ox O2 Delivery O2 Flow Rate FiO2 02/09/17 16:28 36.4 52 18 152/90 98 02/09/17 11:45 71 143/87 02/09/17 09:09 36.5 73 17 129/88 99 Room Air General Appearance: Alert, Oriented X3, Cooperative HEENT/AIRWAY: MP 3, Neck Movement (OK), Mouth Opening (Wide) Lungs: Clear to Auscultation, Normal Air Movement Heart: Regular Rate/Rhythm, Normal S1, Normal S2 Meds/Labs/Diagnostics Admission Meds Current Medications Furosemide (Lasix) 40 mg BID@0830,1630 PO Last administered on 02/09/17t 16:36 ; Start 02/09/17 at 16:30 Bedside Blood Glucose: 89 Labs Test 02/07/17 15:20 02/08/17 05:10 02/09/17 13:08 Lactic Acid Level 1.8mmol/L (0.4-2.0) Total Bilirubin 0.3mg/dL (0.0-1.2) Aspartate Amino Transf (AST/SGOT) 21U/L (0-50) Alanine Aminotransferase (ALT/SGPT) 29U/L (0-44) Alkaline Phosphatase 59U/L (25-160) Total Protein 7.0g/dL (6.4-8.4) Albumin 3.7g/dL (3.4-5.0) Lipase 35U/L (13-60) Hold Apple Top Tube Received (Received) White Blood Count 7.4th/mm3 (3.8-10.1) Red Blood Count 4.85mil/mm3 (4.40-5.80) Hemoglobin 13.8g/dL (13.8-17.2) Hematocrit 38.9% (41.0-50.0) Mean Corpuscular Volume 80.2fL (81-100) Mean Corpuscular Hemoglobin 28.5pg (27.0-35.0) Mean Corpuscular Hemoglobin Concent 35.5% (32.0-37.0) Red Cell Distribution Width 15.1% (12.3-15.4) Platelet Count 247bil/L (150-400) Neutrophils (%) (Auto) 61.0% (40-74) Lymphocytes (%) (Auto) 23.9% (14-46) Monocytes (%) (Auto) 9.9% (4-12) Eosinophils (%) (Auto) 4.5% (0-5) Basophils (%) (Auto) 0.4% (0-3) Prothrombin Time 10.9sec (8.1-12.5) Prothromb Time International Ratio 1.02ratio Activated Partial Thromboplast Time 27.1sec (22.8-33.0) Magnesium Level 2.0mg/dL (1.6-2.6) Procalcitonin 0.02ng/mL (0.00-0.08) Sodium Level 136mEq/L (134-144) Potassium Level 3.9mEq/L (3.5-5.2) Chloride Level 99mEq/L (97-108) Carbon Dioxide Level 22mmol/L (18-29) Blood Urea Nitrogen 12mg/dL (8-27) Creatinine 1.00mg/dL (0.76-1.27) Estimat Glomerular Filtration Rate 80mL/min (>59) Glucose Level 157mg/dL (60-99) Calcium Level 8.2mg/dL (8.5-10.1) Plan Impression Patient chart reviewed, patient interviewed and anesthestic plan with risks, benefits, and alternatives discussed, and informed consent obtained. NPO per Anesth. Guidelines: Yes (milk-like liquids at 1200. Proceed after 6 hours.) ASA Physical Status: ASA3 Severe Disease Anesthetic Plan: MAC Bene/Risks/Altern/Consents: Yes HP Complete Prior to Induction: Yes Tay Valdivia MD Feb 09, 2017 17:10
--- NOTE | 2017-02-09 17:28 | NUR ---
Off Unit: Transported to OR via stretcher at approx 1730. Patient toileted before transport. Alert & oriented, no apparent distress at time of transport.
[2017-02-09] MEDS ORDERED: Lactated Ringer's 1,000 ML IV SCH (17:36)
[2017-02-09] MEDS ORDERED: Lactated Ringer's 500 ML IV PRN (17:36)
[2017-02-09] MEDS ORDERED: hydrALAZINE 20 mg/mL Inj IVPUSH PRN (17:40)
[2017-02-09] MEDS ORDERED: EPHEDrine Sulfate 50 mg/mL Inj IVPUSH PRN (17:40)
[2017-02-09] MEDS ORDERED: Dexamethasone 4 mg/mL Inj IVPUSH PRN (17:40)
[2017-02-09] MEDS ORDERED: MetoCLOpramide 5 mg/mL 2 mL Inj IVPUSH PRN (17:40)
[2017-02-09] MEDS ORDERED: Atropine 0.4 mg/mL Inj IVPUSH PRN (17:40)
[2017-02-09] MEDS ORDERED: HYDROmorphone 1 mg/mL Inj IVPUSH PRN (17:40)
[2017-02-09] MEDS ORDERED: Labetalol 5 mg/mL 20 mL Inj IV PRN (17:40)
[2017-02-09] MEDS ORDERED: fentaNYL-PF 50 mCg/mL 2 mL Inj IVPUSH PRN (17:40)
[2017-02-09] MEDS ORDERED: Ondansetron 2 mg/mL 2 mL Inj IVPUSH PRN (17:40)
[2017-02-09] MEDS ORDERED: Phenylephrine 10,000 mCg/mL Inj IVPUSH PRN (17:40)
[2017-02-09] MEDS ORDERED: Lactated Ringer's 1,000 ML IV ONE (18:08)
[2017-02-09] MEDS ORDERED: Gentamicin 40 mg/mL 2 mL Inj IRRIGATION ONE (18:13)
--- NOTE | 2017-02-09 18:55 | PCM.ANEP1 ---
Post Anesthesia PACU Phase 1 Assessment Date of Service: Feb 09, 2017 Vital Signs PACU - HR 60, RR 20, 95% 10L, BP 118/74, T 36.1 Vital Signs Date Time Temp Pulse Resp B/P Pulse Ox O2 Delivery O2 Flow Rate FiO2 02/09/17 16:28 36.4 52 18 152/90 98 02/09/17 11:45 71 143/87 Anesthetic Administered: MAC Level of Alertness: Sleepy, easy to arouse SMITH's with Equal Strength: Yes Pain: No Nausea or Vomiting: No CV Function & Hydration Stable: Yes Airway Device: Oxygen Delivery: Simple Mask Lungs: Normal Air Movement PACU Phase 2 Assessment Complications: No Follow up Care: N/A Patient Instructions Provided: N/A Tay Valdivia MD Feb 09, 2017 18:55
--- NOTE | 2017-02-09 18:57 | PCM.PODPO ---
Podiatry Operative Report Date of Service: Feb 09, 2017 Date of Service Feb 09, 2017 Pre Operative Diagnosis Osteomyelitis, left great toe Post Operative Diagnosis Osteomyelitis, left great toe Procedure Excision of Proximal phalangeal head, resection of interphalangeal joint, left great toe. Surgeon Surgeon: Ofe Nickerson DPM Assistants: None Indication for Procedure Chronic ulceration with radiographic signs of osteomyelitis with persistent cellulitis despite IV antibiotics. Findings Consistent with radiographic findings. The remaining bone of the proximal phalangeal base appeared to be firm and intact. Details of Procedure The patient was identified in the preoperative holding area and brought back to the operating room. He was placed on the operating table in supine position. The timeout protocol was completed in the patient's name and site of surgery confirmed. IV sedation was initiated and the patient's left great toe anesthetized with 1% lidocaine plain. The left foot was prepped and draped in usual aseptic manner. An incision was made on the dorsal aspect of the left great toe medially, straight to the bone. No tourniquet was employed. Cautery was used to control bleeding, where necessary. Collateral ligaments were found to be destroyed by infection. This was resected, as well as the underlying phalangeal head and distal phalangeal base. Part of the bone was appearing necrotic. The remainder of the phalangeal shaft was firm and intact. All nonviable appearing tissue was excised with a #15 scalpel. Irrigation was performed with normal saline and gentamicin. The soft tissue was remodeled to accommodate for the loss of bone contour. The toe was positioned in a straightened anatomic position. Full-thickness closure was performed with 3-0 Prolene from the skin through the tendinous, ligamentous and subcutaneous tissue. A variety of vertical and simple interrupted sutures was employed. The foot was cleansed and the dressing consisted of Browning silk, sterile gauze, Kerlix, and a Coban. The dressing was placed with light compression. The patient was weaned off of general anesthesia and taken to the recovery room with vital signs stable and the left foot vascular status intact. Grafts, Implants: None Complications There were no periprocedural complications identified. Condition Stable Anesthetic Administered: MAC Drains: None Catheters: None Output, Estimated Blood Loss: 10 (ml) Blood Admin during surgery: No Surgical Cast or Splint: Post-op Boot Surgical Specimen Removed: Yes Specimen sent to Pathology: No Surgical Specimen description: Bone specimen for culture and sensitivities. Post Operative Plan The patient will be nonweightbearing on the left foot for at least 48 hours. Anticipate that he will be able to be discharged on Thursday. I do need him to have as little activity with the left foot in dependency as possible. Continue IV ceftriaxone daily. Ofe Nickerson DPM Feb 09, 2017 18:57
[2017-02-09] MEDS: cefTRIAXone Inj 2,000 MG in Dextrose 5% Minibag Plus 50 ML IV SCH (21:55)
[2017-02-10] MEDS: Ondansetron 2 mg/mL 2 mL Inj IVPUSH PRN ×3 (03:00→11:23)
[2017-02-10 04:02] VITALS: BP 116/72; PULSE 59; RESP 16; O2SAT 97
--- NOTE | 2017-02-10 06:20 | NUR ---
Pain and Nausea Patient arrived to the unit at 1950 from surgery. he was awake, oriented x4 and denied pain, SOB or nausea. Patient was on 2 L O2, which was weaned off and he tolerated well. Left foot was covered with dressing; C,D and intact. toes warm with positive capillary refill, popliteal pulse positive. Patient reports baseline numbness on BLE r/t neuropathy. Later in the night he received morphine pain and Zofran for nausea, pain and nausea well managed with current ordered PRN meds. Patient had some food and nutrition drink and reported increased abdominal discomfort with food, but tolerated Glucerna well. Pt slept well through the night.
[2017-02-10] MEDS: Insulin Human REGular 300 Unit/3 mL Inj SUBQ SCH ×4 (07:30→20:47)
[2017-02-10 07:47] VITALS: BP 129/75; PULSE 72; RESP 18; O2SAT 95
[2017-02-10] MEDS: Heparin 5,000 Unit/mL Inj SUBQ SCH ×3 (09:24→23:20)
[2017-02-10] MEDS: Venlafaxine XR 75 mg ER24 Capsule PO SCH (09:25)
[2017-02-10] MEDS: Pantoprazole 20 mg ER24 Tablet PO SCH (09:26)
--- NOTE | 2017-02-10 09:30 | PCM.PNMED ---
Subjective Date of Service Feb 10, 2017 Subjective pt still nausea, and diffuse abd pain, but was able to eat some, denied vomiting, had normal formed stools, larger than yesterday tolerated amputation left toe Exam Vital Signs Vital Sign - Last Date Time Temp Pulse Resp B/P Pulse Ox O2 Delivery O2 Flow Rate FiO2 02/10/17 07:47 36.6 72 18 129/75 95 Room Air 02/09/17 19:30 2 Intake and Output 02/09/17 02/09/17 02/10/17 Cumulative From/Thru 15:00 23:00 07:00 02/07/17 13:28 - 02/10/17 05:58 Intake Total 370 ml 840 ml 5391 ml Output Total 660 ml 1325 ml 4860 ml Balance -290 ml -485 ml 531 ml Intake Oral 120 ml 840 ml 3066 ml IV Total 250 ml 2325 ml Output Urine Total 650 ml 1325 ml 4850 ml Estimated Blood Loss 10 ml 10 ml # Bowel Movements 1 2 Exam mildly distressed due to abd pain no JVD, MMM, no LAD RRR, nl s1, s2 no mrg CTAB, no w,c S,ND, diffuse tenderness, more on LLQ, normoactive BS+ Left foot dressed IVs and Medications Medications Reviewed: Medications were reviewed in detail Lab and Diagnostics Result Diagram: 02/08/17 0510 02/09/17 1308 X-Rays, CTs and MRIs Date of Service: 02/06/17 1511 PROCEDURE: X-RAY LEFT FOOT COMPLETE, MINIMUM THREE VIEWS ([id number]) IMPRESSION: Linear lucencies in the distal aspect of the first proximal phalange which could represent minimally displaced fracture versus early osteomyelitis. Please correlate with clinical data. Dictated by: Alis More MD, PhD on 02/06/2017 at 16:25 Approved by: Alis More MD, PhD on 02/06/2017 at 16:28 Assessment & Plan 66-year-old gentleman with a history of chronic abdominal pain, anxiety, gastroenteritis, possible gastroparesis, and chronic left toe ulcer presenting with ongoing abdominal pain, nausea and vomiting and x-ray of left foot on 02/06 suggestive of possible early osteomyelitis. acute, active # Chronic left diabetic foot ulcer with possible developing acute osteomyelitis as per Podiatry eval, present on admission. this was the reason for admission as pt failed on medical tx only. - pt remained clinically stable. no active sx, afebrile. - Discussed with and consulted Dr. Nickerson from podiatry. as per , surgery is plannced for tomorrow afternoon, appreciate FU for possible surgical intervention. - Continue with IV Ceftriaxone which he was getting as outpatient for the past week - NPO after breakfast tomorrow - Continue with supportive care including pain medications as needed. # Acute on chronic abdominal pain with nausea and vomiting, present on admission. During recent hospitalization was suspected of having possible erosive gastropathy and esophagitis versus gastroparesis. During last hospitalization about 2 weeks ago had extensive workup including EGD, HIDA scan , gastric emptying study, and psych evaluation and was supposed to have colonoscopy as outpatient which he did not follow to set up. - pt still remains symptomatic, will continue with supportive care for now including anti-emetics and IV Morphine as needed - Continue with home medications - will consider more GI w/u, colonoscopy if sx continues. - Continue home PPI and Carafate # Acute on chronic Gastroparesis/nausea, present on admission - Plan as noted above chronic, stable # Chronic anxiety and depression. Presumed stable and at baseline. - Continue with home medications # Non-insulin dependent diabetes mellitus, chronic - HgA1C 7.1 on recent hospitalization - Low-dose correctional scale insulin - Hold Metformin while in hospital # History of hypertension, active - Continue home Amlodipine - Continue home Clonidine - Continue home Furosemide - Continue Metoprolol # Hyperlipidemia, chronic - Continue home meds # Chronic back pain, active - Can't take Naprosyn any longer (see GI above) - For now morphine as was taking as outpatient # Chronic insomnia - Continue home trazodone dispo: likely tomorrow per GI Prophylaxis: Proton Pump Inhibitor VTE Prophylaxis: Sub-Q Heparin (Unfractionated) Resuscitation Status: CPR: Attempt Resuscitation (discussed and verified with patient) Time spent 35min Amanuel Rios MD Feb 10, 2017 09:30
[2017-02-10] MEDS: Sucralfate 100 mg/mL 10 mL Suspension PO SCH ×3 (09:43→20:40)
[2017-02-10 14:15] VITALS: BP 128/70; PULSE 60; RESP 18; O2SAT 96
--- NOTE | 2017-02-10 16:14 | NUR ---
Social Work-readiness for discharge/ multidisciplinary rounds: Data:EMR Reviewed. Pt is on day 3 of hospitalization for abdominal pain per H&P. Pt is not medically stable anticipate 1-2 more days. Pt resides at home alone where he remains independent with ADLs. Pt has been up independent in his room. No anticipated discharge needs. SW will continue to follow if needs arise. Assessment:Pt who is independent at baseline. Plan:Pt to discharge home when medically stable via POV. No anticipated discharge needs. SW will continue to follow if needs arise. TEMI Hernandez
--- NOTE | 2017-02-10 16:50 | NUR ---
NUTRITION ASSESSMENT: ASSESS: 66 YO male admitted for abdominal pain, nausea, vomiting, chronic L toe ulcer s/p amputation. Pt reports increased nausea with food but tolerated glucerna per RN note. PMHx: Suicidal ideation, obesity, low back pain, DJD, erectile dysfunction, gastroenteritis, CAD, DM, HTN, hyperlipidemia, gastroparesis, gastritis. LABS: Reviewed. Glu 157, Ca 8.2, Alb 3.7. MEDS: Reviewed. GI: BM x 1 (02/10) SKIN: L toe amputation site. CURRENT WT: 111.5 kg. IBW: 80.9 kg. DIET: heart healthy, diabetic, Glucerna all trays. EST. NEEDS: [id number] kcals (20-22 kcals/kg BW), 100-120 g protein (1.2-1.5 g/kg IBW) NUTRITION DIAGNOSIS: 1.) Inadequate oral intake related to decreased ability to consume sufficient energy (nausea/vomiting) as evidenced by current PO intake of refusal to bites x 3 days. NUTRITION INTERVENTION: 1.) Continue to send glucerna (3 at breakfast per MD order). Consider sending them 3 times per day as snacks at . MONITOR / EVAL: PO intake, labs, nutritional status. Follow per moderate nutritional risk guidelines.
[2017-02-10 17:15] VITALS: BP 127/78; PULSE 61; RESP 18; O2SAT 94
--- NOTE | 2017-02-10 18:32 | NUR ---
Nausea/Pain Pt reporting 6/10 abdominal aching/sharp pain and 6/10 nausea with wretching/no emesis. Pt verbally expressing discomfort and crying about current condition. Attempted to speak with pt and reassure that we will do best to take care of him. Administered IV morphine and IV zofran per orders. Pt reports minimal relief reducing levels to 4/10 on nausea and on pain. Spoke to pt about Reglan and taking 30min before eating. Pt stated he had not had much success with Reglan but willing to try. Administered Reglan and pt reported improvement of Nausea. Pt was able to eat all of tray (ensure cups and a milk) with minimal nausea.
--- NOTE | 2017-02-10 18:38 | NUR ---
Skin/Buttock Abscess Upon inspection, Pt buttocks had red rash with small abscess on gluteal cleaft on R cheek. Pt reported that WC normally changes dressing but dressing was removed when he took a shower yesterday. Inspected wound, small open area about 1/2" in length x 1/4". Covered with gauze and hypafix tape. Instructed to make sure to keep wound covered. Barrier cream applied to buttocks to reduce irritation and rash. Pt at times can have a little incontinence.
--- NOTE | 2017-02-10 19:50 | DRSVH ---
PROCEDURE: CT ABDOMEN AND PELVIS WITH CONTRAST ([id number]) INDICATIONS: persistent diffuse abd pain, nausea TECHNIQUE: After the administration of oral and intravenous contrast, 5 mm thick sections acquired from the diap hragms to the symphysis. 5 mm thick coronal and sagittal reformats were performed. For radiation do se reduction, the following was used: automated exposure control, adjustment of mA and/or kV accordi ng to patient size. COMPARISON: [facility], CT, CT ABD PELVIS W CON, 01/17/2017, 16:24. FINDINGS: Image quality: Excellent. ABDOMEN: Lung bases: Lung bases are clear. Heart size is normal. Solid organs: The liver is diffusely hypodense suggesting hepatic steatosis. The spleen demonstrates normal size and enhancement. Gallbladder is unremarkable. Biliary system is non-dilated. Pancreas enhances normally. No adrenal nodules. Kidneys are normal in size and enhancement, without hydronep hrosis. Peritoneum and bowel: Stomach, small bowel, and colon loops are normal in caliber and wall thickness . The appendix is not visualized; however there is no discrete right lower quadrant fluid or fat stra nding to suggest acute appendicitis. There are scattered sigmoid diverticula. No evidence for diverti culitis. No free fluid or air. Nodes and vessels: No retroperitoneal or mesenteric adenopathy. Aorta and inferior vena cava are no rmal in caliber. Miscellaneous: No ventral hernias. PELVIS: Genitourinary: Bladder is markedly distended with urine. No bladder wall thickening. The prostate is enlarged. Miscellaneous: No inguinal hernias or adenopathy. Bones: No suspicious bony lesions. No vertebral body compression fractures. Severe degenerative yuriy nges are present throughout the lumbar spine. IMPRESSION: 1. No acute intra-abdominal findings. The appendix is not visualized; however there are no ancillary findings to suggest acute appendicitis. 2. Marked distention of the bladder and prostate enlargement. Bladder and obstruction should be consi dered in the differential. Additionally, decompression of the bladder with Gray catheter may be help ful. 3. Diverticulosis. No acute diverticulitis. Dictated by: Joceline Anaya M.D. on 02/10/2017 at 19:42 Approved by: Joceline Anaya M.D. on 02/10/2017 at 19:49
[2017-02-10] MEDS ORDERED: 0.9% Sodium Chloride 250 ML ONE (20:32)
[2017-02-10 20:34] VITALS: BP 137/81; PULSE 62; RESP 18; O2SAT 94
[2017-02-10] MEDS: cefTRIAXone Inj 2,000 MG in Dextrose 5% Minibag Plus 50 ML IV SCH (20:39)
[2017-02-11] MEDS: Ondansetron 2 mg/mL 2 mL Inj IVPUSH PRN ×5 (02:30→20:58)
[2017-02-11 04:41] VITALS: BP 106/66; PULSE 52; RESP 18; O2SAT 95
[2017-02-11 05:35] LABS: BASOPHILS % (AUTO) 0.3 % (0-3); EOSINOPHILS % (AUTO) 3.7 % (0-5); Mean Corpuscular Hemoglobin 28.2 pg (27.0-35.0); Mean Corpuscular Volume 80.6 fL (81-100); NEUTROPHILS % (AUTO) 62.4 % (40-74); Platelet Count 225 bil/L (150-400)
[2017-02-11 05:58] LABS: Magnesium 2.2 mg/dL (1.6-2.6)
--- NOTE | 2017-02-11 06:31 | NUR ---
Nausea, Skin: Pt nausea and pain free for the first half of this shift, which he states has been the pattern. Around 0230 pt reported nausea/pain at 5/10 and requested medication. Pt refused skin assessment of stated buttock "old abscess" site. Stated the previous RN "took care of that".
[2017-02-11] MEDS: Pantoprazole 20 mg ER24 Tablet PO SCH ×2 (06:40→09:49)
[2017-02-11] MEDS: Insulin Human REGular 300 Unit/3 mL Inj SUBQ SCH ×4 (07:30→21:09)
--- NOTE | 2017-02-11 08:48 | PCM.PNPOD ---
Subjective Date of Service: Feb 10, 2017 Visit Information: Reason for Visit Abdominal Pain,Osteomylitis Surgery/Surgery Date 02/09/2017 Excision of infected bone, left hallux. Post-Op Day # 1 Date of Admission: Feb 07, 2017 at 18:19 Hospital Day # Gastrointestinal: Passing Stool, Abnormal Bowel Movement, Diarrhea, Complains of Nausea, Not Tolerating Oral Feedings Pain Management: IV Push Objective Vital Sign - Last Date Time Temp Pulse Resp B/P Pulse Ox O2 Delivery O2 Flow Rate FiO2 02/11/17 04:41 36.8 52 18 106/66 95 Room Air 02/09/17 19:30 2 Intake and Output 02/10/17 02/10/17 02/11/17 Cumulative From/Thru 15:00 23:00 07:00 02/07/17 13:28 - 02/11/17 05:49 Intake Total 350 ml 5741 ml Output Total 975 ml 5835 ml Balance -625 ml -94 ml Intake Oral 250 ml 3316 ml IV Total 100 ml 2425 ml Output Urine Total 975 ml 5825 ml Estimated Blood Loss 10 ml # Bowel Movements 1 3 Result Diagram: 02/11/17 0500 02/11/17 0500 Lab Test 02/07/17 15:20 02/08/17 05:10 02/11/17 05:00 Lactic Acid Level 1.8mmol/L (0.4-2.0) Lipase 35U/L (13-60) Hold Apple Top Tube Received (Received) Prothrombin Time 10.9sec (8.1-12.5) Prothromb Time International Ratio 1.02ratio Activated Partial Thromboplast Time 27.1sec (22.8-33.0) Procalcitonin 0.02ng/mL (0.00-0.08) White Blood Count 5.9th/mm3 (3.8-10.1) Red Blood Count 4.85mil/mm3 (4.40-5.80) Hemoglobin 13.7g/dL (13.8-17.2) Hematocrit 39.1% (41.0-50.0) Mean Corpuscular Volume 80.6fL (81-100) Mean Corpuscular Hemoglobin 28.2pg (27.0-35.0) Mean Corpuscular Hemoglobin Concent 35.0% (32.0-37.0) Red Cell Distribution Width 15.2% (12.3-15.4) Platelet Count 225bil/L (150-400) Neutrophils (%) (Auto) 62.4% (40-74) Lymphocytes (%) (Auto) 22.4% (14-46) Monocytes (%) (Auto) 11.0% (4-12) Eosinophils (%) (Auto) 3.7% (0-5) Basophils (%) (Auto) 0.3% (0-3) Sodium Level 139mEq/L (134-144) Potassium Level 4.1mEq/L (3.5-5.2) Chloride Level 102mEq/L (97-108) Carbon Dioxide Level 22mmol/L (18-29) Blood Urea Nitrogen 10mg/dL (8-27) Creatinine 0.93mg/dL (0.76-1.27) Estimat Glomerular Filtration Rate 87mL/min (>59) Glucose Level 109mg/dL (60-99) Calcium Level 8.3mg/dL (8.5-10.1) Magnesium Level 2.2mg/dL (1.6-2.6) Total Bilirubin 0.2mg/dL (0.0-1.2) Aspartate Amino Transf (AST/SGOT) 22U/L (0-50) Alanine Aminotransferase (ALT/SGPT) 30U/L (0-44) Alkaline Phosphatase 61U/L (25-160) Total Protein 6.6g/dL (6.4-8.4) Albumin 3.7g/dL (3.4-5.0) Exam General: Alert, Oriented X3, Cooperative, Mild Distress (due to abdominal pain) Lungs: Normal Air Movement Lower Extremities: Left: Edema localized (resolved) Lower Extremity Pulses: Palpable: Left Dorsalis Pedis Left Posterior Tibal Right Dorsalis Pedis Right Posterior Tibal Postop Sensory Motor: Distal Motor Intact, Decreased Sensation Podiatry WOUND : Wound Location/Description Left great toe: Andrea's silk left in place, incision well coapted, plantar ulcer looks stable. No other open lesions bilaterally. Dressing & Drainage Status: Changed Surgical Cast or Splint: Post-op Boot Assessment & Plan Problems: (1) Osteomyelitis Qualifiers: Osteomyelitis type: other chronic Osteomyelitis location: foot Laterality : left Qualified Code: M86.672 - Other chronic osteomyelitis, left ankle and foot Plan: Dry dressing replaced over the silk. Silk will stay in place until Thursday. The entire dressing can stay in place until Thursday and I will change it at that time. Advance to WB as tolerated in postop shoe. IV antibiotics to continue for an additional 6 days to complete one week post resection of infected bone and tissue. PO antibiotics not reliable due to patient's inconsistent oral intake. He used to come in to have the IV antibiotic administered at [facility] once a day prior to this hospitalization. Other medical issues continue, including abdominal pain, nausea, and anxiety. Depending on further workup, the patient can be managed for his foot outpatient, but if he is still here, I will change his foot dressing on Thursday. Otherwise, that is the day of his next appointment at the [facility]. Status: Acute ICD Code: M86.9 VTE Prophylaxis: Sub-Q Heparin (Unfractionated) Ofe Nickerson DPM Feb 11, 2017 08:48
[2017-02-11] MEDS ORDERED: ONDA8TAB10 PO (09:24)
[2017-02-11] MEDS ORDERED: METO10TA3 PO (09:24)
--- NOTE | 2017-02-11 09:41 | PCM.DIMED ---
Discharge Instructions Date of Service Feb 11, 2017 Dates of Hospitalization Feb 07, 2017 at 18:19 Discharge Diagnosis Discharge Diagnosis acute dx acute on chronic left diabetic foot ulcer, newly found OM, s/p 02/09/2017 Excision of infected bone, left hallux. intractable abdominal pain and nausea, due to presumed gastroparesis, erosive gastropathy chronic dx # Chronic anxiety and depression. # Non-insulin dependent diabetes mellitus # History of hypertension, # Hyperlipidemia, # Chronic back pain, # Chronic insomnia Medication Instructions Additional med instructions Instead of as needed base, please take zofran and reglan four times per day before you develop symptoms Diet Discharge Diet: No restrictions Activity Discharge Activity: No restrictions Call your provider Call your provider for: Fever or Chills, Vomitting, Excessive diarrhea Patient Instructions Patient Instructions You were hospitalized with bone infection on your foot, You underwent surgery, tolerated well. You also noted to have persistent nausea, vomiting, Repeat CT scan and stool study was unremarkable. Please continue to follow with closely for your bone infection in your foot. Please also continue to come to [facility] for antibiotic infusion. Please follow up with your PCP and GI service, you likely needs colonoscopy. Please follow up with [facility] care center on Thursday as scheduled Follow-up Provider: Elham Mendoza MD Follow-up with PCP in: 1 week Provider: Amari Schmidt MD Follow-up in: 2 weeks Amanuel Rios MD Feb 11, 2017 09:41
[2017-02-11] MEDS: Venlafaxine XR 75 mg ER24 Capsule PO SCH (09:48)
[2017-02-11] MEDS: Sucralfate 100 mg/mL 10 mL Suspension PO SCH ×3 (09:48→21:05)
[2017-02-11] MEDS: Heparin 5,000 Unit/mL Inj SUBQ SCH ×2 (09:50→16:34)
--- NOTE | 2017-02-11 13:38 | NUR ---
Social Work-readiness for discharge/multidisciplinary rounds: Data:EMR Reviewed. Pt is on day 4 of hospitalization for abdominal pain per H&P. Pt is likely medically stable in the next one to two days. Pt has been up independent in his room. Podiatry Dr. Nickerson recommending pt have 6 more days of IV abx at [facility]. SW followed up with pt and he is agreeable to this. Pt states he normally goes to [facility] for IV abx. SW faxed over orders and pt will just need to come daily at 1pm, SW updated pt. Pt to continue with outpt wound care at [facility] with Dr. Nickerson. Pt expressed concerns about his medical care as they cannot find out what is wrong with him. Pt states he is enrolled in counseling services through [facility]. SW will continue to follow. Assessment:Pt who will need IV abx. Plan:Pt to discharge home when medically stable via POV. IV abx have been set up at [facility]. Pt to have outpt wound care with Dr. Nickerson. SW will continue to follow. TEMI Hernandez
[2017-02-11 15:17] VITALS: BP 132/78; PULSE 57; RESP 18; O2SAT 93
--- NOTE | 2017-02-11 17:53 | NUR ---
Activity/nausea/LE Pt amb in room short distances, WBAT to LLE. Pt keeping LE elevated while in bed. Pt continues to c/o persistent nausea, abd pain/cramping to LLQ. PRN antiemetics given with PRN analgesic with mod effective results. Pt drinking Glucerna, refusing to order 'solid' food, stating it will make him nauseated. Blood sugars have been stable this shift thus far. Bed in lowest, locked position and call light in reach.
[2017-02-11] MEDS: cefTRIAXone Inj 2,000 MG in Dextrose 5% Minibag Plus 50 ML IV SCH (18:30)
--- NOTE | 2017-02-11 19:17 | NUR ---
DC DC orders rec'd this evening at 1830. Spoke with pt who states he does not feel safe dc'ing due to nausea/pain and wants to appeal his dc. Contacted ER [facility] who will attempt to contact UR RN due to pt's insurance/ability to appeal dc. Pt aware.
--- NOTE | 2017-02-11 19:35 | PCM.PNMED ---
Subjective Date of Service Feb 11, 2017 Subjective pt still mildly nauseated but no reported vomiting or gagging denied abd pain Exam Vital Signs Vital Sign - Last Date Time Temp Pulse Resp B/P Pulse Ox O2 Delivery O2 Flow Rate FiO2 02/11/17 15:17 36.6 57 18 132/78 93 Room Air 02/09/17 19:30 2 Intake and Output 02/10/17 02/10/17 02/11/17 Cumulative From/Thru 15:00 23:00 07:00 02/07/17 13:28 - 02/11/17 05:49 Intake Total 350 ml 5741 ml Output Total 975 ml 5835 ml Balance -625 ml -94 ml Intake Oral 250 ml 3316 ml IV Total 100 ml 2425 ml Output Urine Total 975 ml 5825 ml Estimated Blood Loss 10 ml # Bowel Movements 1 3 Exam mildly distressed due to abd pain no JVD, MMM, no LAD RRR, nl s1, s2 no mrg CTAB, no w,c S,ND, diffuse tenderness, more on LLQ, normoactive BS+ Left foot dressed IVs and Medications Medications Reviewed: Medications were reviewed in detail Lab and Diagnostics Result Diagram: 02/11/17 0500 02/11/17 0500 X-Rays, CTs and MRIs Date of Service: 02/06/17 1511 PROCEDURE: X-RAY LEFT FOOT COMPLETE, MINIMUM THREE VIEWS ([id number]) IMPRESSION: Linear lucencies in the distal aspect of the first proximal phalange which could represent minimally displaced fracture versus early osteomyelitis. Please correlate with clinical data. Dictated by: Alis More MD, PhD on 02/06/2017 at 16:25 Approved by: Alis More MD, PhD on 02/06/2017 at 16:28 Assessment & Plan 66-year-old gentleman with a history of chronic abdominal pain, anxiety, gastroenteritis, possible gastroparesis, and chronic left toe ulcer presenting with ongoing abdominal pain, nausea and vomiting and x-ray of left foot on 02/06 suggestive of possible early osteomyelitis. acute, active # Chronic left diabetic foot ulcer with possible developing acute osteomyelitis as per Podiatry eval, present on admission. this was the reason for admission as pt failed on medical tx only. - pt remained clinically stable. no active sx, afebrile. - Discussed with and consulted Dr. Nickerson from podiatry. as per , surgery is plannced for tomorrow afternoon, appreciate FU for possible surgical intervention. - Continue with IV Ceftriaxone for 6more days - Continue with supportive care including pain medications as needed. # Acute on chronic abdominal pain with nausea and vomiting, present on admission. During recent hospitalization was suspected of having possible erosive gastropathy and esophagitis versus gastroparesis. During last hospitalization about 2 weeks ago had extensive workup including EGD, HIDA scan , gastric emptying study, and psych evaluation and was supposed to have colonoscopy as outpatient which he did not follow to set up. repeat CT/stool study all unremarkable. -given stable condition, no signs of GI fluid loss, pt is stable for d/c -continue zofran, reglan, - will consider more GI w/u, colonoscopy if sx continues. - Continue home PPI and Carafate # Acute on chronic Gastroparesis/nausea, present on admission - Plan as noted above chronic, stable # Chronic anxiety and depression. Presumed stable and at baseline. - Continue with home medications # Non-insulin dependent diabetes mellitus, chronic - HgA1C 7.1 on recent hospitalization - Low-dose correctional scale insulin - Hold Metformin while in hospital # History of hypertension, active - Continue home Amlodipine - Continue home Clonidine - Continue home Furosemide - Continue Metoprolol # Hyperlipidemia, chronic - Continue home meds # Chronic back pain, active - Can't take Naprosyn any longer (see GI above) - For now morphine as was taking as outpatient # Chronic insomnia - Continue home trazodone dispo: pt is medically stable for d/c GI Prophylaxis: Proton Pump Inhibitor VTE Prophylaxis: Sub-Q Heparin (Unfractionated) Resuscitation Status: CPR: Attempt Resuscitation (discussed and verified with patient) Time spent 65min Amanuel Rios MD Feb 11, 2017 19:35
[2017-02-11 20:26] VITALS: BP 145/81; PULSE 61; RESP 18; O2SAT 97
[2017-02-12] MEDS: Heparin 5,000 Unit/mL Inj SUBQ SCH ×2 (00:30→08:05)
[2017-02-12] MEDS: Ondansetron 2 mg/mL 2 mL Inj IVPUSH PRN ×3 (01:25→11:46)
[2017-02-12 04:15] VITALS: BP 112/63; PULSE 60; RESP 18; O2SAT 95
--- NOTE | 2017-02-12 06:10 | NUR ---
nausea/pain IV Zofran given per pt's request for nausea. Pt was able to drink his 3 cans of glucerna and 4 puddings. No retching noted or emesis. IV Morphine given for 5/10 abdominal pain with good relief. This RN suggested for pt to try PO Morphine since pt will be discharging today. Pt stated "it doesn't work. I'll be fine at home". Independently ambulating to the BR with walking boot to left foot. tolerating well. Hourly rounding done.
[2017-02-12] MEDS: Sucralfate 100 mg/mL 10 mL Suspension PO SCH (08:03)
[2017-02-12] MEDS: Insulin Human REGular 300 Unit/3 mL Inj SUBQ SCH (08:04)
[2017-02-12] MEDS: Venlafaxine XR 75 mg ER24 Capsule PO SCH (08:51)
[2017-02-12] MEDS: cefTRIAXone Inj 2,000 MG in Dextrose 5% Minibag Plus 50 ML IV SCH (10:34)
--- NOTE | 2017-02-12 10:46 | NUR ---
Social Work-discharge: Data:EMR reviewed. Pt is on day 5 of hospitalization for abdominal pain per H&P. Pt is medically stable for discharge. KIN confirmed that pt will have his outpt in [facility] tomorrow at 1pm with [facility] MASSIEL Santana, orders faxed yesterday. Pt to have dressing changed by Dr. Nickerson at the wound care center. KIN confirmed plan with pt and he is agreeable. Pt had questions about insurance, UR RN spoke with pt at bedside.Pt to provide transport home today. All updated and agreeable to plan. Assessment:pt who is independent at baseline. Plan:Pt to discharge home today via POV. Pt to go to [facility] for IV abx. Pt to go to outpt wound care for dressing changes with Dr. Nickerson All updated and agreeable to plan. TEMI Hernandez
[2017-02-12 11:24] VITALS: BP 129/77; PULSE 63; RESP 18; O2SAT 96
--- NOTE | 2017-02-12 11:38 | NUR ---
Case Management: Spoke with patient regarding his insurance status, payment concerns. Patient to be discharged later today after IVAB and dressing change to foot per MD. Julián Corado RN
--- NOTE | 2017-02-12 12:28 | NUR ---
DISCHARGE Pt dc'd home this afternoon, off unit at 1220 in w/c accompanied by [employer]. Pt A&O and in no apparent distress. IV remained in place per [facility]'s request as pt is going to get IV ABO there. All belongings returned including home medications which pt verified were all there. All instructions for diet, activity, medications, prescriptions and follow up ([facility] and wound care) reviewed with pt, who reports understanding.
--- NOTE | 2017-02-12 13:01 | PCM.DC.MED ---
Discharge Summary Date of Service Feb 12, 2017 Dates of Hospitalization Date of Hospital Admission Feb 07, 2017 at 18:19 Date of Discharge: Feb 12, 2017 Providers: Admitting Physician: Martin Duff Primary Care Physician: Elham Mendoza MD Attending Physician: Amanuel Zuñiga MD Diagnosis at Time of Discharge Diagnosis at Time of Discharge acute dx acute on chronic left diabetic foot ulcer, newly found OM, s/p 02/09/2017 Excision of infected bone, left hallux. intractable abdominal pain and nausea, due to presumed gastroparesis, erosive gastropathy chronic dx # Chronic anxiety and depression. # Non-insulin dependent diabetes mellitus # History of hypertension, # Hyperlipidemia, # Chronic back pain, # Chronic insomnia Procedures XRay, CTs & MRIs Date of Service: 02/06/17 1511 PROCEDURE: X-RAY LEFT FOOT COMPLETE, MINIMUM THREE VIEWS ([id number]) IMPRESSION: Linear lucencies in the distal aspect of the first proximal phalange which could represent minimally displaced fracture versus early osteomyelitis. Please correlate with clinical data. Dictated by: Alis More MD, PhD on 02/06/2017 at 16:25 Approved by: Alis More MD, PhD on 02/06/2017 at 16:28 Brief History HPI obtained by Dr. Duff 66 year old male with somewhat complicated past medical history as noted below and notable for recent hospitalization (about 2 weeks ago) where he underwent extensive workup of abdominal pain, nausea and vomiting with final diagnosis of possible gastroparesis vs gastritis vs central or psychiatric causes represents today complaining of ongoing abdominal pain, nausea and vomiting that he claims never got any better since he was discharged. He is very emotional, at times tearful, and anxious about failing to thrive at home. He also has chronic left toe ulcer that is being followed by Dr. Nickerson from podiatry. He had an x-ray of his left foot yesterday and there is concern about developing osteomyelitis. Per discussion with Dr. Nickerson patient is now being admitted for further inpatient antibiotic treatment and consideration of further surgical intervention regarding possible developing osteomyelitis. Hospital Course 66-year-old gentleman with a history of chronic abdominal pain, anxiety, gastroenteritis, possible gastroparesis, and chronic left toe ulcer presenting with ongoing abdominal pain, nausea and vomiting and x-ray of left foot on 02/06 suggestive of possible early osteomyelitis. Patient underwent surgical procedure per Podiatry given newly developed OM on left foot. Ceftriaxone was continued and plan was to continue 6more days via [facility]. pt also had persistent nausea, abdominal pain. CT abdomen was repeated and stools were obtained, which didn't show any signs of infection, inflammation, which indicated this could be psychosomatization, as pt also showed some signs of severe anxiety, agitated intermittently for fear of unresolving sx. No further w/u or GI consult was pursued as pt already underwent extensive w/u from recent hospitalization. Extensive reassurance was made throughout hospitalization. Pt was recommended to take zofran, reglan as scheduled q6h, pt was also recommended to follow up with GI for possible colonoscopy. acute, active # Chronic left diabetic foot ulcer with possible developing acute osteomyelitis as per Podiatry eval, present on admission. this was the reason for admission as pt failed on medical tx only. - pt remained clinically stable. no active sx, afebrile. - Discussed with and consulted Dr. Nickerson from podiatry. as per , surgery is plannced for tomorrow afternoon, appreciate FU for possible surgical intervention. - Continue with IV Ceftriaxone for 6more days - Continue with supportive care including pain medications as needed. # Acute on chronic abdominal pain with nausea and vomiting, present on admission. During recent hospitalization was suspected of having possible erosive gastropathy and esophagitis versus gastroparesis. During last hospitalization about 2 weeks ago had extensive workup including EGD, HIDA scan , gastric emptying study, and psych evaluation and was supposed to have colonoscopy as outpatient which he did not follow to set up. repeat CT/stool study all unremarkable. -given stable condition, no signs of GI fluid loss, pt is stable for d/c -continue zofran, reglan, - will consider more GI w/u, colonoscopy if sx continues. - Continue home PPI and Carafate # Acute on chronic Gastroparesis/nausea, present on admission - Plan as noted above chronic, stable # Chronic anxiety and depression. Presumed stable and at baseline. - Continue with home medications # Non-insulin dependent diabetes mellitus, chronic - HgA1C 7.1 on recent hospitalization - Low-dose correctional scale insulin - Hold Metformin while in hospital # History of hypertension, active - Continue home Amlodipine - Continue home Clonidine - Continue home Furosemide - Continue Metoprolol # Hyperlipidemia, chronic - Continue home meds # Chronic back pain, active - Can't take Naprosyn any longer (see GI above) - For now morphine as was taking as outpatient # Chronic insomnia - Continue home trazodone dispo: pt is medically stable for d/c Exam Vital Signs (Last) Date Time Temp Pulse Resp B/P Pulse Ox O2 Delivery O2 Flow Rate FiO2 02/12/17 11:24 36.7 63 18 129/77 96 Room Air 02/09/17 19:30 2 Exam NAD, comfortably laying down on the bed no JVD, MMM, no LAD RRR, nl s1, s2 no mrg CTAB, no w,c S,ND,NT,normoactive BS+ warm, no edema, pulses 2/2 Test 02/07/17 15:20 02/08/17 05:10 02/11/17 05:00 Lactic Acid Level 1.8mmol/L (0.4-2.0) Lipase 35U/L (13-60) Hold Apple Top Tube Received (Received) Prothrombin Time 10.9sec (8.1-12.5) Prothromb Time International Ratio 1.02ratio Activated Partial Thromboplast Time 27.1sec (22.8-33.0) Procalcitonin 0.02ng/mL (0.00-0.08) White Blood Count 5.9th/mm3 (3.8-10.1) Red Blood Count 4.85mil/mm3 (4.40-5.80) Hemoglobin 13.7g/dL (13.8-17.2) Hematocrit 39.1% (41.0-50.0) Mean Corpuscular Volume 80.6fL (81-100) Mean Corpuscular Hemoglobin 28.2pg (27.0-35.0) Mean Corpuscular Hemoglobin Concent 35.0% (32.0-37.0) Red Cell Distribution Width 15.2% (12.3-15.4) Platelet Count 225bil/L (150-400) Neutrophils (%) (Auto) 62.4% (40-74) Lymphocytes (%) (Auto) 22.4% (14-46) Monocytes (%) (Auto) 11.0% (4-12) Eosinophils (%) (Auto) 3.7% (0-5) Basophils (%) (Auto) 0.3% (0-3) Sodium Level 139mEq/L (134-144) Potassium Level 4.1mEq/L (3.5-5.2) Chloride Level 102mEq/L (97-108) Carbon Dioxide Level 22mmol/L (18-29) Blood Urea Nitrogen 10mg/dL (8-27) Creatinine 0.93mg/dL (0.76-1.27) Estimat Glomerular Filtration Rate 87mL/min (>59) Glucose Level 109mg/dL (60-99) Calcium Level 8.3mg/dL (8.5-10.1) Magnesium Level 2.2mg/dL (1.6-2.6) Total Bilirubin 0.2mg/dL (0.0-1.2) Aspartate Amino Transf (AST/SGOT) 22U/L (0-50) Alanine Aminotransferase (ALT/SGPT) 30U/L (0-44) Alkaline Phosphatase 61U/L (25-160) Total Protein 6.6g/dL (6.4-8.4) Albumin 3.7g/dL (3.4-5.0) Discharge Medications Discharge Medications Amlodipine (Amlodipine) 10 Mg Tablet 10 MG PO QAM (Reported) Aspirin (Aspirin) 81 Mg Tablet 81 MG PO QAM (Reported) Clonidine (Clonidine) 0.2 Mg Tablet 0.2 MG PO BIDBL (Reported) Diazepam (Diazepam) 10 Mg Tablet 10 MG PO TID (Reported) Furosemide (Furosemide) 40 Mg Tablet 40 MG PO BID (Reported) Metformin (Metformin) 500 Mg Tablet 500 MG PO TIDWM (Reported) Metoclopramide (Metoclopramide) 10 Mg Tablet 10 MG PO QID Prescribed by: AMANUEL ZUÑIGA MD Metoprolol Tartrate (Metoprolol Tartrate) 50 Mg Tablet 50 MG PO BID (Reported) Omeprazole (Omeprazole) 20 Mg Capsule.dr 20 MG PO DAILY (Reported) Ondansetron ODT (Ondansetron ODT) 8 Mg Tab.rapdis 8 MG PO QID Prescribed by: AMANUEL ZUÑIGA MD Sucralfate Susp (Carafate Susp) 1 Gm/10 Ml Oral.susp 10 ML PO TID (Reported) Trazodone (Trazodone) 150 Mg Tablet 225 MG PO HS (Reported) Venlafaxine ER (Venlafaxine ER) 150 Mg Cap.er.24h 150 MG PO QAM (Reported) As needed Morphine Sulfate (Morphine Sulfate) 15 Mg Tablet 15 MG PO BID PRN PRN BACK PAIN (Reported) Additional med instructions Instead of as needed base, please take zofran and reglan four times per day before you develop symptoms Followup Plan Disposition: home Discharge Diet: No restrictions Discharge Activity: No restrictions Patient Instructions You were hospitalized with bone infection on your foot, You underwent surgery, tolerated well. You also noted to have persistent nausea, vomiting, Repeat CT scan and stool study was unremarkable. Please continue to follow with closely for your bone infection in your foot. Please also continue to come to [facility] for antibiotic infusion. Please follow up with your PCP and GI service, you likely needs colonoscopy. Please follow up with Wound care center on Thursday as scheduled Follow-up Provider: Elham Mendoza MD Follow-up with PCP in: 1 week Provider: Amari Schmidt MD Follow-up in: 2 weeks Time spent 65min Amanuel Zuñiga MD Feb 12, 2017 13:01
== END 2017-02-12 12:27 | disposition home or self-care (01) | DRG 505 ==
LOC: SED 13:24 → MPC 18:19 → OBSVTOIN 18:19
PROVIDERS: ADMIT Internal Medicine; ATTEND Internal Medicine
PROC: 0ST Lower Joints, Resection (ICD-10-PCS; 2017-02-09)
PROC: 0QBR0ZZ Excision of Left Toe Phalanx, Open Approach (ICD-10-PCS; principal; 2017-02-09 17:15)
DX: M86.672 Other chronic osteomyelitis, left ankle and foot (principal); E11.42 Type 2 diabetes mellitus with diabetic polyneuropathy; E11.621 Type 2 diabetes mellitus with foot ulcer; L97.524 Non-pressure chronic ulcer of other part of left foot with necrosis of bone; K31.84 Gastroparesis; E78.5 Hyperlipidemia, unspecified; I10 Essential (primary) hypertension; I25.10 Atherosclerotic heart disease of native coronary artery without angina pectoris; F41.8 Other specified anxiety disorders; F32.9 Major depressive disorder, single episode, unspecified; M54.9 Dorsalgia, unspecified; G89.29 Other chronic pain; F51.04 Psychophysiologic insomnia; Z79.84 Long term (current) use of oral hypoglycemic drugs; Z79.82 Long term (current) use of aspirin

== ENCOUNTER 2017-02-19 11:31 | Observation (INO) | payer OTHER ==
[~2017-02-19] VITALS: Ht 175.3 cm; Wt 113.8 kg
[~2017-02-19 11:31] MED LIST changes: -ATRV10T PO; -SUCR1ORA PO; +SUCR1ORA2 PO
[2017-02-19 11:38] VITALS: BP 158/106; PULSE 99; RESP 24; O2SAT 99
[2017-02-19] MEDS ORDERED: Ondansetron 2 mg/mL 2 mL Inj IVPUSH ONE (11:45)
[2017-02-19] MEDS ORDERED: 0.9% Sodium Chloride 1,000 ML IV ONE ×3 (11:45→16:20)
[2017-02-19] MEDS ORDERED: Haloperidol 5 mg/mL Inj IVPUSH ONE (11:45)
[2017-02-19] MEDS ORDERED: MetoCLOpramide 5 mg/mL 2 mL Inj IVPUSH ONE ×2 (11:45→16:20)
--- NOTE | 2017-02-19 12:10 | ED.REPORT ---
HPI-Abd Pain M 40 and Over Date of Service Feb 19, 2017 ED Provider: Kailash Smith MD A 66 year old male with a history of EGD, hypertesion, diabetes, hyperlipidemia , anxiety, sciatica, osteomyelitis and diabetic gastroparesis presents to the ED complaining of nausea. The pt was discharged one week ago following an admission for osteomyelitis. He has since been taking oral medications and receiving injections of ceftriaxone. Since discharge, he has been experiencing worsening nausea, vomiting, diarrhea and intermittent LLQ abdominal pain. The pt also admits to incontinence of stool, which was present before he began taking the antibiotics but has worsened since. His current symptoms are the same character as those that he has experienced previously but are significantly more severe. He has been vomiting and retching all day and his pain has increased from a 5/10 initially to 8/10 currently. The pt has been extensively worked up with a diagnosis of diabetic gastroparesis. Nursing Notes Stated Complaint: ABDOMINAL PAIN/NAUSEA Chief Complaint: Male Abdominal Pain Nursing Notes Reviewed: Yes (just.me, Assured Labor not reocnciled) Allergies: Coded Allergies: hydrochlorothiazide (Verified Allergy, Severe, Anaphylaxis, 01/31/17) prochlorperazine (Verified Allergy, Severe, PHENOTHIAZINES, 01/31/17) benazepril (Verified Allergy, Unknown, 01/31/17) felodipine (Verified Allergy, Unknown, 01/31/17) losartan (Verified Allergy, Unknown, 01/31/17) Uncoded Allergies: "tiva brand medications" (Allergy, Intermediate, 09/18/14) Scheduled Amlodipine (Amlodipine) 10 Mg Tablet 10 MG PO QAM Aspirin (Aspirin) 81 Mg Tablet 81 MG PO QAM Clonidine (Clonidine) 0.2 Mg Tablet 0.2 MG PO BIDBL Diazepam (Diazepam) 10 Mg Tablet 10 MG PO TID Furosemide (Furosemide) 40 Mg Tablet 40 MG PO BID Metformin (Metformin) 500 Mg Tablet 500 MG PO TIDWM Metoprolol Tartrate (Metoprolol Tartrate) 50 Mg Tablet 50 MG PO BID Nut.tx.gluc.intoler,Lac-Fr,Soy (Glucerna Therapeutic Nutrition) 237 Ml Liquid 237 ML PO QID Omeprazole (Omeprazole) 20 Mg Capsule.dr 20 MG PO DAILY Ondansetron ODT (Ondansetron ODT) 8 Mg Tab.rapdis 8 MG PO QID Sucralfate Susp (Carafate Susp) 1 Gm/10 Ml Oral.susp 1 G PO TID Trazodone (Trazodone) 150 Mg Tablet 225 MG PO HS Venlafaxine ER (Venlafaxine ER) 150 Mg Cap.er.24h 150 MG PO QAM Scheduled PRN Bismuth Subsalicylate (Pepto-Bismol) 262 Mg Tab.chew 262 MG PO PRN PRN PRN For Dyspepsia or Heartburn Metoclopramide (Metoclopramide) 10 Mg Tablet 5-10 MG PO QID PRN PRN For Nausea Morphine Sulfate (Morphine Sulfate) 15 Mg Tablet 15 MG PO BID PRN PRN BACK PAIN General Time Seen by MD: 11:42 Chief Complaint Nausea Hx Obtained From: Patient Arrived By: Walk-in Sudden in Onset?: No Onset Occurred: 1 week ago Symptom Duration: Since onset Recent Healthcare: Recent doctor visit, Recent hospitalization Similar Sx Previous: Yes Past Medical History Past Medical History Notes: Patient discharged for underlying admission for osteomyelitis of the left foot 02/12/2017, receiving injections of ceftriaxone Recent workup for gastroparesis positive for delayed transit scan January 25 Past Medical History h/o Suicidal ideation Obesity Chronic Low back pain on chronic opiates Impaired fasting glucose without history of DM Degenerative joint disease of the lumbar spine Peripheral sensory neuropathy Sciatica Erectile dysfunction Chronic Benzodiazepine dependence with chronic anxiety - followed by Dr. Mendoza [facility] History of prior cauda equina syndrome and neurogenic bladder Gastroenteritis Reports: Coronary artery disease, Diabetes mellitus, Hyperlipidemia, Hypertension Past Surgical History Colonoscopy for chronic LLQ pain Negative [address] Desai EGD by Dr. Schmidt 2016 Reports: Appendectomy, Tonsillectomy Smoking History Never Smoker Social History Requests not to be placed under Dr. Chandler care. Reports that the relationship "does not click". Alcohol Use: Denies alcohol use Drug Use: Denies drug use, Valium Other Social History: Poor social support, Local resident Ambulatory Status Independent Review of Systems Review of Systems Note: incontinence of stool Respiratory: Denies: Non-productive cough, Shortness of breath Cardiovascular: Denies: Chest pain GI: Reports: Abdominal pain, Diarrhea, Nausea, Vomiting Musculoskeletal: Denies: Extremity pain, Neck pain Complete sys rev & neg: except as marked. Skin: Denies Rash Physical Exam Initial Vital Signs Vital Signs (First) Date Time Temp Pulse Resp B/P Pulse Ox O2 Delivery O2 Flow Rate FiO2 02/19/17 11:38 36.1 99 24 158/106 99 Room Air Initial VS: Reviewed, Vital signs normal General/Constitutional: Awake, Alert Behavior: Positive: Anxious, Tearful actively retching Respiratory / Chest: Atraumatic, Breath sounds NL, Breath sounds = bilat, No respiratory distress Cardiovascular: Heart rate NL, Regular rhythm, Heart sounds NL Abdomen: Atraumatic, Soft, Non-tender Back: Atraumatic, Full range of motion Head / Eyes: Atraumatic, Normocephalic, PERRL, EOMI ENT: Atraumatic, Airway patent, Mucous membranes moist Skin: Color NL, No rash, Warm, Dry Neurologic: Oriented X3, Speech NL, No motor deficits, No sensory deficits Neck: Atraumatic, Supple, Full range of motion Upper Extremity / MS: Atraumatic, Full range of motion Lower Extremity / Pelvis / MS: Full range of motion, Vascular intact left foot bandaged Psychiatric: Affect NL Interpretation & Diagnostics Lab Results Interpretation Result Diagram: 02/19/17 1225 02/19/17 1225 Test 02/19/17 12:25 02/19/17 13:33 White Blood Count 6.6th/mm3 (3.8-10.1) Red Blood Count 5.43mil/mm3 (4.40-5.80) Hemoglobin 15.4g/dL (13.8-17.2) Hematocrit 43.5% (41.0-50.0) Mean Corpuscular Volume 80.1fL (81-100) Mean Corpuscular Hemoglobin 28.4pg (27.0-35.0) Mean Corpuscular Hemoglobin Concent 35.4% (32.0-37.0) Red Cell Distribution Width 15.1% (12.3-15.4) Platelet Count 251bil/L (150-400) Neutrophils (%) (Auto) 72.7% (40-74) Lymphocytes (%) (Auto) 16.5% (14-46) Monocytes (%) (Auto) 8.9% (4-12) Eosinophils (%) (Auto) 1.5% (0-5) Basophils (%) (Auto) 0.2% (0-3) Erythrocyte Sedimentation Rate 4mm/hr (0-30) Sodium Level 137mEq/L (134-144) Potassium Level 4.5mEq/L (3.5-5.2) Chloride Level 100mEq/L (97-108) Carbon Dioxide Level 21mmol/L (18-29) Blood Urea Nitrogen 15mg/dL (8-27) Creatinine 0.96mg/dL (0.76-1.27) Estimat Glomerular Filtration Rate 84mL/min (>59) Glucose Level 220mg/dL (60-99) Calcium Level 9.1mg/dL (8.5-10.1) Total Bilirubin 0.4mg/dL (0.0-1.2) Aspartate Amino Transf (AST/SGOT) 24U/L (0-50) Alanine Aminotransferase (ALT/SGPT) 29U/L (0-44) Alkaline Phosphatase 86U/L (25-160) C-Reactive Protein 0.2mg/dL (0.0-0.5) Total Protein 7.7g/dL (6.4-8.4) Albumin 4.2g/dL (3.4-5.0) Lipase 27U/L (13-60) Lactic Acid Level 2.5mmol/L (0.4-2.0) Lab Results Interpretation: CBC normal except CMP hyperglycemia Lactic acid severely elevated, repeat lactic acid improving after IV fluids CT Abd / Pelvis Interpretation IMPRESSION: 1. Circumferential wall thickening involving the sigmoid colon which could be due to nondistention versus nonspecific colitis. 2. Appendix is not definitely visualized, however secondary signs of appendicitis identified adjacent to the cecum. 3. Colonic diverticulosis without evidence of diverticulitis. 4. Atherosclerosis including the visualized coronary vasculature. Dictated by: Alis More MD, PhD on 02/19/2017 at 14:46 Approved by: Alis More MD, PhD on 02/19/2017 at 14:55 Interpretation / Wet Read by: Interpret - Radiologist Re-Eval/Medical Decision Med Decision/Clinical Course This is a 66-year-old male who has recurrent abdominal pain nausea vomiting thought to be secondary to diabetic gastroparesis with gastric imaging study with delayed transit in December, reports that since his discharge from the hospital for gastroparesis and recent osteomyelitis, his had intractable nausea in his usual abdominal pain. He reports he is really not been able to take fluids, having a hard time taking his medicines, any specific getting daily injections of ceftriaxone at the [facility], but could not tolerate the ongoing pain and nausea and vomiting. He reports is the same type of symptoms he has had before, but the severity slightly worsened. He is also having some chronic diarrhea, which is also slightly worsened. Reports she is otherwise been doing well, his foot is been evaluated inspecting supervisor and appears to initially be responding. She has had recently wrapped, which is not due for dressing change of his dressing taken down at this time. Denies fevers or chills. He is due for a dose of ceftriaxone today at the [facility], and an additional dose tomorrow. On initial exam patient's tearful, extremely anxious, and moaning. His abdomen is clinically soft, without signs of cyn peritonitis. He does not clinically appears overtly dehydrated his symptoms might suggest. His left foot is in a bandage, and again he does not want to take down. An IV is placed is hydrated. Labs are notable for severe lactic acidosis that was a little surprising, so for this reason repeat CT imaging was obtained, but no definite or acute pathology is identified. Nonspecific findings are noted. The patient received multiple liters of fluid, multiple antiemetics, multiple pain medications and remains persistently symptomatic-that this point observation admission is still planned. However clinically I remain suspicious this remains likely diabetic gastroparesis induced, although with the elevated lactic acid seen today that not seen previously, I think is reasonable continue to watch. Given the patient has had multiple nephrotic exposures versus osteomyelitis, C. difficile is in the differential, but the patient reports chronic diarrhea with only marginal worsening which seems less likely to be pathology such as C. difficile Source of Hx: Old records Time of Eval: 17:11 Patient Status: Condition improved Re-Evaluation/Progress Note: Pt rechecked, whose condition has improved. He is still nauseated and experiencing abdominal pain, but these symptoms have lessened. The diagnosis and plan for admission are discussed. The pt understands and agrees with the plan. All questions are addressed at this time. 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 Woods, hospitalist, regarding pt's case. Dr. Woods agrees with the evaluation and agrees to admit the pt. Differential Diagnosis: Positive: Acute abdominal pain, Negative: Abdominal aortic aneurysm, Bowel obstruction, Esophageal rupture, Gun shot wound abdomen, Stab wound abdomen, Unstable angina Counseled Regarding: Diagnosis, Lab results, Need for admission Discharge & Departure Primary Impression: Gastroparesis Additional Impressions: Elevated lactic acid level Abdominal pain Abdominal location: generalized Qualified Code: R10.84 - Generalized abdominal pain Disposition: ADMITTED TO HOSPITAL Vital Signs - All Vital Signs Date Time Temp Pulse Resp B/P Pulse Ox O2 Delivery O2 Flow Rate FiO2 02/19/17 14:50 64 18 134/85 95 Room Air 02/19/17 11:38 36.1 99 24 158/106 99 Room Air )( All Prior VS Reviewed: Yes Condition: Stable Referrals: Elham Mendoza MD (PCP) Amari Schmidt MD, Anisa S DPM Scribe Attestation Portions of this note were transcribed by Antelmo Reyes. I, Dr. Smith personally performed the history, physical exam and medical decision-making; I reviewed and confirmed the accuracy of the information in the transcribed note. copies to: Elham Mendoza MD; Amari Schmidt MD; Ofe Nickerson DPM, Matthew F MD Feb 19, 2017 12:10 ANTELMO REYES Feb 19, 2017 12:17
[2017-02-19] MEDS ORDERED: cefTRIAXone Inj 2,000 MG in Dextrose 5% Minibag Plus 50 ML IV ONE (12:15)
[2017-02-19 12:37] LABS: BASOPHILS % (AUTO) 0.2 % (0-3); EOSINOPHILS % (AUTO) 1.5 % (0-5); MONOCYTES % (AUTO) 8.9 % (4-12); Mean Corpuscular Hemoglobin 28.4 pg (27.0-35.0); Mean Corpuscular Volume 80.1 fL (81-100); NEUTROPHILS % (AUTO) 72.7 % (40-74); Platelet Count 251 bil/L (150-400)
[2017-02-19 13:09] LABS: ERYTHROCYTE SEDIMENTATION RATE 4 mm/hr (0-30)
[2017-02-19 14:50] VITALS: BP 134/85; PULSE 64; RESP 18; O2SAT 95
[2017-02-19] MEDS ORDERED: METO10TA3 PO (15:17)
[2017-02-19] MEDS ORDERED: BISM262T15 PO (15:29)
--- NOTE | 2017-02-19 15:32 | NUR ---
Med history Med history obtained via med bottles and pt. report. Pt. states he has taken his morning meds and is due now for: valium, reglan, carafate, lasix, metformin, zofran and clonidine. Meds taken to pharmacy.
--- NOTE | 2017-02-19 15:57 | DRSVH ---
PROCEDURE: CT ABDOMEN AND PELVIS WITH CONTRAST ([id number]) INDICATIONS: abd pain, elevated lactic acid TECHNIQUE: After the administration of intravenous contrast, 5 mm thick sections acquired from the diaphragm to the symphysis. 5 mm coronal and sagittal reformats were acquired. For radiation dose reduction, the following was used: automated exposure control, adjustment of mA and/or kV according to patient siz e. COMPARISON: [facility], CT, ABD/PELVIS W/CON (PNL), 08/23/2010, 15:45. FINDINGS: Image quality: Excellent. ABDOMEN: Lung bases: Lung bases are clear. Heart size is normal. Solid organs: Liver and spleen are normal in size and enhancement. Gallbladder is within normal ovalle its. Biliary system is non dilated. Pancreas enhances normally. No adrenal nodules. Kidneys demon strate normal size and enhancement, without hydronephrosis. Peritoneum and bowel: Bowel loops demonstrate normal wall thickness and caliber. Numerous diverticul i noted in the colon without evidence of diverticulitis. Surgical surgical thickening noted in the si gmoid colon which could be due to nondistention versus nonspecific colitis. No free fluid or air. The appendix is not definitely visualized, however, no free fluid or inflammatory changes are noted erick cent to the cecum. Nodes and vessels: No retroperitoneal or mesenteric adenopathy by size criteria. Aorta and inferior vena cava are normal in size. Scattered atherosclerotic calcifications noted in the abdominal and pe lvic vasculature. Miscellaneous: No ventral hernias. PELVIS: Genitourinary: Bladder wall thickness is normal. Prostate is mildly enlarged. Miscellaneous: No inguinal hernias or adenopathy. Bones: No suspicious bony lesions. No vertebral body compression fractures. Spine degenerative disc disease and facet arthropathy. IMPRESSION: 1. Circumferential wall thickening involving the sigmoid colon which could be due to nondistention ve rsus nonspecific colitis. 2. Appendix is not definitely visualized, however secondary signs of appendicitis identified adjacent to the cecum. 3. Colonic diverticulosis without evidence of diverticulitis. 4. Atherosclerosis including the visualized coronary vasculature. Dictated by: Alis More MD, PhD on 02/19/2017 at 14:46 Approved by: Alis More MD, PhD on 02/19/2017 at 14:55
[2017-02-19] MEDS ORDERED: Polyethylene Glycol (PEG) 17 Gm Powder PO PRN (17:00)
[2017-02-19] MEDS ORDERED: Alum-Mag Hydrox-Simeth 30 mL Suspension PO PRN (17:00)
[2017-02-19] MEDS ORDERED: [UNRECOGNIZED DRUG - CODE] PO (17:23)
[2017-02-19 17:26] VITALS: BP 134/85; PULSE 64; RESP 18; O2SAT 95
[2017-02-19 17:34] LABS: Magnesium 1.8 mg/dL (1.6-2.6)
[2017-02-19 17:49] VITALS: BP 151/87; PULSE 64; RESP 20; O2SAT 96
[2017-02-19 17:50] VITALS: PULSE 65
[2017-02-19] MEDS: 0.9% Sodium Chloride 1,000 ML IV SCH (17:54)
--- NOTE | 2017-02-19 18:05 | NUR ---
Admit Patient received by jaswinder by nursing staff. A&O x4 Addendum: 02/19/17 at 1812 by JUAN PEDROZA RN Admit: able to make needs known verbally. able to transfer self to bed. c/o of abdominal pain. Given MS in the ED and states pain a 07/11. oriented to room and unit. Dressing to left foot clean,dry, and intact. IV NS running 100ml/hr, patent and infusing with no observed complications, will continue to monitor.
[2017-02-19] MEDS ORDERED: Methylnaltrexone 12 mg/0.6 mL Inj SUBQ SCH (18:40)
[2017-02-19] MEDS ORDERED: 0.9% Sodium Chloride 1,000 ML IV SCH (18:55)
--- NOTE | 2017-02-19 19:13 | PCM.HPMED ---
Subjective Date of Service Feb 19, 2017 Primary Provider: Admitting Physician: Primary Care Physician: Elham Mendoza MD Attending Physician: Admit Status: From the Emergency Department, Full Admit, Admit to [place] Team Chief Complaint: Intractable nausea and vomiting. . History of Present Illness: Baljit Cerna is a 66-year-old male with a past medical history significant for chronic low back pain with opiate habituation, diabetes mellitus type II, non-insulin using, with complication of diabetic neuropathy, gastroparesis, neurogenic bladder and diabetic foot ulcer with possible osteomyelitis, anxiety and depression with benzodiazepine dependence, chronic left lower quadrant abdominal pain who presented to [facility] emergency Department due to worsening nausea, vomiting, and left lower quadrant abdominal pain. The patient was discharged one week ago following an admission for osteomyelitis. He has since been taking oral medications and receiving injections of ceftriaxone. Since discharge, he has been experiencing worsening nausea, vomiting, diarrhea and intermittent LLQ abdominal pain. He also admits to incontinence of stool, which was present before he began taking the antibiotics but has sent worsened. His current symptoms are the same character as those that he has experienced previously but are significantly more severe. He has been vomiting and retching all day and his pain has increased from a + 5 out of 10 to a +8 out of 10 on admission. Patient's left lower quadrant abdominal pain has been extensively worked up with a diagnosis of diabetic gastroparesis. He denies headache, chest pain, shortness of breath, sore throat, cough, fever , chills, dysuria, constipation, obstipation, hematochezia or melena. He does endorse chronic diarrhea. Vital signs in the ER: Temperature 36.1. Pulse 99. Respiratory rate 24. Blood pressure 134/85. Pulse ox 99% on room air. The patient received lorazepam IV 1 mg 1, morphine sulfate IV 4 mg 2, ondansetron IV 8 mg 1 Reglan IV 10 mg 1, haloperidol 2 mg 1, ceftriaxone IV 2 g 1, and 3 L of NS. PCP is Dr. Elham Mendoza. . Review of Systems: A comprehensive review of systems was conducted with the patient and found to be negative except as above in the History of Present Illness. . Allergies Coded Allergies: hydrochlorothiazide (Verified Allergy, Severe, Anaphylaxis, 02/19/17) prochlorperazine (Verified Allergy, Severe, PHENOTHIAZINES, 02/19/17) benazepril (Verified Allergy, Unknown, 02/19/17) felodipine (Verified Allergy, Unknown, 02/19/17) losartan (Verified Allergy, Unknown, 02/19/17) Uncoded Allergies: "tiva brand medications" (Allergy, Intermediate, 09/18/14) Home Medications Amlodipine 10 mg daily. Aspirin 81 mg daily. Pepto-Bismol 262 mg as needed. Clonidine 0.2 mg twice a day. Diazepam 10 mg 3 times a day. Furosemide 40 mg twice a day. Metformin 100 mg 3 times a day with meals. Metoclopramide 5-10 mg 4 times a day as needed for gastroparesis. Metoprolol tartrate 50 mg twice a day. Morphine sulfate 15 mg twice a day as needed for pain. Glucerna 4 times a day. Omeprazole 20 mg daily. Ondansetron 8 mg 4 times a day. Sucralfate 1 g 3 times a day. Trazodone 225 mg daily at bedtime. Venlafaxine 150 mg daily. PMH 1. Obesity 2. Chronic low back pain with opiate habituation. 3. Diabetes mellitus type II, with complication of diabetic neuropathy. 4. History of suicidal ideation. 5. Depression and anxiety with benzodiazepine dependence. 6. Degenerative joint disease of the lumbar spine. 7. History of prior cauda equina syndrome and neurogenic bladder. 8. Coronary artery disease. 9. Hyperlipidemia. 10. Hypertension. 11. Gastroparesis. 12. Osteomyelitis with chronic diabetic foot ulcer. 13. History of right perimandibular abscess with cellulitis 14. Diverticulitis without history of diverticulitis. 15. GERD. . Surgical History 1. Appendectomy. 2. Colonoscopy. 3. Tonsillectomy with adenoidectomy. . Family History Mother who of heart disease in her 80s. Father who of diabetes mellitus type II at 34 years old. Brother of lung cancer with bone metastases. . Social History Hx Alcohol Use: No Hx Substance Use: Yes (marijuana in 1960) Hx Tobacco Use: No Smoking Status: Never Smoker Additional Information The patient is 4. Has no children of his own. 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 Exam Vital Signs Vital Sign - Last Date Time Temp Pulse Resp B/P Pulse Ox O2 Delivery O2 Flow Rate FiO2 9/21/17 14:50 64 18 134/85 95 Room Air 02/19/17 11:38 36.1 Exam General: Elderly gentleman lying in bed and in no acute distress, extremely anxious, well-developed, well-nourished. HEENT: Normocephalic, atraumatic. External ears without defect. Pupils equal, round, and reactive to light. Anicteric sclerae, moist conjunctivae, and no lid lag. Oropharynx free of erythema and cobble stoning with moist mucosa. Neck: Supple with full range of motion. No jugular venous distension. No bruits. No lymphadenopathy or thyromegaly. Cardiovascular: Regular rate and rhythm without murmurs, rubs, or gallops appreciated Pulmonary: Clear to auscultation bilaterally without crackles, wheezes, or rhonchi. Normal respiratory effort with no use of accessory muscles. Abdomen: Soft, mild tenderness to palpation diffusely, nondistended, bowel sounds present. No hepatosplenomegaly or masses appreciated. Extremities: No clubbing, cyanosis, or edema. Left foot wrapped in bandage c/d/ i. Skin: Normal temperature, turgor, and texture; no rash, ulcers, or subcutaneous nodules appreciated. Neurological: Cranial nerves grossly intact. Normal muscle strength, tone, and bulk. Reflexes, coordination, and sensory function within normal limits. No known gait impairment. Psychiatric: Anxious with flat affect. Alert and oriented to person, place, and time. . Lab and Diagnostics Labs Item Value Date Time Lactic Acid Level 4.2 mmol/L *H 02/19/17 1225 Lactic Acid Level 2.5 mmol/L H 02/19/17 1333 Item Value Date Time Calcium Level 9.1 mg/dL 02/19/17 1225 Total Bilirubin 0.4 mg/dL 02/19/17 1225 Aspartate Amino Transf (AST/SGOT) 24 U/L 02/19/17 1225 Alanine Aminotransferase (ALT/SGPT) 29 U/L 02/19/17 1225 Alkaline Phosphatase 86 U/L 02/19/17 1225 C-Reactive Protein 0.2 mg/dL 02/19/17 1225 Total Protein 7.7 g/dL 02/19/17 1225 Albumin 4.2 g/dL 02/19/17 1225 Lipase 27 U/L 02/19/17 1225 Result Diagram: 02/19/17 1225 02/19/17 1225 Microbiology Blood culture 2 pending. . X-Rays, CTs and MRIs CT ABDOMEN AND PELVIS WITH CONTRAST IMPRESSION: 1. Circumferential wall thickening involving the sigmoid colon which could be due to nondistention versus nonspecific colitis. 2. Appendix is not definitely visualized, however secondary signs of appendicitis identified adjacent to the cecum. 3. Colonic diverticulosis without evidence of diverticulitis. 4. Atherosclerosis including the visualized coronary vasculature. Dictated by: Alis More MD, PhD on 02/19/2017 at 14:46 . Assessment & Plan Baljit Cerna is a 66-year-old male with a past medical history significant for chronic low back pain with opiate habituation, diabetes mellitus type II, non-insulin using, with complication of diabetic neuropathy, gastroparesis, neurogenic bladder and diabetic foot ulcer with possible osteomyelitis, anxiety and depression with benzodiazepine dependence, chronic left lower quadrant abdominal pain who presented to [facility] emergency Department due to worsening nausea, vomiting, and left lower quadrant abdominal pain. 1. Colitis, acuity unclear, present on admission. Active. - Patient presented with nausea, vomiting, diarrhea and left lower quadrant abdominal pain. Afebrile without leukocytosis. - Likely secondary to chronic opiate use and opiate-induced constipation with encopresis and gastroparesis. Less likely differential diagnosis includes infectious etiology (viral versus bacterial) versus IBD versus malignancy. - CT abdomen and pelvis with contrast demonstrated circumferential wall thickening involving the sigmoid colon which could be due to nondistention versus nonspecific colitis, as above. - ESR 4 and CRP 0.2. Pro-calcitonin 0.03. - Ordered stool PCR to rule out infectious causes. We will place in contact precautions until resulted. - Ordered Relistor 12 mg subcutaneous every 48 hours. - Continue with supportive care for now including anti-emetics and IV morphine as needed. - Continue home PPI and Carafate. - During a recent hospitalization he had an extensive workup including EGD, HIDA scan, gastric emptying study, and psych evaluation and was supposed to have colonoscopy as outpatient which he did not follow to set up. - Consider re-consulting GI for consideration of colonoscopy as inpatient vs rescheduling as outpatient. 2. Acute lactic acidosis, present on admission. Resolving. - Likely secondary to vomiting and dehydration. - Initial lactic acid 4.2. Now trending down at 2.5 with fluid administration. - Received 3 L of NS. Continue IV fluid hydration with NS at 100 mL/hr. Chronic problems: 3. Chronic left diabetic foot ulcer with possible osteomyelitis, present on admission. Stable. - The patients left foot ulcer is clinically stable without active symptoms. Afebrile without leukocytosis. - ESR 4 and CRP 0.2. Pro-calcitonin 0.03. - Continue with IV Ceftriaxone until tomorrow to complete course. - Continue with supportive care including pain medications as needed. - Ordered wound care nurse evaluation. - Will consult Dr. Nickerson while the patients here during this hospitalization to make further recommendations regarding antibiotic therapy. 4. Diabetes mellitus type II, non-insulin using, with complication of diabetic neuropathy, present on admission. Stable. - Last hemoglobin A1c was 7.1% on 01/18/2017. Repeat hemoglobin A1c pending. - Discontinued metformin for now due to lactic acidosis. May restart at time of discharge. - Ordered low-dose correctional scale insulin. - Ordered a heart healthy/carbohydrate consistent diet. 5. Gastroparesis, present on admission. Stable. - Continue metoclopramide 5-10 mg 4 times a day as needed for gastroparesis. 6. Hypertension, present on admission. Stable. - Continue amlodipine 10 mg daily, clonidine 0.2 mg twice a day, furosemide 40 mg twice a day, and metoprolol tartrate 50 mg twice a day. - Continue aspirin 81 mg daily. 7. Anxiety and depression, present on admission. Stable. - Continue venlafaxine 150 mg daily and equivalent to diazepam 10 mg 3 times a day. 8. Chronic back pain with opiate of the duration, present on admission. Stable. - Continue home regimen of morphine sulfate 15 mg twice a day as needed for pain. 9. GERD, present on admission. Stable. - Continue omeprazole 20 mg daily. 10. Insomnia, present on admission. Stable. - Continue trazodone 225 mg daily at bedtime. PRN antiemetics: Zofran and Maalox. PRN bowel regimen: Senna and MiraLAX. PRN analgesics: Tylenol. Patient is admitted under observation status with expected length of stay less than 2 midnights due to severity of presenting symptoms, risk of adverse event, and complexity of treatment plan. . VTE Prophylaxis: Sub-Q Heparin (Unfractionated) Resuscitation Status: CPR: Attempt Resuscitation copies to: Elham Mendoza MD, [place] M DO Feb 19, 2017 17:00
[2017-02-19] MEDS ORDERED: Glucose 40% Oral Gel 15 Gm Tube PO PRN (19:40)
[2017-02-19] MEDS ORDERED: Dextrose 10% 250 ML IV PRN (19:45)
[2017-02-19] MEDS ORDERED: TRAZODONE 150 MG PO SCH (21:00)
[2017-02-19] MEDS: Sucralfate 100 mg/mL 10 mL Suspension PO SCH (21:47)
[2017-02-19] MEDS: Insulin LISPRO 300 Unit/3 mL Inj SUBQ SCH (22:00)
[2017-02-19] MEDS: TRAZODONE PO SCH ×2 (22:08)
[2017-02-19 22:22] VITALS: BP 157/66; PULSE 61; RESP 16; O2SAT 94
[2017-02-19] MEDS: Heparin 5,000 Unit/mL Inj SUBQ SCH (23:39)
[2017-02-20] VITALS (9 sets, daily range): BP systolic 145–161; BP diastolic 75–88; PULSE 54–76; RESP 16–20; O2SAT 95–98
[2017-02-20] MEDS: 0.9% Sodium Chloride 1,000 ML IV SCH ×3 (02:09→22:16)
[2017-02-20] MEDS: Pantoprazole 20 mg ER24 Tablet PO SCH (06:05)
--- NOTE | 2017-02-20 06:07 | NUR ---
Shift Note/Bowel Movement assumed pt care at 1900, pt had one time order for relistor, pt refused to take at PM, requested to take in am, retimed, pt had 2 medium formed bowel movement tonight. sample sent for GI PCR, pending, call light in reach at all times.
[2017-02-20 06:35] LABS: BASOPHILS % (AUTO) 0.5 % (0-3); EOSINOPHILS % (AUTO) 4.5 % (0-5); MONOCYTES % (AUTO) 12.9 % (4-12); Mean Corpuscular Hemoglobin 28.5 pg (27.0-35.0); Platelet Count 178 bil/L (150-400)
[2017-02-20] MEDS: Insulin LISPRO 300 Unit/3 mL Inj SUBQ SCH ×4 (08:00→22:00)
[2017-02-20] MEDS ORDERED: Methylnaltrexone 12 mg/0.6 mL Inj SUBQ ONE (08:30)
[2017-02-20] MEDS: Venlafaxine XR 75 mg ER24 Capsule PO SCH (08:46)
[2017-02-20] MEDS: Heparin 5,000 Unit/mL Inj SUBQ SCH ×2 (09:43→16:03)
[2017-02-20] MEDS: Sucralfate 100 mg/mL 10 mL Suspension PO SCH ×3 (09:44→20:46)
--- NOTE | 2017-02-20 12:13 | CONS ---
[address] [address] CONSULTATION REPORT PATIENT: BIBI YANES : 1950 MR#: [id number] ADMIT: 02/19/2017 JOB ID: [id number] DATE OF SERVICE: 02/20/2017 GASTROENTEROLOGY CONSULTATION: REASON FOR CONSULTATION: Abdominal pain. HISTORY OF PRESENT ILLNESS: A 66-year-old male with a history of opioid dependence for the past 20 years for back pain, type 2 diabetes complicated by diabetic neuropathy, and osteomyelitis of his foot, neurogenic bladder, diabetic foot ulcer, anxiety, depression with benzodiazepine dependence, history of gastroparesis that was positive on gastric emptying study recently on January 21, 2017 which showed 12% retained at 4 hours presents here for chronic abdominal pain. The patient describes chronic abdominal pain, diffuse, especially in left lower quadrant region since being discharged from the hospital. The patient was worked up on his last admission from GI. In the past, the patient has undergone a CT abdomen and pelvis. In the past, the patient has undergone a gastric emptying study January 20, 2017, which showed 12% retained at 4 hours, a small bowel series that was done on January 23, 2017 which was normal, a CK HIDA scan that was done on January 19, 2017 which was normal with an 80% ejection fraction. The patient underwent a CT of the abdomen and pelvis February 19, 2017 which shows mild circumferential wall thickening of the sigmoid colon which is most likely due to under distention, colon diverticulosis without diverticulitis and atherosclerosis visualized in the coronary vasculature. In the past, the patient underwent an upper endoscopy performed by Dr. Amari Schmidt on January 26, 2017, which showed erosive gastropathy with erosions and ulcers superficially status post biopsy, mild esophagitis and bilious material seen in bowel reflux. It was recommended that the patient should be a Protonix 40 mg once a day and Carafate at that point in time. The patient states that he had a colonoscopy six years ago which was normal. I have no records. The patient denies family history of colon cancer, inflammatory bowel disease or celiac disease. The patient currently denies rectal bleeding, mild nausea, and denies unintentional weight loss. During this entire episode while I am talking to the patient, the patient was quite emotional and was starting to cry during this time. The patient presents for further evaluation. The patient also states that he has had diarrhea since being discharged but during this hospital stay the patient has had three bowel movements which were well formed and normal. PAST MEDICAL HISTORY: As stated above. PAST SURGERIES: 1. Appendectomy. 2. Tonsillectomy. ALLERGIES: To HYDROCHLOROTHIAZIDE, PROMETHAZINE, BENAZEPRIL, FELODIPINE, LOSARTAN and ACTIVA. HOME MEDICATIONS: 1. Amlodipine. 2. Aspirin. 3. Pepto-Bismol. 4. Clonidine. 5. Diazepam. 6. Lasix. 7. Metformin. 8. Reglan. 9. Metoprolol. 10. Morphine 15 g twice a day. 11. Glucerna 4x a day. 12. Omeprazole. 13. Zofran. 14. Sucralfate. 15. Trazodone. 16. Venlafaxine. SOCIAL HISTORY: Does marijuana. No IV drug use. No alcohol. FAMILY HISTORY: Negative for IBD, celiac disease or colon cancer. REVIEW OF SYSTEMS: The patient denies headache, blurry vision. Positive for nausea. No vomiting. No chest pain, shortness of breath. Positive abdominal pain. No skin rash or joint pain. PHYSICAL EXAMINATION: Vital signs upon presentation: Temperature is 37.4, pulse 60, respiratory rate 18, satting 98% on room air. Blood pressure 145/75. General: In no acute distress, but he appears to be anxious and emotional. HEENT: No scars. Eyes: Intact. Throat supple. Lungs: Clear to auscultation bilaterally. Cardiovascular: Regular rate. Abdomen: Soft, nondistended. Positive diffuse pain upon palpation everywhere, normoactive bowel sounds. Extremities: No cyanosis, clubbing or edema. LABORATORIES: White count 5.8, hemoglobin 12.8, hematocrit 36, platelet count of 178. Sodium 142, potassium 4.1, chloride 106, bicarbonate 23, creatinine 0.7, glucose 89. Hemoglobin A1c 6.2. Lactic acid 1.7. Calcium 8.1, magnesium 1.8. Total bili 0.4. AST 24, ALT 29, alk phos 86, total protein 7.7, albumin 4.2, lipase 27. ASSESSMENT AND PLAN: This is a 66-year-old male with history of chronic opioid dependence as an outpatient for the last 20 years due to the back pain, diabetes type 2, complicated by neuropathy, neurogenic bladder and foot ulcer with osteomyelitis, history of depression with benzodiazepines dependence presents here with chronic abdominal pain. The patient had a gastric emptying that was slightly positive 12% at 4 hours for gastroparesis and then upper endoscopy which showed superficial erosions and ulcers recently. At this point in time, I believe that the patient's abdominal pain is multifactorial which includes opioid dependence and hx DM causing his gastroparesis perhaps from autonomic neuropathy/opioids and also a psychosocial component. The patient already had a thorough GI workup. See hpi. RECOMMENDATIONS: 1. No further GI intervention in terms of endoscopies at this time. 2. I would recommend an outpatient pain management consultation to wean the patient off the narcotics if possible. 3. The patient has a scheduled followup with GI Clinic with Dr. Schmidt as an outpatient. 4. Try to wean off narcotics if possible. MTDD
[2017-02-20] MEDS ORDERED: cefTRIAXone Inj 2,000 MG in Dextrose 5% Minibag Plus 50 ML IV ONE (13:00)
--- NOTE | 2017-02-20 13:15 | NUR ---
ELECTRO TECH screened out as patient has lower GI concerns. Tolerating current diet well. No evaluation completed. Please refer with any new or worsening swallowing function.
--- NOTE | 2017-02-20 13:36 | PCM.PNMED ---
Subjective Date of Service Feb 20, 2017 Subjective Patient seen and examined. Crying in pain, however vitals not indicative of any stress. Exam Vital Signs Vital Sign - Last Date Time Temp Pulse Resp B/P Pulse Ox O2 Delivery O2 Flow Rate FiO2 02/20/17 08:50 37.4 63 18 145/75 98 Room Air Intake and Output 02/19/17 02/19/17 02/20/17 Cumulative From/Thru 15:00 23:00 07:00 02/19/17 11:38 - 02/20/17 05:13 Intake Total 1998 ml 999 ml 1495 ml 4492 ml Output Total 780 ml 780 ml Balance 1998 ml 999 ml 715 ml 3712 ml Intake Oral 375 ml 375 ml IV Total 1998 ml 999 ml 1120 ml 4117 ml Output Urine Total 780 ml 780 ml Exam General: Elderly gentleman lying in bed crying in pain. Neck: Supple with full range of motion. No jugular venous distension. No bruits. No lymphadenopathy or thyromegaly. Cardiovascular: Regular rate and rhythm without murmurs, rubs, or gallops appreciated Pulmonary: Clear to auscultation bilaterally without crackles, wheezes, or rhonchi. Normal respiratory effort with no use of accessory muscles. Abdomen: Soft, mild tenderness to palpation diffusely, nondistended, bowel sounds present. No hepatosplenomegaly or masses appreciated. Extremities: No clubbing, cyanosis, or edema. Left foot wrapped in bandage c/d/ i. Lab and Diagnostics Result Diagram: 02/20/17 0600 02/20/17 0600 Microbiology Blood culture 2 pending. . X-Rays, CTs and MRIs CT ABDOMEN AND PELVIS WITH CONTRAST IMPRESSION: 1. Circumferential wall thickening involving the sigmoid colon which could be due to nondistention versus nonspecific colitis. 2. Appendix is not definitely visualized, however secondary signs of appendicitis identified adjacent to the cecum. 3. Colonic diverticulosis without evidence of diverticulitis. 4. Atherosclerosis including the visualized coronary vasculature. Dictated by: Alis More MD, PhD on 02/19/2017 at 14:46 . Assessment & Plan Baljit Cerna is a 66-year-old male with a past medical history significant for chronic low back pain with opiate habituation, diabetes mellitus type II, non-insulin using, with complication of diabetic neuropathy, gastroparesis, neurogenic bladder and diabetic foot ulcer with possible osteomyelitis, anxiety and depression with benzodiazepine dependence, chronic left lower quadrant abdominal pain who presented to [facility] emergency Department due to worsening nausea, vomiting, and left lower quadrant abdominal pain. 1. Colitis, acuity unclear, present on admission. under evalutaiton. - Patient presented with nausea, vomiting, diarrhea and left lower quadrant abdominal pain. Afebrile without leukocytosis. - Likely secondary to chronic opiate use and opiate-induced constipation with encopresis and gastroparesis - CT abdomen and pelvis with contrast demonstrated circumferential wall thickening involving the sigmoid colon which could be due to nondistention versus nonspecific colitis, as above. - ESR 4 and CRP 0.2. Pro-calcitonin 0.03. - Stool PCR -ve - Continue with supportive care for now including anti-emetics and IV morphine as needed. Will wean of the iv pain meds - Continue home PPI and Carafate. - During a recent hospitalization he had an extensive workup including EGD, HIDA scan, gastric emptying study, and psych evaluation and was supposed to have colonoscopy as outpatient which he did not follow to set up. - GI saw the patient, appreciate recs. 2. Acute lactic acidosis, present on admission. Resolved - Likely secondary to vomiting and dehydration. - Initial lactic acid 4.2. Now trending down at 2.5 with fluid administration. - Received 3 L of NS. Continue IV fluid hydration with NS at 100 mL/hr. Chronic problems: 3. Chronic left diabetic foot ulcer with possible osteomyelitis, present on admission. Stable. - The patients left foot ulcer is clinically stable without active symptoms. Afebrile without leukocytosis. - ESR 4 and CRP 0.2. Pro-calcitonin 0.03. - Finished IV Ceftriaxone - Continue with supportive care including pain medications as needed. -Wound care with outpatient follow up with podiatry 4. Diabetes mellitus type II, non-insulin using, with complication of diabetic neuropathy, present on admission. Stable. - Last hemoglobin A1c was 7.1% on 01/18/2017. - Discontinued metformin for now due to lactic acidosis. May restart at time of discharge. - Ordered low-dose correctional scale insulin. - Ordered a heart healthy/carbohydrate consistent diet. 5. Gastroparesis, present on admission. Stable. - Continue metoclopramide 5-10 mg 4 times a day as needed for gastroparesis. 6. Hypertension, present on admission. Stable. - Continue amlodipine 10 mg daily, clonidine 0.2 mg twice a day, furosemide 40 mg twice a day, and metoprolol tartrate 50 mg twice a day. - Continue aspirin 81 mg daily. 7. Anxiety and depression, present on admission. Stable. - Continue venlafaxine 150 mg daily and equivalent to diazepam 10 mg 3 times a day. 8. Chronic back pain with opiate of the duration, present on admission. Stable. - Continue home regimen of morphine sulfate 15 mg twice a day as needed for pain. 9. GERD, present on admission. Stable. - Continue omeprazole 20 mg daily. 10. Insomnia, present on admission. Stable. - Continue trazodone 225 mg daily at bedtime. PRN antiemetics: Zofran and Maalox. PRN bowel regimen: Senna and MiraLAX. PRN analgesics: Tylenol. Patient is admitted under observation status with expected length of stay less than 2 midnights due to severity of presenting symptoms, risk of adverse event, and complexity of treatment plan. . VTE Prophylaxis: Sub-Q Heparin (Unfractionated) Resuscitation Status: CPR: Attempt Resuscitation Time spent 35 mins Robert Woods MD Feb 20, 2017 13:36
--- NOTE | 2017-02-20 15:02 | NUR ---
Inpatient Wound Nurse Patient is normally seen by Dr. Nickerson. He requires wound care to L medial great toe. Incision is approximated and sutures are intact. A crusted, circular wound 0.5 cm L x 0.5 cm W is noted on plantar surface of joint. Periwound erythema is significant. Patient denied pain in toe. He is very anxious regarding all his health concerns, specifically changes to morphine regimen. Dressing was removed and wound cleansed with NS and blotted dry. It was then covered with nonadherent gauze, then foot wrapped in Kerlix. Patient was offered the XL offloading surgical sandal the stocks and he felt that it was too big. His foot dimensions are longer than the sole of the L sandal. Patient apparently has gluteal wound that is, he says, mostly healed. Apparently staff nurses have changed this dressing for him. Patient stated that dressing was changed yesterday and so, it does not require care today. If patient is still here on Thursday, CWON will see and change both dressings.
--- NOTE | 2017-02-20 15:57 | NUR ---
NUTRITION ASSESSMENT: ASSESS: 66 YO male admitted for abdominal pain, chronic L toe ulcer s/p amputation. GI consulted notes abdominal pain likely multifactorial, related to opioid dependence and h/o DM causing gastroparesis. PO variable. PMHx: Suicidal ideation, obesity, low back pain, DJD, erectile dysfunction, gastroenteritis, CAD, DM, HTN, hyperlipidemia, gastroparesis, gastritis. LABS: Reviewed. Ca 8.1 MEDS: Reviewed. GI: BM x 2 (02/19)--per MD notes SKIN: L toe amputation site. CURRENT WT: 113.8 kg. IBW: 80.9 kg. DIET: heart healthy, diabetic, [employer] reports no concerns, diet remains as ordered. EST. NEEDS: [id number] kcals (20-22 kcals/kg BW), 100-120 g protein (1.2-1.5 g/kg IBW) : Based on UBW:111.5kg NUTRITION DIAGNOSIS: 1.) Altered GI tract function likely related to gastroparesis as evidenced by abdominal pain. NUTRITION INTERVENTION: 1.) Will modify diet to better meet gastroparesis diet restrictions, including low fat/fiber and small portions + snacks. MONITOR / EVAL: PO intake, labs, nutritional status. Follow per moderate nutritional risk guidelines.
--- NOTE | 2017-02-20 16:40 | NUR ---
Shift Note Patient is upset today with pain medication dosing and MD following his care/providing orders. He was worked up this morning and intermittently crying stating, "I can't take the pain". He specifies that he would like 4mg of Morphine q4hr and is displeased with the 2mg of Morphine q4hr dosing, and then the subsequent 2mg of Morphine q6hr dosing that was ordered. Dr. Woods at to explain orders. Patient does not want Dr. Woods as his doctor. Therapeutic communication and heat therapy used to calm, soothe, and distract patient from pain. By noon, his mood was calmer, and no crying observed for the rest of the day. VSS. KIN did speak with patient regarding his care concerns. GI consult this morning - MD did not provide any new recommendations at this time. Continuing to work with this patient's pain and anxiety throughout the shift.
--- NOTE | 2017-02-20 17:13 | NUR ---
Social Work: Initial Assessment / Multidisciplinary Rounds Data: See initial assessment. Patient is a 66 year old male who was admitted on 02/19/17 for elevated lactic acid per H&P. Patient's insurance is [employer] and his PCP is Dr. Elham Mendoza.EMR reviewed. Pt's readmission score is 5-high risk. SW met with pt at bedside to discuss discharge planning, SW role explained. Pt is alert and oriented x3. Pt resides at home alone in [place] where he remains independent with ADLs. P drives and does not use any DME. Pt has no HH or SNF history. Pt has no residential care insurance or VA benefits. SW discussed DPOA/ advanced directive, pt declining any information at this time. SW provided patient with a discharge planning checklist and encouraged to call with any questions,phone number provided on white board in room. Pt has history of MOC for IV abx and goes to [facility] [place] and sees Dr. Nickerson. Pt expressed frustration about his MD and would like to switch doctors. SW updated RN who will work on this. Pt plans on driving himself home at discharge. No anticipated discharge needs. SW will continue to follow if needs arise. Assessment:pt who is independent at baseline. Plan: Pt to discharge home when medically stable via POV. No anticipated discharge needs. SW will continue to follow if needs arise. TEMI Hernandez Addendum: 02/20/17 at 1717 by DRE ANSARI SS Amended: Links added.
[2017-02-20] MEDS: Ondansetron 2 mg/mL 2 mL Inj IVPUSH PRN (20:46)
--- NOTE | 2017-02-20 21:42 | NUR ---
Pain Management Pt. continues to worry about his pain management. He stated he needs MS 4mg Q4 has he was given in the ED. This nurse explain to him the reasons for his dosing but the Pt. was adamant about talking to the On-Call doctor to increase his MS from 2Mg Q6 to 4Mg Q4. On-Call was paged and responded with he would be happy to talk to the Pt. but he could not change the order. Pt. was told this information but still wanted to talk to the doctor. On-Call was paged again and he came to bedside and talked with the Pt. about his treatment plan. Pt. was excepting of information and stated he would just live with the pain till he was able to talk to the day shift doctor. Pt. states his pain is 7/10 but shows no SxS of pain and besides his statements is resting comfortably in bed.VSS ALLEGRA
[2017-02-20] MEDS: TRAZODONE PO SCH ×2 (22:59)
[2017-02-21] VITALS (9 sets, daily range): BP systolic 146–161; BP diastolic 75–105; PULSE 56–92; RESP 16; O2SAT 93–100
[2017-02-21] MEDS: Heparin 5,000 Unit/mL Inj SUBQ SCH ×3 (00:30→16:20)
--- NOTE | 2017-02-21 05:07 | NUR ---
Pain Patient was fine during this shift with current pain management plan. No reports of pain being unmanageable. VSS WCTM
[2017-02-21] MEDS: Pantoprazole 20 mg ER24 Tablet PO SCH (06:04)
[2017-02-21] MEDS: Ondansetron 2 mg/mL 2 mL Inj IVPUSH PRN ×4 (06:04→22:03)
[2017-02-21] MEDS: Insulin LISPRO 300 Unit/3 mL Inj SUBQ SCH ×4 (08:00→22:00)
[2017-02-21] MEDS: 0.9% Sodium Chloride 1,000 ML IV SCH ×2 (08:22→18:57)
[2017-02-21] MEDS: Sucralfate 100 mg/mL 10 mL Suspension PO SCH ×3 (08:22→20:35)
[2017-02-21] MEDS: Venlafaxine XR 75 mg ER24 Capsule PO SCH (08:23)
--- NOTE | 2017-02-21 14:05 | PCM.PNMED ---
Subjective Date of Service Feb 21, 2017 Subjective no overnight event, pt still eat not well, but denied n/v, still has persistent LLQ pain, requring morphine 2mg iv and 15mg IR po not comfortable leaving today Exam Vital Signs Vital Sign - Last Date Time Temp Pulse Resp B/P Pulse Ox O2 Delivery O2 Flow Rate FiO2 02/21/17 06:21 56 02/21/17 06:19 36.6 16 153/75 95 Room Air Intake and Output 02/20/17 02/20/17 02/21/17 Cumulative From/Thru 15:00 23:00 07:00 02/19/17 11:38 - 02/21/17 06:20 Intake Total 4737 ml 1191 ml 98077 ml Output Total 275 ml 2200 ml 1500 ml 4755 ml Balance -275 ml 2537 ml -309 ml 5665 ml Intake Oral 1750 ml 400 ml 2525 ml IV Total 2987 ml 791 ml 7895 ml Output Urine Total 275 ml 2200 ml 1500 ml 4755 ml Exam NAD S,ND,mildly tender on LLQ, BS+ IVs and Medications Medications Reviewed: Medications were reviewed in detail Lab and Diagnostics Result Diagram: 02/20/17 0600 02/20/17 0600 Microbiology Blood culture 2 pending. . X-Rays, CTs and MRIs CT ABDOMEN AND PELVIS WITH CONTRAST IMPRESSION: 1. Circumferential wall thickening involving the sigmoid colon which could be due to nondistention versus nonspecific colitis. 2. Appendix is not definitely visualized, however secondary signs of appendicitis identified adjacent to the cecum. 3. Colonic diverticulosis without evidence of diverticulitis. 4. Atherosclerosis including the visualized coronary vasculature. Dictated by: Alis More MD, PhD on 02/19/2017 at 14:46 . Assessment & Plan Baljit Cerna is a 66-year-old male with a past medical history significant for chronic low back pain with opiate habituation, diabetes mellitus type II, non-insulin using, with complication of diabetic neuropathy, gastroparesis, neurogenic bladder and diabetic foot ulcer with possible osteomyelitis, anxiety and depression with benzodiazepine dependence, chronic left lower quadrant abdominal pain who presented to [facility] emergency Department due to worsening nausea, vomiting, and left lower quadrant abdominal pain. 1. Colitis, acuity unclear, present on admission. under evalutaiton. Patient presented with nausea, vomiting, diarrhea and left lower quadrant abdominal pain. Afebrile without leukocytosis. Likely secondary to chronic opiate use and opiate-induced constipation with encopresis and gastroparesis CT abdomen and pelvis with contrast demonstrated circumferential wall thickening involving the sigmoid colon which could be due to nondistention versus nonspecific colitis , as above. ESR 4 and CRP 0.2. Pro-calcitonin 0.03. Stool PCR -ve - pt still requiring morphine for pain, will continue supportive care for now including anti-emetics and IV morphine as needed. Will wean of the iv pain meds - Continue home PPI and Carafate. - During a recent hospitalization he had an extensive workup including EGD, HIDA scan, gastric emptying study, and psych evaluation and was supposed to have colonoscopy as outpatient which he did not follow to set up. - GI saw the patient, no further recommendation, FU as outpt. 2. Acute lactic acidosis, present on admission. Resolved - Likely secondary to vomiting and dehydration. - Initial lactic acid 4.2. Now trending down at 2.5 with fluid administration. - Received 3 L of NS. Continue IV fluid hydration with NS at 100 mL/hr. Chronic problems: 3. Chronic left diabetic foot ulcer with possible osteomyelitis, present on admission. Stable. - The patients left foot ulcer is clinically stable without active symptoms. Afebrile without leukocytosis. - ESR 4 and CRP 0.2. Pro-calcitonin 0.03. - Finished IV Ceftriaxone - Continue with supportive care including pain medications as needed. -Wound care with outpatient follow up with podiatry 4. Diabetes mellitus type II, non-insulin using, with complication of diabetic neuropathy, present on admission. Stable. - Last hemoglobin A1c was 7.1% on 01/18/2017. - Discontinued metformin for now due to lactic acidosis. May restart at time of discharge. - Ordered low-dose correctional scale insulin. - Ordered a heart healthy/carbohydrate consistent diet. 5. Gastroparesis, present on admission. Stable. - Continue metoclopramide 5-10 mg 4 times a day as needed for gastroparesis. 6. Hypertension, present on admission. Stable. - Continue amlodipine 10 mg daily, clonidine 0.2 mg twice a day, furosemide 40 mg twice a day, and metoprolol tartrate 50 mg twice a day. - Continue aspirin 81 mg daily. 7. Anxiety and depression, present on admission. Stable. - Continue venlafaxine 150 mg daily and equivalent to diazepam 10 mg 3 times a day. 8. Chronic back pain with opiate of the duration, present on admission. Stable. - Continue home regimen of morphine sulfate 15 mg twice a day as needed for pain. 9. GERD, present on admission. Stable. - Continue omeprazole 20 mg daily. 10. Insomnia, present on admission. Stable. - Continue trazodone 225 mg daily at bedtime. PRN antiemetics: Zofran and Maalox. PRN bowel regimen: Senna and MiraLAX. PRN analgesics: Tylenol. dispo: likely 1-2days if pain is better controlled. VTE Prophylaxis: Sub-Q Heparin (Unfractionated) Resuscitation Status: CPR: Attempt Resuscitation Time spent 35min Amanuel Rios MD Feb 21, 2017 07:22
--- NOTE | 2017-02-21 15:55 | NUR ---
Shift Note Jimenez was alternately pleasant and at times tearful/overwhelmed. He is still unhappy with his pain medication regime. No new orders regarding pain medication this shift. Was nauseous this morning, wretching, needing zofran and reglan. Wanting to speak with both SW and MD regarding feeling unready/unsafe about going home tomorrow. Continuing therapeutic communication reinforcing positives and Jimenez's coping skills that work for him. Patient VSS.
[2017-02-21] MEDS: TRAZODONE PO SCH ×2 (23:08)
--- NOTE | 2017-02-21 23:10 | NUR ---
IV Infiltrated Rt. forearm IV infiltrated so it was disconnected intact and a 2x2 pressure bandage was applied. A 22g IV was started in the Lt. AC and is patent and flushing well.
[2017-02-22] MEDS: Heparin 5,000 Unit/mL Inj SUBQ SCH ×2 (00:33→09:11)
[2017-02-22 01:16] VITALS: BP 122/72; PULSE 58; RESP 16; O2SAT 95
[2017-02-22] MEDS: Ondansetron 2 mg/mL 2 mL Inj IVPUSH PRN (02:58)
--- NOTE | 2017-02-22 04:36 | NUR ---
Pain and nausea manageable Patients pain and nausea are being managed with MS 15 Mg tab BID and MS 2Mg IV push Q6 for pain and Zofran 4 Mg IV push Q4 with Reglan 10 Mg tab Q6 for nausea. VSS TM
[2017-02-22] MEDS: 0.9% Sodium Chloride 1,000 ML IV SCH ×2 (04:57→14:57)
[2017-02-22] MEDS: Pantoprazole 20 mg ER24 Tablet PO SCH (06:07)
[2017-02-22 06:11] VITALS: BP 148/90; PULSE 69; RESP 16; O2SAT 92
[2017-02-22 06:25] VITALS: PULSE 69
[2017-02-22] MEDS: Insulin LISPRO 300 Unit/3 mL Inj SUBQ SCH ×2 (08:00→12:13)
--- NOTE | 2017-02-22 08:14 | PCM.PNMED ---
Subjective Date of Service Feb 22, 2017 Subjective pt still requiring 2mg morphine iv, almost around the clock. agreed to stop iv and control pain with oral had dry heaving yesterday but later during the day, was okay. denied abd pain this AM, tolerating diet Exam Vital Signs Vital Sign - Last Date Time Temp Pulse Resp B/P Pulse Ox O2 Delivery O2 Flow Rate FiO2 02/22/17 06:25 69 02/22/17 06:11 36.6 16 148/90 92 Room Air Intake and Output 02/21/17 02/21/17 02/22/17 Cumulative From/Thru 15:00 23:00 07:00 02/19/17 11:38 - 02/22/17 06:13 Intake Total 1260 ml 440 ml 250 ml 02062 ml Output Total 720 ml 900 ml 600 ml 6975 ml Balance 540 ml -460 ml -350 ml 5395 ml Intake Oral 960 ml 400 ml 250 ml 4135 ml IV Total 300 ml 40 ml 8235 ml Output Urine Total 720 ml 900 ml 600 ml 6975 ml # Voids 2 2 Exam NAD, comfortably laying down on the bed no JVD, MMM, no LAD RRR, nl s1, s2 no mrg CTAB, no w,c S,ND,mildly tender on LLQ, BS+ warm, no edema, pulses 2/2 IVs and Medications Medications Reviewed: Medications were reviewed in detail Lab and Diagnostics Result Diagram: 02/20/17 0600 02/20/17 06 Microbiology Blood culture 2 pending. . X-Rays, CTs and MRIs CT ABDOMEN AND PELVIS WITH CONTRAST IMPRESSION: 1. Circumferential wall thickening involving the sigmoid colon which could be due to nondistention versus nonspecific colitis. 2. Appendix is not definitely visualized, however secondary signs of appendicitis identified adjacent to the cecum. 3. Colonic diverticulosis without evidence of diverticulitis. 4. Atherosclerosis including the visualized coronary vasculature. Dictated by: Alis More MD, PhD on 02/19/2017 at 14:46 . Assessment & Plan Baljit Cerna is a 66-year-old male with a past medical history significant for chronic low back pain with opiate habituation, diabetes mellitus type II, non-insulin using, with complication of diabetic neuropathy, gastroparesis, neurogenic bladder and diabetic foot ulcer with possible osteomyelitis, anxiety and depression with benzodiazepine dependence, chronic left lower quadrant abdominal pain who presented to [facility] emergency Department due to worsening nausea, vomiting, and left lower quadrant abdominal pain. 1. Colitis, acuity unclear, present on admission. under evalutaiton. Patient presented with nausea, vomiting, diarrhea and left lower quadrant abdominal pain. Afebrile without leukocytosis. Likely secondary to chronic opiate use and opiate-induced constipation with encopresis and gastroparesis CT abdomen and pelvis with contrast demonstrated circumferential wall thickening involving the sigmoid colon which could be due to nondistention versus nonspecific colitis , as above. ESR 4 and CRP 0.2. Pro-calcitonin 0.03. Stool PCR -ve - pt still requiring morphine for pain, will continue supportive care for now, only with PO morphine - Continue home PPI and Carafate. - During a recent hospitalization he had an extensive workup including EGD, HIDA scan, gastric emptying study, and psych evaluation and was supposed to have colonoscopy as outpatient which he did not follow to set up. - GI saw the patient, no further recommendation, FU as outpt. 2. Acute lactic acidosis, present on admission. Resolved - Likely secondary to vomiting and dehydration. - Initial lactic acid 4.2. Now trending down at 2.5 with fluid administration. - Received 3 L of NS. Continue IV fluid hydration with NS at 100 mL/hr. Chronic problems: 3. Chronic left diabetic foot ulcer with possible osteomyelitis, present on admission. Stable. - The patients left foot ulcer is clinically stable without active symptoms. Afebrile without leukocytosis. - ESR 4 and CRP 0.2. Pro-calcitonin 0.03. - Finished IV Ceftriaxone - Continue with supportive care including pain medications as needed. -Wound care with outpatient follow up with podiatry 4. Diabetes mellitus type II, non-insulin using, with complication of diabetic neuropathy, present on admission. Stable. - Last hemoglobin A1c was 7.1% on 01/18/2017. - Discontinued metformin for now due to lactic acidosis. May restart at time of discharge. - Ordered low-dose correctional scale insulin. - Ordered a heart healthy/carbohydrate consistent diet. 5. Gastroparesis, present on admission. Stable. - Continue metoclopramide 5-10 mg 4 times a day as needed for gastroparesis. 6. Hypertension, present on admission. Stable. - Continue amlodipine 10 mg daily, clonidine 0.2 mg twice a day, furosemide 40 mg twice a day, and metoprolol tartrate 50 mg twice a day. - Continue aspirin 81 mg daily. 7. Anxiety and depression, present on admission. Stable. - Continue venlafaxine 150 mg daily and equivalent to diazepam 10 mg 3 times a day. 8. Chronic back pain with opiate of the duration, present on admission. Stable. - Continue home regimen of morphine sulfate 15 mg twice a day as needed for pain. 9. GERD, present on admission. Stable. - Continue omeprazole 20 mg daily. 10. Insomnia, present on admission. Stable. - Continue trazodone 225 mg daily at bedtime. PRN antiemetics: Zofran and Maalox. PRN bowel regimen: Senna and MiraLAX. PRN analgesics: Tylenol. dispo: d/c home likely tomorrow VTE Prophylaxis: Sub-Q Heparin (Unfractionated) Resuscitation Status: CPR: Attempt Resuscitation Time spent 35min Amanuel Rios MD Feb 22, 2017 08:13
[2017-02-22] MEDS: Sucralfate 100 mg/mL 10 mL Suspension PO SCH ×2 (09:10→13:55)
[2017-02-22] MEDS: Venlafaxine XR 75 mg ER24 Capsule PO SCH (09:11)
[2017-02-22 10:24] VITALS: PULSE 62
[2017-02-22 10:31] VITALS: BP 147/82; PULSE 64; RESP 18; O2SAT 94
--- NOTE | 2017-02-22 10:40 | NUR ---
Home Med/Lasix Contacted Dr. Rios with the following cook page: Patient is asking if his Lasix 40mg will be restarted, as he takes this BID at home. Please advise. Thank you. Diane [facility] [place] ext [phone]
[2017-02-22 13:30] VITALS: BP 144/82; PULSE 68; RESP 18; O2SAT 95
--- NOTE | 2017-02-22 13:39 | NUR ---
Anxiety Contacted Dr. Rios with the following cook page: Patient is requesting anxiety medication, stated he is doing better as far as pain, but continues to have significant anxiety. Please advise. Thank you. Diane [facility] ext [phone]
--- NOTE | 2017-02-22 14:50 | PCM.DIMED ---
Discharge Instructions Date of Service Feb 22, 2017 Dates of Hospitalization Feb 19, 2017 at 17:15 Discharge Diagnosis Discharge Diagnosis acute dx nonspecific colitis, multifactorial: Acute lactic acidosis, present on admission. Resolved chronic dx Chronic left diabetic foot ulcer with possible osteomyelitis Diabetes mellitus type II, non-insulin using Gastroparesis, 6. Hypertension, 7. Anxiety and depression, 8. Chronic back pain with opiate of the duration, 9. GERD, present on admission. 10. Insomnia, Medication Instructions Additional med instructions Please continue to take your medication, zofran, metoclopropamide around the clock before you develop symptoms. Diet Discharge Diet: No restrictions, Low fat, Low Sodium Activity Discharge Activity: No restrictions Call your provider Call your provider for: Vomitting, Excessive diarrhea Patient Instructions Patient Instructions You were hospitalized with severe recurrent abdominal pain, ct scan showed some signs of colitis, however, largely unremarkable. Again, it's likely multifactorial that you developed abdominal pain from nerve damages from diabetes, gastroparesis, opioid habituation, psychosomatization as well. Given persistent sx, please follow up with GI doctor in the clinic and primary doctor Follow-up Provider: David Kearney MD Follow-up with PCP in: 1 week Amanuel Rios MD Feb 22, 2017 14:50
--- NOTE | 2017-02-22 15:56 | NUR ---
Discharge Note Patient's IV was discontinued intact at this time. Patient was provided all discharge instructions and information at this time. Patient was given home meds that were previously located in the pharmacy. Patient gathered all belongings and have them ready to transport. Patient asked to tidy up prior to leaving. Patient will be transported via wheelchair once patient is done getting ready for discharge.
--- NOTE | 2017-02-22 16:30 | NUR ---
Discharged Patient was transported via wheelchair to waiting vehicle.
--- NOTE | 2017-02-22 17:38 | NUR ---
Social Work- Discharge Data: EMR reviewed. Pt was discharged today. No SW orders received during this admission. Pt discharged home, transport via POV. Assessment: Pt who is independent at baseline. Plan: Pt discharged home via POV. No d/c needs. TEMI Farfan
--- NOTE | 2017-02-22 17:59 | PCM.DC.MED ---
Discharge Summary Date of Service Feb 22, 2017 Dates of Hospitalization Date of Hospital Admission Feb 19, 2017 at 17:15 Date of Discharge: Feb 22, 2017 Providers: Admitting Physician: Robert Woods MD Primary Care Physician: Elham Mendoza MD Attending Physician: Amanuel Zuñiga MD Diagnosis at Time of Discharge Diagnosis at Time of Discharge acute dx nonspecific colitis, multifactorial: Acute lactic acidosis, present on admission. Resolved chronic dx Chronic left diabetic foot ulcer with possible osteomyelitis Diabetes mellitus type II, non-insulin using Gastroparesis, 6. Hypertension, 7. Anxiety and depression, 8. Chronic back pain with opiate of the duration, 9. GERD, present on admission. 10. Insomnia, Consultations GI Procedures XRay, CTs & MRIs CT ABDOMEN AND PELVIS WITH CONTRAST IMPRESSION: 1. Circumferential wall thickening involving the sigmoid colon which could be due to nondistention versus nonspecific colitis. 2. Appendix is not definitely visualized, however secondary signs of appendicitis identified adjacent to the cecum. 3. Colonic diverticulosis without evidence of diverticulitis. 4. Atherosclerosis including the visualized coronary vasculature. Dictated by: Alis More MD, PhD on 02/19/2017 at 14:46 . Brief History HPI obtained on 02/19 by Baljit Cerna is a 66-year-old male with a past medical history significant for chronic low back pain with opiate habituation, diabetes mellitus type II, non-insulin using, with complication of diabetic neuropathy, gastroparesis, neurogenic bladder and diabetic foot ulcer with possible osteomyelitis, anxiety and depression with benzodiazepine dependence, chronic left lower quadrant abdominal pain who presented to [facility] emergency Department due to worsening nausea, vomiting, and left lower quadrant abdominal pain. The patient was discharged one week ago following an admission for osteomyelitis. He has since been taking oral medications and receiving injections of ceftriaxone. Since discharge, he has been experiencing worsening nausea, vomiting, diarrhea and intermittent LLQ abdominal pain. He also admits to incontinence of stool, which was present before he began taking the antibiotics but has sent worsened. His current symptoms are the same character as those that he has experienced previously but are significantly more severe. He has been vomiting and retching all day and his pain has increased from a + 5 out of 10 to a +8 out of 10 on admission. Patient's left lower quadrant abdominal pain has been extensively worked up with a diagnosis of diabetic gastroparesis. He denies headache, chest pain, shortness of breath, sore throat, cough, fever , chills, dysuria, constipation, obstipation, hematochezia or melena. He does endorse chronic diarrhea. Vital signs in the ER: Temperature 36.1. Pulse 99. Respiratory rate 24. Blood pressure 134/85. Pulse ox 99% on room air. The patient received lorazepam IV 1 mg 1, morphine sulfate IV 4 mg 2, ondansetron IV 8 mg 1 Reglan IV 10 mg 1, haloperidol 2 mg 1, ceftriaxone IV 2 g 1, and 3 L of NS. PCP is Dr. Elham Mendoza. . Hospital Course pt was admitted with recurrent similar symptoms. CT abdomen showed circumferential wall thickening involving the sigmoid colon, likely nonspecific. stool PCR was negative. pt was seen by GI, no further recommendation was given. pt required significant dose of morphine and zofran, reglan combination for persistent abd pain, dry heaving. Given no obvious organic etiologies, no real GI pathology, stable weight, no electrolyte imbalance, it was thought to be multifactorial from his autonomic neuropathy with gastroparesis, but mainly likely psychosomatization given his behaviors. Patient also required valium for his baseline anxiety, discharged on stable condition on 02/22 Baljit Cerna is a 66-year-old male with a past medical history significant for chronic low back pain with opiate habituation, diabetes mellitus type II, non-insulin using, with complication of diabetic neuropathy, gastroparesis, neurogenic bladder and diabetic foot ulcer with possible osteomyelitis, anxiety and depression with benzodiazepine dependence, chronic left lower quadrant abdominal pain who presented to [facility] emergency Department due to worsening nausea, vomiting, and left lower quadrant abdominal pain. 1. Colitis, acuity unclear, present on admission. under evalutaiton. Patient presented with nausea, vomiting, diarrhea and left lower quadrant abdominal pain. Afebrile without leukocytosis. Likely secondary to chronic opiate use and opiate-induced constipation with encopresis and gastroparesis CT abdomen and pelvis with contrast demonstrated circumferential wall thickening involving the sigmoid colon which could be due to nondistention versus nonspecific colitis , as above. ESR 4 and CRP 0.2. Pro-calcitonin 0.03. Stool PCR -ve - pt still requiring morphine for pain, will continue supportive care for now, only with PO morphine - Continue home PPI and Carafate. - During a recent hospitalization he had an extensive workup including EGD, HIDA scan, gastric emptying study, and psych evaluation and was supposed to have colonoscopy as outpatient which he did not follow to set up. - GI saw the patient, no further recommendation, FU as outpt. 2. Acute lactic acidosis, present on admission. Resolved - Likely secondary to vomiting and dehydration. - Initial lactic acid 4.2. Now trending down at 2.5 with fluid administration. - Received 3 L of NS. Continue IV fluid hydration with NS at 100 mL/hr. Chronic problems: 3. Chronic left diabetic foot ulcer with possible osteomyelitis, present on admission. Stable. - The patients left foot ulcer is clinically stable without active symptoms. Afebrile without leukocytosis. - ESR 4 and CRP 0.2. Pro-calcitonin 0.03. - Finished IV Ceftriaxone - Continue with supportive care including pain medications as needed. -Wound care with outpatient follow up with podiatry 4. Diabetes mellitus type II, non-insulin using, with complication of diabetic neuropathy, present on admission. Stable. - Last hemoglobin A1c was 7.1% on 01/18/2017. - Discontinued metformin for now due to lactic acidosis. May restart at time of discharge. - Ordered low-dose correctional scale insulin. - Ordered a heart healthy/carbohydrate consistent diet. 5. Gastroparesis, present on admission. Stable. - Continue metoclopramide 5-10 mg 4 times a day as needed for gastroparesis. 6. Hypertension, present on admission. Stable. - Continue amlodipine 10 mg daily, clonidine 0.2 mg twice a day, furosemide 40 mg twice a day, and metoprolol tartrate 50 mg twice a day. - Continue aspirin 81 mg daily. 7. Anxiety and depression, present on admission. Stable. - Continue venlafaxine 150 mg daily and equivalent to diazepam 10 mg 3 times a day. 8. Chronic back pain with opiate of the duration, present on admission. Stable. - Continue home regimen of morphine sulfate 15 mg twice a day as needed for pain. 9. GERD, present on admission. Stable. - Continue omeprazole 20 mg daily. 10. Insomnia, present on admission. Stable. - Continue trazodone 225 mg daily at bedtime. PRN antiemetics: Zofran and Maalox. PRN bowel regimen: Senna and MiraLAX. PRN analgesics: Tylenol. dispo: d/c home likely tomorrow Exam Vital Signs (Last) Date Time Temp Pulse Resp B/P Pulse Ox O2 Delivery O2 Flow Rate FiO2 02/22/17 13:30 36.9 68 18 144/82 95 Room Air Exam pt was examined on the day of d/c Test 02/19/17 12:25 02/19/17 13:33 02/19/17 22:35 02/20/17 06:00 Erythrocyte Sedimentation Rate 4mm/hr (0-30) Total Bilirubin 0.4mg/dL (0.0-1.2) Aspartate Amino Transf (AST/SGOT) 24U/L (0-50) Alanine Aminotransferase (ALT/SGPT) 29U/L (0-44) Alkaline Phosphatase 86U/L (25-160) C-Reactive Protein 0.2mg/dL (0.0-0.5) Total Protein 7.7g/dL (6.4-8.4) Albumin 4.2g/dL (3.4-5.0) Lipase 27U/L (13-60) Hemoglobin A1c 6.2% (4.8-5.6) Magnesium Level 1.8mg/dL (1.6-2.6) Procalcitonin 0.03ng/mL (0.00-0.08) Lactic Acid Level 1.7mmol/L (0.4-2.0) White Blood Count 5.8th/mm3 (3.8-10.1) Red Blood Count 4.49mil/mm3 (4.40-5.80) Hemoglobin 12.8g/dL (13.8-17.2) Hematocrit 36.8% (41.0-50.0) Mean Corpuscular Volume 82.0fL (81-100) Mean Corpuscular Hemoglobin 28.5pg (27.0-35.0) Mean Corpuscular Hemoglobin Concent 34.8% (32.0-37.0) Red Cell Distribution Width 15.2% (12.3-15.4) Platelet Count 178bil/L (150-400) Neutrophils (%) (Auto) 60.0% (40-74) Lymphocytes (%) (Auto) 21.9% (14-46) Monocytes (%) (Auto) 12.9% (4-12) Eosinophils (%) (Auto) 4.5% (0-5) Basophils (%) (Auto) 0.5% (0-3) Sodium Level 142mEq/L (134-144) Potassium Level 4.1mEq/L (3.5-5.2) Chloride Level 106mEq/L (97-108) Carbon Dioxide Level 23mmol/L (18-29) Blood Urea Nitrogen 12mg/dL (8-27) Creatinine 0.79mg/dL (0.76-1.27) Estimat Glomerular Filtration Rate 105mL/min (>59) Glucose Level 89mg/dL (60-99) Calcium Level 8.1mg/dL (8.5-10.1) Microbiology Results Blood culture 2 pending. . Discharge Medications Discharge Medications Amlodipine (Amlodipine) 10 Mg Tablet 10 MG PO QAM (Reported) Aspirin (Aspirin) 81 Mg Tablet 81 MG PO QAM (Reported) Clonidine (Clonidine) 0.2 Mg Tablet 0.2 MG PO BIDBL (Reported) morning and ronnie afternoon Diazepam (Diazepam) 10 Mg Tablet 10 MG PO TID (Reported) Furosemide (Furosemide) 40 Mg Tablet 40 MG PO BID (Reported) Metformin (Metformin) 500 Mg Tablet 500 MG PO TIDWM (Reported) Metoprolol Tartrate (Metoprolol Tartrate) 50 Mg Tablet 50 MG PO BID (Reported) Nut.tx.gluc.intoler,Lac-Fr,Soy (Glucerna Therapeutic Nutrition) 237 Ml Liquid 237 ML PO QID (Reported) Omeprazole (Omeprazole) 20 Mg Capsule.dr 20 MG PO DAILY (Reported) Ondansetron ODT (Ondansetron ODT) 8 Mg Tab.rapdis 8 MG PO QID Prescribed by: AMANUEL ZUÑIGA MD Sucralfate Susp (Carafate Susp) 1 Gm/10 Ml Oral.susp 1 G PO TID (Reported) Trazodone (Trazodone) 150 Mg Tablet 225 MG PO HS (Reported) Venlafaxine ER (Venlafaxine ER) 150 Mg Cap.er.24h 150 MG PO QAM (Reported) As needed Bismuth Subsalicylate (Pepto-Bismol) 262 Mg Tab.chew 262 MG PO PRN PRN PRN For Dyspepsia or Heartburn (Reported) Metoclopramide (Metoclopramide) 10 Mg Tablet 5-10 MG PO QID PRN PRN For Nausea ( Reported) Morphine Sulfate (Morphine Sulfate) 15 Mg Tablet 15 MG PO BID PRN PRN BACK PAIN (Reported) Additional med instructions Please continue to take your medication, zofran, metoclopropamide around the clock before you develop symptoms. Followup Plan Disposition: home Discharge Diet: No restrictions, Low fat, Low Sodium Discharge Activity: No restrictions Patient Instructions You were hospitalized with severe recurrent abdominal pain, ct scan showed some signs of colitis, however, largely unremarkable. Again, it's likely multifactorial that you developed abdominal pain from nerve damages from diabetes, gastroparesis, opioid habituation, psychosomatization as well. Given persistent sx, please follow up with GI doctor in the clinic and primary doctor Follow-up Provider: David Kearney MD Follow-up with PCP in: 1 week Time spent 65min Amanuel Zuñiga MD Feb 22, 2017 17:59
== END 2017-02-22 16:30 | disposition home or self-care (01) ==
LOC: SED 11:31 → MOC 17:15
PROVIDERS: ADMIT Internal Medicine; ATTEND Internal Medicine
DX: K52.9 Noninfective gastroenteritis and colitis, unspecified (principal); E87.2 Acidosis; E11.43 Type 2 diabetes mellitus with diabetic autonomic (poly)neuropathy; K31.84 Gastroparesis; N31.8 Other neuromuscular dysfunction of bladder; E11.42 Type 2 diabetes mellitus with diabetic polyneuropathy; E11.621 Type 2 diabetes mellitus with foot ulcer; L97.529 Non-pressure chronic ulcer of other part of left foot with unspecified severity; F11.20 Opioid dependence, uncomplicated; F19.20 Other psychoactive substance dependence, uncomplicated; R15.9 Full incontinence of feces; M51.36 Other intervertebral disc degeneration, lumbar region; F41.8 Other specified anxiety disorders; I25.10 Atherosclerotic heart disease of native coronary artery without angina pectoris; E78.5 Hyperlipidemia, unspecified; I10 Essential (primary) hypertension; M54.5 Low back pain; G89.29 Other chronic pain; F32.9 Major depressive disorder, single episode, unspecified; K21.9 Gastro-esophageal reflux disease without esophagitis; G47.00 Insomnia, unspecified; Z79.82 Long term (current) use of aspirin; Z79.84 Long term (current) use of oral hypoglycemic drugs
CPT/HCPCS: 36415; 74177; 80048; 80053; 83036; 83605; 83690; 83735; 84145; 85025; 85651; 86140; 87040; 87507; 96361; 96365; 96366; 96372; 96375; 96376; 97602; 99285; G0378; J0696; J1630; J1644; J1815; J2060; J2270; J2405; J2765; J7030; Q9967